=== PATIENT | female | born 1970 | race Caucasian/White ===

== ENCOUNTER 2017-12-28 08:45 | Emergency (ER) | payer MEDICAID, SELFPAY ==
[2017-12-28 08:48] VITALS: BP 136/84; PULSE 60; RESP 18; TEMP 36.6; O2SAT 100; BMI 43.0
--- NOTE | 2017-12-28 09:00 | ED.VISSUMM ---
- ER Visit Summary Date of Service: 12/28/17 Chief Complaint: Atraumatic right lower leg wound History of Present Illness: The patient is a 47 F years ago and injured her right lower leg. From time to time has recurrence of an open sore. Patient states that she has varicose veins and sometimes poor circulation in the lower extremity. She states she has been working and stands a lot during the day and over the last month has had a sore open up on her mid lower leg. She denies any drainage or fever. There is redness and is painful. She denies any pus. Physical Examination: H EENT is unremarkable. Neck nontender. Lungs clear to auscultation bilaterally. Heart regular rate and rhythm no murmur. Abdomen is obese but soft and nontender. Normal bowel sounds. She is moving all 4 extremities. They are neurovascularly intact. She has varicose veins in both lower extremities. She has equal symmetrical palpable DP pulses. Dorsi and plantar flexion is intact. Her right lower leg in the mid tibia region there is a quarter sized wound. Surrounded with about 1-2 inches of redness. It is tender to palpation. There is no lymphangitic streaking. At this time currently there is no discharge and the wound appears to be dry. Calves are nontender without cords. No edema. Neurologically she is awake and alert moving all Test Results: Patient's blood sugar is Emergency Department Course and Treatment: [] Treatment Plan: She will be placed on Keflex 500 mg 4 times daily for 10 days. She has no primary care physician is new to the area. She will be referred to both the [facility] or Dr. Isai Cruz which are when she can get into easier. Disposition: Discharge Impression: Acute right lower leg skin sore Venous insufficiency This note was generated with [employer] dictation software. It may contain incorrect words, spelling, and punctuation that were not noted in review of the chart prior to signing ED Disposition - Plan for ED Patient: Chief Complaint: Lower Extremity Injury
--- NOTE | 2017-12-28 09:03 | ED.DEP ---
ED Disposition - Plan for ED Patient: Disposition: Home or Assisted Living Chief Complaint: Lower Extremity Injury Instructions: Wound Care Prescriptions: Cephalexin [Keflex] 500 mg PO Q6 #40 cap Referrals: Dianelys Hu [NON-STAFF] - As soon as possible José Luis Cruz MD [STAFF PHYSICIAN] - As soon as possible Additional Instructions: Keflex which is an antibiotic 1 pill 4 times a day till gone. Keep wound clean. Call follow-up with either the [facility] or Dr. Isai Cruz.
[2017-12-28 09:31] LABS: Bedside Glucose 96 mg/dL (70-110)
[2017-12-28 09:48] VITALS: BP 119/74; PULSE 59; RESP 16; O2SAT 98
== END 2017-12-28 09:48 | disposition home or self-care (01) ==
LOC: ED 09:26
PROVIDERS: Emergency Provider Emergency Medicine
DX: L98.9 Disorder of the skin and subcutaneous tissue, unspecified (principal); I87.2 Venous insufficiency (chronic) (peripheral); I87.8 Other specified disorders of veins
CPT/HCPCS: 82962; 99283

== ENCOUNTER 2018-02-02 10:25 | Outpatient (RCR) | payer MEDICAID, SELFPAY | END 2018-02-05 23:59 | LOC: WC 10:25 | PROVIDERS: Family Provider Internal Medicine; PCP Internal Medicine; Visit Provider Internal Medicine | DX: Z09 Encounter for follow-up examination after completed treatment for conditions other than malignant neoplasm (principal) ==

== ENCOUNTER 2018-02-09 08:00 | Outpatient (RCR) | payer MEDICAID, SELFPAY ==
[2018-02-09 08:32] VITALS: BP 117/63; PULSE 77; RESP 18; TEMP 36.4; BMI 38.2
--- NOTE | 2018-02-09 09:18 | PCM.WC.HP ---
(1) Ulcer of right lower extremity with fat layer exposed Status: Acute Current Visit: Yes Code(s): L97.912 - Non-pressure chronic ulcer of unspecified part of right lower leg with fat layer exposed (2) Pain in right lower leg Status: Acute Current Visit: Yes Code(s): M79.661 - Pain in right lower leg (3) Lower extremity edema Status: Acute Current Visit: Yes Code(s): R60.0 - Localized edema (4) PVD (peripheral vascular disease) Status: Suspected Current Visit: Yes Code(s): I73.9 - Peripheral vascular disease, unspecified (5) Malnutrition Status: Acute Current Visit: Yes Code(s): E46 - Unspecified protein-calorie malnutrition (6) Delayed wound healing Status: Acute Current Visit: Yes Code(s): T14.8XXD - Other injury of unspecified body region, subsequent encounter (7) Obesity Status: Acute Current Visit: Yes Code(s): E66.9 - Obesity, unspecified History of Present Illness Chief Complaint: right lower leg ulcer History of Wound: This 47-year-old female was referred to the wound healing center for a chronic nonhealing right lower extremity ulcer. She says she injured the approximate area about 20 years ago when she bumped it on an air conditioner she is since healed. She recently moved up from [place] with her autistic son. She has a job at [employer] where she stands on her feet all day and she says that about 4 months ago she noticed her legs slightly swelling and the ulcer started to form. She says this is stated about the same for the last few months. She denies any pus to the area. She does admit to starting a few different prescriptions for antibiotics, but admits that she does not always remember to take them and has not finished the prescriptions. She has also been seeing internal medicine at [facility] for this issue and they have been having the patient placed Santyl over the area. She says that she has not been applying the Santyl as she is supposed to on a daily basis and says that she has been somewhat noncompliant in her treatment so far because she is so busy with her autistic son. She has already had to leave to previous appointments. Patient also says she has bad mesh in her abdomen that was placed previously for an umbilical hernia and she is also seeing another doctor later on today for this issue. She currently denies any feelings of nausea, vomiting, fever, chills. Past Medical History Allergies/Adverse Reactions: Allergies naproxen [From Aleve] Allergy (Verified 12/28/17 08:50) Shortness of breath Home Medications: Ambulatory Orders Medication Instructions Recorded Cephalexin [Keflex] 500 mg PO Q6 #40 cap 12/28/17 Smoking Status: Never smoker Review of Systems Constitutional: Denies: Chills, Fever, Weight Change Cardiovascular: Denies: Chest Pain, Palpitations Respiratory: Denies: Cough, Shortness of Breath Gastrointestinal: Denies: Diarrhea, Nausea, Vomiting Musculoskeletal: Reports: Leg Pain Skin: Reports: - - Physical Exam Vital Signs Temp Pulse Resp BP 97.5 F L 77 18 117/63 02/09/18 08:32 02/09/18 08:32 02/09/18 08:32 02/09/18 08:32 General: Alert, Oriented x3, Cooperative, No apparent distress Extremities: No cyanosis, Capillary Refill Less than 3 Seconds - To distal digits, No Calf Tenderness - Negative Sherice and Trotter sign, Diminished Peripheral Pulses - Palpable DP pulse and faintly palpable PT pulse, Edema - Bilateral lower extremity edema Skin: Ulcer/ Wound - Ulcer noted with fat layer exposed to the right lower leg with measurements noted below. The base is a mixture of adherent slough, fibrin, granular tissue, hyperkeratotic tissue/eschar. There is no purulence, no significant surrounding cellulitis, no increase in warmth, no probing to bone, no tracking, no undermining. Wound Measurements and Assessment WC - Nurse 1 - General Ulcer Measurement Start: 02/08/18 15:20 Freq: Status: Active Protocol: Activity Type Activity Date Activity User E-Sign Co-Sign Detail Recorded Client Recorded Date Recorded By Document 02/09/18 08:32 [id number] 02/09/18 08:40 02/09/18 08:32 Wound Center Nurse 1 [Ulcer Assessment] #1 RIGHT SIMON -Combined with other wound No -Current Size (cm) - Length 1.7 -Current Size (cm) - Width 2.6 -Current Size (cm) - Depth 0.1 -Total Square Cm 4.42 -Date of Last Picture (Recall this 02/09/18 field) -Photo Taken Yes -Epithelialization None Present -Tunneling No -Undermining/Tunneling No -Circular Undermining No -Exudate Amt None Present (0 %) -Wound Margin Thickened -Granulation Amt None Present (0 %) -Granulation Quality N/A -Slough/Fibrin No -Necrosis Amt None Present (0 %) -Necrotic Tissue Type Eschar -Structure Exposed None/Limited to Skin Breakdown -Texture (Sugar-wound Skin Appearance) Localized Edema -Moisture (Sugar-wound Skin Appearance No Abnormality ) Assessed -Color (Sugar-wound Skin Appearance) Assessed Erythema -Temperature (Sugar-wound Skin No Abnormality Appearance) (Pt Warm) -Tenderness on Palpation (Sugar-wound Yes Skin Appearance) -Ulcer Cleansing Rinsed/ Irrigated with Saline -Foul Odor after Cleansing No -Anesthetic Used 4% Lidocaine Solution [Edema Assessment] -Lower Limb Edema Present No -Right Calf (cm) 44.5 -Right Ankle (cm) 25 -Left Calf (cm) 46 -Left Ankle (cm) 24 WC - Nurse 2 - General Ulcer CM Notes Start: 02/08/18 15:20 Freq: Status: Active Protocol: Activity Type Activity Date Activity User E-Sign Co-Sign Detail Recorded Client Recorded Date Recorded By Document 02/09/18 09:05 DV [id number] 02/09/18 09:14 DV 02/09/18 09:05 Wound Center Nurse 2 [Procedure/Treatment] #1 RIGHT SIMON -Time 09:05 -Correct Patient Yes -Correct Side, Site, Position Yes -Correct Procedure Yes -Procedure Performed Yes -Type of Procedure Debridement -Clinical Debridement Subcutaneous -Post Debridement Size (cm) - Length 1.6 -Post Debridement Size (cm) - Width 2.5 -Post Debridement Size (cm) - Depth 0.2 -Total Square Cm 4.00 -Wound/Ulcer Outcome Not Healed -Ulcer Cleansing Rinsed/ Irrigated with Saline -Foul Odor after Cleansing No -Bioengineered Tissue No -Bleeding Controlled with Pressure -Treatment Response Procedure Tolerated Well [See Physician Procedure note for Specifics] Pain Scale: 0-10 Numeric [Pain] -Is Patient Pain Free? No Musculoskeletal: Tenderness - With manipulation of ulcer site Neurological: Sensory exam intact to light touch and pain Psych/Mental Status: Normal Affect, Appropriate Debridement Note Post-Debridement Measurements/Treatment WC - Nurse 2 - General Ulcer CM Notes Start: 10/03/18 15:20 Freq: Status: Active Protocol: Activity Type Activity Date Activity User E-Sign Co-Sign Detail Recorded Client Recorded Date Recorded By Document 02/09/18 09:05 DV [id number] 02/09/18 09:14 DV 02/09/18 09:05 Wound Center Nurse 2 #1 RIGHT SIMON -Time 09:05 -Correct Patient Yes -Correct Side, Site, Position Yes -Correct Procedure Yes -Procedure Performed Yes -Type of Procedure Debridement -Clinical Debridement Subcutaneous -Post Debridement Size (cm) - Length 1.6 -Post Debridement Size (cm) - Width 2.5 -Post Debridement Size (cm) - Depth 0.2 -Total Square Cm 4.00 -Wound/Ulcer Outcome Not Healed -Ulcer Cleansing Rinsed/ Irrigated with Saline -Foul Odor after Cleansing No -Bioengineered Tissue No -Bleeding Controlled with Pressure -Treatment Response Procedure Tolerated Well Pain Scale: 0-10 Numeric Is Patient Pain Free? No Wound debrided: Right lower leg Laterality: Right Type of Debridement: Excisional debridement Anesthesia Used: 4% Lidocaine Solution Depth: in the subcutaneous layer Percentage of wound debrided: 100 Instrument Used: 5mm curette Tissue Removed: Adherent slough, fibrin, hyperkeratotic tissue, eschar Severity: Fat Layer Exposed Amount of bleeding with debridement: Mild Bleeding Controlled with: Pressure Patient tolerated procedure well Assessment/Plan Active Problems Ulcer of right lower extremity with fat layer exposed (Acute) Pain in right lower leg (Acute) Lower extremity edema (Acute) Malnutrition (Acute) Delayed wound healing (Acute) Obesity (Acute) Assessment: Ulcer right lower extremity. Pain right lower extremity. Edema right lower extremity. Obesity. Other comorbidities Plan: Initial patient examination and evaluation was performed. A subcutaneous debridement was then performed as noted in the clinical panel. Once complete, Santyl was applied to the ulcer base followed by a sterile dressing and Tubigrip for compression. Patient was instructed to change her dressing in this manner daily. She was shown exactly the correct way to apply the the dressing as well as the Santyl. The importance of compliance was stressed in great detail today to the patient, including the importance of changing her dressing daily as well as keeping compression to the areas, and why this is so important. She was instructed to keep the area offloaded and keep pressure away from the area while its healing. Patient is picking up an antibiotic from her internal medicine doctor and will begin taking that today. Cultures were taken and sent for aerobic, anaerobic, and MRSA PCR evaluation. We will monitor for these results and tailor the patient's antibiotic as needed. Patient says she recently had blood work taken at the [facility] and we will have this faxed over to the wound center and evaluate. LEAS and venous Doppler exams were ordered and the results will be reviewed once they are made available. Dressing supplies were ordered for this patient. I recommend a diet high in protein to help optimize ulcer healing potential. The patient was educated on all signs and symptoms of local and systemic infection and she is to go to the emergency room immediately should she notice any of these. This patient has been noncompliant in the past and compliance was again stressed today with this patient. All other questions were answered to the patient's satisfaction. The patient will follow-up in clinic in 1 week to check on progress, or sooner if needed.
[2018-02-09 19:18] LABS: M R Staph aureus DNA By PCR Negative (Negative); Probe Check PASS; Specimen Processing Control PASS; Staph aureus DNA By PCR NEGATIVE (Negative)
== END 2018-03-08 23:59 ==
LOC: WC 08:00
PROVIDERS: Internal Medicine; Family Provider Internal Medicine; PCP Internal Medicine; Visit Provider Podiatrist
DX: I73.9 Peripheral vascular disease, unspecified (principal); R60.0 Localized edema; L97.812 Non-pressure chronic ulcer of other part of right lower leg with fat layer exposed; E66.9 Obesity, unspecified; Z71.3 Dietary counseling and surveillance; M79.89 Other specified soft tissue disorders; Z91.19 Patient's noncompliance with other medical treatment and regimen
CPT/HCPCS: 11042; 87070; 87075; 87077; 87186; 87205; 87640; 99213; G0463

== ENCOUNTER 2018-05-16 11:16 | Emergency (ER) | payer MEDICAID, SELFPAY ==
[2018-05-16 11:16] VITALS: BP 165/108; PULSE 78; RESP 16; TEMP 36.1; O2SAT 100; BMI 43.0
--- NOTE | 2018-05-16 11:37 | ED.VISSUMM ---
- ER Visit Summary Date of Service: 05/16/18 Chief Complaint: Wound check History of Present Illness: The patient is a 47 F with a chronic right lower extremity wound, she has seen the wound clinic, she is presenting with worsening redness around the wound. No diabetes no fever chills no other infection. Pain is minimal. Physical Examination: Otherwise unremarkable exam see template. Lower extremity shows a 5 cm wound with a scab over it. There is very slight surrounding erythema. No lymphangitic streaking. No calf tenderness. Emergency Department Course and Treatment: [Patient will be placed on clindamycin and followed up with wound center. Disposition: Discharge stable condition Impression: Right lower extremity cellulitis This note was generated with [employer] dictation software. It may contain incorrect words, spelling, and punctuation that were not noted in review of the chart prior to signing ED Disposition - Plan for ED Patient: Disposition: Home or Assisted Living Chief Complaint: Lower Extremity Injury Instructions: Cellulitis - Causes,Symptoms,Treating Prescriptions: Clindamycin [Cleocin] 150 mg PO 4X/DAY #80 cap Referrals: Belle Lara MD [Primary Care Provider] -
--- NOTE | 2018-05-16 11:40 | ED.DCSUM_ITS ---
- ER Visit Summary Date of Service: 05/16/18 Chief Complaint: Wound check History of Present Illness: The patient is a 47 F with a chronic right lower extremity wound, she has seen the wound clinic, she is presenting with worsening redness around the wound. No diabetes no fever chills no other infection. Pain is minimal. Physical Examination: Otherwise unremarkable exam see template. Lower extremity shows a 5 cm wound with a scab over it. There is very slight surrounding erythema. No lymphangitic streaking. No calf tenderness. Emergency Department Course and Treatment: [Patient will be placed on clindamycin and followed up with wound center. Disposition: Discharge stable condition Impression: Right lower extremity cellulitis This note was generated with [employer] dictation software. It may contain incorrect words, spelling, and punctuation that were not noted in review of the chart prior to signing ED Disposition - Plan for ED Patient: Disposition: Home or Assisted Living Chief Complaint: Lower Extremity Injury Instructions: Cellulitis - Causes,Symptoms,Treating Prescriptions: Clindamycin [Cleocin] 150 mg PO 4X/DAY #80 cap Referrals: Belle Lara MD [Primary Care Provider] -
[2018-05-16] MEDS: Clindamycin HCl 150 MG Capsule 300 MG PO (11:53)
== END 2018-05-16 12:02 | disposition home or self-care (01) ==
LOC: ED 11:46
PROVIDERS: Emergency Provider Emergency Medicine; Family Provider Internal Medicine; PCP Internal Medicine
DX: L03.115 Cellulitis of right lower limb (principal)
CPT/HCPCS: 99283

== ENCOUNTER 2018-08-19 16:48 | Emergency (ER) | payer MEDICAID, SELFPAY ==
[2018-08-19 16:50] VITALS: BP 159/66; PULSE 91; RESP 16; TEMP 36.8; O2SAT 98; BMI 47.1
--- NOTE | 2018-08-19 17:01 | ED.VIS.GEN ---
History of Present Illness Chief Complaint: Wound Check Past Medical History - Allergies and Home Meds Allergies/Adverse Reactions: Allergies naproxen [From Aleve] Allergy (Verified 08/19/18 16:52) Shortness of breath Primary Care Physician: Belle Lara MD [Primary Care Provider] - Smoking Status: Former smoker Physical Exam Vital Signs/Narrative: Vital Signs Temp Pulse Resp BP Pulse Ox 08/19/18 16:50 98.2 F 91 16 159/66 H 98 ED Disposition - Plan for ED Patient: Referrals: Belle Lara MD [Primary Care Provider] -
--- NOTE | 2018-08-19 17:01 | ED.DEP ---
ED Disposition - Plan for ED Patient: Instructions: ED Burn Wound Check No Infec Prescriptions: Naproxen [Naprosyn] 500 mg PO BID PRN #20 tab Referrals: Belle Lara MD [Primary Care Provider] -
--- NOTE | 2018-08-19 17:03 | ED.VISSUMM ---
- ER Visit Summary Date of Service: 08/19/18 Chief Complaint: [] Chronic wound right leg for possibly a year History of Present Illness: The patient is a 47 F [] a chronic wound to the right anterior poon for over 10 months possibly a year she has been seen this multiple times including at the [facility] wound care center she indicates she had some type of conflict with them so she cannot be seen there she then stopped following up with anyone, then she recently saw her primary care physicians outpatient providers who started her on Keflex and feqm-jib-jwaunco pain medication medications made her plan to be seen by the [facility] wound care center on Tuesday, there is really been no change in the wound it is about a 2 cm circular diameter area she is taking the Keflex she has no known history of DVT peripheral vascular disease or MR MRSA, she does have a large body habitus and chronic lower extremity edema that she indicates has been complicating her wound healing, the initial wound developed when she bumped her leg and suffered laceration or abrasion She also indicates to me that she is tired of going to the doctors she does not really want anybody to touch the wound she does not really want any specific therapy it is almost as if she would wish the wound would heal on its own and I explained her that is unlikely and to date that has not happened So basically the wound is unchanged for many months she is taking antibiotics she is dissatisfied with the pain control her physicians prescribed for her when she saw them recently which include only lrhs-gxa-flfzyih medications and she wants something stronger, I explained her that given she has multiple outpatient providers the emergency department can really not change her pain management options, Physical Examination: [] Vital signs are within normal range she is afebrile General, no distress resting comfortably BMI almost 50 HEENT is generally unremarkable The neck is supple no adenopathy Cardiovascular, regular rate and rhythm Lungs, clear bilateral Abdomen, soft nontender Extremities, bi edema mild to the right lower leg is a 2 cm circular area to the lower poon that has some granulation tissue to it there is minimal surrounding redness that she states is on change is no drainage or odor there is no crepitance or fluctuance, the edema is symmetric in bilateral there is no signs of neurovascular abnormality or deficiency her blood flow to both lower extremities appears normal and symmetric with good capillary refill Neurologic, awake alert answering questions appropriately moving all 4 extremities Test Results: [] Emergency Department Course and Treatment: [] Had a long conversation with her and I have been able to ascertain that this wound is really unchanged she has not followed up as instructed, she simply wants her pain management updated, at this time she will given Toradol IM one [place] tablet will change her to Naprosyn 500 twice daily and she will see the wound management team at [facility] for further options regarding her care and pain management, I explained to the given the chronic nature of this wound she may require things such as skin grafting etc. and she can not simply continue to ignore the wound Treatment Plan: [] Disposition: [] Stable home Impression: [] Acute recurrent pain, chronic right lower extremity wound with poor healing noncompliance This note was generated with [employer] dictation software. It may contain incorrect words, spelling, and punctuation that were not noted in review of the chart prior to signing ED Disposition - Plan for ED Patient: Instructions: ED Burn Wound Check No Infec Prescriptions: Naproxen [Naprosyn] 500 mg PO BID PRN #20 tab Referrals: Belle Lara MD [Primary Care Provider] -
--- NOTE | 2018-08-19 17:08 | ED.DCSUM_ITS ---
- ER Visit Summary Date of Service: 08/19/18 Chief Complaint: [] Chronic wound right leg for possibly a year History of Present Illness: The patient is a 47 F [] a chronic wound to the right anterior poon for over 10 months possibly a year she has been seen this multiple times including at the [facility] wound care center she indicates she had some type of conflict with them so she cannot be seen there she then stopped following up with anyone, then she recently saw her primary care physicians outpatient providers who started her on Keflex and zrrs-lqi-[id number] pain medication medications made her plan to be seen by the [facility] wound care center on Tuesday, there is really been no change in the wound it is about a 2 cm circular diameter area she is taking the Keflex she has no known history of DVT peripheral vascular disease or MR MRSA, she does have a large body habitus and chronic lower extremity edema that she indicates has been complicating her wound healing, the initial wound developed when she bumped her leg and suffered laceration or abrasion She also indicates to me that she is tired of going to the doctors she does not really want anybody to touch the wound she does not really want any specific therapy it is almost as if she would wish the wound would heal on its own and I explained her that is unlikely and to date that has not happened So basically the wound is unchanged for many months she is taking antibiotics she is dissatisfied with the pain control her physicians prescribed for her when she saw them recently which include only ujcy-ecc-xugjmpu medications and she wants something stronger, I explained her that given she has multiple outpatient providers the emergency department can really not change her pain management options, Physical Examination: [] Vital signs are within normal range she is afebrile General, no distress resting comfortably BMI almost 50 HEENT is generally unremarkable The neck is supple no adenopathy Cardiovascular, regular rate and rhythm Lungs, clear bilateral Abdomen, soft nontender Extremities, bi edema mild to the right lower leg is a 2 cm circular area to the lower poon that has some granulation tissue to it there is minimal surrounding redness that she states is on change is no drainage or odor there is no crepitance or fluctuance, the edema is symmetric in bilateral there is no signs of neurovascular abnormality or deficiency her blood flow to both lower extremities appears normal and symmetric with good capillary refill Neurologic, awake alert answering questions appropriately moving all 4 extremities Test Results: [] Emergency Department Course and Treatment: [] Had a long conversation with her and I have been able to ascertain that this wound is really unchanged she has not followed up as instructed, she simply wants her pain management updated, at this time she will given Toradol IM one [place] tablet will change her to Naprosyn 500 twice daily and she will see the wound management team at [facility] for further options regarding her care and pain management, I explained to the given the chronic nature of this wound she may require things such as skin grafting etc. and she can not simply continue to ignore the wound Treatment Plan: [] Disposition: [] Stable home Impression: [] Acute recurrent pain, chronic right lower extremity wound with poor healing noncompliance This note was generated with [employer] dictation software. It may contain incorrect words, spelling, and punctuation that were not noted in review of the chart prior to signing ED Disposition - Plan for ED Patient: Instructions: ED Burn Wound Check No Infec Prescriptions: Naproxen [Naprosyn] 500 mg PO BID PRN #20 tab Referrals: Belle Lara MD [Primary Care Provider] -
[2018-08-19] MEDS: HYDROcodone Bitartrate/Apap 5/325 Tablet PO (17:13)
--- NOTE | 2018-08-19 17:13 | ED.DEP ---
ED Disposition - Plan for ED Patient: Instructions: ED Burn Wound Check No Infec Referrals: Belle Lara MD [Primary Care Provider] -
--- NOTE | 2018-08-19 17:31 | ED.RN ---
DISCHARGE INSTRUCTIONS GIVEN TO AND REVIEWED WITH PATIENT, PATIENT DENIES QUESTIONS OR CONCERNS AND VOICES UNDERSTANDING OF DISCHARGE INSTRUCTIONS. PT AMBULATES OUT OF ROOM WITHOUT DIFFICULTY.
== END 2018-08-19 17:31 | disposition home or self-care (01) ==
LOC: ED 17:05
PROVIDERS: Emergency Provider Emergency Medicine; Family Provider Internal Medicine; PCP Internal Medicine
DX: S81.801A Unspecified open wound, right lower leg, initial encounter (principal); M79.661 Pain in right lower leg; E66.9 Obesity, unspecified; Z91.19 Patient's noncompliance with other medical treatment and regimen; Z68.43 Body mass index [BMI] 50.0-59.9, adult; Z79.2 Long term (current) use of antibiotics; X58.XXXA Exposure to other specified factors, initial encounter; Y93.9 Activity, unspecified; Y92.89 Other specified places as the place of occurrence of the external cause; Y99.8 Other external cause status
CPT/HCPCS: 99283

== ENCOUNTER 2019-01-28 14:30 | Emergency (ER) | payer MEDICAID, SELFPAY ==
[2019-01-28 14:31] VITALS: BP 143/78; PULSE 89; RESP 16; TEMP 36.7; O2SAT 98; BMI 46.1
[2019-01-28 15:13] VITALS: BP 143/78; PULSE 89; RESP 16; TEMP 36.7; O2SAT 98
[2019-01-28] MEDS: HYDROcodone Bitartrate/Apap 5/325 Tablet PO (15:50)
[2019-01-28 17:10] LABS: Bedside Glucose 81 mg/dL (70-110)
--- NOTE | 2019-01-28 17:11 | ED.VIS.GEN ---
History of Present Illness Informant: Patient Onset: - - ONE YEAR Context: Gradual Onset Timing: Continuous Current Severity: Moderate Maximum Severity: Moderate Worsened by: Nothing Relieved by: Nothing Associated Symptoms: Denies fever or chills. She has developed new wounds to her buttock, lEFT Narrative: Babita is a 48-year-old female has a chronic venous stasis ulcer to right lower extremity for over 1 year. She is not been seeing wound care for some time. She developed 2 new lesions near that become red and swollen. She has a 3 cm cutaneous abscess to her right lateral thigh with surrounding cellulitis. There is a tiny less than half a centimeter developing cutaneous abscess to her right buttock that is not fluctuant. There is minimal surrounding inflammation and induration. On her right ring finger there is a minimally developing paronychial infection. There is no evidence of felon. She describes a recent intra-nasal pimple that was irritated but has resolved. She denies fever chills or feeling ill. Prior similar symptoms: Yes Recent Illness/Hospitalization: No <Gala Grayson - Last Filed: 01/28/19 17:11> <Ashley Hill - Last Filed: 01/29/19 01:08> Chief Complaint: Wound Check Past Medical History Prior records reviewed: Yes Past Medical History: - - Chronic venous stasis Surgical History: no surgical history Lives: With Family Smoking Status: Never smoker Alcohol: None Drugs: None <Gala Grayson - Last Filed: 01/28/19 17:11> <Ashley Hill - Last Filed: 01/29/19 01:08> - Allergies and Home Meds Allergies/Adverse Reactions: Allergies naproxen [From Aleve] Allergy (Verified 01/28/19 14:35) Shortness of breath Primary Care Physician: Belle Lara MD [Primary Care Provider] - Review of Systems All systems negative except as indicated General: Denies: Chills, Fever Eyes: Denies: Visual changes - bilaterally, Blurred Vision - bilaterally ENT: Denies: Bilateral ear pain, Rhinorrhea, Sore throat Cardiovascular: Denies: Chest pain, Palpitations, Heart racing Respiratory: Denies: Dyspnea, Cough, Sputum Gastrointestinal: Denies: Nausea, Vomiting Genitourinary: Denies: Dysuria, Hematuria Musculoskeletal: Denies: Myalgias, Arthralgias Skin: Reports: Abscess. Denies: Rash, Abrasions Neurological: Denies: Headache, Weakness, Parasthesia <Gala Grayson - Last Filed: 01/28/19 17:11> Physical Exam Vital Signs/Narrative: Vital Signs Temp Pulse Resp BP Pulse Ox 01/28/19 15:13 98.1 F 89 16 143/78 H 98 01/28/19 14:31 98.1 F 89 16 143/78 H 98 Inital Vital Signs reviewed: Yes General: Well nourished, Well developed Head: Normocephalic, Atraumatic Eyes: Perrl, EOMI. Negative for: Pale conjunctiva ENT: Moist mucous membranes, No rhinorrhea, - - No evidence of intranasal abscess Neck: Supple, Nontender, No lymphadenopathy Cardiovascular: Regular rate, Regular rhythm, No murmurs Respiratory: No distress, CTA bilaterally, Chest nontender Abdomen: Soft, Nontender, Nondistended Back: Nontender, Normal Inspection. Negative for: CVA tenderness Extremities: Tenderness, Edema, - - There is a tiny irritation of the paronychia of the left ring finger. Fluctuants not present. 3 cm fluctuant cutaneous abscess with surrounding cellulitis to the upper right lateral thigh. Less than half a centimeter folliculitis to the right buttock without induration. Chronic venous stasis ulcer to the right lower extremity with 2 surrounding smaller less chronic venous ulcerations. There is surrounding erythema concerning for cellulitis. Distal MSP is intact. No posterior calf tenderness or cords palpated. Lymphangitic streak was noted.. Negative for: Calf Tenderness Skin: Normal color Psychological: Normal affect, Normal Mood <Gala Grayson - Last Filed: 01/28/19 17:11> Diagnostic/Tx/Re-eval - Medical Decision Making The right lateral thigh cutaneous abscess was anesthetized with 1% lidocaine with epinephrine. Good anesthesia was obtained. A 11 blade was used to make a 1 1/2 cm incision. Loculations were broken. Purulent drainage was expressed. The abscess was irrigated. He tolerated procedure well. Wound care per nursing staff. PTT was 81. She has no symptoms of hyperglycemia. She has multiple skin lesions and concern for intranasal abscess that is resolved. She will be placed on Bactroban intranasal treatment as well as Bactroban applied to her wound. She is treated with doxycycline, and a few [place] for pain. She is encouraged to follow-up with wound care and will continue to address her lower leg extremity. She understands return for fever chills or feeling worse. She remained hemodynamically stable and nontoxic in appearance. She was discharged in stable condition. <Gala Grayson - Last Filed: 01/28/19 17:11> - Medical Decision Making Patient was seen and evaluated with the nurse practitioner. Patient presents with multiple small cutaneous abscesses. Right thigh wound was cleansed and I&D performed. Patient is given Bactroban as well as doxycycline. <Ashley Hill - Last Filed: 01/29/19 01:08> ED Disposition <Judyana paulajoanaGala - Last Filed: 01/28/19 17:11> <Ashley Hill - Last Filed: 01/29/19 01:08> - Plan for ED Patient: Disposition: Home or Assisted Living Diagnosis: Delayed wound healing, Abscess Instructions: ABSCESS, Incision and Drainage Prescriptions: Mupirocin Calcium [Bactroban] 15 gm TP BID #1 cream..g. Prescription Printed Mupirocin Calcium [Bactroban Nasal] 0.5 gm NS BID 5 Days #1 oint...g. Prescription Printed Hydrocodone/Acetaminophen [[place] 5-325 Tablet] 1 ea PO Q8H PRN PRN 2 Days #6 tab PRN Reason: Pain Prescription Printed Doxycycline [Vibramycin] 100 mg PO BID 7 Days #14 cap Prescription Printed Referrals: Belle Lara MD [Primary Care Provider] -
[2019-01-28 17:14] VITALS: BP 124/77; PULSE 74; RESP 18; TEMP 36.6; O2SAT 99
[2019-01-28] MEDS: Ondansetron ODT 4 MG Tablet PO (17:46)
[2019-01-28] MEDS: Doxycycline 100 MG CAPSULE PO (17:46)
[2019-01-28 17:49] VITALS: PULSE 81; RESP 18; O2SAT 98
== END 2019-01-28 17:50 | disposition home or self-care (01) ==
PROVIDERS: Emergency Provider Nurse Practitioner; Family Provider Internal Medicine; PCP Internal Medicine
DX: L02.415 Cutaneous abscess of right lower limb (principal); I87.8 Other specified disorders of veins
CPT/HCPCS: 10060; 82962; 99283

== ENCOUNTER 2019-04-03 17:09 | Emergency (ER) | payer MEDICAID, SELFPAY ==
[2019-04-03 17:09] VITALS: BP 140/97; PULSE 72; RESP 16; TEMP 36.6; O2SAT 100; BMI 47.6
--- NOTE | 2019-04-03 17:37 | ED.VIS.GEN ---
History of Present Illness Chief Complaint: Wound Check Narrative: Patient presenting for a wound check. Patient has a chronic unhealing ulcer on her right leg. Patient has been seeing the [facility] wound center for this and been doing dressing changes. Patient was on a course of antibiotics early in the month, but feels that that did not change the appearance of her wound. Patient is now out of her wound care supplies, and states that she is having enough drainage that is causing discomfort of the wound. She denies any constitutional symptoms such as fevers. Review of systems otherwise negative. Past Medical History - Allergies and Home Meds Allergies/Adverse Reactions: Allergies naproxen [From Aleve] Allergy (Verified 04/03/19 17:11) Shortness of breath Primary Care Physician: Belle Lara MD [Primary Care Provider] - Past Medical History: - - Obesity and peripheral vascular disease Surgical History: no surgical history Smoking Status: Never smoker Review of Systems All systems negative except as indicated General: Denies: Chills, Fever, Sweats Eyes: Denies: Visual changes - bilaterally, Diplopia ENT: Denies: Rhinorrhea, Sore throat Cardiovascular: Denies: Chest pain, Palpitations Respiratory: Denies: Dyspnea, Cough, Dyspnea on exertion Gastrointestinal: Denies: Abdominal pain, Nausea, Vomiting, Diarrhea, Melena, Hematochezia Genitourinary: Denies: Dysuria, Hematuria, Frequency Musculoskeletal: Denies: Back pain, Extremity Pain Skin: Reports: Wounds Neurological: Denies: Headache, Weakness, Numbness Physical Exam Vital Signs/Narrative: Vital Signs Temp Pulse Resp BP Pulse Ox 04/03/19 17:09 98 F 72 16 140/97 H 100 Inital Vital Signs reviewed: Yes General: Obese Head: Normocephalic Eyes: EOMI ENT: Moist mucous membranes Cardiovascular: Regular rate, Regular rhythm Respiratory: No distress Extremities: - - Lower extremity exam demonstrates chronic nonhealing ulcers of the anterior portion of the patient's right poon. There are discrete ulcers that have granulation tissue underneath them. There is mildly excoriated skin surrounding this, but no evidence of cellulitis erythema lymphangitic streaking or subcutaneous emphysema. Neurological: Alert, Oriented x3 Diagnostic/Tx/Re-eval - Medical Decision Making Patient presented with chronic leg wounds. I do not feel that these have a presentation of infection at this time. Patient will have her wounds addressed in the emergency department, will be sent home with a couple of supplies for dressing changes, and was instructed to follow-up with the wound care office. ED Disposition - Plan for ED Patient: Disposition: Home or Assisted Living Diagnosis: Chronic wound of extremity Instructions: POST OP WOUND CHECK, General Prescriptions: Ibuprofen 800 mg PO TID #30 tab Prescription Printed Additional Instructions: F/u at the wound clinic
[2019-04-03] MEDS: Ibuprofen 400 MG Tablet 800 MG PO (18:02)
== END 2019-04-03 18:11 | disposition home or self-care (01) ==
LOC: ED 18:07
PROVIDERS: Emergency Provider Emergency Medicine; Family Provider Internal Medicine; PCP Internal Medicine
DX: S81.809A Unspecified open wound, unspecified lower leg, initial encounter (principal); M79.606 Pain in leg, unspecified
CPT/HCPCS: 99283

== ENCOUNTER 2019-05-14 07:37 | Emergency (ER) | payer MEDICAID, SELFPAY ==
[2019-05-14 07:38] VITALS: BP 173/88; PULSE 76; RESP 17; TEMP 36.8; O2SAT 100; BMI 47.0
--- NOTE | 2019-05-14 07:50 | ED.DCSUM_ITS ---
- ER Visit Summary Date of Service: 05/14/19 Chief Complaint: Hit leg History of Present Illness: The patient is a 48 F who hit her right lower leg on a coffee table last night. She had severe pain, but it has subsided. She continues to have some pain. She is out of pain medicine. She has wounds to her right lower leg. These are not new. She says that the wounds do not look different. She has follow-up the wound care center later this week. There have been no changes to her wounds, but she is out of her antibiotics. She was on doxycycline previously. Denies any other injuries. Denies any new redness, warmth, or drainage. Denies fevers or systemic symptoms. She is not on blood thinners. Allergic to naproxen. Physical Examination: Hypertensive but otherwise vitals unremarkable. Alert and oriented. No acute distress. Afebrile. Patient has multiple cutaneous ulcers to her right lower leg, poon. No active bleeding. No significant discharge. No significant warmth or redness. She is neurovascular intact distally. No deformities. Good range of motion. Compartments soft. Test Results: None indicated Emergency Department Course and Treatment: Patient's history and exam are not consistent with a fracture. No x-rays were indicated. She will be treated for pain. She may rest, ice, elevate. Patient has multiple cutaneous wounds. These are chronic and not directly related to the injury yesterday. She has follow-up. The wounds have not changed. She is not having any symptoms. I believe this is appropriate for outpatient follow-up, but she was advised to return if she has any changes to the wounds or any other complications. Treatment Plan: As above Disposition: Discharge Impression: 1. Contusion right leg 2. Cutaneous ulcers right leg This note was generated with [employer] software. It may contain incorrect words, spelling, and punctuation that were not noted in review of the chart prior to signing ED Disposition - Plan for ED Patient: Referrals: Belle Lara MD [Primary Care Provider] -
--- NOTE | 2019-05-14 07:54 | ED.DEP ---
ED Disposition - Plan for ED Patient: Instructions: CONTUSION, Lower Extremity Prescriptions: Doxycycline 100 mg PO BID #20 cap Prescription Printed Hydrocodone Bitart/Apap 5-325 [[place] 5MG-325MG] 1 tab PO Q6H PRN PRN 3 Days #12 tab PRN Reason: Pain Prescription Printed Additional Instructions: Follow up with wound care as planned. Return to ER for any complications.
[2019-05-14] MEDS: Doxycycline 100 MG CAPSULE PO (07:59)
== END 2019-05-14 08:08 | disposition home or self-care (01) ==
LOC: ED 08:05
PROVIDERS: Emergency Provider Emergency Medicine; Family Provider Internal Medicine; PCP Internal Medicine
DX: S80.11XA Contusion of right lower leg, initial encounter (principal); L97.919 Non-pressure chronic ulcer of unspecified part of right lower leg with unspecified severity; W22.09XA Striking against other stationary object, initial encounter; Y93.89 Activity, other specified; Y92.008 Other place in unspecified non-institutional (private) residence as the place of occurrence of the external cause; Y99.8 Other external cause status
CPT/HCPCS: 99283

== ENCOUNTER 2019-06-08 16:50 | Inpatient (IN) | payer MEDICAID, SELFPAY ==
[2019-06-08] VITALS (7 sets, daily range): BP systolic 109–150; BP diastolic 52–112; PULSE 88–113; RESP 16–21; TEMP 37.9–39.5; O2SAT 94–100; BMI 48.2; BMI 44.1
[2019-06-08 18:10] LABS: Mucous, Urine 0 SEEN /hpf (<or=2+)
[2019-06-08] MEDS: Acetaminophen 500 MG Tablet 1000 MG PO (18:18)
[2019-06-08] MEDS: Ondansetron 4 MG/2 ML Vial IV (18:18)
[2019-06-08] MEDS: 0.9% Normal Saline 1,000 ML 1000 ML IV (18:18)
[2019-06-08 18:20] LABS: Color, Urine Yellow (Yellow); Glucose, Dipstick Normal (Normal); Ketone-Dipstick 5 mg/dl (Negative); Leukocyte Esterase-Dipstick 25 /ul (Negative); Nitrite-Dipstick Negative (Negative); Occult Blood-Urine 150 /ul (Negative); Protein-Dipstick 100 mg/dl (Negative); Urine Clarity Sl. Cloudy (Clear); Urine Urobilinogen 12 mg/dl (Normal)
[2019-06-08 18:26] LABS: Urine Bilirubin Dipstick 1 mg/dL (Negative)
[2019-06-08 18:28] LABS: Absolute Lymphocyte Count 0.54 X10^3/uL (0.83-4.51); Absolute Neutrophil Count 10.3 X10^3/uL (2.0-7.7); Basophil# 0.02 X10^3/uL; Basophil% 0.2 % (0-1); Eosinophil# 0.02 X10^3/uL; Eosinophils% 0.2 % (0-5); Hematocrit 31.2 % (37-47); Hemoglobin 9.4 g/dL (12.0-15.0); Lymphocyte # 0.54 X10^3/ul (4.0); Lymphocyte % 4.7 % (19-41); Mean Corp Hgb Conc 30.1 g/dL (32-36); Mean Corpuscular Hgb 24.9 pg (27.0-32.0); Mean Corpuscular Volume 82.5 fL (81-99); Mean Platelet Vol. 9.8 fl (6.2-12.0); Monocyte# 0.62 X10^3/uL; Monocyte% 5.4 % (0-10); NRBC Flagged by Analyzer 0 % (0-5); Neutrophil % 88.9 % (47-70); POSITIVE DIFFERENTIAL YES; Platelet Count 259 K/mm3 (150-450); RBC Distribution Width CV 15.5 % (11.6-14.6); RBC Distribution Width SD 46.6 fl (35.1-43.9); Red Blood Count 3.78 M/mm3 (4.2-5.4); White Blood Count 11.6 K/mm3 (4.4-11.0)
[2019-06-08 18:38] LABS: Differential Indicated SCAN CRITERIA MET
[2019-06-08 18:45] LABS: ALB/GLOB Ratio 0.6 RATIO (0.9-2.4); AST(SGOT) 14 U/L (15-37); Alanine Aminotransfer ALT/SGPT 16 U/L (13-56); Albumin, Serum 3.2 g/dL (3.2-5.0); Alkaline Phosphatase 125 U/L (45-117); Anion Gap 6 (5-15); BUN 15 mg/dL (7-18); BUN/Creat Ratio 13.4 RATIO (10-20); Calcium,Total 8.6 mg/dL (8.5-10.1); Chloride 99 mmol/L (98-107); Creatinine, Serum 1.12 mg/dL (0.55-1.02); EST Glomerular Filtration Rate 56 mL/min (>60); Est Glom Filt Rate - Afr Amer 67 mL/min (>60); Estimated Creatinine Clearance 67.87 ml/min; Globulin 5.2 g/dL (2.2-4.2); Glucose 128 mg/dL (74-106); Potassium 3.3 mmol/L (3.5-5.1); Protein, Total 8.4 g/dL (6.4-8.2); Sodium Level 133 mmol/L (136-145)
[2019-06-08 18:48] LABS: Differential Comment SCANNED
[2019-06-08 18:52] LABS: Lactic Acid 1.9 mmol/L (0.4-1.9)
[2019-06-08 18:58] LABS: Bacteria 1+ /hpf (None Seen); Red Blood Cells-Urine 0-5 SEEN /hpf (0-5); Squamous Epithelial Cells - UA 0-5 SEEN /hpf (5-10); White Blood Cells 0-5 SEEN /hpf (0-5)
--- NOTE | 2019-06-08 19:38 | ED.VISSUMM ---
- ER Visit Summary Date of Service: 06/08/19 Chief Complaint: [Fever, vomiting, and diarrhea] History of Present Illness: The patient is a 48 F [presents to the emergency department 2-day history of vomiting and diarrhea. Patient states that she is thrown up about 6 times a day and having 4-5 watery stools. She denies any sick contacts. She denies eating any undercooked foods. Patient also has a chronic wound on the right leg and she is noticed increased redness and warmth to the area. She complains of a headache. She has history of ulcer disease. Patient's had prior and hernia repair.] Physical Examination: [HEENT-PERRLA, EOMI. Cranial nerves II through XII grossly intact. TMs clear. Mucous membranes moist. No adenopathy. Cardiovascular-regular rate and rhythm without murmur or ectopy Lungs-clear to auscultation, chest wall stable without crepitus or subcu emphysema Abdomen-normoactive bowel sounds, soft, nontender, no rebound or rigidity, no peritoneal signs. Extremities-intact ?4, normal range of motion, normal pulses, atraumatic. Right leg-patient has a chronic wound to the anterior aspect of the ankle and anterior tibial region. There is surrounding erythema and cellulitis noted. There are several open areas that have some purulent discharge noted from them.] Test Results: [CBC with differential white 11.6, hemoglobin 9.4, platelets 259. Chemistries unremarkable. BUN was 15 and creatinine 1.12. Lactate was 1.9. LFTs were normal. Urinalysis was unremarkable.] Emergency Department Course and Treatment: [IV line was tablets. Patient had blood cultures ordered. Patient was started empirically on Unasyn.] Treatment Plan: [Admit] Disposition: [Admit] Impression: [Viral gastroenteritis Cellulitis right lower extremity] This note was generated with [employer] dictation software. It may contain incorrect words, spelling, and punctuation that were not noted in review of the chart prior to signing ED Disposition - Plan for ED Patient: Referrals: Belle Lara MD [Primary Care Provider] -
--- NOTE | 2019-06-08 20:07 | HP.PCM_ITS ---
Problem List (1) Chronic anemia Status: Chronic (2) GERD (gastroesophageal reflux disease) Status: Chronic (3) History of non-healing wound Status: Chronic Comment: RLE (4) Lower extremity edema Status: Chronic (5) PVD (peripheral vascular disease) Status: Chronic History of Present Illness Date of Admission: 06/08/19 Chief Complaint: Nausea, vomiting, fever. The patient is a 48 year old F patient with past medical history as mentioned above presented to the emergency room because of fever, nausea and vomiting. Her symptoms started this past Tuesday which is 5 days ago with diarrhea, watery stool, at least 6-7 times a day without blood, associated with nausea, vomiting and fever as well as poor appetite and poor oral intake. Patient was not able to keep anything down to her stomach since Tuesday. She did not take her medication as well. She mentioned that she does have a history of chronic right leg ulcers and she was on doxycycline that she finished around 1 week ago. She complained of increasing right leg erythema and swelling over the last several days, increased drainage from the right leg ulcers she has been having. In the emergency department, patient is febrile, tachycardic, initial blood pressure was elevated but improved, she was tachypneic, pulse ox is maintained on room air. Routine blood work was remarkable for mild leukocytosis, chronic anemia, sodium of 133, potassium 3.3. Lactic acid was normal. Urinalysis revealed cloudy urine, negative for nitrite, there was only 25 leukocyte esterase, 0-5 WBCs and +1 bacteria. She is being admitted for acute diarrheal illness, dehydration, mild hyponatremia with hypokalemia and acute right leg cellulitis with infected nonhealing ulcers on the right leg with sepsis. Past Medical History Past Medical History (Chronic Problems): Chronic Problems (Last Updated 06/08/19 @ 20:01 by Era Gates MD) Chronic anemia (Chronic) GERD (gastroesophageal reflux disease) (Chronic) History of non-healing wound (Chronic) RLE Lower extremity edema (Chronic) PVD (peripheral vascular disease) (Chronic) Medical History: Medical History (Last Updated 06/08/19 @ 20:01 by Era Gates MD) History of non-healing wound (Chronic) RLE Lower extremity edema (Chronic) R60.0 PVD (peripheral vascular disease) (Chronic) I73.9 Delayed wound healing T14.8XXD History of iron deficiency Z86.39 History of vitamin D deficiency Z86.39 Malnutrition E46 Obesity E66.9 Pain in right lower leg M79.661 Ulcer of right lower extremity with fat layer exposed (Inactive) L97.912 Allergies naproxen [From Aleve] Allergy (Verified 06/08/19 16:54) Shortness of breath Home Medications: Ambulatory Orders Medication Instructions Recorded furosemide 20 mg tablet 20 mg PO DAILY 03/26/19 potassium chloride 10 mEq 10 meq PO DAILY 03/26/19 tablet,extended release Ferrous Sulfate 325 mg PO BID 06/08/19 Ibuprofen [Advil] 400 mg PO DAILY PRN PRN 06/08/19 Omeprazole 40 mg PO DAILY 06/08/19 Surgical History: Surgical History (Last Reviewed 06/08/19 @ 20:23 by Era Gates MD) History of section Z98.891 x 2 History of eye surgery Z98.890 History of hernia repair Z98.890, Z87.19 Psychiatric History: No pertinent psych hx 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 Denies: Anorexia, Chills Eyes: Denies: Blurred vision, Double vision, Drainage, Redness HEENT: Reports: Sore Throat. Denies: Difficulty Hearing, Ear Pain, Eye Pain, Nasal Congestion Cardiovascular: Denies: Chest Pain, Chest Pressure, Chest Tightness, Heaviness, Light Headedness, Palpitations, Syncope Respiratory: Denies: Cough, Hemoptysis, Pleuritic Pain, Shortness of Breath, Sputum production, Wheezing Gastrointestinal: Reports: Abdominal Pain, Diarrhea, Nausea, Vomiting. Denies: Constipation Genitourinary: Denies: Dysuria, Frequency, Hematuria Musculoskeletal: Reports: Leg Pain. Denies: Arm Pain, Back Pain, Foot Pain Skin: Denies: Dryness, Rash Neurological: Denies: Balance problems, Double vision, Change in Speech, Slurred speech, Confusion, Focal weakness, Incoordination, Numbness Psychiatric: Denies: Anxiety, Depression Endocrine: Denies: Change in Body Habitus, Polydipsia, Polyuria VTE Information - Inpt Only VTE Present on Admission: No VTE Mechan Device Prophylaxis: None VTE Pharm Prophylaxis ordered?: Yes - Physical Exam Vitals/I&O's: Vital Signs Temp Pulse Resp BP Pulse Ox 103.1 F H 98 20 H 150/112 H 98 06/08/19 19:03 06/08/19 19:03 06/08/19 19:03 06/08/19 16:51 06/08/19 19:03 Oxygen Delivery Method Room Air Weight: 336 lb Body Mass Index (BMI) 48.2 Finger Stick Blood Glucose 81 Intake and Output for Last 24 Hours 06/06/19 06/07/19 06/08/19 23:59 23:59 23:59 Intake Total 999 / 999 Balance 999 / 999 General: Alert, Oriented x3, Cooperative, No apparent distress HEENT: Atraumatic, PERRLA, EOMI, Normocephalic Oral: No Gingival or Mucosal Lesions/ Ulcerations, Dry Mucosa Neck: Supple, No JVD, Negative Carotid Bruits, Trachea Midline, Thyroid Normal Size and Texture Lungs: Clear to auscultation, Normal air movement, No rhonchi, No wheeze, No rales, Diminished Cardiovascular: Regular rate, Regular Rhythm, Normal S1, Normal S2, PMI Normal Abdomen: Bowel Sounds Present, Soft, Non Tender, Non-Distended, No Hepato- splenomegaly, Obese Extremities: No clubbing, No cyanosis, Edema - Trace edema., - - Right leg: Erythema and swelling from the mid right leg down to the right ankle, multiple nonhealing ulcers with minimal drainage. Skin: No rashes, Ulcer/ Wound Lymphatic: No Cervical, Supraclavicular, or Inguinal Adenopathy Neurological: Cranial nerves II-XII grossly intact, Motor Exam 5/5 strength throughout Psych/Mental Status: Normal Affect, Appropriate, Alert and oriented to time, place, person, mood and affect Microbiology Past 72 Hours 06/08/19 19:11 Mucosa - Nose Influenza Types A,B Direct FA (ANTHONY) - Final Laboratory Results 06/08/19 18:05: Urine Color Yellow, Urine Clarity Sl. Cloudy, Urine pH 6.0, Ur Specific [place] 1.020, Urine Protein 100 H, Urine Glucose (UA) Normal, Urine Ketones 5 H, Urine Occult Blood 150 H, Urine Nitrite Negative, Urine Bilirubin 1 H, Urine Urobilinogen 12 H, Ur Leukocyte Esterase 25 H, Urine RBC 0-5 SEEN, Urine WBC 0-5 SEEN, Ur Squamous Epith Cells 0-5 SEEN, Urine Bacteria 1+, Urine Mucus 0 SEEN 06/08/19 18:10: WBC 11.6 H, RBC 3.78 L, Hgb 9.4 L, Hct 31.2 L, MCV 82.5, MCH 24.9 L, MCHC 30.1 L, RDW Std Deviation 46.6 H, RDW Coeff of [place] 15.5 H, Plt Count 259, MPV 9.8, Immature Gran % (Auto) 0.600, Neut % (Auto) 88.9 H, Lymph % (Auto) 4.7 L, [place] % (Auto) 5.4, Eos % (Auto) 0.2, Baso % (Auto) 0.2, Absolute Neuts (auto) 10.3 H, Absolute Lymphs (auto) 0.54 L, Nucleated RBC % 0, Differential Comment SCANNED 06/08/19 18:10: Sodium 133 L, Potassium 3.3 L, Chloride 99, Carbon Dioxide 28.0, Anion Gap 6, BUN 15, Creatinine 1.12 H, Estim Creat Clear Calc 67.87, Est GFR (MDRD) Af Amer 67, Est GFR (MDRD) Non-Af 56 L, BUN/Creatinine Ratio 13.4, Glucose 128 H, Calcium 8.6, Total Bilirubin 0.80, AST 14 L, ALT 16, Alkaline Phosphatase 125 H, Total Protein 8.4 H, Albumin 3.2, Globulin 5.2 H, Albumin/Globulin Ratio 0.6 L 06/08/19 18:10: Lactic Acid 1.9 Current Medications Ampicillin Sodium/Sulbactam (Sodium 3 gm/ Sodium Chloride) 112 mls @ 150 mls/hr IV X1 ONE Stop: 06/08/19 20:17 Last Admin: 06/08/19 19:58 Dose: 150 mls/hr Documented by: Assessment/Plan This is a 48 years old female patient presented to the emergency room because of nausea, vomiting, fever and increasing right leg swelling and erythema as well as drainage and she was found to have sepsis secondary to acute right leg cellulitis/infected nonhealing right leg ulcers as well as acute diarrheal illness which is probably due to viral gastroenteritis. #1 acute right leg cellulitis/infected nonhealing multiple right leg ulcers/sepsis: Patient does have history of chronic right leg ulcers, nonhealing and she was on doxycycline around 1 week ago, was completed. She is febrile, ta chycardic, drainage at the ulcer sites. Lactic acid is normal. Plan: Admit to [facility] floor, wound culture, blood culture, urinalysis, urine culture, MRSA wound screen, start IV Unasyn, IV fluids, IV morphine PRN for pain, OxyIR PRN, orthopedic surgery consult, repeat CBC and BMP tomorrow morning, PT OT evaluation and treatment. #2 acute diarrheal illness: In context of recent use of doxycycline for right leg infected ulcer/cellulitis. Plan: IV fluids, IV antiemetics as needed, stool for C. difficile, stool for enteric pathogens. #3 GERD: Continue PPI. #4 chronic anemia: Hemoglobin and hematocrit are stable, continue iron supplement. Patient denies any active bleeding. #5 peripheral vascular disease: Stable, denies any leg pain. No evidence of ischemia on examination. Unclear if she has any interventions in the past. She is not on any antiplatelet treatments. #6 DVT prophylaxis: Subcu Lovenox. This note was generated with [employer] dictation software. It may contain incorrect words, spelling, and punctuation that were not noted in checking the note before signing. Code Visit Inpatient E&M: 27624 Init Hosp L3
[2019-06-08] MEDS: Ibuprofen 400 MG Tablet 800 MG PO (20:48)
[2019-06-08] MEDS: oxyCODONE 5 MG Tablet PO (22:33)
[2019-06-08] MEDS: 0.9% Saline Lock 10 ML Syringe IV (22:35)
[2019-06-09] VITALS (8 sets, daily range): BP systolic 91–103; BP diastolic 40–56; PULSE 75–96; RESP 16–18; TEMP 37–39.2; O2SAT 98–100
[2019-06-09 00:04] LABS: Probe Check PASS; Staph aureus DNA By PCR POSITIVE (Negative)
[2019-06-09 00:05] LABS: M R Staph aureus DNA By PCR POSITIVE (Negative); Probe Check PASS
[2019-06-09 00:06] LABS: M R Staph aureus DNA By PCR POSITIVE (Negative)
--- NOTE | 2019-06-09 01:19 | PCM.RX.CS ---
Consult Pharmacy has been consulted to manage selected antiobiotic: Vancomycin Type of Consult: New start Suspected Infection: Sepsis Labs: Sodium 133 mmol/L (136-145) L 06/08/19 18:10 Potassium 3.3 mmol/L (3.5-5.1) L 06/08/19 18:10 Chloride 99 mmol/L (98-107) 06/08/19 18:10 Carbon Dioxide 28.0 mmol/L (21.0-32.0) 06/08/19 18:10 Anion Gap 6 (5-15) 06/08/19 18:10 BUN 15 mg/dL (7-18) 06/08/19 18:10 Creatinine 1.12 mg/dL (0.55-1.02) H 06/08/19 18:10 Est GFR (MDRD) Af Amer 67 mL/min (>60) 06/08/19 18:10 Est GFR (MDRD) Non-Af 56 mL/min (>60) L 06/08/19 18:10 BUN/Creatinine Ratio 13.4 RATIO (10-20) 06/08/19 18:10 Glucose 128 mg/dL (74-106) H 06/08/19 18:10 Microbiology: Microbiology 06/08/19 19:11 Mucosa - Nose Influenza Types A,B Direct FA (ANTHONY) - Final Weight used for dosin.5 kg Estimated Creatinine Clearance: 96.01 Goal Trough: 15-20 mcg/mL Pharmacy Plan for Drug Dosing: Pharmacy Service will continue to monitor and adjust dosing as required. Medications Vancomycin HCl 2,000 mg/ (Sodium Chloride) 540 mls @ 250 mls/hr IV X1 ONE Stop: 06/09/19 03:09 Last Admin: 06/09/19 01:10 Dose: 250 mls/hr Documented by: Vancomycin HCl 1,250 mg/ (Sodium Chloride) 275 mls @ 167 mls/hr IV Q12H AMAN Follow-Up Labs: Trough Vancomycin Labs to be done on [date and time ordered]: 06/10 @ 1230
[2019-06-09] MEDS: Acetaminophen 325 MG Tablet 650 MG PO ×3 (03:42→22:56)
[2019-06-09] MEDS: 0.9% Saline Lock 10 ML Syringe IV ×3 (05:35→22:56)
[2019-06-09] MEDS: oxyCODONE 5 MG Tablet PO ×3 (05:52→23:19)
[2019-06-09 06:41] LABS: Absolute Lymphocyte Count 0.77 X10^3/uL (0.83-4.51); Absolute Neutrophil Count 9.5 X10^3/uL (2.0-7.7); Basophil# 0.03 X10^3/uL; Basophil% 0.3 % (0-1); Eosinophil# 0.02 X10^3/uL; Eosinophils% 0.2 % (0-5); Lymphocyte # 0.77 X10^3/ul (4.0); Lymphocyte % 6.8 % (19-41); Mean Corp Hgb Conc 29.6 g/dL (32-36); Mean Corpuscular Volume 84.4 fL (81-99); Mean Platelet Vol. 9.9 fl (6.2-12.0); Monocyte# 0.96 X10^3/uL; Monocyte% 8.5 % (0-10); NRBC Flagged by Analyzer 0 % (0-5); Neutrophil % 83.5 % (47-70); POSITIVE MORPHOLOGY YES; Platelet Count 193 K/mm3 (150-450); RBC Distribution Width CV 15.8 % (11.6-14.6); RBC Distribution Width SD 47.8 fl (35.1-43.9); White Blood Count 11.4 K/mm3 (4.4-11.0)
[2019-06-09 06:55] LABS: Differential Indicated SCAN CRITERIA MET
[2019-06-09 07:02] LABS: BUN 19 mg/dL (7-18); BUN/Creat Ratio 13.3 RATIO (10-20); Calcium,Total 7.3 mg/dL (8.5-10.1); Chloride 105 mmol/L (98-107); Creatinine, Serum 1.43 mg/dL (0.55-1.02); EST Glomerular Filtration Rate 42 mL/min (>60); Est Glom Filt Rate - Afr Amer 51 mL/min (>60); Estimated Creatinine Clearance 53.16 ml/min; Glucose 110 mg/dL (74-106); Potassium 3.3 mmol/L (3.5-5.1); Sodium Level 134 mmol/L (136-145)
[2019-06-09 07:03] LABS: Anion Gap 8 (5-15)
--- NOTE | 2019-06-09 07:57 | PCM.PN.HOSP ---
Reason for Visit: Diarrhea, right lower leg ulcer, nonhealing for 1 and half years Objective: Patient has nonhealing ulcer in right lower leg. Right lower leg central ulcer appeared 1/2 years ago after mild trauma with the AC machine. After that second one half. Medial to the first 1. The edges are rolled over, chronic, dry covered with slough. Vitals/I&O's: Vital Signs Temp Pulse Resp BP Pulse Ox 98.6 F 79 16 91/51 L 99 06/09/19 03:31 06/09/19 03:56 06/09/19 03:31 06/09/19 03:31 06/09/19 07:21 Oxygen Delivery Method Room Air Weight: 307 lb 8.717 oz Body Mass Index (BMI) 44.1 Finger Stick Blood Glucose 81 Intake and Output for Last 24 Hours 06/07/19 06/08/19 06/09/19 23:59 23:59 23:59 Intake Total 1112 / 1232 1206.58 / 1206.58 Balance 1112 / 1232 1206.58 / 1206.58 General: Alert, Oriented x3, Cooperative HEENT: Atraumatic, PERRLA, EOMI, Normocephalic Oral: No Gingival or Mucosal Lesions/ Ulcerations, Dry Mucosa Neck: Supple, No JVD, Negative Carotid Bruits Lungs: Clear to auscultation, No wheeze, No rales, Diminished Cardiovascular: Regular rate, Regular Rhythm, Normal S1, Normal S2, No murmurs Abdomen: Bowel Sounds Present, Soft, Non Tender, Non-Distended Extremities: No edema, Capillary Refill Less than 3 Seconds Skin: Ulcer/ Wound - 2 large ulcers present on the right lower leg The edges are rolled over, chronic, dry covered with slough. Musculoskeletal: No Tenderness to Palpation of Joints or Extremities, Arthritic Changes Neurological: Cranial nerves II-XII grossly intact, Deep Tendon Reflexes 2+/4 and Symmetrical, Neuro grossly intact Psych/Mental Status: Normal Affect, Appropriate Microbiology Past 72 Hours 06/08/19 19:11 Mucosa - Nose Influenza Types A,B Direct FA (ANTHONY) - Final Laboratory Results 06/08/19 18:05: Urine Color Yellow, Urine Clarity Sl. Cloudy, Urine pH 6.0, Ur Specific [place] 1.020, Urine Protein 100 H, Urine Glucose (UA) Normal, Urine Ketones 5 H, Urine Occult Blood 150 H, Urine Nitrite Negative, Urine Bilirubin 1 H, Urine Urobilinogen 12 H, Ur Leukocyte Esterase 25 H, Urine RBC 0-5 SEEN, Urine WBC 0-5 SEEN, Ur Squamous Epith Cells 0-5 SEEN, Urine Bacteria 1+, Urine Mucus 0 SEEN 06/08/19 18:10: WBC 11.6 H, RBC 3.78 L, Hgb 9.4 L, Hct 31.2 L, MCV 82.5, MCH 24.9 L, MCHC 30.1 L, RDW Std Deviation 46.6 H, RDW Coeff of Kentrell 15.5 H, Plt Count 259, MPV 9.8, Immature Gran % (Auto) 0.600, Neut % (Auto) 88.9 H, Lymph % (Auto) 4.7 L, [place] % (Auto) 5.4, Eos % (Auto) 0.2, Baso % (Auto) 0.2, Absolute Neuts (auto) 10.3 H, Absolute Lymphs (auto) 0.54 L, Nucleated RBC % 0, Differential Comment SCANNED 06/08/19 18:10: Sodium 133 L, Potassium 3.3 L, Chloride 99, Carbon Dioxide 28.0, Anion Gap 6, BUN 15, Creatinine 1.12 H, Estim Creat Clear Calc 67.87, Est GFR (MDRD) Af Amer 67, Est GFR (MDRD) Non-Af 56 L, BUN/Creatinine Ratio 13.4, Glucose 128 H, Calcium 8.6, Total Bilirubin 0.80, AST 14 L, ALT 16, Alkaline Phosphatase 125 H, Total Protein 8.4 H, Albumin 3.2, Globulin 5.2 H, Albumin/Globulin Ratio 0.6 L 06/08/19 18:10: Lactic Acid 1.9 06/08/19 22:25: MRSA (PCR) POSITIVE H 06/08/19 22:25: S.aureus Protein A PCR POSITIVE H, MRSA (PCR) POSITIVE H 06/09/19 06:15: WBC 11.4 H, RBC 3.20 L, Hgb 8.0 L, Hct 27.0 L, MCV 84.4, MCH 25.0 L, MCHC 29.6 L, RDW Std Deviation 47.8 H, RDW Coeff of [place] 15.8 H, Plt Count 193, MPV 9.9, Immature Gran % (Auto) 0.700, Neut % (Auto) 83.5 H, Lymph % (Auto) 6.8 L, Fountain % (Auto) 8.5, Eos % (Auto) 0.2, Baso % (Auto) 0.3, Absolute Neuts (auto) 9.5 H, Absolute Lymphs (auto) 0.77 L, Nucleated RBC % 0 06/09/19 06:15: Sodium 134 L, Potassium 3.3 L, Chloride 105, Carbon Dioxide 21.0, Anion Gap 8, BUN 19 H, Creatinine 1.43 H, Estim Creat Clear Calc 53.16, Est GFR (MDRD) Af Amer 51 L, Est GFR (MDRD) Non-Af 42 L, BUN/Creatinine Ratio 13.3, Glucose 110 H, Calcium 7.3 L Current Medications Acetaminophen (Tylenol) 650 mg PO Q6H PRN PRN PRN Reason: Pain Score 1-3/Temp > 100.7 F Last Admin: 06/09/19 03:42 Dose: 650 mg Documented by: Enoxaparin Sodium (Lovenox) 30 mg SC DAILY [facility] Ferrous Sulfate (Ferrous Sulfate) 325 mg PO BIDCM [facility] Hydralazine HCl (Apresoline Iv) 10 mg IV Q8H PRN PRN PRN Reason: for SBP>160 Ampicillin Sodium/Sulbactam (Sodium 3 gm/ Sodium Chloride) 112 mls @ 150 mls/hr IV Q8 [facility] Last Infusion: 06/09/19 06:32 Dose: Infused Documented by: Potassium Chloride/Sodium Chloride () 1,000 mls @ 125 mls/hr IV .Q8H [facility] Last Infusion: 06/09/19 03:20 Dose: 125 mls/hr Documented by: Vancomycin IV Pharmacy to Dose (1 ea/ Sodium Chloride) 500 mls @ 250 mls/hr IV X1 PRN; Protocol PRN Reason: Rx to Dose Vancomycin HCl 1,250 mg/ (Sodium Chloride) 275 mls @ 167 mls/hr IV Q12H [facility] Influenza Virus Vaccine Quadrival (Flucelvax /Fluzone ) 0.5 ml IM .ONCE ONE Stop: 06/09/19 10:01 Morphine Sulfate () 2 mg IV Q3H PRN PRN PRN Reason: Pain Score 6-10/10 Ondansetron HCl (Zofran) 4 mg IV Q8H PRN PRN PRN Reason: NAUSEA/VOMITING Oxycodone HCl (Oxyir) 5 mg PO Q4H PRN PRN PRN Reason: Pain Score 4-5/10 Last Admin: 06/09/19 05:52 Dose: 5 mg Documented by: Pantoprazole Sodium (Protonix) 40 mg PO DAILY [facility] Sodium Chloride () 10 - 40 ml IV UD PRN PRN Reason: SALINE FLUSH Last Admin: 06/09/19 05:35 Dose: 10 ml Documented by: STROKE Vital Signs/Narrative: Vital Signs Pulse Ox 06/09/19 07:21 99 Medical Necessity - Tobacco Use Smoking Status: Never smoker Tobacco Use: Non-smoker Assessment/Plan This is a 48 years old female patient was admitted through ER on [facility] with nausea, vomiting, fever and increasing right leg chronic nonhealing ulcer with slough consistent with sepsis secondary to acute right leg cellulitis/infected nonhealing right leg ulcers as well as acute diarrheal illness which is probably due to viral gastroenteritis. #1 acute right leg cellulitis/infected nonhealing multiple right leg ulcers/sepsis (febrile, tachycardic, drainage at the ulcer sites): Lactic acid is normal. Wound culture, blood culture and urine culture are pending. Currently on appropriate antibiotic IV Unasyn and vancomycin. She has been on and off antibiotic for about 1 for nonhealing ulcer and recently completed doxycycline about a week ago. MRSA, PCR positive. On morphine and OxyIR PRN, follow-up labs. PT OT evaluation and treatment. Plastic surgery consult. #2 acute diarrheal illness concern for C. difficile: stool for C. difficile, stool for enteric pathogens are ordered but not sent because patient did not had bowel movement since admission. #3 Acute kidney injury probably secondary to prerenal/sepsis/ATN: BUN/creatinine went up from 15/1.12-19/1.43. Continue IV fluid normal saline. Hypokalemia, potassium being replaced. Dose antibiotic and medications according to creatinine clearance. GERD: Continue PPI. #4 chronic anemia: Hemoglobin and hematocrit are stable, continue iron supplement. Patient denies any active bleeding. #5 peripheral vascular disease: Stable, denies any leg pain. No evidence of ischemia on examination. Unclear if she has any interventions in the past. She is not on any antiplatelet treatments. #6 DVT prophylaxis: Subcu Lovenox. 06/08/19 18:10: Lactic Acid 1.9 06/08/19 22:25: MRSA (PCR) POSITIVE H 06/08/19 22:25: S.aureus Protein A PCR POSITIVE H, MRSA (PCR) POSITIVE H 06/09/19 06:15: WBC 11.4 H, RBC 3.20 L, Hgb 8.0 L, Hct 27.0 L, MCV 84.4, MCH 25.0 L, MCHC 29.6 L, RDW Std Deviation 47.8 H, RDW Coeff of [place] 15.8 H, Plt Count 193, MPV 9.9, Immature Gran % (Auto) 0.700, Neut % (Auto) 83.5 H, Lymph % (Auto) 6.8 L, [place] % (Auto) 8.5, Eos % (Auto) 0.2, Baso % (Auto) 0.3, Absolute Neuts (auto) 9.5 H, Absolute Lymphs (auto) 0.77 L, Nucleated RBC % 0, Differential Comment SCANNED 06/09/19 06:15: Sodium 134 L, Potassium 3.3 L, Chloride 105, Carbon Dioxide 21.0, Anion Gap 8, BUN 19 H, Creatinine 1.43 H, Estim Creat Clear Calc 53.16, Est GFR (MDRD) Af Amer 51 L, Est GFR (MDRD) Non-Af 42 L, BUN/Creatinine Ratio 13.3, Glucose 110 H, Calcium 7.3 L 06/09/19 06:15: Phosphorus 3.1, Magnesium 1.6 Code Visit Inpatient E&M: 41994 Subs Hosp L2
[2019-06-09] MEDS: Enoxaparin 30 MG/0.3 ML Syringe SC (08:11)
[2019-06-09] MEDS: Pantoprazole Sodium 40 MG Tablet PO (08:11)
[2019-06-09] MEDS: Ferrous Sulfate 325 MG Tablet PO ×2 (08:11→16:51)
[2019-06-09 08:25] LABS: Magnesium 1.6 mg/dL (1.6-2.6); Phosphorus 3.1 mg/dL (2.5-4.9)
[2019-06-09] MEDS: Potassium Chloride 10mEq/100mL 10 MEQ/100 ML IV.SOLN. 100 MEQ IV BOLUS ×4 (08:49→12:20)
[2019-06-09 09:00] LABS: Differential Comment SCANNED
[2019-06-09] MEDS: 0.9% Normal Saline 1,000 ML 75 ML IV (14:33)
[2019-06-09] MEDS: Ondansetron 4 MG/2 ML Vial IV (22:56)
[2019-06-10] VITALS (8 sets, daily range): BP systolic 100–127; BP diastolic 43–55; PULSE 77–88; RESP 16; TEMP 37.1–37.9; O2SAT 98–100
[2019-06-10] MEDS: 0.9% Normal Saline 1,000 ML 75 ML IV ×2 (05:29→20:48)
[2019-06-10 06:47] LABS: Absolute Lymphocyte Count 1.53 X10^3/uL (0.83-4.51); Absolute Neutrophil Count 8.3 X10^3/uL (2.0-7.7); Basophil# 0.02 X10^3/uL; Basophil% 0.2 % (0-1); Eosinophil# 0.06 X10^3/uL; Eosinophils% 0.6 % (0-5); Hematocrit 27.6 % (37-47); Lymphocyte # 1.53 X10^3/ul (4.0); Lymphocyte % 14.3 % (19-41); Mean Corpuscular Hgb 24.5 pg (27.0-32.0); Mean Corpuscular Volume 84.4 fL (81-99); Mean Platelet Vol. 10.2 fl (6.2-12.0); Monocyte# 0.75 X10^3/uL; NRBC Flagged by Analyzer 0 % (0-5); Neutrophil % 77.2 % (47-70); Platelet Count 233 K/mm3 (150-450); RBC Distribution Width CV 16.2 % (11.6-14.6); RBC Distribution Width SD 50.2 fl (35.1-43.9); Red Blood Count 3.27 M/mm3 (4.2-5.4); White Blood Count 10.7 K/mm3 (4.4-11.0)
[2019-06-10 07:26] LABS: Anion Gap 6 (5-15); BUN 20 mg/dL (7-18); BUN/Creat Ratio 16.7 RATIO (10-20); Calcium,Total 7.9 mg/dL (8.5-10.1); Chloride 106 mmol/L (98-107); EST Glomerular Filtration Rate 51 mL/min (>60); Est Glom Filt Rate - Afr Amer 62 mL/min (>60); Estimated Creatinine Clearance 63.35 ml/min; Glucose 104 mg/dL (74-106); Potassium 3.5 mmol/L (3.5-5.1); Sodium Level 136 mmol/L (136-145)
[2019-06-10] MEDS: Enoxaparin 30 MG/0.3 ML Syringe SC (08:45)
[2019-06-10] MEDS: Pantoprazole Sodium 40 MG Tablet PO (08:46)
[2019-06-10] MEDS: Ferrous Sulfate 325 MG Tablet PO ×2 (08:46→17:21)
[2019-06-10] MEDS: Acetaminophen 325 MG Tablet 650 MG PO ×2 (08:52→17:21)
[2019-06-10] MEDS: oxyCODONE 5 MG Tablet PO ×2 (08:52→20:47)
--- NOTE | 2019-06-10 11:45 | PN_ITS ---
Reason for Visit: Diarrhea which has subsided. High fever with chills. Right leg chronic nonhealing ulcer. Vitals/I&O's: Vital Signs Temp Pulse Resp BP Pulse Ox 100 F H 88 16 110/43 L 100 06/10/19 09:18 06/10/19 09:18 06/10/19 09:18 06/10/19 09:18 06/10/19 09:18 Oxygen Delivery Method Room Air Weight: 307 lb 8.717 oz Body Mass Index (BMI) 44.1 Finger Stick Blood Glucose 81 Intake and Output for Last 24 Hours 06/08/19 06/09/19 06/10/19 23:59 23:59 23:59 Intake Total 1112 / 1232 4432.25 / 4432.25 1878.25 / 1878.25 Output Total 300 / 300 200 / 200 Balance 1112 / 1232 4132.25 / 4132.25 1678.25 / 1678.25 General: Alert, Oriented x3, Cooperative HEENT: Atraumatic, PERRLA, EOMI, Normocephalic Neck: Supple, No JVD, Negative Carotid Bruits Lungs: Clear to auscultation, No rhonchi, No wheeze, No rales, Diminished Cardiovascular: Regular rate, Regular Rhythm, Normal S1, Normal S2, No murmurs Abdomen: Bowel Sounds Present, Soft, Non Tender Extremities: Capillary Refill Less than 3 Seconds, Edema Skin: Ulcer/ Wound - Right leg chronic ulcer, Rash Present - Erythematous, ten sp and indurated right lower leg suggestive of cellulitis Musculoskeletal: No Tenderness to Palpation of Joints or Extremities Neurological: Cranial nerves II-XII grossly intact Psych/Mental Status: Normal Affect, Appropriate Microbiology Past 72 Hours 06/08/19 20:05 Wound Abcess - Leg Gram Stain - Final 06/08/19 20:05 Wound Abcess - Leg Wound Culture - Preliminary Beta hemolytic organism Gram negative radha 06/08/19 22:30 Mucosa - Nose Respiratory Panel (PCR) - Final 06/08/19 19:11 Mucosa - Nose Influenza Types A,B Direct FA (ANTHONY) - Final Laboratory Results 06/10/19 05:48: WBC 10.7, RBC 3.27 L, Hgb 8.0 L, Hct 27.6 L, MCV 84.4, MCH 24.5 L, MCHC 29.0 L, RDW Std Deviation 50.2 H, RDW Coeff of [place] 16.2 H, Plt Count 233, MPV 10.2, Immature Gran % (Auto) 0.700, Neut % (Auto) 77.2 H, Lymph % (Auto) 14.3 L, [place] % (Auto) 7.0, Eos % (Auto) 0.6, Baso % (Auto) 0.2, Absolute Neuts (auto) 8.3 H, Absolute Lymphs (auto) 1.53, Nucleated RBC % 0 06/10/19 05:48: Sodium 136, Potassium 3.5, Chloride 106, Carbon Dioxide 24.0, Anion Gap 6, BUN 20 H, Creatinine 1.20 H, Estim Creat Clear Calc 63.35, Est GFR (MDRD) Af Amer 62, Est GFR (MDRD) Non-Af 51 L, BUN/Creatinine Ratio 16.7, Glucose 104, Calcium 7.9 L Current Medications Acetaminophen (Tylenol) 650 mg PO Q6H PRN PRN PRN Reason: Pain Score 1-3/Temp > 100.7 F Last Admin: 06/10/19 08:52 Dose: 650 mg Documented by: Enoxaparin Sodium (Lovenox) 30 mg SC DAILY [facility] Last Admin: 06/10/19 08:45 Dose: 30 mg Documented by: [facility] Last Admin: 06/10/19 08:46 Dose: 325 mg Documented by: Hydralazine HCl (Apresoline Iv) 10 mg IV Q8H PRN PRN PRN Reason: for SBP>160 Ampicillin Sodium/Sulbactam (Sodium 3 gm/ Sodium Chloride) 112 mls @ 150 mls/hr IV Q8 [facility] Last Infusion: 06/10/19 06:14 Dose: Infused Documented by: Sodium Chloride () 1,000 mls @ 75 mls/hr IV .[id number] [facility] Last Admin: 06/10/19 05:29 Dose: 75 mls/hr Documented by: Sodium Chloride () 250 mls @ 15 mls/hr IV .[id number] PRN PRN Reason: Saline Flush Morphine Sulfate () 2 mg IV Q3H PRN PRN PRN Reason: Pain Score 6-10/10 Mupirocin (Bactroban) 1 applic NASAL BID [facility]; Protocol Stop: 06/14/19 22:01 Ondansetron HCl (Zofran) 4 mg IV Q8H PRN PRN PRN Reason: NAUSEA/VOMITING Last Admin: 06/09/19 22:56 Dose: 4 mg Documented by: Oxycodone HCl (Oxyir) 5 mg PO Q4H PRN PRN PRN Reason: Pain Score 4-5/10 Last Admin: 06/10/19 08:52 Dose: 5 mg Documented by: Pantoprazole Sodium (Protonix) 40 mg PO DAILY [facility] Last Admin: 06/10/19 08:46 Dose: 40 mg Documented by: Sodium Chloride () 10 - 40 ml IV UD PRN PRN Reason: SALINE FLUSH Last Admin: 06/09/19 22:56 Dose: 10 ml Documented by: STROKE Vital Signs/Narrative: Vital Signs Temp Pulse Resp BP Pulse Ox 06/10/19 09:18 100 F H 88 16 110/43 L 100 Medical Necessity - Tobacco Use Smoking Status: Never smoker Tobacco Use: Non-smoker Assessment/Plan This is a 48 years old female patient was admitted through ER on [facility] with nausea, vomiting, fever and increasing right leg chronic nonhealing ulcer with slough consistent with sepsis secondary to acute right leg cellulitis/infected nonhealing right leg ulcers as well as acute diarrheal illness which is probably due to viral gastroenteritis. #1 Sepsis secondary to acute right leg cellulitis/infected nonhealing multiple right leg ulcers (febrile, tachycardic, drainage at the ulcer sites): Lactic acid is normal. Wound culture, blood culture and urine culture are pending. Currently on appropriate antibiotic IV Unasyn and vancomycin. She has been on and off antibiotic for about 1 for nonhealing ulcer and recently completed doxycycline about a week ago. MRSA, PCR positive. On morphine and OxyIR PRN, follow-up labs. PT OT evaluation and treatment. Plastic surgery consult. 2/2: Patient is having high-grade fever, last night 102.6 T-max, not associated with tachycardia. WBC count improved. Antibiotic spectrum broadened to Zosyn. Continue vancomycin. ID consult tomorrow a.m. MRSA nasal screen positive but wound culture, preliminary shows beta-hemolytic organism and gram-negative radha therefore most likely MRSA is nasal colonization. #2 acute diarrheal illness concern for C. difficile: stool for C. difficile, stool for enteric pathogens are ordered but not sent because patient did not had bowel movement since admission. 2/2: Diarrhea has resolved. Therefore, C. difficile unlikely. #3 Acute kidney injury probably secondary to prerenal/sepsis/ATN: BUN/creatinine went up from 15/1.12-19/1.43. Continue IV fluid normal saline. Hypokalemia, potassium being replaced. Dose antibiotic and medications according to creatinine clearance. BUN/creatinine 20/1.2, improved as compared to yesterday. GERD: Continue PPI. #4 chronic anemia: Hemoglobin and hematocrit are stable, continue iron supplement. Patient denies any active bleeding. #5 peripheral vascular disease: Stable, denies any leg pain. No evidence of ischemia on examination. Unclear if she has any interventions in the past. She is not on any antiplatelet treatments. 2/2: No evidence of ischemia. #6 DVT prophylaxis: Subcu Lovenox. Microbiology Past 72 Hours 06/08/19 20:05 Wound Abcess - Leg Gram Stain - Final 06/08/19 20:05 Wound Abcess - Leg Wound Culture - Preliminary Beta hemolytic organism Gram negative radha 06/08/19 22:30 Mucosa - Nose Respiratory Panel (PCR) - Final 06/08/19 19:11 Mucosa - Nose Influenza Types A,B Direct FA (ANTHONY) - Final Laboratory Results 06/10/19 05:48: WBC 10.7, RBC 3.27 L, Hgb 8.0 L, Hct 27.6 L, MCV 84.4, MCH 24.5 L, MCHC 29.0 L, RDW Std Deviation 50.2 H, RDW Coeff of [place] 16.2 H, Plt Count 233, MPV 10.2, Immature Gran % (Auto) 0.700, Neut % (Auto) 77.2 H, Lymph % (Auto) 14.3 L, [place] % (Auto) 7.0, Eos % (Auto) 0.6, Baso % (Auto) 0.2, Absolute Neuts (auto) 8.3 H, Absolute Lymphs (auto) 1.53, Nucleated RBC % 0 06/10/19 05:48: Sodium 136, Potassium 3.5, Chloride 106, Carbon Dioxide 24.0, Anion Gap 6, BUN 20 H, Creatinine 1.20 H, Estim Creat Clear Calc 63.35, Est GFR (MDRD) Af Amer 62, Est GFR (MDRD) Non-Af 51 L, BUN/Creatinine Ratio 16.7, Glucose 104, Calcium 7.9 L Code Visit Inpatient E&M: 53737 Subs Hosp L2
[2019-06-10] MEDS: Mupirocin Ointment 22gm Tube 1 APPLIC NASAL ×2 (12:43→20:54)
[2019-06-10] MEDS: Ondansetron 4 MG/2 ML Vial IV (12:43)
[2019-06-10 13:42] LABS: Vancomycin, Trough Level 17.4 ug/mL (5.0-15.0)
--- NOTE | 2019-06-10 14:44 | PCM.RX.CS ---
Consult Pharmacy has been consulted to manage selected antiobiotic: Vancomycin Type of Consult: Follow-up Suspected Infection: Sepsis, Skin/Soft tissue Prior Doses of Antibiotics Received/Current Regimen: PATIENT HAS BEEN GIVEN A LOADING DOES OF 2GM OF VANCOMYCIN AND 1250MG Q12H FOR 3 DOES. Labs: Sodium 136 mmol/L (136-145) 06/10/19 05:48 Potassium 3.5 mmol/L (3.5-5.1) 06/10/19 05:48 Chloride 106 mmol/L (98-107) 06/10/19 05:48 Carbon Dioxide 24.0 mmol/L (21.0-32.0) 06/10/19 05:48 Anion Gap 6 (5-15) 06/10/19 05:48 BUN 20 mg/dL (7-18) H 06/10/19 05:48 Creatinine 1.20 mg/dL (0.55-1.02) H 06/10/19 05:48 Est GFR (MDRD) Af Amer 62 mL/min (>60) 06/10/19 05:48 Est GFR (MDRD) Non-Af 51 mL/min (>60) L 06/10/19 05:48 BUN/Creatinine Ratio 16.7 RATIO (10-20) 06/10/19 05:48 Glucose 104 mg/dL (74-106) 06/10/19 05:48 Vancomycin Trough 17.4 ug/mL (5.0-15.0) H 06/10/19 12:50 Microbiology: Microbiology 06/08/19 18:05 Urine, Clean Catch Urine Culture - Preliminary Mixed Gram Positive Organisms 06/08/19 20:05 Wound Abcess - Leg Gram Stain - Final 06/08/19 20:05 Wound Abcess - Leg Wound Culture - Preliminary Gram negative radha Gram negative radha#2 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 TROUGH 06/14/2019 1200. [address] Pharmacy Service will continue to monitor and adjust dosing as required. Follow-Up Labs: Trough Vancomycin Labs to be done on [date and time ordered]: 06/14/2019 @ 1200
[2019-06-11] VITALS (9 sets, daily range): BP systolic 112–140; BP diastolic 48–70; PULSE 72–87; RESP 16–18; TEMP 36.8–37.5; O2SAT 98–100
[2019-06-11] MEDS: oxyCODONE 5 MG Tablet PO ×2 (01:40→08:46)
[2019-06-11 05:58] LABS: Absolute Lymphocyte Count 1.51 X10^3/uL (0.83-4.51); Basophil# 0.02 X10^3/uL; Basophil% 0.2 % (0-1); Eosinophil# 0.19 X10^3/uL; Eosinophils% 2.2 % (0-5); Hematocrit 24.1 % (37-47); Lymphocyte # 1.51 X10^3/ul (4.0); Lymphocyte % 17.8 % (19-41); Mean Corpuscular Hgb 24.3 pg (27.0-32.0); Mean Corpuscular Volume 83.7 fL (81-99); Mean Platelet Vol. 10.1 fl (6.2-12.0); Monocyte# 0.75 X10^3/uL; Monocyte% 8.8 % (0-10); NRBC Flagged by Analyzer 0 % (0-5); Neutrophil # 5.95 X10^3/uL (2.7-7.7); Neutrophil % 70.2 % (47-70); Platelet Count 214 K/mm3 (150-450); RBC Distribution Width CV 16.4 % (11.6-14.6); RBC Distribution Width SD 50.2 fl (35.1-43.9); Red Blood Count 2.88 M/mm3 (4.2-5.4); White Blood Count 8.5 K/mm3 (4.4-11.0)
[2019-06-11 06:10] LABS: Anion Gap 4 (5-15); BUN 17 mg/dL (7-18); BUN/Creat Ratio 19.5 RATIO (10-20); Chloride 110 mmol/L (98-107); Creatinine, Serum 0.87 mg/dL (0.55-1.02); EST Glomerular Filtration Rate 74 mL/min (>60); Est Glom Filt Rate - Afr Amer 89 mL/min (>60); Estimated Creatinine Clearance 87.37 ml/min; Glucose 111 mg/dL (74-106); Potassium 4.2 mmol/L (3.5-5.1); Sodium Level 137 mmol/L (136-145)
[2019-06-11 07:31] LABS: Iron 13 ug/dL (50-170); Iron Binding Capacity,Total 312 ug/dL (250-450); PERCENT IRON SATURATION 4.2 % (15.0-55.0)
--- NOTE | 2019-06-11 08:23 | PCM.PROGNOTE ---
Subjective: Chief complaint: Follow-up after admission for acute right leg cellulitis/infected nonhealing multiple right leg ulcers, sepsis, acute kidney injury, diarrhea and acute on chronic anemia. Patient seen and examined. No acute events overnight. She complained of mild pain at the right leg. She has no other complaints. She has no more diarrhea. She is still having spikes of fever intermittently, other vital signs are stable. - Physical Exam Vitals/I&O's: Vital Signs Temp Pulse Resp BP Pulse Ox 99.0 F 81 16 112/51 L 98 06/11/19 01:51 06/11/19 01:51 06/11/19 01:51 06/11/19 01:51 06/11/19 01:51 Oxygen Delivery Method Room Air Weight: 307 lb 8.717 oz Body Mass Index (BMI) 44.1 Finger Stick Blood Glucose 81 Intake and Output for Last 24 Hours 06/09/19 06/10/19 06/11/19 23:59 23:59 23:59 Intake Total 4432.25 / 4432.25 4047.00 / 4047.00 670 / 670 Output Total 300 / 300 1100 / 1100 Balance 4132.25 / 4132.25 2947.00 / 2947.00 670 / 670 General: Alert, Oriented x3, Cooperative, No apparent distress HEENT: Atraumatic, PERRLA, EOMI, Normocephalic Oral: Moist Mucosa, No Gingival or Mucosal Lesions/ Ulcerations Neck: Supple, No JVD, Negative Carotid Bruits, Trachea Midline, Thyroid Normal Size and Texture Lungs: Clear to auscultation, Normal air movement, No rhonchi, No wheeze, No rales, Diminished Cardiovascular: Regular rate, Regular Rhythm, Normal S1, Normal S2, PMI Normal Abdomen: Bowel Sounds Present, Soft, Non Tender, Non-Distended, No Hepato-splenomegaly, Obese Extremities: No clubbing, No cyanosis, Edema - Trace edema. Skin: No rashes, Ulcer/ Wound - Right leg dressed. Lymphatic: No Cervical, Supraclavicular, or Inguinal Adenopathy Neurological: Cranial nerves II-XII grossly intact, Motor Exam 5/5 strength throughout Psych/Mental Status: Normal Affect, Appropriate, Alert and oriented to time, place, person, mood and affect Microbiology Past 72 Hours 06/08/19 19:25 Blood Culture (Wb) - Anticubital Left Blood Culture - Preliminary No growth in 48 hours. 06/08/19 18:10 Blood Culture (Wb) - Right Forearm Blood Culture - Preliminary No growth in 48 hours. 06/08/19 18:05 Urine, Clean Catch Urine Culture - Preliminary Mixed Gram Positive Organisms 06/08/19 20:05 Wound Abcess - Leg Gram Stain - Final 06/08/19 20:05 Wound Abcess - Leg Wound Culture - Preliminary Gram negative radha Gram negative radha#2 GNR lactose protector plate attacher Staphylococcus aureus Beta streptococcus 06/08/19 22:30 Mucosa - Nose Respiratory Panel (PCR) - Final 06/08/19 19:11 Mucosa - Nose Influenza Types A,B Direct FA (ANTHONY) - Final Laboratory Results 06/10/19 12:50: Vancomycin Trough 17.4 H 06/11/19 05:10: WBC 8.5, RBC 2.88 L, Hgb 7.0 L, Hct 24.1 L, MCV 83.7, MCH 24.3 L, MCHC 29.0 L, RDW Std Deviation 50.2 H, RDW Coeff of [place]rell 16.4 H, Plt Count 214, MPV 10.1, Immature Gran % (Auto) 0.800, Neut % (Auto) 70.2 H, Lymph % (Auto) 17.8 L, [place] % (Auto) 8.8, Eos % (Auto) 2.2, Baso % (Auto) 0.2, Absolute Neuts (auto) 6.0, Absolute Lymphs (auto) 1.51, Nucleated RBC % 0 06/11/19 05:10: Sodium 137, Potassium 4.2, Chloride 110 H, Carbon Dioxide 23.0, Anion Gap 4 L, BUN 17, Creatinine 0.87, Estim Creat Clear Calc 87.37, Est GFR (MDRD) Af Amer 89, Est GFR (MDRD) Non-Af 74, BUN/Creatinine Ratio 19.5, Glucose 111 H, Calcium 8.0 L 06/11/19 05:10: Iron 13 L, TIBC 312, Iron Saturation 4.2 L Microbiology 06/08/19 19:25 Blood Culture (Wb) - Anticubital Left Blood Culture - Preliminary No growth in 48 hours. 06/08/19 18:10 Blood Culture (Wb) - Right Forearm Blood Culture - Preliminary No growth in 48 hours. 06/08/19 18:05 Urine, Clean Catch Urine Culture - Preliminary Mixed Gram Positive Organisms 06/08/19 20:05 Wound Abcess - Leg Gram Stain - Final 06/08/19 20:05 Wound Abcess - Leg Wound Culture - Preliminary Gram negative radha Gram negative radha#2 GNR lactose protector plate attacher Staphylococcus aureus Beta streptococcus 06/08/19 22:30 Mucosa - Nose Respiratory Panel (PCR) - Final 06/08/19 19:11 Mucosa - Nose Influenza Types A,B Direct FA (ANTHONY) - Final Current Medications Acetaminophen (Tylenol) 650 mg PO Q6H PRN PRN PRN Reason: Pain Score 1-3/Temp > 100.7 F Last Admin: 06/10/19 17:21 Dose: 650 mg Documented by: Enoxaparin Sodium (Lovenox) 30 mg SC DAILY [facility] Last Admin: 06/10/19 08:45 Dose: 30 mg Documented by: Ferrous Sulfate (Ferrous Sulfate) 325 mg PO BIDCM [facility] Last Admin: 06/10/19 17:21 Dose: 325 mg Documented by: Hydralazine HCl (Apresoline Iv) 10 mg IV Q8H PRN PRN PRN Reason: for SBP>160 Sodium Chloride () 1,000 mls @ 75 mls/hr IV .[id number] [facility] Last Infusion: 06/11/19 03:03 Dose: 75 mls/hr Documented by: Sodium Chloride () 250 mls @ 15 mls/hr IV .[id number] PRN PRN Reason: Saline Flush Piperacillin Sod/Tazobactam (Sod 3.375 gm/ Sodium Chloride) 50 mls @ 12.5 mls/hr IV Q8 [facility] Last Admin: 06/11/19 06:50 Dose: 12.5 mls/hr Documented by: Vancomycin HCl 1,250 mg/ (Sodium Chloride) 275 mls @ 167 mls/hr IV Q12H [facility] Last Infusion: 06/11/19 03:03 Dose: Infused Documented by: Morphine Sulfate () 2 mg IV Q3H PRN PRN PRN Reason: Pain Score 6-10/10 Mupirocin (Bactroban) 1 applic NASAL BID [facility]; Protocol Stop: 06/14/19 22:01 Last Admin: 06/10/19 20:54 Dose: 1 applicatio Documented by: Ondansetron HCl (Zofran) 4 mg IV Q8H PRN PRN PRN Reason: NAUSEA/VOMITING Last Admin: 06/10/19 12:43 Dose: 4 mg Documented by: Oxycodone HCl (Oxyir) 5 mg PO Q4H PRN PRN PRN Reason: Pain Score 4-5/10 Last Admin: 06/11/19 01:40 Dose: 5 mg Documented by: Pantoprazole Sodium (Protonix) 40 mg PO DAILY [facility] Last Admin: 06/10/19 08:46 Dose: 40 mg Documented by: Potassium Chloride (K-Dur) 40 meq PO DAILYCM [facility] Last Admin: 06/10/19 12:44 Dose: 40 meq Documented by: Sodium Chloride () 10 - 40 ml IV UD PRN PRN Reason: SALINE FLUSH Last Admin: 06/09/19 22:56 Dose: 10 ml Documented by: Medical Necessity - Tobacco Use Smoking Status: Never smoker Tobacco Use: Non-smoker Assessment/Plan This is a 48 years old female patient presented to the emergency room because of nausea, vomiting, fever and increasing right leg swelling and erythema as well as drainage and she was found to have sepsis secondary to acute right leg cellulitis/infected nonhealing right leg ulcers as well as acute diarrheal illness which is probably due to viral gastroenteritis. After admission, she developed acute kidney injury and acute on chronic anemia. #1 Polymicrobial acute right leg cellulitis/infected nonhealing multiple right leg ulcers/sepsis: She is on IV vancomycin and Zosyn. She is still having spikes of low-grade fever, other vital signs are stable. Leukocytosis resolved. Blood culture showed no growth in 48 hours. Wound culture revealed Achromobacter, Acetobacter, Klebsiella pneumoniae and MRSA as well as group C streptococcus. Plastic surgery and infectious disease consulted, await recommendations. Plan to continue same treatment. #2 acute diarrheal illness: Attributed to viral gastroenteritis, patient had no more diarrhea since admission. No stool studies sent because patient had no bowel movement. Resolved. #3 acute kidney injury: Secondary to sepsis and poor oral intake. Patient has been on IV fluids, kidney function is back to normal. Patient is tolerating diet. Plan to DC IV fluids, encourage p.o. diet, restart Lasix. #3 GERD: Stable, continue PPI. #4 Acute on chronic chronic anemia: Patient's states that she had anemia for a long time and she attributed it to multiple pregnancies. She mentioned that she sees blood transfusion in the past. Denied any bleeding from body orifices. Today's hemoglobin is 7 g/dL. She is on iron supplement. Plan to transfuse 1 unit of packed RBCs today, repeat H&H tomorrow morning. #5 peripheral vascular disease: Stable, denies any leg pain. No evidence of ischemia on examination. Unclear if she has any interventions in the past. She is not on any antiplatelet treatments. #6 DVT prophylaxis: Subcu Lovenox. This note was generated with [employer] dictation software. It may contain incorrect words, spelling, and punctuation that were not noted in checking the note before signing. Code Visit Inpatient E&M: 82421 Subs Hosp L2
--- NOTE | 2019-06-11 08:34 | NURSING ---
wound photo: right lower leg
[2019-06-11] MEDS: Enoxaparin 30 MG/0.3 ML Syringe SC (08:47)
[2019-06-11] MEDS: Mupirocin Ointment 22gm Tube 1 APPLIC NASAL ×2 (08:47→21:37)
[2019-06-11] MEDS: Ferrous Sulfate 325 MG Tablet PO ×2 (08:47→16:26)
[2019-06-11] MEDS: Pantoprazole Sodium 40 MG Tablet PO (08:47)
--- NOTE | 2019-06-11 09:08 | NURSING ---
Patient concerned her truck will be towed. This RN called security and they came to room and took information from the patient.
[2019-06-11] MEDS: Furosemide 20 MG Tablet PO (11:25)
--- NOTE | 2019-06-11 11:30 | CASEMGMT ---
TIN MONTERO Face to Face with patient for initial transition planning/care coordination assessment. TIN MONTERO introduced self and role at [facility]. Patient sitting in chair, alert and oriented. Patient willing to participate in assessment and is able to answer all questions appropriately. Care providers, pharmacy, and demographics verified. Patient wishes to discharge home, denies need for home health at this time. 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 TIN MONTERO updated SW regard need for financial resources. Patient states she has no further needs or concerns at this time. CM to follow for discharge planning needs that may arise. PCP: Marco Specialists: Enedelia Mora, wound center Preferred Pharmacy: [facility] Insurance: [facility] Prescription Benefit: yes Living Will/HPOA: none LNOK: patient has 3 children, 18yo, 15yo, and 11yo Living Arrangements: Patient lives with children in [place] home wiht 5 steps and railing to enter the home. Transportation: self/friends DME/HHC: Patient denies any DME or previous HHC. Disposition Plan: Patient to discharge home. Will monitor for need for HHC pending course of treatment. Jen ADKINS, RN, CM
--- NOTE | 2019-06-11 11:36 | CON.PCM_ITS ---
Reason for Consult Date of Consultation: 06/11/19 Reason for Consultation: Nonhealing infected MRSA ulcers right leg. REFERRING PHYSICIAN: Dr. Gates. CUPOLA OPERATOR INSULATION: Dr. Mcok. History of Present Illness: The patient is a 48 year old F patient who was admitted for fever, nausea, and vomiting. It was also noted she has chronic infected ulcers right leg. She recently finished Doxycycline. She goes to a local wound center at [facility]. Wound culture showed Achromobacter denitrificans, Acinetobacter baumannii, Klebsiella pneumoniae, MRSA, and Streptococcus group C. She was placed on Vancomycin and Zosyn. I was asked to evaluate this patient for surgical options for treatment. Past Medical History Past Medical History (Chronic Problems): Chronic Problems (Last Updated 06/11/19 @ 09:39 by Era Gates MD) Ulcer of right lower extremity with fat layer exposed (Chronic) Chronic venous insufficiency of lower extremity (Chronic) GERD (gastroesophageal reflux disease) (Chronic) Chronic anemia (Chronic) History of non-healing wound (Chronic) RLE Lower extremity edema (Chronic) PVD (peripheral vascular disease) (Chronic) Medical History: Medical History (Last Updated 06/11/19 @ 09:39 by Era Gates MD) PVD (peripheral vascular disease) (Chronic) I73.9 Delayed wound healing T14.8XXD Obesity E66.9 Ulcer of right lower extremity with fat layer exposed (Inactive) L97.912 Allergies naproxen [From Aleve] Allergy (Verified 06/08/19 16:54) Shortness of breath Home Medications: Ambulatory Orders Medication Instructions Recorded furosemide 20 mg tablet 20 mg PO DAILY 03/26/19 potassium chloride 10 mEq 10 meq PO DAILY 03/26/19 tablet,extended release Ferrous Sulfate 325 mg PO BID 06/08/19 Ibuprofen [Advil] 400 mg PO DAILY PRN PRN 06/08/19 Omeprazole 40 mg PO DAILY 06/08/19 Ciprofloxacin [Cipro] 500 mg PO BID #20 tab 06/12/19 Smz/Tmp Ds [Bactrim Ds] 1 tab PO BID #20 tab 06/12/19 Surgical History: Surgical History (Last Reviewed 06/08/19 @ 20:23 by Era Gates MD) History of section Z98.891 x 2 History of eye surgery Z98.890 History of hernia repair Z98.890, Z87.19 Surgical History: no surgical history Psychiatric History: No pertinent psych hx LANGUAGE TRANSLATOR History: No pertinent LANGUAGE TRANSLATOR history Lives: With Family Smoking Status: Never smoker Tobacco Use: Non-smoker Alcohol: None Drugs: None - *Family History Maternal History Items: No pertinent history Paternal History Items: No pertinent history Review of Systems Comment: Constitutional: Reports: Fever, Weakness. Denies: Anorexia, Chills. Eyes: Denies: Blurred vision, Double vision, Drainage, Redness. HEENT: Reports: Sore Throat. Denies: Difficulty Hearing, Ear Pain, Eye Pain, Nasal Congestion. Cardiovascular: Denies: Chest Pain, Chest Pressure, Chest Tightness, Heaviness, Light Headedness, Palpitations, Syncope. Respiratory: Denies: Cough, Hemoptysis, Pleuritic Pain, Shortness of Breath, Sputum production, Wheezing. Gastrointestinal: Reports: Abdominal Pain, Diarrhea, Nausea, Vomiting. Denies: Constipation. Genitourinary: Denies: Dysuria, Frequency, Hematuria. Musculoskeletal: Reports: Leg Pain. Denies: Arm Pain, Back Pain, Foot Pain. Skin: Denies: Dryness, Rash. Neurological: Denies: Balance problems, Double vision, Change in Speech, Slurred speech, Confusion, Focal weakness, Incoordination, Numbness. Psychiatric: Denies: Anxiety, Depression. Endocrine: Denies: Change in Body Habitus, Polydipsia, Polyuria - Physical Exam Vitals/I&O's: General: Alert, Oriented x3. HEENT: PERRLA, EOMI. Oral: No Gingival or Mucosal Lesions/ Ulcerations, Dry Mucosa Neck: Supple, Nontender. No cervical adenopathy. Lungs: Clear to auscultation. Cardiovascular: Regular rate, Regular Rhythm. Abdomen: Soft, Non-Distended. Extremities: Patient has chronic venous insufficiency with edema. Has skin discoloration. On the right anterior leg is a cluster of ulcerations measuring 10 x 7 cm. Has tenderness and redness and swelling. Dorsalis pedis pulses are diminished. Lymphatic: No Cervical, Supraclavicular, or Inguinal Adenopathy Neurological: Cranial nerves II-XII grossly intact, Psych: oriented to time, place, person, mood and affect Vital Signs Temp Pulse Resp BP Pulse Ox 98.8 F 76 18 137/59 H 100 06/11/19 11:22 06/11/19 11:22 06/11/19 11:22 06/11/19 11:22 06/11/19 11:22 Oxygen Delivery Method Room Air Weight: 307 lb 8.717 oz Body Mass Index (BMI) 44.1 Finger Stick Blood Glucose 81 Intake and Output for Last 24 Hours 06/09/19 06/10/19 06/11/19 23:59 23:59 23:59 Intake Total 4432.25 / 4432.25 4047.00 / 4047.00 2440 / 2440 Output Total 300 / 300 1100 / 1100 300 / 300 Balance 4132.25 / 4132.25 2947.00 / 2947.00 2140 / 2140 Microbiology Past 72 Hours 06/08/19 20:05 Wound Abcess - Leg Gram Stain - Final 06/08/19 20:05 Wound Abcess - Leg Wound Culture - Final Achromobacter denitrificans Acinetobacter baumannii Klebsiella pneumoniae sp pneum Meth. resistant Staph. aureus Streptococcus group C 06/08/19 19:25 Blood Culture (Wb) - Anticubital Left Blood Culture - Preliminary No growth in 48 hours. 06/08/19 18:10 Blood Culture (Wb) - Right Forearm Blood Culture - Preliminary No growth in 48 hours. 06/08/19 18:05 Urine, Clean Catch Urine Culture - Preliminary Mixed Gram Positive Organisms 06/08/19 22:30 Mucosa - Nose Respiratory Panel (PCR) - Final 06/08/19 19:11 Mucosa - Nose Influenza Types A,B Direct FA (ANTHONY) - Final Laboratory Results 06/10/19 12:50: Vancomycin Trough 17.4 H 06/11/19 05:10: WBC 8.5, RBC 2.88 L, Hgb 7.0 L, Hct 24.1 L, MCV 83.7, MCH 24.3 L , MCHC 29.0 L, RDW Std Deviation 50.2 H, RDW Coeff of [place]rell 16.4 H, Plt Count 214, MPV 10.1, Immature Gran % (Auto) 0.800, Neut % (Auto) 70.2 H, Lymph % (Auto) 17.8 L, [place] % (Auto) 8.8, Eos % (Auto) 2.2, Baso % (Auto) 0.2, Absolute Neuts (auto) 6.0, Absolute Lymphs (auto) 1.51, Nucleated RBC % 0 06/11/19 05:10: Sodium 137, Potassium 4.2, Chloride 110 H, Carbon Dioxide 23.0, Anion Gap 4 L, BUN 17, Creatinine 0.87, Estim Creat Clear Calc 87.37, Est GFR (MDRD) Af Amer 89, Est GFR (MDRD) Non-Af 74, BUN/Creatinine Ratio 19.5, Glucose 111 H, Calcium 8.0 L 06/11/19 05:10: Iron 13 L, TIBC 312, Iron Saturation 4.2 L 06/11/19 08:44: Blood Type A POSITIVE, Antibody Screen NEGATIVE, Crossmatch See Detail Current Medications Acetaminophen (Tylenol) 650 mg PO Q6H PRN PRN PRN Reason: Pain Score 1-3/Temp > 100.7 F Last Admin: 06/10/19 17:21 Dose: 650 mg Documented by: Enoxaparin Sodium (Lovenox) 30 mg SC DAILY [facility] Last Admin: 06/11/19 08:47 Dose: 30 mg Documented by: Ferrous Sulfate (Ferrous Sulfate) 325 mg PO BIDCM [facility] Last Admin: 06/11/19 08:47 Dose: 325 mg Documented by: Furosemide (Lasix) 20 mg PO DAILY [facility] Last Admin: 06/11/19 11:25 Dose: 20 mg Documented by: Hydralazine HCl (Apresoline Iv) 10 mg IV Q8H PRN PRN PRN Reason: for SBP>160 Sodium Chloride () 250 mls @ 15 mls/hr IV .[id number] PRN PRN Reason: Saline Flush Piperacillin Sod/Tazobactam (Sod 3.375 gm/ Sodium Chloride) 50 mls @ 12.5 mls/hr IV Q8 [facility] Last Infusion: 06/11/19 10:50 Dose: Infused Documented by: Vancomycin HCl 1,250 mg/ (Sodium Chloride) 275 mls @ 167 mls/hr IV Q12H [facility] Last Infusion: 06/11/19 03:03 Dose: Infused Documented by: Sodium Chloride () 500 mls @ 15 mls/hr IV PRN PRN PRN Reason: Blood Transfusion Morphine Sulfate () 2 mg IV Q3H PRN PRN PRN Reason: Pain Score 6-10/10 Mupirocin (Bactroban) 1 applic NASAL BID [facility]; Protocol Stop: 06/14/19 22:01 Last Admin: 06/11/19 08:47 Dose: 1 applicatio Documented by: Ondansetron HCl (Zofran) 4 mg IV Q8H PRN PRN PRN Reason: NAUSEA/VOMITING Last Admin: 06/10/19 12:43 Dose: 4 mg Documented by: Oxycodone HCl (Oxyir) 5 mg PO Q4H PRN PRN PRN Reason: Pain Score 4-5/10 Last Admin: 06/11/19 08:46 Dose: 5 mg Documented by: Pantoprazole Sodium (Protonix) 40 mg PO DAILY [facility] Last Admin: 06/11/19 08:47 Dose: 40 mg Documented by: Potassium [facility] ([facility]Dur) [facility] Last Admin: 06/11/19 08:47 Dose: 40 meq Documented by: Sodium Chloride () 10 - 40 ml IV UD PRN PRN Reason: SALINE FLUSH Last Admin: 06/09/19 22:56 Dose: 10 ml Documented by: Assessment/Plan All Active Problems (Last Updated 06/11/19 @ 09:39 by Era Gates MD) MRSA (methicillin resistant Staphylococcus aureus) infection (Acute) Cellulitis of right anterior lower leg (Acute) 1. Nonhealing infected MRSA ulcers cluster right anterior leg. 2. Chronic venous insufficiency with ulceration. 3. Cellulitis. 4. Lower extremity edema. Continue Vancomycin and Zosyn. Her wound cultures show Achromobacter denitrificans, Acinetobacter baumannii, Klebsiella pneumoniae, MRSA, and Streptococcus group C. Recommend operative intervention with surgical preparation of the right leg with incision and drainage and excisional debridement nonhealing infected MRSA ulcers cluster. Will leave the wound open and proceed with wound care with the VAC. Compression is very important as well as healing will be delayed with continued leg edema. Also in the future if a skin graft is contemplated for wound closure, it would have a high chance of failing with continued leg edema. Tissue that is removed will be sent to Pathology for analysis to rule out carcinoma and to Microbiology for culture. A positive culture may necessitate antibiotic modification. The surgery would be done under general anesthesia. Will obtain a CT leg today in preparation for surgery tomorrow. After discharge can followup at the Wound Center. 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 I told her with surgery tomorrow, we can anticipate discharge home on Tuesday. And with the need for a few days of pain medication, she could potentially return to work by the end of the week. She states she will decide about the surgery later today after the CT is done. Discussed with her that if she doesn't proceed with the surgery, she needs close followup with her wound care provider at [facility] and with her MRSA infection, there is the risk of the MRSA infection spreading more proximally and potentially becoming systemic. At which time, she would be at increased risk of an amputation. She is aware of that possible risk in the future and voices understanding. Patient was informed of the risks and complications of the procedure including alternatives to surgery. These were discussed with the patient personally. Patient voices understanding and wishes to think about the surgery as she is hesitant right now to proceed and will decide after she gets the CT scan later today. Code Visit Inpatient E&M: 03228 Init Hosp L2 - ICD-10 - L97.912, A49.02, I87.2, L03.115, R60.0
--- NOTE | 2019-06-11 12:10 | CT_ITS ---
STUDY: CT LOWER EXTREMITY WITHOUT CONTRAST. RIGHT REASON FOR EXAM: Female, 48 years old. NON HEALING WOUND- RLE, SWOLLEN AND RED, MRSA INFECTION RT LEG ULCER, PVD RADIATION DOSAGE (If Supplied By Facility): CTDIvol = ( 15.40 ) mGy, DLP = ( 955.31 ) mGycm. Individualized dose optimization techniques were used for this CT.? TECHNIQUE: Multiple axial images of the right lower extremity were obtained from the distal right femur to the distal metatarsals. Sagittal coronal reformatted images are performed. COMPARISON: None. FINDINGS: There is soft tissue edema especially about the foot and the lateral aspect of the foot. There is diffuse soft tissue edema. In the anterior aspect of the tibial soft tissue tissues there is a homogeneous appearance of the skin and skin thickening without evidence of underlying gas formation. There is edema throughout the soft tissues and especially the underlying fat. There is no significant edema of the intermuscular spaces. What is seen or engorged varicosities of the veins especially in the distal femur. This is especially apparent in the anterior aspect of the knee. There are few coarse calcifications underlying the area of possible skin erosion or edema. This is seen primarily on the medial side of the tibia. There is no definitive focal drainable fluid collection except for the fluid like edema surrounding the medial aspect of the tibia fairly diffusely peripheral to the deep fascia. There is a trace joint effusion. There is mild degenerative change in the visualized knee joint. There is degenerative change within the ankle joint. A fracture line or bony erosion is not visualized. CT/Extremity Lower without Contra IMPRESSION: Severe cellulitis probable venous congestion and/or stasis. Large engorged venous varices. Visualized gas in the soft tissues or definitive focal drainable collection. Recommend consideration for follow-up venous and superficial soft tissue ultrasound. Skin thickening and area of skin erosion or ulceration in the anterior aspect of the lower extremity at the tibia. Electronically Signed: Christiane Root MD at 18:02 EST Tel , Service support ,
--- NOTE | 2019-06-11 12:15 | CASEMGMT ---
Social Work Note RN CM updated this worker that pt would like resources on rent assistance. SW met with pt. SW introduced self and role at [facility]. Pt is alert and orientated x3. SW provided pt with [employer] and [place] [id number] resources. Pt thanked this worker. Pt denied additional needs or concerns at this time. Jen Romano COMPUTER SYSTEMS INFORMATION DIRECTOR, SURVEILLANCE CAMER[employer] TECHNICIAN
[2019-06-11] MEDS: Acetaminophen 325 MG Tablet 650 MG PO ×2 (13:08→21:38)
--- NOTE | 2019-06-11 13:51 | PCM.HP.ID ---
Problem List (1) History of non-healing wound Status: Chronic Comment: RLE Reason for Consult: fever Consulted by: Dr. Gates History of Present Illness: The patient is a 48 year old F with 2 years of R poon ulcer, presented 06/08 with 5 days of n/v/d and fever. Daughter with similar sx. Had about 12 episodes of diarrhea a day, no abd pain, no blood in stool. Last diarrhea was 06/07. Fever resolved. Had been on doxy as outpt for R poon, follows with wound care. Overall ulcer has been improving over past few weeks, minimal drainage. Full ROS performed and neg except as noted above - Medical History Past Medical History (Chronic Problems): Chronic Problems (Last Updated 06/11/19 @ 09:39 by Era Gates MD) GERD (gastroesophageal reflux disease) (Chronic) Chronic anemia (Chronic) History of non-healing wound (Chronic) RLE Lower extremity edema (Chronic) PVD (peripheral vascular disease) (Chronic) Allergies/Adverse Reactions: Allergies naproxen [From Aleve] Allergy (Verified 06/08/19 16:54) Shortness of breath Home Medications: Ambulatory Orders Medication Instructions Recorded furosemide 20 mg tablet 20 mg PO DAILY 03/26/19 potassium chloride 10 mEq 10 meq PO DAILY 03/26/19 tablet,extended release Ferrous Sulfate 325 mg PO BID 06/08/19 Ibuprofen [Advil] 400 mg PO DAILY PRN PRN 06/08/19 Omeprazole 40 mg PO DAILY 06/08/19 - Social History Tobacco Use: non-smoker Vital Signs Temp Pulse Resp BP Pulse Ox 99 F 72 18 114/60 100 06/11/19 13:28 06/11/19 13:28 06/11/19 13:28 06/11/19 13:28 06/11/19 13:28 Oxygen Delivery Method Room Air Weight: 139.5 kg Body Mass Index (BMI) 44.1 Finger Stick Blood Glucose 81 Microbiology Past 72 Hours 06/08/19 18:05 Urine Culture - Preliminary Urine, Clean Catch Gram positive organism Gram positive organism#2 06/08/19 20:05 Gram Stain - Final Wound Abcess - Leg Wound Culture - Final Achromobacter denitrificans Acinetobacter baumannii Klebsiella pneumoniae sp pneum Meth. resistant Staph. aureus Streptococcus group C 06/08/19 19:25 Blood Culture - Preliminary Blood Culture (Wb) - Anticubital Left No growth in 48 hours. 06/08/19 18:10 Blood Culture - Preliminary Blood Culture (Wb) - Right Forearm No growth in 48 hours. 06/08/19 22:30 Respiratory Panel (PCR) - Final Mucosa - Nose 06/08/19 19:11 Influenza Types A,B Direct FA (ANTHONY) - Final Mucosa - Nose Laboratory Tests Past 24 Hrs 06/11/19 06/11/19 06/11/19 05:10 05:10 05:10 WBC 8.5 RBC 2.88 L Hgb 7.0 L Hct 24.1 L MCV 83.7 MCH 24.3 L MCHC 29.0 L RDW Std Deviation 50.2 H RDW Coeff of [place] 16.4 H Plt Count 214 MPV 10.1 Immature Gran % (Auto) 0.800 Neut % (Auto) 70.2 H Lymph % (Auto) 17.8 L Berg[place] % (Auto) 8.8 Eos % (Auto) 2.2 Baso % (Auto) 0.2 Absolute Neuts (auto) 6.0 Absolute Lymphs (auto) 1.51 Nucleated RBC % 0 Sodium 137 Potassium 4.2 Chloride 110 H Carbon Dioxide 23.0 Anion Gap 4 L BUN 17 Creatinine 0.87 Estim Creat Clear Calc 87.37 Est GFR (MDRD) Af Amer 89 Est GFR (MDRD) Non-Af 74 BUN/Creatinine Ratio 19.5 Glucose 111 H Calcium 8.0 L Iron 13 L TIBC 312 Iron Saturation 4.2 L Blood Type Antibody Screen Crossmatch 06/11/19 08:44 WBC RBC Hgb Hct MCV MCH MCHC RDW Std Deviation RDW Coeff of [place] Plt Count MPV Immature Gran % (Auto) Neut % (Auto) Lymph % (Auto) Berg[place] % (Auto) Eos % (Auto) Baso % (Auto) Absolute Neuts (auto) Absolute Lymphs (auto) Nucleated RBC % Sodium Potassium Chloride Carbon Dioxide Anion Gap BUN Creatinine Estim Creat Clear Calc Est GFR (MDRD) Af Amer Est GFR (MDRD) Non-Af BUN/Creatinine Ratio Glucose Calcium Iron TIBC Iron Saturation Blood Type A POSITIVE Antibody Screen NEGATIVE Crossmatch See Detail - Other Studies Radiology: [] reviewed Other Studies: [] Route of nutrition/ use of supplements: [] Nutritional Intake: [] IV Site: [] Smith Catheter: [] - Physical Exam General: Alert, Oriented x3, Cooperative, No apparent distress HEENT: Atraumatic, PERRLA, EOMI Neck: Supple, No Nodes Lungs: Clear to auscultation, Normal air movement Cardiovascular: Regular rate, Regular Rhythm Abdomen: Soft, Non Tender, Non-Distended, Obese, Hernia Extremities: Edema Skin: Ulcer/ Wound - R poon IV Site: Peripheral, without redness Musculoskeletal: No Tenderness to Palpation of Joints or Extremities Neurological: Cranial nerves II-XII grossly intact - Assessment/Plan Antibiotics: [] Assessment/Plan: [] Acute gastroenteritis - resolved. No further fever. Chronic R poon infected ulcer - to be seen by Dr. Mock. Wound cx with mrsa, achromobacter, AcB, klebs, strep. On vanc/zosyn. Plan on home with po abx. Will follow, thank you.
[2019-06-11] MEDS: 0.9% Saline Lock 10 ML Syringe IV (14:24)
[2019-06-12 00:55] LABS: Vancomycin, Trough Level 18.2 ug/mL (5.0-15.0)
[2019-06-12] MEDS: 0.9% Saline Lock 10 ML Syringe IV (01:21)
[2019-06-12 01:25] VITALS: BP 144/64; PULSE 82; RESP 16; TEMP 36.8; O2SAT 99
--- NOTE | 2019-06-12 02:38 | PCM.RX.CS ---
Consult Pharmacy has been consulted to manage selected antiobiotic: Vancomycin Type of Consult: Follow-up Suspected Infection: Sepsis Labs: Sodium 137 mmol/L (136-145) 06/11/19 05:10 Potassium 4.2 mmol/L (3.5-5.1) 06/11/19 05:10 Chloride 110 mmol/L (98-107) H 06/11/19 05:10 Carbon Dioxide 23.0 mmol/L (21.0-32.0) 06/11/19 05:10 Anion Gap 4 (5-15) L 06/11/19 05:10 BUN 17 mg/dL (7-18) 06/11/19 05:10 Creatinine 0.87 mg/dL (0.55-1.02) 06/11/19 05:10 Est GFR (MDRD) Af Amer 89 mL/min (>60) 06/11/19 05:10 Est GFR (MDRD) Non-Af 74 mL/min (>60) 06/11/19 05:10 BUN/Creatinine Ratio 19.5 RATIO (10-20) 06/11/19 05:10 Glucose 111 mg/dL (74-106) H 06/11/19 05:10 Vancomycin Trough 18.2 ug/mL (5.0-15.0) H 06/12/19 00:30 Microbiology: Microbiology 06/08/19 18:05 Urine, Clean Catch Urine Culture - Preliminary Gram positive organism Gram positive organism#2 06/08/19 20:05 Wound Abcess - Leg Gram Stain - Final 06/08/19 20:05 Wound Abcess - Leg Wound Culture - Final Achromobacter denitrificans Acinetobacter baumannii Klebsiella pneumoniae sp pneum Meth. resistant Staph. aureus Streptococcus group C 06/08/19 19:25 Blood Culture (Wb) - Anticubital Left Blood Culture - Preliminary No growth in 48 hours. 06/08/19 18:10 Blood Culture (Wb) - Right Forearm Blood Culture - Preliminary No growth in 48 hours. 06/08/19 22:30 Mucosa - Nose Respiratory Panel (PCR) - Final 06/08/19 19:11 Mucosa - Nose Influenza Types A,B Direct FA (ANTHONY) - Final Goal Trough: 15-20 mcg/mL Pharmacy Plan for Drug Dosing: Pharmacy Service will continue to monitor and adjust dosing as required. TROUGH 18.2 NO CHANGES AT THIS TIME. NEXT TR 06/14 @ 0030 PER UNSTABLE SCr LEVELS Follow-Up Labs: Trough Vancomycin Labs to be done on [date and time ordered]: 06/14 @ 29
[2019-06-12 05:42] VITALS: BP 131/65; PULSE 81; RESP 18; TEMP 37.4; O2SAT 99
[2019-06-12 05:48] LABS: Hematocrit 24.2 % (37-47); Hemoglobin 7.3 g/dL (12.0-15.0)
[2019-06-12 08:28] VITALS: BP 147/74; PULSE 84; RESP 16; TEMP 37.2; O2SAT 98
[2019-06-12] MEDS: Ferrous Sulfate 325 MG Tablet PO (08:35)
[2019-06-12] MEDS: Pantoprazole Sodium 40 MG Tablet PO (08:36)
[2019-06-12] MEDS: Mupirocin Ointment 22gm Tube 1 APPLIC NASAL (08:36)
[2019-06-12] MEDS: oxyCODONE 5 MG Tablet PO (08:36)
[2019-06-12] MEDS: Furosemide 20 MG Tablet PO (08:36)
[2019-06-12] MEDS: Enoxaparin 30 MG/0.3 ML Syringe SC (08:36)
[2019-06-12 08:59] VITALS: RESP 16; O2SAT 98
--- NOTE | 2019-06-12 09:40 | NURSING ---
Pt cooperative. Stated clearly she was leaving today AMA if not D/C'd. Meds were administered. Script copy given. Ambulated off floor.
--- NOTE | 2019-06-12 11:18 | NURSING ---
Student charting reviewed.
--- NOTE | 2019-06-12 11:54 | PCM.DC.SUM ---
Discharge Date and Diagnosis Date of Admission: 06/08/19 Date of Discharge: 06/12/19 - Primary Discharge Diagnosis #1 polymicrobial acute right leg cellulitis/infected nonhealing multiple leg ulcers/sepsis. #2 viral gastroenteritis, resolved. #3 acute kidney injury. #4 acute on chronic anemia. - Secondary Discharge Diagnosis Chronic Problems (Last Updated 06/11/19 @ 09:39 by Era Gates MD) GERD (gastroesophageal reflux disease) (Chronic) Chronic anemia (Chronic) History of non-healing wound (Chronic) RLE Lower extremity edema (Chronic) PVD (peripheral vascular disease) (Chronic) Hospital Course and Treatment Imaging Results: Clinical Impression(s) from Imaging Studies Lower Extremity CT 06/11/19 12:10 IMPRESSION: Severe cellulitis probable venous congestion and/or stasis. Large engorged venous varices. Visualized gas in the soft tissues or definitive focal drainable collection. Recommend consideration for follow-up venous and superficial soft tissue ultrasound. Skin thickening and area of skin erosion or ulceration in the anterior aspect of the lower extremity at the tibia. Electronically Signed: Christiane Root MD at 18:02 EST Tel , Service support , Consultations 06/08/19 21:19 Consult: Onc/Wound/financial specialist Routine Comment: 06/09/19 00:32 Consult: Onc/Wound/financial specialist Routine Comment: Reason for Consult:: wound to RLE Dr. Mock, plastic surgery. Dr. Bradford, infectious disease. Operations: None Procedures: None Summary of Care Provided: On the day of discharge, patient insisted that she wants to go home. She mentioned that she has an autistic child at home alone and she would like to go home and take care of him. I explained to the patient that a CAT scan of the right leg revealed severe cellulitis, gas and possible focal abscess. I explained to her that IV antibiotics alone is not enough to treat her right leg. She refused to go for surgery with Dr. bains yesterday. She insisted that she be discharged home today and she does not want to go for surgery. The patient is a 48 year old F patient presented to the emergency room because of nausea, vomiting, fever and diarrhea as well as increasing right leg swelling and erythema with drainage and she was found to have sepsis secondary to acute right leg cellulitis/infected nonhealing right leg ulcers. Patient was admitted, treated with IV antibiotics and IV fluids. After admission, diarrhea resolved and it is attributed to viral gastroenteritis. Was found to have acute kidney injury which was treated with IV fluids and her kidney function returned back to normal. She was treated with IV vancomycin and Zosyn. Wound culture revealed actinobacter, Achromobacter, Klebsiella pneumoniae, MRSA and group C Streptococcus. Her blood culture showed no growth in 48 hours. Plastic surgery and infectious disease consulted. Dr. Mock recommended CT scan of the right lower extremity which revealed severe cellulitis, visualized he has in the soft tissue or definitive focal abscess. Surgery was recommended but patient refused. On the day of discharge, I spoke with the patient in length about the possible complications that may happen if this infection not treated the right way with incision and drainage. I informed the patient about the CAT scan results and I mentioned to her that antibiotics alone is not enough to treated this infection her right leg. I informed the patient that serious complications might happen with this infection including gangrene, osteomyelitis and systemic infection. Patient insisted that to be discharged today because she wants to take care of her autistic child at home. Patient discharged AGAINST MEDICAL ADVICE, prescription for Bactrim and ciprofloxacin for 10 days given, highly recommended to follow-up with the wound care center in few days and follow-up with PCP in 1 week. - Physical Exam Vitals/I&O's: Vital Signs Temp Pulse Resp BP Pulse Ox 99.0 F 84 16 147/74 H 98 06/12/19 08:28 06/12/19 08:28 06/12/19 08:59 06/12/19 08:28 06/12/19 08:59 Oxygen Delivery Method Room Air Weight: 307 lb 8.717 oz Body Mass Index (BMI) 44.1 Finger Stick Blood Glucose 81 Intake and Output for Last 24 Hours 06/10/19 06/11/19 06/12/19 23:59 23:59 23:59 Intake Total 4047.00 / 4047.00 3834.50 / 3834.50 609.79 / 609.79 Output Total 1100 / 1100 1000 / 1000 300 / 300 Balance 2947.00 / 2947.00 2834.50 / 2834.50 309.79 / 309.79 General: Alert, Oriented x3, Cooperative, No apparent distress HEENT: Atraumatic, PERRLA, EOMI, Normocephalic Oral: Moist Mucosa, No Gingival or Mucosal Lesions/ Ulcerations Neck: Supple, No JVD, Negative Carotid Bruits, Trachea Midline, Thyroid Normal Size and Texture Lungs: Clear to auscultation, Normal air movement, No rhonchi, No wheeze, No rales Cardiovascular: Regular rate, Regular Rhythm, Normal S1, Normal S2, PMI Normal Abdomen: Bowel Sounds Present, Soft, Non Tender, Non-Distended, No Hepato-splenomegaly, Obese Extremities: No clubbing, No cyanosis, No edema Skin: No rashes, Ulcer/ Wound Lymphatic: No Cervical, Supraclavicular, or Inguinal Adenopathy Neurological: Cranial nerves II-XII grossly intact, Neuro grossly intact Psych/Mental Status: Normal Affect, Appropriate Microbiology Past 72 Hours 06/08/19 18:05 Urine, Clean Catch Urine Culture - Final Mixed Gram Positive Organisms 06/08/19 20:05 Wound Abcess - Leg Gram Stain - Final 06/08/19 20:05 Wound Abcess - Leg Wound Culture - Final Achromobacter denitrificans Acinetobacter baumannii Klebsiella pneumoniae sp pneum Meth. resistant Staph. aureus Streptococcus group C 06/08/19 19:25 Blood Culture (Wb) - Anticubital Left Blood Culture - Preliminary No growth in 48 hours. 06/08/19 18:10 Blood Culture (Wb) - Right Forearm Blood Culture - Preliminary No growth in 48 hours. 06/08/19 22:30 Mucosa - Nose Respiratory Panel (PCR) - Final Laboratory Results 06/11/19 08:44: Crossmatch See Detail 06/12/19 00:30: Vancomycin Trough 18.2 H 06/12/19 05:23: Hgb 7.3 L, Hct 24.2 L Home Medications: Medications to take at Discharge furosemide 20 mg tablet 20 mg PO DAILY 03/26/19 potassium chloride 10 mEq tablet,extended release 10 meq PO DAILY 03/26/19 Ferrous Sulfate 325 mg PO BID 06/08/19 Ibuprofen [Advil] 400 mg PO DAILY PRN PRN 06/08/19 Omeprazole 40 mg PO DAILY 06/08/19 Ciprofloxacin [Cipro] 500 mg PO BID #20 tab 06/12/19 Smz/Tmp Ds [Bactrim Ds] 1 tab PO BID #20 tab 06/12/19 Following Prescrptions Were Given to Patient: Smz/Tmp Ds [Bactrim Ds] 1 tab PO BID #20 tab Transmission Status: Received by [facility]AV[facility] Ciprofloxacin [Cipro] 500 mg PO BID #20 tab Transmission Status: Received by [facility] Primary Care Physician: Belle Lara MD [Primary Care Provider] - Disposition: Against Medical Advice Minutes spent on discharge:: 32 Patient Condition:: Stable Medical Necessity - Tobacco Use Smoking Status: Never smoker Tobacco Use: Non-smoker Meaningful Use Info Meaningful Use Diagnoses (Choose all that apply): None applicable Code Visit Inpatient E&M: 67220 Disch Hosp
--- NOTE | 2019-06-13 16:14 | CASEMGMT ---
TIN MONTERO Discharge Follow-up Phone Call: LISE: 11 Strata: 3 Call Date: 06/13/2019 Discharge Date: 06/12/2019 Time of Call:[id number] Duration: 1 min Admitting Diagnosis: Acute diarrheal illness, dehydration, sepsis TIN MONTERO attempted to complete follow-up phone call after recent hospitalization. No answer, voice message left with return contact information. Patient had left AMA and had prescriptions for antibiotics sent to [facility].
== END 2019-06-12 09:18 | disposition left against medical advice (07) | DRG 720 ==
LOC: ED 17:44 → MS3 20:09
PROVIDERS: Internal Medicine; Admitting Provider Hospitalist; Emergency Provider Emergency Medicine; PCP Internal Medicine; Visit Provider Hospitalist
DX: A41.9 Sepsis, unspecified organism (principal); L03.115 Cellulitis of right lower limb; D64.9 Anemia, unspecified; E87.6 Hypokalemia; L97.919 Non-pressure chronic ulcer of unspecified part of right lower leg with unspecified severity; I73.9 Peripheral vascular disease, unspecified; A08.4 Viral intestinal infection, unspecified; N17.9 Acute kidney failure, unspecified; E66.9 Obesity, unspecified; Z68.41 Body mass index [BMI] 40.0-44.9, adult; I87.2 Venous insufficiency (chronic) (peripheral); K21.9 Gastro-esophageal reflux disease without esophagitis; B96.1 Klebsiella pneumoniae [K. pneumoniae] as the cause of diseases classified elsewhere; B95.4 Other streptococcus as the cause of diseases classified elsewhere; B95.62 Methicillin resistant Staphylococcus aureus infection as the cause of diseases classified elsewhere; B96.89 Other specified bacterial agents as the cause of diseases classified elsewhere
CPT/HCPCS: 36415; 73700; 80048; 80053; 80202; 81001; 83540; 83550; 83605; 83735; 84100; 85014; 85018; 85025; 86850; 86900; 86901; 86920; 86922; 87040; 87070; 87077; 87086; 87088; 87186; 87205; 87633; 87640; 87641; 87804; 97110; 97116; 97162; 97166; 97530; 97535; 97802; 99251; 99285; J7030; J7040; J7050; P9016; A4216; G0463; J0295; J2405

== ENCOUNTER 2019-06-16 11:42 | Inpatient (IN) | payer MEDICAID, SELFPAY ==
[2019-06-08 21:20] VITALS: BMI 44.1
[2019-06-16] VITALS (7 sets, daily range): BP systolic 93–155; BP diastolic 43–91; PULSE 79–91; RESP 16–20; TEMP 36.4–38.6; O2SAT 96–100; BMI 45.8; BMI 45.3
--- NOTE | 2019-06-16 12:21 | RAD_ITS ---
STUDY: X-RAY - RIGHT TIBIA AND FIBULA REASON FOR EXAM: Female, 48 years old. WOUNDS LOWER ANTERIOR LEG TECHNIQUE: 2 view(s) of the tibia and fibula were obtained. COMPARISON: None. FINDINGS: Normal visualized tibia. Normal visualized fibula. There is non-specific soft tissue swelling. Vascular phleboliths are noted. RAD/Tibia & Fibula 2 Views IMPRESSION: Nonspecific soft tissue edema. No fracture or erosive process. Electronically Signed: Perez John MD ([place]) at 13:42 EST , Service support ,
--- NOTE | 2019-06-16 12:22 | ED.DCSUM_ITS ---
- ER Visit Summary Date of Service: 06/16/19 Chief Complaint: Right lower extremity wound and cellulitis History of Present Illness: The patient is a 48 F presenting with right lower extremity wound and cellulitis. Patient was admitted from June 08 through June 12 for the same complaint. Patient was treated with vancomycin and Zosyn. Surgery was recommended at that time. She left AGAINST MEDICAL ADVICE. She has been taking Bactrim and Cipro. She presents due to persistent pain and redness. Physical Examination: Vitals are stable. Patient is afebrile. Alert no acute distress. HEENT exam is unremarkable. Neck is supple. Lungs are clear and equal bilaterally. Heart is regular rate and rhythm. Abdomen is soft nontender nondistended. Extremities right lower extremity wounds x3 with purulent drainage and surrounding cellulitis Skin is warm and dry. No focal neurologic deficit. Remainder of exam is unremarkable. Emergency Department Course and Treatment: Patient was given morphine, Zofran IV. CBC shows hemoglobin 8.4, platelets 452. Chemistries show potassium 3.2. Right tib-fib x-ray shows nonspecific soft tissue edema. No fracture or erosive process. Patient was given vancomycin and Zosyn. Discussed with the hospitalist for admission. Disposition: Admission Impression: Right lower extremity cellulitis, failed outpatient treatment This note was generated with [employer] dictation software. It may contain incorrect words, spelling, and punctuation that were not noted in review of the chart prior to signing ED Disposition - Plan for ED Patient: Referrals: Belle Lara MD [Primary Care Provider] -
[2019-06-16] MEDS: Ondansetron 4 MG/2 ML Vial IV (12:50)
[2019-06-16] MEDS: Morphine 4 MG/ML Syringe IV (12:50)
[2019-06-16] MEDS: 0.9% Normal Saline 1,000 ML 1000 ML IV (12:50)
[2019-06-16 13:36] LABS: Absolute Lymphocyte Count 1.19 X10^3/uL (0.83-4.51); Absolute Neutrophil Count 6.4 X10^3/uL (2.0-7.7); Basophil# 0.03 X10^3/uL; Basophil% 0.4 % (0-1); Eosinophil# 0.09 X10^3/uL; Eosinophils% 1.1 % (0-5); Hematocrit 28.4 % (37-47); Hemoglobin 8.4 g/dL (12.0-15.0); Lymphocyte # 1.19 X10^3/ul (4.0); Mean Corp Hgb Conc 29.6 g/dL (32-36); Mean Corpuscular Hgb 24.7 pg (27.0-32.0); Mean Corpuscular Volume 83.5 fL (81-99); Mean Platelet Vol. 8.9 fl (6.2-12.0); Monocyte# 0.65 X10^3/uL; Monocyte% 7.6 % (0-10); NRBC Flagged by Analyzer 0 % (0-5); Neutrophil # 6.44 X10^3/uL (2.7-7.7); Neutrophil % 75.6 % (47-70); Platelet Count 452 K/mm3 (150-450); RBC Distribution Width CV 15.2 % (11.6-14.6); RBC Distribution Width SD 46.5 fl (35.1-43.9); White Blood Count 8.5 K/mm3 (4.4-11.0)
[2019-06-16 13:56] LABS: Anion Gap 4 (5-15); BUN 8 mg/dL (7-18); BUN/Creat Ratio 9.4 RATIO (10-20); Calcium,Total 8.3 mg/dL (8.5-10.1); Chloride 107 mmol/L (98-107); Creatinine, Serum 0.85 mg/dL (0.55-1.02); EST Glomerular Filtration Rate 77 mL/min (>60); Est Glom Filt Rate - Afr Amer 93 mL/min (>60); Estimated Creatinine Clearance 89.43 ml/min; Glucose 94 mg/dL (74-106); Potassium 3.2 mmol/L (3.5-5.1); Sodium Level 139 mmol/L (136-145)
--- NOTE | 2019-06-16 14:56 | NURSING ---
MED SURG DAV MARADIAGA CELLULITIS
--- NOTE | 2019-06-16 15:15 | HP.PCM_ITS ---
Problem List (1) Ulcer of right lower extremity with fat layer exposed Status: Acute (2) MRSA (methicillin resistant Staphylococcus aureus) infection Status: Acute (3) Chronic venous insufficiency of lower extremity Status: Chronic (4) Cellulitis of right anterior lower leg Status: Acute (5) GERD (gastroesophageal reflux disease) Status: Chronic (6) Chronic anemia Status: Chronic (7) Lower extremity edema Status: Chronic (8) PVD (peripheral vascular disease) Status: Chronic History of Present Illness Date of Admission: 06/16/19 Chief Complaint: Increasing right leg pain, swelling and redness. The patient is a 48 year old F patient with past medical history as mentioned above presented to the emergency room because of increasing right leg pain, swelling and redness. This patient was admitted on June 08, 2019 for right leg cellulitis/infected ulcers with probable abscess, was treated with IV antibiotics and was recommended to go for surgery but she refused because she wanted to go home to take care of her son. She left the hospital AGAINST MEDICAL ADVICE on June 12, 2019. She was discharged on Bactrim and ciprofloxacin which she took only for 3 days after discharge. Today, she came back to the emergency department because of increasing right leg pain, dull aching pain, 8 out of 10 in severity, associated with increasing erythema and swelling of the right leg and without aggravating or relieving factors. She denied fever or chills. In the emergency department, her vital signs are stable, afebrile. Her routine blood work was remarkable for hemoglobin of 8.4, potassium of 3.2, otherwise normal. X-ray of the right tibia and fibula revealed nonspecific soft tissue edema. She is being admitted for acute right leg cellulitis/infected right leg ulcers/probable abscess for definitive treatment. She failed outpatient treatment. Past Medical History Past Medical History (Chronic Problems): Chronic Problems (Last Updated 06/11/19 @ 09:39 by Era Gates MD) Chronic venous insufficiency of lower extremity (Chronic) GERD (gastroesophageal reflux disease) (Chronic) Chronic anemia (Chronic) History of non-healing wound (Chronic) RLE Lower extremity edema (Chronic) PVD (peripheral vascular disease) (Chronic) Medical History: Medical History (Last Updated 06/11/19 @ 09:39 by Era Gates MD) PVD (peripheral vascular disease) (Chronic) I73.9 Delayed wound healing T14.8XXD Obesity E66.9 Ulcer of right lower extremity with fat layer exposed (Inactive) L97.912 Allergies naproxen [From Aleve] Allergy (Verified 06/16/19 11:44) Shortness of breath Home Medications: Ambulatory Orders Medication Instructions Recorded potassium chloride 10 mEq 10 meq PO DAILY 03/26/19 tablet,extended release Ibuprofen [Advil] 400 mg PO DAILY PRN PRN 06/08/19 Surgical History: Surgical History (Last Reviewed 06/08/19 @ 20:23 by Era Gates MD) History of section Z98.891 x 2 History of eye surgery Z98.890 History of hernia repair Z98.890, Z87.19 Surgical History: no surgical history Psychiatric History: No pertinent psych hx [employer] History: No pertinent [employer] history Lives: With Family Smoking Status: Never smoker Alcohol: None Drugs: None - *Family History Maternal History Items: No pertinent history Paternal History Items: No pertinent history Review of Systems Constitutional: Denies: Anorexia, Chills, Fever, Weakness Eyes: Denies: Blurred vision, Double vision, Drainage, Redness HEENT: Denies: Difficulty Hearing, Ear Pain, Eye Pain, Nasal Congestion, Sore Throat Cardiovascular: Reports: Edema. Denies: Chest Pain, Chest Pressure, Heaviness, Light Headedness, Palpitations, Syncope Respiratory: Denies: Cough, Hemoptysis, Pleuritic Pain, Shortness of Breath, Sputum production, Wheezing Gastrointestinal: Reports: Nausea, Vomiting. Denies: Abdominal Pain, Constipation, Diarrhea Genitourinary: Denies: Dysuria, Frequency, Hematuria Musculoskeletal: Reports: Leg Pain. Denies: Arm Pain, Back Pain Skin: Denies: Dryness, Rash Neurological: Denies: Balance problems, Double vision, Change in Speech, Slurred speech, Confusion, Focal weakness, Numbness Psychiatric: Denies: Anxiety, Depression Endocrine: Denies: Change in Body Habitus, Polydipsia, Polyuria VTE Information - Inpt Only VTE Present on Admission: No VTE Mechan Device Prophylaxis: None VTE Pharm Prophylaxis ordered?: Yes - Physical Exam Vitals/I&O's: Vital Signs Temp Pulse Resp BP Pulse Ox 97.6 F L 79 16 155/91 H 100 06/16/19 11:43 06/16/19 11:43 06/16/19 11:43 06/16/19 11:43 06/16/19 11:43 Oxygen Delivery Method Room Air Weight: 319 lb Body Mass Index (BMI) 45.8 Finger Stick Blood Glucose 81 General: Alert, Oriented x3, Cooperative, No apparent distress HEENT: Atraumatic, PERRLA, EOMI, Normocephalic Oral: Moist Mucosa, No Gingival or Mucosal Lesions/ Ulcerations Neck: Supple, No JVD, Negative Carotid Bruits, Trachea Midline, Thyroid Normal Size and Texture Lungs: Clear to auscultation, Normal air movement, No rhonchi, No wheeze, No rales, Diminished Cardiovascular: Regular rate, Regular Rhythm, Normal S1, Normal S2, PMI Normal Abdomen: Bowel Sounds Present, Soft, Non Tender, Non-Distended, No Hepato- splenomegaly, Obese Extremities: No clubbing, No cyanosis, Edema, - - Right leg: Erythema, edema and swelling involving the lower one half of the right leg, 2 ulcers on the anterior aspect of the right leg, minimal drainage. Skin: No rashes, Ulcer/ Wound Lymphatic: No Cervical, Supraclavicular, or Inguinal Adenopathy Neurological: Cranial nerves II-XII grossly intact, Motor Exam 5/5 strength throughout Psych/Mental Status: Normal Affect, Appropriate, Alert and oriented to time, place, person, mood and affect Laboratory Results 06/16/19 13:23: WBC 8.5, RBC 3.40 L, Hgb 8.4 L, Hct 28.4 L, MCV 83.5, MCH 24.7 L , MCHC 29.6 L, RDW Std Deviation 46.5 H, RDW Coeff of [place]rell 15.2 H, Plt Count 452 H, MPV 8.9, Immature Gran % (Auto) 1.300 H, Neut % (Auto) 75.6 H, Lymph % (Auto) 14.0 L, [place] % (Auto) 7.6, Eos % (Auto) 1.1, Baso % (Auto) 0.4, Absolute Neuts (auto) 6.4, Absolute Lymphs (auto) 1.19, Nucleated RBC % 0 06/16/19 13:23: Sodium 139, Potassium 3.2 L, Chloride 107, Carbon Dioxide 28.0, Anion Gap 4 L, BUN 8, Creatinine 0.85, Estim Creat Clear Calc 89.43, Est GFR (MDRD) Af Amer 93, Est GFR (MDRD) Non-Af 77, BUN/Creatinine Ratio 9.4 L, Glucose 94, Calcium 8.3 L 06/16/19 13:23: Lactic Acid 1.0 Clinical Impression(s) from Imaging Studies Tibia/Fibula X-Ray 06/16/19 12:21 IMPRESSION: Nonspecific soft tissue edema. No fracture or erosive process. Electronically Signed: Perez John MD (Brooks) at 13:42 EST , Service support , Current Medications Vancomycin HCl 2,000 mg/ (Dextrose) 290 mls @ 250 mls/hr IV X1 ONE Stop: 06/16/19 16:05 Piperacillin Sod/Tazobactam (Sod 3.375 gm/ Sodium Chloride) 50 mls @ 100 mls/hr IV X1 ONE Stop: 06/16/19 15:24 Assessment/Plan All Active Problems (Last Updated 06/11/19 @ 09:39 by Era Gates MD) Ulcer of right lower extremity with fat layer exposed (Acute) MRSA (methicillin resistant Staphylococcus aureus) infection (Acute) Cellulitis of right anterior lower leg (Acute) This is a 48 years old female patient presented to the emergency room because of increasing right leg pain, swelling and erythema, she left the hospital AGAINST MEDICAL ADVICE 4 days ago after admission for the same problem and she refused to go for surgery. #1 acute right leg cellulitis/infected right leg ulcers/probable right leg abscess: With failure of outpatient treatment, patient was on Bactrim and ciprofloxacin that she left the hospital AGAINST MEDICAL ADVICE with, took it only for 2 days. At this time, no leukocytosis, no fever, lactic acid is normal. She had CT scan right leg on June 11, 2019 that revealed severe cellulitis, large engorged venous varices, visualized gas in the soft tissue versus focal drainable collection. During the last admission, surgery was recommended but patient left the hospital AGAINST MEDICAL ADVICE to take care of her son. Wound culture of the right leg revealed multiple organisms including Achromobacter, Acetobacter, Klebsiella pneumoniae, MRSA and Streptococcus group C. MRSA wound by PCR was positive. Plan: Admit to [facility] floor, blood culture, wound culture, start IV vancomycin and Zosyn, IV fluids, OxyIR pain for pain, Tylenol PRN for pain, plastic surgery consult for surgical intervention, repeat CBC and BMP tomorrow morning, PT OT evaluation and treatment. #2 hypokalemia: Unclear etiology, plan to replace potassium with potassium chloride added to IV fluids, check serum magnesium. #3 chronic iron deficiency anemia: During her last admission, hemoglobin went down to 7 g/dL, received 1 unit of packed RBCs. Upon discharge, hemoglobin is 7.3. Today, hemoglobin is 8.4 g/dL. Patient mentioned that she had this chronic anemia for a long time since she had her first . She denied any active bleeding. Plan to monitor, transfuse if hemoglobin less than 8 g/dL, iron supplement. #4 peripheral vascular disease: Stable, no acute issues. No evidence of leg ischemia. Unclear if she has any interventions in the past. She is not on any antiplatelets. #5 GERD: Continue PPI. #6 DVT prophylaxis: Subcu Lovenox. This note was generated with [employer] dictation software. It may contain incorrect words, spelling, and punctuation that were not noted in checking the note before signing. Code Visit Inpatient E&M: 10093 Init Hosp L3
--- NOTE | 2019-06-16 17:54 | PCM.RX.CS ---
Consult Pharmacy has been consulted to manage selected antiobiotic: Vancomycin Type of Consult: New start Suspected Infection: Skin/Soft tissue Prior Doses of Antibiotics Received/Current Regimen: Vancomycin 2000mg IV x1 in ED 06/16/2019 @1728 Labs: Sodium 139 mmol/L (136-145) 06/16/19 13:23 Potassium 3.2 mmol/L (3.5-5.1) L 06/16/19 13:23 Chloride 107 mmol/L (98-107) 06/16/19 13:23 Carbon Dioxide 28.0 mmol/L (21.0-32.0) 06/16/19 13:23 Anion Gap 4 (5-15) L 06/16/19 13:23 BUN 8 mg/dL (7-18) 06/16/19 13:23 Creatinine 0.85 mg/dL (0.55-1.02) 06/16/19 13:23 Est GFR (MDRD) Af Amer 93 mL/min (>60) 06/16/19 13:23 Est GFR (MDRD) Non-Af 77 mL/min (>60) 06/16/19 13:23 BUN/Creatinine Ratio 9.4 RATIO (10-20) L 06/16/19 13:23 Glucose 94 mg/dL (74-106) 06/16/19 13:23 Weight used for dosin.6 kg Estimated Creatinine Clearance: 89 mL/min Goal Trough: 15-20 mcg/mL Pharmacy Plan for Drug Dosing: Pharmacy to manage vancomycin per consult. The patient was previously admitted to [facility] 06/08/19 - 06/12/19, at which time she received vancomycin. During that admission, the patient had 2 therapeutic levels while being maintained on a regimen of vancomycin 1250mg IV q12hr. Given this information, will resume the patient on her previous regimen, since the patient's renal function is similar from last admission, as well as other demographics (including the same initial dose when started). Will obtain a trough prior to the 4tht total dose per protocol and will adjust dosing at that time if needed to maintain a trough of 15-20. PLAN/RECOMMENDATIONS 1. Start vancomycin 1250mg IV Q12hr to start 06/17/19 @0500 2. Trough 06/18/19 @0430, prior to 4th total dose per protocol 3. Pharmacy Service will continue to monitor and adjust dosing as required.
[2019-06-16 17:56] LABS: Bedside Glucose 82 mg/dL (70-110)
[2019-06-16] MEDS: oxyCODONE 5 MG Tablet PO (20:19)
[2019-06-16] MEDS: Acetaminophen 325 MG Tablet 650 MG PO (20:19)
[2019-06-16 22:35] LABS: Bedside Glucose 116 mg/dL (70-110)
[2019-06-17] VITALS (11 sets, daily range): BP systolic 104–130; BP diastolic 48–65; PULSE 68–87; RESP 16–20; TEMP 36.9–38; O2SAT 96–100
[2019-06-17 05:39] LABS: Absolute Neutrophil Count 5.1 X10^3/uL (2.0-7.7); Basophil# 0.02 X10^3/uL; Basophil% 0.3 % (0-1); Eosinophils% 2.8 % (0-5); Hemoglobin 7.4 g/dL (12.0-15.0); Lymphocyte % 13.9 % (19-41); Mean Corp Hgb Conc 28.5 g/dL (32-36); Mean Corpuscular Volume 84.4 fL (81-99); Mean Platelet Vol. 9.1 fl (6.2-12.0); Monocyte# 0.81 X10^3/uL; Monocyte% 11.3 % (0-10); NRBC Flagged by Analyzer 0 % (0-5); Neutrophil # 5.08 X10^3/uL (2.7-7.7); Neutrophil % 70.6 % (47-70); Platelet Count 402 K/mm3 (150-450); RBC Distribution Width CV 15.7 % (11.6-14.6); RBC Distribution Width SD 47.7 fl (35.1-43.9); Red Blood Count 3.08 M/mm3 (4.2-5.4); White Blood Count 7.2 K/mm3 (4.4-11.0)
[2019-06-17 06:00] LABS: Anion Gap 5 (5-15); BUN 7 mg/dL (7-18); BUN/Creat Ratio 7.5 RATIO (10-20); Calcium,Total 7.8 mg/dL (8.5-10.1); Chloride 106 mmol/L (98-107); Creatinine, Serum 0.94 mg/dL (0.55-1.02); EST Glomerular Filtration Rate 68 mL/min (>60); Est Glom Filt Rate - Afr Amer 83 mL/min (>60); Estimated Creatinine Clearance 80.87 ml/min; Glucose 97 mg/dL (74-106); Potassium 3.6 mmol/L (3.5-5.1); Sodium Level 138 mmol/L (136-145)
[2019-06-17 07:06] LABS: Bedside Glucose 93 mg/dL (70-110)
[2019-06-17] MEDS: oxyCODONE 5 MG Tablet PO ×4 (07:33→22:42)
--- NOTE | 2019-06-17 09:05 | PCM.PROGNOTE ---
Subjective: Chief complaint: Follow-up after admission for acute right leg cellulitis/infected diabetic ulcers with probable abscess and he developed acute on chronic anemia requiring blood transfusion. Patient seen and examined. No acute events overnight. Still complains of right leg pain but pain is manageable with current pain medication. She denies fever chills. Her vital signs are stable. - Physical Exam Vitals/I&O's: Vital Signs Temp Pulse Resp BP Pulse Ox 98.5 F 68 16 111/58 L 98 06/17/19 06:48 06/17/19 06:48 06/17/19 06:48 06/17/19 06:48 06/17/19 07:05 Oxygen Delivery Method Room Air Weight: 315 lb 14.758 oz Body Mass Index (BMI) 45.3 Finger Stick Blood Glucose 81 Intake and Output for Last 24 Hours 06/15/19 06/16/19 06/17/19 23:59 23:59 23:59 Intake Total 2379. 178.1784. Balance General: Alert, Oriented x3, Cooperative, No apparent distress HEENT: Atraumatic, PERRLA, EOMI, Normocephalic Oral: Moist Mucosa, No Gingival or Mucosal Lesions/ Ulcerations Neck: Supple, No JVD, Negative Carotid Bruits, Trachea Midline, Thyroid Normal Size and Texture Lungs: Clear to auscultation, Normal air movement, No rhonchi, No wheeze, No rales Cardiovascular: Regular rate, Regular Rhythm, Normal S1, Normal S2, PMI Normal Abdomen: Bowel Sounds Present, Soft, Non Tender, Non-Distended, No Hepato-splenomegaly, Obese Extremities: No clubbing, No cyanosis, Edema Skin: No rashes, Ulcer/ Wound Lymphatic: No Cervical, Supraclavicular, or Inguinal Adenopathy Neurological: Cranial nerves II-XII grossly intact, Motor Exam 5/5 strength throughout Psych/Mental Status: Normal Affect, Appropriate, Alert and oriented to time, place, person, mood and affect Laboratory Results 06/16/19 13:23: WBC 8.5, RBC 3.40 L, Hgb 8.4 L, Hct 28.4 L, MCV 83.5, MCH 24.7 L, MCHC 29.6 L, RDW Std Deviation 46.5 H, RDW Coeff of Kentrell 15.2 H, Plt Count 452 H, MPV 8.9, Immature Gran % (Auto) 1.300 H, Neut % (Auto) 75.6 H, Lymph % (Auto) 14.0 L, [place] % (Auto) 7.6, Eos % (Auto) 1.1, Baso % (Auto) 0.4, Absolute Neuts (auto) 6.4, Absolute Lymphs (auto) 1.19, Nucleated RBC % 0 06/16/19 13:23: Sodium 139, Potassium 3.2 L, Chloride 107, Carbon Dioxide 28.0, Anion Gap 4 L, BUN 8, Creatinine 0.85, Estim Creat Clear Calc 89.43, Est GFR (MDRD) Af Amer 93, Est GFR (MDRD) Non-Af 77, BUN/Creatinine Ratio 9.4 L, Glucose 94, Calcium 8.3 L 06/16/19 13:23: Lactic Acid 1.0 06/16/19 17:36: POC Glucose 82 06/16/19 22:23: POC Glucose 116 H 06/17/19 05:26: WBC 7.2, RBC 3.08 L, Hgb 7.4 L, Hct 26.0 L, MCV 84.4, MCH 24.0 L, MCHC 28.5 L, RDW Std Deviation 47.7 H, RDW Coeff of [place]rell 15.7 H, Plt Count 402, MPV 9.1, Immature Gran % (Auto) 1.100 H, Neut % (Auto) 70.6 H, Lymph % (Auto) 13.9 L, [place] % (Auto) 11.3 H, Eos % (Auto) 2.8, Baso % (Auto) 0.3, Absolute Neuts (auto) 5.1, Absolute Lymphs (auto) 1.00, Nucleated RBC % 0 06/17/19 05:26: Sodium 138, Potassium 3.6, Chloride 106, Carbon Dioxide 27.0, Anion Gap 5, BUN 7, Creatinine 0.94, Estim Creat Clear Calc 80.87, Est GFR (MDRD) Af Amer 83, Est GFR (MDRD) Non-Af 68, BUN/Creatinine Ratio 7.5 L, Glucose 97, Calcium 7.8 L 06/17/19 06:46: POC Glucose 93 Current Medications Acetaminophen (Tylenol) 650 mg PO Q6H PRN PRN PRN Reason: Pain Score 1-10/Temp > 100.7 F Last Admin: 06/16/19 20:19 Dose: 650 mg Documented by: Enoxaparin Sodium (Lovenox) 40 mg SC DAILY [facility] Piperacillin Sod/Tazobactam (Sod 3.375 gm/ Sodium Chloride) 50 mls @ 12.5 mls/hr IV Q8 [facility] Last Admin: 06/17/19 06:43 Dose: 12.5 mls/hr Documented by: Sodium Chloride () 250 mls @ 15 mls/hr IV .[id number] PRN PRN Reason: Saline Flush Last Infusion: 06/17/19 05:03 Dose: 0 mls/hr Documented by: Sodium Chloride () 250 mls @ 15 mls/hr IV .[id number] PRN PRN Reason: Additional IVPB Infusion Vancomycin IV Pharmacy to Dose (1 ea/ Sodium Chloride) 500 mls @ 250 mls/hr IV PRN PRN; Protocol PRN Reason: Rx to Dose Vancomycin HCl 1,250 mg/ (Sodium Chloride) 275 mls @ 167 mls/hr IV Q12H [facility] Last Infusion: 06/17/19 06:44 Dose: Infused Documented by: Influenza Virus Vaccine Quadrival (Flucelvax /Fluzone ) 0.5 ml IM .ONCE ONE Stop: 06/17/19 10:01 Nutritional Formula (Lactose Free) (Glucerna Shake) 120 ml PO 4X/DAY [facility] Ondansetron HCl (Zofran) 4 mg IV Q8H PRN PRN PRN Reason: NAUSEA/VOMITING Oxycodone HCl (Oxyir) 5 mg PO Q4H PRN PRN PRN Reason: Pain Score 4-10/10 Last Admin: 06/17/19 07:33 Dose: 5 mg Documented by: Potassium Chloride (K-Dur) 20 meq PO DAILYCM [facility] Senna/Docusate Sodium (Senokot-S, Sugar-Colace) 2 tablet PO BID PRN PRN PRN Reason: Constipation Sodium Chloride () 10 - 40 ml IV UD PRN PRN Reason: SALINE FLUSH Medical Necessity - Tobacco Use Smoking Status: Never smoker Assessment/Plan All Active Problems (Last Updated 06/11/19 @ 09:39 by Era Gates MD) Ulcer of right lower extremity with fat layer exposed (Acute) MRSA (methicillin resistant Staphylococcus aureus) infection (Acute) Cellulitis of right anterior lower leg (Acute) This is a 48 years old female patient presented to the emergency room because of increasing right leg pain, swelling and erythema, she left the hospital AGAINST MEDICAL ADVICE 4 days ago after admission for the same problem and she refused to go for surgery. #1 Polymicrobial acute right leg cellulitis/infected right leg ulcers/probable right leg abscess: She is on IV vancomycin and Zosyn. Her vital signs are stable, afebrile, no leukocytosis. Wound and blood culture from this admission are pending. Patient left the hospital AGAINST MEDICAL ADVICE, she took p.o. Bactrim and ciprofloxacin only for 2 days after she left the hospital AMA. She had CT scan right leg on June 11, 2019 that revealed severe cellulitis, large engorged venous varices, visualized gas in the soft tissue versus focal drainable collection. Wound culture of the right leg from the recent admission revealed multiple organisms including Achromobacter, Acetobacter, Klebsiella pneumoniae, MRSA and Streptococcus group C. MRSA wound by PCR was positive. Dr. Mock consulted. Plan to continue same treatment, patient probably will go for surgery tomorrow. #2 hypokalemia: Potassium replaced and corrected. Today's potassium is 3.6. Plan to discontinue IV fluids with potassium replacement. #3 Acute on chronic iron deficiency anemia: Today, hemoglobin went down to 7.4 g/dL. It was 8.4 g/dL on admission yesterday. No evidence of active bleeding. Patient mentioned that she had this chronic anemia for a long time since she had her first . She denied any active bleeding. Plan to transfuse 1 unit of packed RBCs, repeat CBC tomorrow morning. #4 peripheral vascular disease: Stable, no acute issues. No evidence of leg ischemia. Unclear if she has any interventions in the past. She is not on any antiplatelets. #5 GERD: Continue PPI. #6 DVT prophylaxis: Subcu Lovenox. This note was generated with [employer] software. It may contain incorrect words, spelling, and punctuation that were not noted in checking the note before signing. Code Visit Inpatient E&M: 64888 Subs Hosp L2
[2019-06-17] MEDS: Enoxaparin 40 MG/0.4 ML Syringe SC (09:49)
[2019-06-17] MEDS: Ondansetron 4 MG/2 ML Vial IV ×2 (09:50→19:38)
[2019-06-17] MEDS: 0.9% Saline Lock 10 ML Syringe IV ×3 (09:50→19:38)
[2019-06-17] MEDS: Acetaminophen 325 MG Tablet 650 MG PO (14:00)
[2019-06-18] VITALS (25 sets, daily range): BP systolic 108–137; BP diastolic 53–72; PULSE 71–84; RESP 16–18; TEMP 36.1–37.7; O2SAT 95–100; BMI 45.3
[2019-06-18] MEDS: Ondansetron 4 MG/2 ML Vial IV (05:43)
[2019-06-18] MEDS: 0.9% Saline Lock 10 ML Syringe IV ×4 (05:43→21:44)
[2019-06-18 06:02] LABS: Basophil# 0.02 X10^3/uL; Basophil% 0.3 % (0-1); Eosinophil# 0.34 X10^3/uL; Eosinophils% 4.7 % (0-5); Hemoglobin 7.7 g/dL (12.0-15.0); Lymphocyte % 15.3 % (19-41); Mean Corp Hgb Conc 29.6 g/dL (32-36); Mean Corpuscular Hgb 24.9 pg (27.0-32.0); Mean Corpuscular Volume 84.1 fL (81-99); Mean Platelet Vol. 9.2 fl (6.2-12.0); Monocyte# 0.71 X10^3/uL; Monocyte% 9.9 % (0-10); NRBC Flagged by Analyzer 0 % (0-5); Neutrophil # 4.95 X10^3/uL (2.7-7.7); Neutrophil % 69.1 % (47-70); Platelet Count 362 K/mm3 (150-450); RBC Distribution Width CV 15.4 % (11.6-14.6); RBC Distribution Width SD 47.1 fl (35.1-43.9); Red Blood Count 3.09 M/mm3 (4.2-5.4); White Blood Count 7.2 K/mm3 (4.4-11.0)
--- NOTE | 2019-06-18 08:34 | PCM.CONS.B ---
- Consult Date of Consult: 06/18/19 - Reason for Consult Date of Consultation: 06/11/19 Reason for Consultation: Nonhealing infected MRSA ulcers right leg. REFERRING PHYSICIAN: Dr. Gates. BULLDOGGER: Dr. Mock. History of Present Illness: The patient is a 48 year old F patient who was admitted for fever, nausea, and vomiting. It was also noted she has chronic infected ulcers right leg. She recently finished Doxycycline. She goes to a local wound center at [facility]. Wound culture showed Achromobacter denitrificans, Acinetobacter baumannii, Klebsiella pneumoniae, MRSA, and Streptococcus group C. She was placed on Vancomycin and Zosyn. I was asked to evaluate this patient for surgical options for treatment. Past Medical History Past Medical History (Chronic Problems): Chronic Problems (Last Updated 06/11/19 @ 09:39 by Era Gates MD) Ulcer of right lower extremity with fat layer exposed (Chronic) Chronic venous insufficiency of lower extremity (Chronic) GERD (gastroesophageal reflux disease) (Chronic) Chronic anemia (Chronic) History of non-healing wound (Chronic) RLE Lower extremity edema (Chronic) PVD (peripheral vascular disease) (Chronic) Medical History: Medical History (Last Updated 06/11/19 @ 09:39 by Era Gates MD) PVD (peripheral vascular disease) (Chronic) I73.9 Delayed wound healing T14.8XXD Obesity E66.9 Ulcer of right lower extremity with fat layer exposed (Inactive) L97.912 Allergies naproxen [From Aleve] Allergy (Verified 06/08/19 16:54) Shortness of breath Home Medications: Ambulatory Orders Medication Instructions Recorded furosemide 20 mg tablet 20 mg PO DAILY 03/26/19 potassium chloride 10 mEq 10 meq PO DAILY 03/26/19 tablet,extended release Ferrous Sulfate 325 mg PO BID 06/08/19 Ibuprofen [Advil] 400 mg PO DAILY PRN PRN 06/08/19 Omeprazole 40 mg PO DAILY 06/08/19 Ciprofloxacin [Cipro] 500 mg PO BID #20 tab 06/12/19 Smz/Tmp Ds [Bactrim Ds] 1 tab PO BID #20 tab 06/12/19 Surgical History: Surgical History (Last Reviewed 06/08/19 @ 20:23 by Era Gates MD) History of section Z98.891 x 2 History of eye surgery Z98.890 History of hernia repair Z98.890, Z87.19 Surgical History: no surgical history Psychiatric History: 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 Denies: Anorexia, Chills. Eyes: Denies: Blurred vision, Double vision, Drainage, Redness. HEENT: Reports: Sore Throat. Denies: Difficulty Hearing, Ear Pain, Eye Pain, Nasal Congestion. Cardiovascular: Denies: Chest Pain, Chest Pressure, Chest Tightness, Heaviness, Light Headedness, Palpitations, Syncope. Respiratory: Denies: Cough, Hemoptysis, Pleuritic Pain, Shortness of Breath, Sputum production, Wheezing. Gastrointestinal: Reports: Abdominal Pain, Diarrhea, Nausea, Vomiting. Denies: Constipation. Genitourinary: Denies: Dysuria, Frequency, Hematuria. Musculoskeletal: Reports: Leg Pain. Denies: Arm Pain, Back Pain, Foot Pain. Skin: Denies: Dryness, Rash. Neurological: Denies: Balance problems, Double vision, Change in Speech, Slurred speech, Confusion, Focal weakness, Incoordination, Numbness. Psychiatric: Denies: Anxiety, Depression. Endocrine: Denies: Change in Body Habitus, Polydipsia, Polyuria - Physical Exam Vitals/I&O's: General: Alert, Oriented x3. HEENT: PERRLA, EOMI. Oral: No Gingival or Mucosal Lesions/ Ulcerations, Dry Mucosa Neck: Supple, Nontender. No cervical adenopathy. Lungs: Clear to auscultation. Cardiovascular: Regular rate, Regular Rhythm. Abdomen: Soft, Non-Distended. Extremities: Patient has chronic venous insufficiency with edema. Has skin discoloration. On the right anterior leg is a cluster of ulcerations measuring 10 x 7 cm. Has tenderness and redness and swelling. Dorsalis pedis pulses are diminished. Lymphatic: No Cervical, Supraclavicular, or Inguinal Adenopathy Neurological: Cranial nerves II-XII grossly intact, Psych: oriented to time, place, person, mood and affect Vital Signs Temp Pulse Resp BP Pulse Ox 98.8 F 76 18 137/59 H 100 06/11/19 11:22 06/11/19 11:22 06/11/19 11:22 06/11/19 11:22 06/11/19 11:22 Oxygen Delivery Method Room Air Weight: 307 lb 8.717 oz Body Mass Index (BMI) 44.1 Finger Stick Blood Glucose 81 Intake and Output for Last 24 Hours 06/09/19 06/10/19 06/11/19 23:59 23:59 23:59 Intake Total 4432.25 / 4432.25 4047.00 / 4047.00 2440 / 2440 Output Total 300 / 300 1100 / 1100 300 / 300 Balance 4132.25 / 4132.25 2947.00 / 2947.00 2140 / 2140 Microbiology Past 72 Hours 06/08/19 20:05 Wound Abcess - Leg Gram Stain - Final 06/08/19 20:05 Wound Abcess - Leg Wound Culture - Final Achromobacter denitrificans Acinetobacter baumannii Klebsiella pneumoniae sp pneum Meth. resistant Staph. aureus Streptococcus group C 06/08/19 19:25 Blood Culture (Wb) - Anticubital Left Blood Culture - Preliminary No growth in 48 hours. 06/08/19 18:10 Blood Culture (Wb) - Right Forearm Blood Culture - Preliminary No growth in 48 hours. 06/08/19 18:05 Urine, Clean Catch Urine Culture - Preliminary Mixed Gram Positive Organisms 06/08/19 22:30 Mucosa - Nose Respiratory Panel (PCR) - Final 06/08/19 19:11 Mucosa - Nose Influenza Types A,B Direct FA (ANTHONY) - Final Laboratory Results 06/10/19 12:50: Vancomycin Trough 17.4 H 06/11/19 05:10: WBC 8.5, RBC 2.88 L, Hgb 7.0 L, Hct 24.1 L, MCV 83.7, MCH 24.3 L, MCHC 29.0 L, RDW Std Deviation 50.2 H, RDW Coeff of [place]rell 16.4 H, Plt Count 214, MPV 10.1, Immature Gran % (Auto) 0.800, Neut % (Auto) 70.2 H, Lymph % (Auto) 17.8 L, [place] % (Auto) 8.8, Eos % (Auto) 2.2, Baso % (Auto) 0.2, Absolute Neuts (auto) 6.0, Absolute Lymphs (auto) 1.51, Nucleated RBC % 0 06/11/19 05:10: Sodium 137, Potassium 4.2, Chloride 110 H, Carbon Dioxide 23.0, Anion Gap 4 L, BUN 17, Creatinine 0.87, Estim Creat Clear Calc 87.37, Est GFR (MDRD) Af Amer 89, Est GFR (MDRD) Non-Af 74, BUN/Creatinine Ratio 19.5, Glucose 111 H, Calcium 8.0 L 06/11/19 05:10: Iron 13 L, TIBC 312, Iron Saturation 4.2 L 06/11/19 08:44: Blood Type A POSITIVE, Antibody Screen NEGATIVE, Crossmatch See Detail Current Medications Acetaminophen (Tylenol) 650 mg PO Q6H PRN PRN PRN Reason: Pain Score 1-3/Temp > 100.7 F Last Admin: 06/10/19 17:21 Dose: 650 mg Documented by: Enoxaparin Sodium (Lovenox) 30 mg SC DAILY [facility] Last Admin: 06/11/19 08:47 Dose: 30 mg Documented by: Ferrous Sulfate (Ferrous Sulfate) 325 mg PO BIDCM [facility] Last Admin: 06/11/19 08:47 Dose: 325 mg Documented by: Furosemide (Lasix) 20 mg PO DAILY [facility] Last Admin: 06/11/19 11:25 Dose: 20 mg Documented by: Hydralazine HCl (Apresoline Iv) 10 mg IV Q8H PRN PRN PRN Reason: for SBP>160 Sodium Chloride () 250 mls @ 15 mls/hr IV .[id number] PRN PRN Reason: Saline Flush Piperacillin Sod/Tazobactam (Sod 3.375 gm/ Sodium Chloride) 50 mls @ 12.5 mls/hr IV Q8 [facility] Last Infusion: 06/11/19 10:50 Dose: Infused Documented by: Vancomycin HCl 1,250 mg/ (Sodium Chloride) 275 mls @ 167 mls/hr IV Q12H [facility] Last Infusion: 06/11/19 03:03 Dose: Infused Documented by: Sodium Chloride () 500 mls @ 15 mls/hr IV PRN PRN PRN Reason: Blood Transfusion Morphine Sulfate () 2 mg IV Q3H PRN PRN PRN Reason: Pain Score 6-10/10 Mupirocin (Bactroban) 1 applic NASAL BID [facility]; Protocol Stop: 06/14/19 22:01 Last Admin: 06/11/19 08:47 Dose: 1 applicatio Documented by: Ondansetron HCl (Zofran) 4 mg IV Q8H PRN PRN PRN Reason: NAUSEA/VOMITING Last Admin: 06/10/19 12:43 Dose: 4 mg Documented by: Oxycodone HCl (Oxyir) 5 mg PO Q4H PRN PRN PRN Reason: Pain Score 4-5/10 Last Admin: 06/11/19 08:46 Dose: 5 mg Documented by: Pantoprazole Sodium (Protonix) 40 mg PO DAILY [facility] Last Admin: 06/11/19 08:47 Dose: 40 mg Documented by: Potassium Chloride (K-Dur) [facility] Last Admin: 06/11/19 08:47 Dose: 40 meq Documented by: Sodium Chloride () 10 - 40 ml IV UD PRN PRN Reason: SALINE FLUSH Last Admin: 06/09/19 22:56 Dose: 10 ml Documented by: Assessment/Plan All Active Problems (Last Updated 06/11/19 @ 09:39 by Era Gates MD) MRSA (methicillin resistant Staphylococcus aureus) infection (Acute) Cellulitis of right anterior lower leg (Acute) 1. Nonhealing infected MRSA ulcers cluster right anterior leg. 2. Chronic venous insufficiency with ulceration. 3. Cellulitis. 4. Lower extremity edema. Continue Vancomycin and Zosyn. Her wound cultures show Achromobacter denitrificans, Acinetobacter baumannii, Klebsiella pneumoniae, MRSA, and Streptococcus group C. Recommend operative intervention with surgical preparation of the right leg with incision and drainage and excisional debridement nonhealing infected MRSA ulcers cluster. Will leave the wound open and proceed with wound care with the VAC. Compression is very important as well as healing will be delayed with continued leg edema. Also in the future if a skin graft is contemplated for wound closure, it would have a high chance of failing with continued leg edema. Tissue that is removed will be sent to Pathology for analysis to rule out carcinoma and to Microbiology for culture. A positive culture may necessitate antibiotic modification. The surgery would be done under general anesthesia. Will obtain a CT leg today in preparation for surgery tomorrow. After discharge can followup at the Wound Center. 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 I told her with surgery tomorrow, we can anticipate discharge home on Tuesday. And with the need for a few days of pain medication, she could potentially return to work by the end of the week. She states she will decide about the surgery later today after the CT is done. Discussed with her that if she doesn't proceed with the surgery, she needs close followup with her wound care provider at [facility] and with her MRSA infection, there is the risk of the MRSA infection spreading more proximally and potentially becoming systemic. At which time, she would be at increased risk of an amputation. She is aware of that possible risk in the future and voices understanding. Patient was informed of the risks and complications of the procedure including alternatives to surgery. These were discussed with the patient personally. Patient voices understanding and wishes to think about the surgery as she is hesitant right now to proceed and will decide after she gets the CT scan later today.
--- NOTE | 2019-06-18 09:41 | EKG12_ITS ---
Test Reason : PREOP Blood Pressure : / mmHG Vent. Rate : 074 BPM Atrial Rate : 074 BPM P-R Int : 150 ms QRS Dur : 074 ms QT Int : 372 ms P-R-T Axes : 040 024 -06 degrees QTc Int : 412 ms Normal sinus rhythm Normal ECG No previous ECGs available Confirmed by CAYETANO DIEGO ([id number]), map editor MARGARET VILCHIS ([id number]) on 06/22/2019 1:23:02 PM Referred By: DAV Confirmed By:CAYETANO DIEGO
[2019-06-18 10:33] LABS: International Normalized Ratio 1.3; Prothrombin Time (Protime)PT. 15.8 SECONDS (11.7-14.9)
[2019-06-18 10:34] LABS: Partial Thromboplast Time 33.7 Seconds (24.1-36.2)
--- NOTE | 2019-06-18 11:55 | CASEMGMT ---
Addendum entered by Joao Kyle 06/18/19 12:27: List of [facility] facilities for SNF referral given to patient and explained. Frannie DORSEY Original Note: RN CM Assessment Note Presentation: non healing infected ulcer Intro role of CM and purpose of RN CM assessment to patient in room. Pt is awake, alert and able to participate in assessment. Demographics, PCP and Pharmacy verified. Pt is emotional, concerned with not being able to work after discharge, having wound vac, and states her medicaid is going to if I don't call them this week. RN WINSTON spoke with pt re: plan of care for dc re: wound vac, Home Health, possible IV antibiotics. Pt states she is agreeable to HHC, but if IV antibiotics are ordered, she would not have anyone to help her as her daughter works long hours. -TIN MONTERO discussed SNF on dc with patient to consider if recommended on dc. Pt states she would like to have list of [facility] facilities and would consider as she does not feel her daughter can do IV antibiotics @ home. PAUL Mejia updated. PCP: Dr. Lara Specialists: Dr. Mock Preferred Pharmacy: [facility] Insurance: [facility] Community Plan Prescription Benefit: yes LNOK: Daughter Goldie Tyler (18 yo, lives with pt) Living Arrangements: Lives in [place], 5 steps into home. Pt states she is generally independent with ADL, no care needs prior to this admission. Understands she may need assist post dc. States she does not have help at home as her daughter works. Pt states she will be able to stay @ this address as she can pay rent with tax return. Transportation: pt drives, but may be on driving restriction post dc. Pt states she has people she can contact for transportation needs. DME: none prior to admission HHC: List of [facility] given to patient to review. SW: referral for review of [facility]ILDE concerns and possible SNF on dc. Patient DC goals: SNF vs Home with HHS DC PLAN: undetermined. Frannie DORSEY
--- NOTE | 2019-06-18 14:59 | CHAPLAIN ---
Type of Pastoral Visit _x__ Initial Visit ___ Follow-up Visit ___ On-call Visit ___ General Patient Visit ___ Spiritual Assessment ___ Family Conference ___ Bereavement ___ Rapid Response ___ Code Blue ___ Other (describe below) Pastoral Care Referral From _x__ Patient ___ Family _x__ Nurse ___ Physician ___ Fire Marshal ___ Institutional Nutrition Consultant ___ Other (describe below) Sacrament/Intervention _x__ Active listening ___ Anointing ___ Samaritan ___ Bereavement ___ Communion ___ Nayla exploration ___ _x__ Life review _x__ Prayer ___ Reconciliation ___ Sacrament of Sick _x__ Supportive presence ___ Wedding ___ Other (describe below) Pastoral Comments RN referred this patient to spiritual care and pt welcomed the visit; pt has no family in area and admits to anxiety about her surgery and recovery; SW is looking into her future care according to pt; ;pt welcomes visit and the prayers of support; pt is Orthodox but does not attend services; pt will be going to surgery soon; pt welcomes follow up visit from
--- NOTE | 2019-06-18 15:20 | ABS_PTH ---
PATIENT: BECKI BARRAGAN LOC: MS3 U#:[id number] AGE/SX: 48/F ROOM: MS311 RE06/16/[address]: Dr. Juan Pablo Shelton DO : 1970 BED: 1 DIS: 06/22/2019 SPEC #: [id number] RECD: 06/18/19 16:49 STATUS: KARLEY REQ #: [id number] LAURA: 06/18/19 15:[address]: Sharan Mock DEPT: SURGICAL PATHOLOGY RECD BY: Dany Hahn ENTERED: 06/19/19 09:50 SP TYPE: Abscess OTHR DR: MD Dr. Era Smyth MD Dr. Mark Tereletsky, DO Tissues: Leg, NOS Procedures: Surgery Specimen Level III HEADER OPERATION: Incision and drainage abscess leg PRE-OP DIAGNOSIS: Nonhealing infected MRSA ulcer cluster right anterior leg; chronic venous insufficiency with ulceration; cellulitis; lower extremity edema TISSUE SUBMITTED: Infected MRSA abscess right leg MICROSCOPIC DIAGNOSIS Infected MRSA abscess right leg: A piece of skin with underlying tissue with ulceration, acute and chronic inflammation, granulation tissue reaction and fat necrosis. TRICIA:ivett 06/20/19 MICROSCOPIC DESCRIPTION Slides are reviewed. GROSS DESCRIPTION Received in fixative is one container labeled with the patient's name and designated infected MRSA abscess right leg. The specimen consists of a piece of skin with underlying tissue measuring 15 x 10.5 cm and up to 2.5 cm in thickness. The skin surface shows multiple areas of ulceration. Stone Processing Machine Operator sections are submitted in two cassettes. / TRICIA:ivett 06/19/19 TC:2 CPT: 28610
--- NOTE | 2019-06-18 16:53 | OP.PCM_ITS ---
Report of Operation Date of Procedure: 06/18/19 Pre-Operative Diagnosis: 1. Nonhealing infected MRSA ulcers cluster right anterior leg. 2. Chronic venous insufficiency with ulceration. 3. Cellulitis. 4. Lower extremity edema. Post-Operative Diagnosis: 1. Nonhealing MRSA necrotizing infection abscess ulcers cluster right anteromedial leg. 2. Chronic venous insufficiency with ulceration. 3. Cellulitis. 4. Lower extremity edema. Surgery/Procedure Performed:: Surgical preparation right anteromedial leg with incision and drainage nonhealing MRSA necrotizing infection abscess ulcers cluster (172.5 cm2). Description of Surgical Findings:: I saw the patient last week on 06/11/19 for a nonhealing infected MRSA abscess ulcer. CT scan showed severe cellulitis probable venous congestion and/or stasis. Large engorged venous varices. Visualized gas in the soft tissues or definitive focal drainable collection. Recommend consideration for follow-up venous and superficial soft tissue ultrasound. Skin thickening and area of skin erosion or ulceration in the anterior aspect of the lower extremity at the tibia. Wound cultures showed Achromobacter denitrificans, Acinetobacter baumannii, Klebsiella pneumoniae, MRSA, and Streptococcus group C. Surgery was recommended. She declined surgery because she stated she needed to get home and she was convinced this ulcer would heal with local wound care and antibiotics. She was discharged the next day, 06/12/19, AGAINST MEDICAL ADVICE on Bactrim and Cipro. She returned to the ED on 06/16/19 with worsening pain and redness and swelling. She failed outpatient therapy (AMA) and was started on Vancomycin and Zosyn. Her WBC on admission was 8.5. She states she is ready to undergo the necessary surgery. Will proceed with surgical preparation right anterior leg with incision and drainage and excisional debridement nonhealing infected MRSA abscess ulcers cluster today. Postop the wound will be left open and wound care started with the VAC. Operative wound cultures will be obtained. A positive culture may necessitate antibiotic modification. Hgb today was 7.7. With her lymphedema and varices, anticipate some blood loss. Will transfuse PRBC today. After discharge, can followup at the Wound Center. If there is a plateau in the healing process, can proceed with delayed closure with skin grafting. Patient was informed of the risks and complications of the procedure including alternatives to surgery. These were discussed with the patient personally. Patient voices understanding and wishes to proceed. Size of defect right anteromedial leg - 11.5 x 15 x 4 cm. mental health therapist: None Type of Anesthesia:: General Specimen's removed: Nonhealing infected MRSA abscess ulcer cluster right anteromedial leg to Pathology and Microbiology. Drains: None. Estimated Blood Loss (mL): 350 ml. Description of Procedure: Patient was taken to OR in supine position and was placed under general anesthesia. The right leg was prepped and draped in the usual fashion. SCD's were placed for DVT prophylaxis. Perioperative antibiotics were given intravenously. Using xylocaine with epinephrine, the MRSA abscess ulcers cluster was infiltrated. After waiting 5 minutes for the anesthetic to take effect, I proceeded with surgical preparation with incision and drainage into the subcutaneous tissue. Small amounts of pus were seen. Extensive fat necrosis was seen along with induration and exudate. The extensive fat necrosis extended to the underlying muscular fascia. The muscle and fascia appeared viable with no evidence of necrotizing process. Increased venous pressures were seen with extensive bleeding in the subcutaneous tissue. Hemostasis was obtained with electrocautery. The wound was irrigated with saline. Approximate operative blood loss was 350 ml. She received PRBC preoperatively. Will check another Hgb in the morning. The fat necrosis and indurated tissue was excised and debrided. Some of the tissue was sent to Microbiology for culture. A positive culture may necessitate antibiotic modification. The rest of the tissue was sent to Pathology for analysis to rule out carcinoma. The size of the defect right anteromedial leg after incision and drainage and excisional debridement was 11.5 x 15 x 4 cm or 172.5 cm2. The wound was dressed with Mepitel nonadherent dressing followed by Kerlix gauze and Betadine followed by dry Kerlix gauze and ABD pads and compression chinyere wraps. Patient tolerated the procedure well and was sent to PACU in satisfactory condition. Patient will be sent upstairs for continued postop care. The VAC will be applied tomorrow. Grafts/Implants Used: None. - Complications None. - Admit VTE Documentation VTE Present on Admission: No VTE Mechan Device Prophylaxis: SCD's VTE Pharm Prophylaxis ordered?: Yes Code Visit Surgery Charges CPT - 68958 ICD-10 - L97.912, A49.02, L02.415, M79.89, I87.2, L03.115, R60.0 55448 L97.912, A49.02, L02.415, M79.89, I87.2, L03.115, R60.0 [id number] L02.415, A49.02, M79.89, L97.912, I87.2, L03.115, R60.0
[2019-06-18] MEDS: HYDROmorphone 1 MG/ML Syringe IV ×2 (18:26→23:08)
--- NOTE | 2019-06-18 18:45 | NURSING ---
Patient made comment to RN that she wished she would have just on the table When asked if the patient was suicial or had thoughts of harming herself, the patient said no. Depressing screen completed.
--- NOTE | 2019-06-18 19:15 | PN_ITS ---
Subjective: Patient was seen and examined this morning, later on today she underwent surgery for debridement of an ulcerated area on her right lower leg. According to nursing, patient made a comment that she wished she would have on the operating table to a recovery room nurse today, on [facility] this afternoon, nursing stated that she denied any suicidal thoughts or any thoughts of harming herself however. Her depression screening however was high, I talked to her nurse this afternoon and advised her to write a consultation for either crisis or mental health to see the patient during her hospitalization here. - Physical Exam Vitals/I&O's: Vital Signs Temp Pulse Resp BP Pulse Ox 98.8 F 77 18 122/65 H 100 06/18/19 18:14 06/18/19 18:14 06/18/19 18:14 06/18/19 18:14 06/18/19 18:14 Oxygen Flow Rate (L/min) 2 Oxygen Delivery Method Nasal Cannula Weight: 143.3 kg Body Mass Index (BMI) 45.3 Finger Stick Blood Glucose 81 Intake and Output for Last 24 Hours 06/16/19 06/17/19 06/18/19 23:59 23:59 23:59 Intake Total 2002.58 / 2379.58 3252.50 / 3602.50 2394.50 / 2394.50 Balance 58 / 2379.58 3252.50 / 3602.50 2394.50 / 2394.50 General: Alert, Oriented x3, Cooperative, No apparent distress, Well developed, Well nourished HEENT: Atraumatic, PERRLA, EOMI, Normocephalic Oral: Moist Mucosa Neck: Supple, Trachea Midline, Thyroid Normal Size and Texture Lungs: Clear to auscultation, Normal air movement, No rhonchi, No wheeze, No rales Cardiovascular: Regular rate, Regular Rhythm, Normal S1, Normal S2, No murmurs, PMI Normal, No rub noted, No Gallop Abdomen: Bowel Sounds Present, Soft, Non Tender, Non-Distended, Obese Extremities: No clubbing, No cyanosis, Capillary Refill Less than 3 Seconds, Edema - Generalized right lower leg edema is noted, patient had a surgical dressing over her right lower leg and this was not removed for inspection of the skin area. Neurological: Cranial nerves II-XII grossly intact, Neuro grossly intact, Sensory exam intact to light touch and pain, Coordination normal Psych/Mental Status: Normal Affect, Appropriate, Alert and oriented to time, place, person, mood and affect Microbiology Past 72 Hours 06/16/19 13:23 Blood Culture (Wb) - Anticubital Left Blood Culture - Preliminary No growth in 48 hours. 06/16/19 12:58 Blood Culture (Wb) - Right Forearm Blood Culture - Preliminary No growth in 48 hours. 06/16/19 22:15 Wound - Leg, Right Gram Stain - Final 06/16/19 22:15 Wound - Leg, Right Wound Culture - Preliminary Staphylococcus aureus Laboratory Results 06/17/19 09:24: Crossmatch See Detail 06/17/19 09:24: Crossmatch See Detail 06/18/19 05:22: WBC 7.2, RBC 3.09 L, Hgb 7.7 L, Hct 26.0 L, MCV 84.1, MCH 24.9 L , MCHC 29.6 L, RDW Std Deviation 47.1 H, RDW Coeff of Kentrell 15.4 H, Plt Count 362, MPV 9.2, Immature Gran % (Auto) 0.700, Neut % (Auto) 69.1, Lymph % (Auto) 15.3 L , Fisher % (Auto) 9.9, Eos % (Auto) 4.7, Baso % (Auto) 0.3, Absolute Neuts (auto) 5.0, Absolute Lymphs (auto) 1.10, Nucleated RBC % 0 06/18/19 09:50: PT 15.8 H, INR 1.3, APTT 33.7 06/18/19 18:34: Vancomycin Trough Pending Current Medications Acetaminophen (Tylenol) 650 mg PO Q6H PRN PRN PRN Reason: Pain Score 1-10/Temp > 100.7 F Last Admin: 06/17/19 14:00 Dose: 650 mg Documented by: Diazepam (Valium) 5 mg PO 4X/DAY PRN PRN PRN Reason: SPASMS Hydromorphone HCl (Dilaudid Inj) 1 mg IV Q3H PRN PRN PRN Reason: Pain Score 6-10/10 Last Admin: 06/18/19 18:26 Dose: 1 mg Documented by: Piperacillin Sod/Tazobactam (Sod 3.375 gm/ Sodium Chloride) 50 mls @ 12.5 mls/hr IV Q8 [facility] Last Infusion: 06/18/19 17:11 Dose: Infused Documented by: Sodium Chloride () 250 mls @ 15 mls/hr IV .[id number] PRN PRN Reason: Saline Flush Last Infusion: 06/18/19 17:15 Dose: Infused Documented by: Sodium Chloride () 250 mls @ 15 mls/hr IV .[id number] PRN PRN Reason: Additional IVPB Infusion Vancomycin IV Pharmacy to Dose (1 ea/ Sodium Chloride) 500 mls @ 250 mls/hr IV PRN PRN; Protocol PRN Reason: Rx to Dose Vancomycin HCl 1,250 mg/ (Sodium Chloride) 275 mls @ 167 mls/hr IV Q12H [facility] Last Admin: 06/18/19 18:29 Dose: 167 mls/hr Documented by: Ondansetron HCl (Zofran) 4 mg IV Q8H PRN PRN PRN Reason: NAUSEA/VOMITING Last Admin: 06/18/19 05:43 Dose: 4 mg Documented by: Oxycodone HCl (Oxyir) 5 - 10 mg PO Q4H PRN PRN PRN Reason: Pain Score 4-10/10 Last Admin: 06/17/19 22:42 Dose: 5 mg Documented by: Potassium Chloride (K-Dur) 20 meq PO DAILYCM [facility] Last Admin: 06/18/19 08:40 Dose: 20 meq Documented by: Senna/Docusate Sodium (Senokot-S, Sugar-Colace) 2 tablet PO BID PRN PRN PRN Reason: Constipation Sodium Chloride () 10 - 40 ml IV UD PRN PRN Reason: SALINE FLUSH Last Admin: 06/18/19 18:29 Dose: 10 ml Documented by: Medical Necessity - Tobacco Use Smoking Status: Never smoker Assessment/Plan All Active Problems (Last Updated 06/11/19 @ 09:39 by Era Gates MD) Ulcer of right lower extremity with fat layer exposed (Acute) MRSA (methicillin resistant Staphylococcus aureus) infection (Acute) Cellulitis of right anterior lower leg (Acute) #1 cellulitis of the right lower leg secondary to methicillin-resistant staph- continue present anabiotic coverage, postop day 0 debridement of right lower leg ulcer-patient will need wound VAC applied tomorrow #2 chronic edema of the right lower extremity #3 morbid obesity #4 chronic anemia-iron deficiency-etiology unclear, I will give the patient Venofer #5 possible depression-patient will be seen by mental health services Code Visit Inpatient E&M: [id number] Subs Hosp L2
[2019-06-18 19:25] LABS: Vancomycin, Trough Level 18.1 ug/mL (5.0-15.0)
--- NOTE | 2019-06-18 20:37 | PCM.RX.CS ---
Consult Pharmacy has been consulted to manage selected antiobiotic: Vancomycin Type of Consult: Follow-up Labs: Sodium 138 mmol/L (136-145) 06/17/19 05:26 Potassium 3.6 mmol/L (3.5-5.1) 06/17/19 05:26 Chloride 106 mmol/L (98-107) 06/17/19 05:26 Carbon Dioxide 27.0 mmol/L (21.0-32.0) 06/17/19 05:26 Anion Gap 5 (5-15) 06/17/19 05:26 BUN 7 mg/dL (7-18) 06/17/19 05:26 Creatinine 0.94 mg/dL (0.55-1.02) 06/17/19 05:26 Est GFR (MDRD) Af Amer 83 mL/min (>60) 06/17/19 05:26 Est GFR (MDRD) Non-Af 68 mL/min (>60) 06/17/19 05:26 BUN/Creatinine Ratio 7.5 RATIO (10-20) L 06/17/19 05:26 Glucose 97 mg/dL (74-106) 06/17/19 05:26 Vancomycin Trough 18.1 ug/mL (5.0-15.0) H 06/18/19 18:34 Microbiology: Microbiology 06/16/19 13:23 Blood Culture (Wb) - Anticubital Left Blood Culture - Preliminary No growth in 48 hours. 06/16/19 12:58 Blood Culture (Wb) - Right Forearm Blood Culture - Preliminary No growth in 48 hours. 06/16/19 22:15 Wound - Leg, Right Gram Stain - Final 06/16/19 22:15 Wound - Leg, Right Wound Culture - Preliminary Staphylococcus aureus Goal Trough: 15-20 mcg/mL Pharmacy Plan for Drug Dosing: Trough in goal range, patient previously therapeutic on same dose/freq, renal function better than typical baseline. Re-check in 4 days per policy. Pharmacy Service will continue to monitor and adjust dosing as required.
[2019-06-18] MEDS: oxyCODONE 5 MG Tablet PO (20:41)
[2019-06-19] MEDS: HYDROmorphone 1 MG/ML Syringe IV ×5 (02:41→20:30)
[2019-06-19 02:43] VITALS: BP 119/60; PULSE 68; RESP 18; TEMP 36.8; O2SAT 96
[2019-06-19 06:56] LABS: Hematocrit 31.6 % (37-47); Hemoglobin 9.3 g/dL (12.0-15.0); Mean Corp Hgb Conc 29.4 g/dL (32-36); Mean Corpuscular Hgb 25.3 pg (27.0-32.0); Mean Corpuscular Volume 86.1 fL (81-99); Mean Platelet Vol. 9.1 fl (6.2-12.0); Platelet Count 370 K/mm3 (150-450); RBC Distribution Width CV 15.3 % (11.6-14.6); RBC Distribution Width SD 48.3 fl (35.1-43.9); Red Blood Count 3.67 M/mm3 (4.2-5.4); White Blood Count 8.4 K/mm3 (4.4-11.0)
[2019-06-19 07:14] LABS: ALB/GLOB Ratio 0.4 RATIO (0.9-2.4); AST(SGOT) 8 U/L (15-37); Alanine Aminotransfer ALT/SGPT 10 U/L (13-56); Albumin, Serum 1.9 g/dL (3.2-5.0); Alkaline Phosphatase 78 U/L (45-117); Anion Gap 4 (5-15); BUN 8 mg/dL (7-18); BUN/Creat Ratio 8.2 RATIO (10-20); Calcium,Total 8.2 mg/dL (8.5-10.1); Chloride 109 mmol/L (98-107); Creatinine, Serum 0.98 mg/dL (0.55-1.02); EST Glomerular Filtration Rate 65 mL/min (>60); Est Glom Filt Rate - Afr Amer 79 mL/min (>60); Estimated Creatinine Clearance 77.57 ml/min; Globulin 5.4 g/dL (2.2-4.2); Glucose 91 mg/dL (74-106); Potassium 4.2 mmol/L (3.5-5.1); Prealbumin 8.6 mg/dL (20.0-40.0); Protein, Total 7.3 g/dL (6.4-8.2); Sodium Level 136 mmol/L (136-145)
[2019-06-19 07:31] VITALS: O2SAT 94
[2019-06-19 09:49] VITALS: BP 101/60; PULSE 77; RESP 16; TEMP 37.2; O2SAT 97
[2019-06-19 10:00] VITALS: BP 101/60; PULSE 77; RESP 16; TEMP 37.2; O2SAT 97
[2019-06-19] MEDS: oxyCODONE 5 MG Tablet PO (12:34)
--- NOTE | 2019-06-19 13:00 | NURSING ---
Student documentation reviewed.
--- NOTE | 2019-06-19 13:38 | CASEMGMT ---
SW spoke w/pt regarding mental health and discharge plan. SW spoke w/pt at length about her current situation and mental health. Pt states has never been diagnosed w/depression, has been diagnosed w/anxiety in the past. Pt denies being suicidal, states she just feels lost. Pt states has been suicidal once, 14 years ago, has not been suicidal since. Pt state that she just has a lot going on. Pt explained that she gave temporary custody of her 11 year old (who is autistic) and 15 year old to their father, and they moved to [place] with him where he lives. The rest of pt's family are in [place], with the exception of her 18 year old who is still here. Pt explained that she lost custody of the 11 and 15 year old years earlier when living in [place], as she was working 80 hours per week and her son with autism was not getting his medication and having difficult behaviors. She explains she moved here as it was the only way to get her children back. When she moved here her cousin said she would help her, but once she got here a month later her cousin moved to [place]. Pt has a 25 year old son in [place], and a 17 year old daughter in [place]. She does have another son in [place] who lives with his grandparents. We spoke about the difficult choice she made to give temporary custody of her 11 and 15 year old to her ex-boyfriend. Pt states she was concerned she would lose custody again of them, states she is worried they will forget about her. She states her ex-boyfriend is now and they are going to be one happy family together. Pt states that they did not even come to the hospital to say goodbye. PAUL offered support to pt, again reminded her of her making this decision, as difficult as it was, as she knew it was the right decision for the children. Pt acknowledged this. She continues to worry about her 18 year old, and is concerned too about their living situation. From what pt explains she owes some back rent but the landlord seems willing to work with her, and for now has not kicked her out. PAUL offered support to pt in her telling SW all that she has been through. Pt states she left [place] last time as she was worried about [facility] and she wanted to pack up the kids to go to [place]. She worried if [facility] Services knew the kids were home without her they would take them away again. SW did ask about substance abuse, pt denies any history of substance abuse or alcohol use. Pt mentioned being concerned about getting addicted to Oxy. SW reminded her that she just had a major surgery yesterday, but is good to be aware of the chance of addiction. We also spoke about discharge plan. Pt is willing to go to SNF for a month for IV antibiotics and wound vac care. We discussed how important this is to get her leg healing, pt seems to recognize she needs to do this to get better. We talked about that it's going to be tough for the month she is away at rehab but this will give her leg the best chance to heal, and allow her to be there for her daughter intermediate card tender. Pt seems to understand this. We discussed where she would like to go, pt would like to stay local if possible. We reviewed the list of nursing homes that take [facility] Medicaid(with the star ratings listed), and [facility] and [facility] are the closest to home, w/[facility] being the closest. SW explained will send referral. Pt states understanding. SW also let her know that wherever she goes we can put in for the psychologist to see her there, pt seems open to this. Pt was very open in speaking about all that she has been through, and after speaking w/her she did seem more calm. SW pointed this out to her, that it seemed to be helpful for her to speak about her struggles, pt acknowledged this. Pt also mentioned she needs to re-up her Medicaid. SW called [facility], faxed referral. SW let Carol Ann at [facility] know that pt is having some difficulty due to circumstances and showing signs of depression. They can definitely follow up and have someone see her there in regard to this. They also can help pt with her Medicaid, if she is accepted and she goes there. SW let pt know referral faxed to [facility]. SW explained we won't know until we know what antibiotics she needs if they can take her. SW explained to pt that if she does go there though they can follow up w/mental health services and with making sure she gets her Medicaid re-certified. Pt states understanding. SW will continue to follow, will follow up w/information regarding IV antibiotics to [facility] and follow up w/pt tomorrow. KALA Guerrero
--- NOTE | 2019-06-19 14:45 | CASEMGMT ---
Social Work Note SW received call from Clare ARMENDARIZ stating [facility] is able to accept pt and want to know when to submit for pre-cert. SW reviewed notes, IV antibiotics are not confirmed yet and insurances typically like to know stop dates and how often antibiotics are. PAUL placed a call to Carol Ann at [facility] and updated her that IV antibiotics are waiting to be confirmed. Carol Ann states she will hold off on submitting pre-cert today. Plan: [facility] pending pre-cert Jen Romano PEDIATRICIAN, NET SOFTWARE ARCHITECT
[2019-06-19 15:30] VITALS: BP 105/52; PULSE 75; RESP 16; TEMP 37.2; O2SAT 93
--- NOTE | 2019-06-19 18:17 | PN_ITS ---
Subjective: Patient was seen and examined today, I talked with her briefly about going to an extended care facility due to the extent of her right leg wound, patient is agreed to consider this, healthcare social worker talk to the patient regarding depression today and healthcare social worker has recommended that the patient be seen by mental health professional when she goes to an extended care facility. Patient's hemoglobin today was 9.3, her white blood cell count remained normal at 8.4. I will give the patient another dose of Venofer tomorrow. - Physical Exam Vitals/I&O's: Vital Signs Temp Pulse Resp BP Pulse Ox 99.0 F 75 16 105/52 L 93 06/19/19 15:30 06/19/19 15:30 06/19/19 15:30 06/19/19 15:30 06/19/19 15:30 Oxygen Flow Rate (L/min) 2 Oxygen Delivery Method Room Air Weight: 143.3 kg Body Mass Index (BMI) 45.3 Finger Stick Blood Glucose 81 Intake and Output for Last 24 Hours 06/17/19 06/18/19 06/19/19 23:59 23:59 23:59 Intake Total 3252.50 / 3602.50 2669.50 / 2669.50 484.79 / 484.79 Output Total 600 / 600 Balance 3252.50 / 3602.50 2669.50 / 2369.50 -115.21 / -115.21 Microbiology Past 72 Hours 06/18/19 16:16 Tissue - Leg, Right Gram Stain - Final 06/18/19 16:16 Tissue - Leg, Right Wound Culture - Preliminary Staphylococcus aureus Gram positive organism 06/16/19 22:15 Wound - Leg, Right Gram Stain - Final 06/16/19 22:15 Wound - Leg, Right Wound Culture - Final Meth. resistant Staph. aureus 06/16/19 13:23 Blood Culture (Wb) - Anticubital Left Blood Culture - Preliminary No growth in 48 hours. 06/16/19 12:58 Blood Culture (Wb) - Right Forearm Blood Culture - Preliminary No growth in 48 hours. Laboratory Results 06/18/19 18:34: Vancomycin Trough 18.1 H 06/19/19 06:02: WBC 8.4, RBC 3.67 L, Hgb 9.3 L, Hct 31.6 L, MCV 86.1, MCH 25.3 L , MCHC 29.4 L, RDW Std Deviation 48.3 H, RDW Coeff of Kentrell 15.3 H, Plt Count 370, MPV 9.1, ESR Cancelled 06/19/19 06:02: Sodium 136, Potassium 4.2, Chloride 109 H, Carbon Dioxide 23.0, Anion Gap 4 L, BUN 8, Creatinine 0.98, Estim Creat Clear Calc 77.57, Est GFR (MDRD) Af Amer 79, Est GFR (MDRD) Non-Af 65, BUN/Creatinine Ratio 8.2 L, Glucose 91, Calcium 8.2 L, Total Bilirubin 0.50, AST 8 L, ALT 10 L, Alkaline Phosphatase 78, C-React Prot Ext Range 90.90 H, Total Protein 7.3, Albumin 1.9 L, Globulin 5.4 H, Albumin/Globulin Ratio 0.4 L, Prealbumin 8.6 L Current Medications Acetaminophen (Tylenol) 650 mg PO Q6H PRN PRN PRN Reason: Pain Score 1-10/Temp > 100.7 F Last Admin: 06/17/19 14:00 Dose: 650 mg Documented by: Diazepam (Valium) 5 mg PO 4X/DAY PRN PRN PRN Reason: SPASMS Hydromorphone HCl (Dilaudid Inj) 1 mg IV Q3H PRN PRN PRN Reason: Pain Score 6-10/10 Last Admin: 06/19/19 15:14 Dose: 1 mg Documented by: Piperacillin Sod/Tazobactam (Sod 3.375 gm/ Sodium Chloride) 50 mls @ 12.5 mls/hr IV Q8 [facility] Last Admin: 06/19/19 15:04 Dose: 12.5 mls/hr Documented by: Sodium Chloride () 250 mls @ 15 mls/hr IV .[id number] PRN PRN Reason: Saline Flush Last Infusion: 06/18/19 17:15 Dose: Infused Documented by: Sodium Chloride () 250 mls @ 15 mls/hr IV .[id number] PRN PRN Reason: Additional IVPB Infusion Vancomycin IV Pharmacy to Dose (1 ea/ Sodium Chloride) 500 mls @ 250 mls/hr IV PRN PRN; Protocol PRN Reason: Rx to Dose Vancomycin HCl 1,250 mg/ (Sodium Chloride) 275 mls @ 167 mls/hr IV Q12H [facility] Last Admin: 06/19/19 17:14 Dose: 167 mls/hr Documented by: Ondansetron HCl (Zofran) 4 mg IV Q8H PRN PRN PRN Reason: NAUSEA/VOMITING Last Admin: 06/18/19 05:43 Dose: 4 mg Documented by: Oxycodone HCl (Oxyir) 5 - 10 mg PO Q4H PRN PRN PRN Reason: Pain Score 4-1010 Last Admin: 06/19/19 12:34 Dose: 10 mg Documented by: Potassium Chloride (K-Dur) 20 meq PO DAILYCM [facility] Last Admin: 06/19/19 09:58 Dose: 20 meq Documented by: Senna/Docusate Sodium (Senokot-S, Sugar-Colace) 2 tablet PO BID PRN PRN PRN Reason: Constipation Sodium Chloride () 10 - 40 ml IV UD PRN PRN Reason: SALINE FLUSH Last Admin: 06/18/19 21:44 Dose: 10 ml Documented by: Medical Necessity - Tobacco Use Smoking Status: Never smoker Assessment/Plan All Active Problems (Last Updated 06/11/19 @ 09:39 by Era Gates MD) Ulcer of right lower extremity with fat layer exposed (Acute) MRSA (methicillin resistant Staphylococcus aureus) infection (Acute) Cellulitis of right anterior lower leg (Acute)
[2019-06-19 21:49] VITALS: BP 112/57; PULSE 84; RESP 16; TEMP 37; O2SAT 94
--- NOTE | 2019-06-19 22:40 | PN.SURG_ITS ---
Subjective: Postop #1 Patient has wound pain. VAC applied today. - Physical Exam Vitals/I&O's: Vital Signs Temp Pulse Resp BP Pulse Ox 98.6 F 84 16 112/57 L 94 06/19/19 21:49 06/19/19 21:49 06/19/19 21:49 06/19/19 21:49 06/19/19 21:49 Oxygen Flow Rate (L/min) 2 Oxygen Delivery Method Room Air Weight: 315 lb 14.758 oz Body Mass Index (BMI) 45.3 Finger Stick Blood Glucose 81 Intake and Output for Last 24 Hours 06/17/19 06/18/19 06/19/19 23:59 23:59 23:59 Intake Total 3252.50 / 3602.50 2669.50 / 2669.50 809.79 / 809.79 Output Total 600 / 600 Balance 3252.50 / 3602.50 2669.50 / 2369.50 209.79 / 209.79 General: Alert, Oriented x3 HEENT: PERRLA, EOMI Oral: Moist Mucosa Neck: Supple Abdomen: Soft, Non-Distended Extremities: Edema - bilateral lower extremity edema. Skin: Ulcer/ Wound - right anteromedial leg wound stable. No active bleeding seen. VAC applied today. Neurological: Cranial nerves II-XII grossly intact Psych/Mental Status: Normal Affect, Appropriate Microbiology Past 72 Hours 06/18/19 16:16 Tissue - Leg, Right Gram Stain - Final 06/18/19 16:16 Tissue - Leg, Right Wound Culture - Preliminary Staphylococcus aureus Gram positive organism 06/16/19 22:15 Wound - Leg, Right Gram Stain - Final 06/16/19 22:15 Wound - Leg, Right Wound Culture - Final Meth. resistant Staph. aureus 06/16/19 13:23 Blood Culture (Wb) - Anticubital Left Blood Culture - Preliminary No growth in 48 hours. 06/16/19 12:58 Blood Culture (Wb) - Right Forearm Blood Culture - Preliminary No growth in 48 hours. Laboratory Results 06/19/19 06:02: WBC 8.4, RBC 3.67 L, Hgb 9.3 L, Hct 31.6 L, MCV 86.1, MCH 25.3 L , MCHC 29.4 L, RDW Std Deviation 48.3 H, RDW Coeff of Kentrell 15.3 H, Plt Count 370, MPV 9.1, ESR Cancelled 06/19/19 06:02: Sodium 136, Potassium 4.2, Chloride 109 H, Carbon Dioxide 23.0, Anion Gap 4 L, BUN 8, Creatinine 0.98, Estim Creat Clear Calc 77.57, Est GFR (MDRD) Af Amer 79, Est GFR (MDRD) Non-Af 65, BUN/Creatinine Ratio 8.2 L, Glucose 91, Calcium 8.2 L, Total Bilirubin 0.50, AST 8 L, ALT 10 L, Alkaline Phosphatase 78, C-React Prot Ext Range 90.90 H, Total Protein 7.3, Albumin 1.9 L, Globulin 5.4 H, Albumin/Globulin Ratio 0.4 L, Prealbumin 8.6 L Current Medications Acetaminophen (Tylenol) 650 mg PO Q6H PRN PRN PRN Reason: Pain Score 1-10/Temp > 100.7 F Last Admin: 06/17/19 14:00 Dose: 650 mg Documented by: Diazepam (Valium) 5 mg PO 4X/DAY PRN PRN PRN Reason: SPASMS Hydromorphone HCl (Dilaudid Inj) 1 mg IV Q3H PRN PRN PRN Reason: Pain Score 6-10/10 Last Admin: 06/19/19 20:30 Dose: 1 mg Documented by: Piperacillin Sod/Tazobactam (Sod 3.375 gm/ Sodium Chloride) 50 mls @ 12.5 mls/hr IV Q8 [facility] Last Admin: 06/19/19 21:46 Dose: 12.5 mls/hr Documented by: Sodium Chloride () 250 mls @ 15 mls/hr IV .[id number] PRN PRN Reason: Saline Flush Last Infusion: 06/18/19 17:15 Dose: Infused Documented by: Sodium Chloride () 250 mls @ 15 mls/hr IV .[id number] PRN PRN Reason: Additional IVPB Infusion Vancomycin IV Pharmacy to Dose (1 ea/ Sodium Chloride) 500 mls @ 250 mls/hr IV PRN PRN; Protocol PRN Reason: Rx to Dose Vancomycin HCl 1,250 mg/ (Sodium Chloride) 275 mls @ 167 mls/hr IV Q12H [facility] Last Infusion: 06/19/19 18:53 Dose: Infused Documented by: Iron Sucrose 200 mg/ Sodium (Chloride) 110 mls @ 220 mls/hr IV X1 ONE Stop: 06/20/19 09:29 Ondansetron HCl (Zofran) 4 mg IV Q8H PRN PRN PRN Reason: NAUSEA/VOMITING Last Admin: 06/18/19 05:43 Dose: 4 mg Documented by: Oxycodone HCl (Oxyir) 5 - 10 mg PO Q4H PRN PRN PRN Reason: Pain Score 4-10 Last Admin: 06/19/19 12:34 Dose: 10 mg Documented by: Potassium Chloride (K-Dur) 20 meq PO DAILYCM [facility] Last Admin: 06/19/19 09:58 Dose: 20 meq Documented by: Senna/Docusate Sodium (Senokot-S, Sugar-Colace) 2 tablet PO BID PRN PRN PRN Reason: Constipation Sodium Chloride () 10 - 40 ml IV UD PRN PRN Reason: SALINE FLUSH Last Admin: 06/18/19 21:44 Dose: 10 ml Documented by: Medical Necessity - Tobacco Use Smoking Status: Never smoker Assessment/Plan All Active Problems (Last Updated 06/11/19 @ 09:39 by Era Gates MD) Ulcer of right lower extremity with fat layer exposed (Acute) MRSA (methicillin resistant Staphylococcus aureus) infection (Acute) Cellulitis of right anterior lower leg (Acute) 1. Nonhealing infected MRSA abscess ulcers cluster right anteromedial leg. 2. Chronic venous insufficiency with ulceration. 3. Cellulitis. 4. Lower extremity edema. 5. s/p surgical preparation right anteromedial leg with incision and drainage nonhealing infected MRSA abscess ulcers cluster (172.5 cm2). 6. Anemia of chronic disease, acute on chronic, improved after PRBC. 7. MRSA. Continue Vancomycin and Zosyn. Operative culture shows Gram positive organism and Staphylococcus aureus. Preop wound culture showed MRSA. Her admission last week had cultures that showed Achromobacter denitrificans, Acinetobacter baumannii, Klebsiella pneumoniae, MRSA, and Streptococcus group C. Wound is stable. No active bleeding. VAC applied today. To be changed three times per week at 150 mmHg continuous suction. Anticipate increased metabolic demands from her infection and from her wound. Prealbumin was 8.6. Encourage nutritional supplementation with protein to help the healing process. Hgb has improved to 9.3 after PRBC in anticipation of blood loss during her surgery. Preop it was 7.7. She has anemia of chronic disease, acute on chronic. She had 350 ml operative blood loss. She also has IV fluid dilution. There is no active blood loss at this time. With the need for IV antibiotics and complex wound care with the VAC, she would be best served at an [facility]. The evaluation is in process. After discharge, can followup at [facility]. If there is a plateau in the healing process, can proceed with delayed closure with skin grafting.
[2019-06-20] MEDS: oxyCODONE 5 MG Tablet PO ×2 (01:21→09:19)
[2019-06-20] MEDS: 0.9% Saline Lock 10 ML Syringe IV ×2 (01:22→08:17)
[2019-06-20] MEDS: HYDROmorphone 1 MG/ML Syringe IV ×2 (01:58→08:16)
[2019-06-20 04:00] VITALS: BP 115/55; PULSE 77; RESP 16; TEMP 37; O2SAT 94
[2019-06-20 08:15] VITALS: BP 131/63; PULSE 76; RESP 18; TEMP 37.4; O2SAT 99
[2019-06-20 08:17] VITALS: O2SAT 94
--- NOTE | 2019-06-20 10:59 | CASEMGMT ---
Addendum entered by Jen Romano 06/20/19 12:24: SW placed a call to Carol Ann at [facility] and left her a message that pt may not need IV antibiotics at discharge and that a SW will follow up with Carol Ann later today once it is confirmed if pt will be on IV antibiotics or not at discharge. Addendum entered by Jen Romano 06/20/19 11:06: Pt had also asked about her medicaid. SW informed pt that if she goes home or to SNF she would just need to call [facility] at discharge and speak with someone there to determine what she needs to do for her medicaid. SW informed pt that her insurance is still showing active at this time. Original Note: Social Work Note Pt may not need IV antibiotics at discharge. SW in to speak with pt. SW introduced self and role at [facility]. Pt is alert and orientated x3. SW informed pt that Clare PINZONHeladioPerry that saw pt yesterday is not at work today so this worker is just checking in with pt. Pt states she is doing ok. SW informed pt that this worker did make referral to [facility] and they are able to accept pt pending pre-cert. Pt confirms that she was updated she may not need to discharge on IV antibiotics at discharge. SW updated pt that if IV antibiotics are not needed, pt could possibly return home with [facility] for wound vac changes if she wanted to. Pt states that she would prefer to return home. Pt states the [facility] would change the wound vac. SW confirmed with pt that HHC would change the vac for pt and that she would just have to leave the vac alone and be compliant. Pt states that she has a daughter at home that she wants to return to. Pt states her daughter is 18 and even though she is 18 she is still her daughter. SW offered support to pt. SW informed pt that this worker will wait to see if pt will need IV antibiotics and then will come back to see pt. Pt states understanding. Plan: TBD pending if pt will need IV antibiotics at discharge Jen Romano SAFETY TECH, STAFF READINESS OFFICER
[2019-06-20] MEDS: HYDROmorphone 2 MG TABLET PO ×3 (12:34→19:07)
--- NOTE | 2019-06-20 14:18 | CHAPLAIN ---
Type of Pastoral Visit ___ Initial Visit _x__ Follow-up Visit ___ On-call Visit ___ General Patient Visit ___ Spiritual Assessment ___ Family Conference ___ Bereavement ___ Rapid Response ___ Code Blue ___ Other (describe below) Pastoral Care Referral From _x__ Patient ___ Family ___ Nurse ___ Physician ___ Thermostat Machine Tender ___ Road Freight Firer ___ Other (describe below) Sacrament/Intervention _x__ Active listening ___ Anointing ___ Mormonism ___ Bereavement ___ Communion ___ Nayla exploration ___ ___ Life review _x__ Prayer ___ Reconciliation ___ Sacrament of Sick ___ Supportive presence ___ Wedding ___ Other (describe below) Pastoral Comments
[2019-06-20 14:25] VITALS: BP 122/48; PULSE 81; RESP 18; TEMP 37.2; O2SAT 98
--- NOTE | 2019-06-20 15:14 | CON.PCM_ITS ---
Problem List (1) Necrotizing soft tissue infection Status: Acute Reason for Consult: mrsa Consulted by: Dr. Shelton History of Present Illness: The patient is a 48 year old F with RLE infected ulcer, recently left AMA. Had polymicrobial growth including MRSA. Seen by Dr. Mock, refused surgery, left on po abx, took them for a few days. Came back to ED, admitted on vanc/zosyn, taken to OR 06/18 for debridement of abscess and fat necrosis. Feeling ok, no fever, wound vac in place. Some nausea. Full ROS performed and neg except as noted above. - Medical History Past Medical History (Chronic Problems): Chronic Problems (Last Updated 06/11/19 @ 09:39 by Era Gates MD) Chronic venous insufficiency of lower extremity (Chronic) GERD (gastroesophageal reflux disease) (Chronic) Chronic anemia (Chronic) History of non-healing wound (Chronic) RLE Lower extremity edema (Chronic) PVD (peripheral vascular disease) (Chronic) Allergies/Adverse Reactions: Allergies naproxen [From Aleve] Allergy (Verified 06/16/19 11:44) Shortness of breath Home Medications: Ambulatory Orders Medication Instructions Recorded potassium chloride 10 mEq 10 meq PO DAILY 03/26/19 tablet,extended release Ibuprofen [Advil] 400 mg PO DAILY PRN PRN 06/08/19 - Social History SMOKING STATUS:: Never smoker Vital Signs Temp Pulse Resp BP Pulse Ox 99.0 F 81 18 122/48 H 98 06/20/19 14:25 06/20/19 14:25 06/20/19 14:25 06/20/19 14:25 06/20/19 14:25 Oxygen Flow Rate (L/min) 2 Oxygen Delivery Method Room Air Weight: 143.3 kg Body Mass Index (BMI) 45.3 Finger Stick Blood Glucose 81 Microbiology Past 72 Hours 06/18/19 16:16 Gram Stain - Final Tissue - Leg, Right Wound Culture - Preliminary Staphylococcus aureus Gram positive radha 06/16/19 22:15 Gram Stain - Final Wound - Leg, Right Wound Culture - Final Meth. resistant Staph. aureus 06/16/19 13:23 Blood Culture - Preliminary Blood Culture (Wb) - Anticubital Left No growth in 48 hours. 06/16/19 12:58 Blood Culture - Preliminary Blood Culture (Wb) - Right Forearm No growth in 48 hours. - Other Studies Radiology: [] reviewed Other Studies: [] Route of nutrition/ use of supplements: [] Nutritional Intake: [] IV Site: [] Smith Catheter: [] - Physical Exam General: Alert, Oriented x3, Cooperative, No apparent distress HEENT: Atraumatic, PERRLA, EOMI Neck: Supple, No Nodes Lungs: Clear to auscultation, Normal air movement Cardiovascular: Regular rate, Regular Rhythm, Murmur - soft Abdomen: Soft, Non Tender, Non-Distended, Obese Extremities: Edema Skin: Ulcer/ Wound - R poon wound vac in place IV Site: Peripheral, without redness Musculoskeletal: No Tenderness to Palpation of Joints or Extremities Neurological: Cranial nerves II-XII grossly intact - Assessment/Plan Antibiotics: [] Assessment/Plan: [] R poon MRSA infected ulcer with abscess and fat necrosis - now s/p I&D by Dr. Mock 06/18/19. Surg cx with MRSA and GPR. Prior wound cx with achromobacter, MRSA, AcB, klebs, Group C strep. On vanc/zosyn. With good source control and no fasciitis or bone involvement, plan will be for 10 days of po bactrim DS bid and po augmentin 875mg bid at discharge. I think she would benefit from ECF stay at discharge. Will follow, thank you, d/w Dr. Shelton and continuous pillowcase cutter.
--- NOTE | 2019-06-20 15:25 | CASEMGMT ---
TIN MONTERO updated by ID that patient will go on oral antibiotics Bactrim and Augmentin. TIN MONTERO in to discuss discharge plans with patient. Patient would like to go to [facility] while on wound vac and for therapy. TIN MONTERO called and updated Carol Ann at [facility] that patient will be coming on PO ATB, wound vac, and therapy. Carol Ann will initiate precert at this time.
--- NOTE | 2019-06-20 18:57 | PCM.PROGNOTE ---
Subjective: Patient was seen and examined today, we lost IV access today and I had infectious diseases see the patient and they felt it was appropriate to treat the patient with oral antibiotics. We are awaiting approval for placement in a half-way facility for short-term rehab services at this time. Patient is still having quite a bit of pain in the surgical area of her right lower leg. - Physical Exam Vitals/I&O's: Vital Signs Temp Pulse Resp BP Pulse Ox 99.0 F 81 18 122/48 H 98 06/20/19 14:25 06/20/19 14:25 06/20/19 14:25 06/20/19 14:25 06/20/19 14:25 Oxygen Flow Rate (L/min) 2 Oxygen Delivery Method Room Air Weight: 143.3 kg Body Mass Index (BMI) 45.3 Finger Stick Blood Glucose 81 Intake and Output for Last 24 Hours 06/18/19 06/19/19 06/20/19 23:59 23:59 23:59 Intake Total 2669.50 / 2669.50 1009.79 / 1009.79 1205 / 1205 Output Total 1350 / 1350 300 / 300 Balance 2669.50 / 2369.50 -340.21 / -340.21 905 / 905 General: Alert, Oriented x3, Cooperative, No apparent distress, Well developed, Well nourished HEENT: Atraumatic, PERRLA, EOMI, Normocephalic Oral: Moist Mucosa Neck: Supple, Trachea Midline, Thyroid Normal Size and Texture Lungs: Clear to auscultation, Normal air movement, No rhonchi, No wheeze, No rales Cardiovascular: Regular rate, Regular Rhythm, Normal S1, Normal S2, No murmurs Abdomen: Bowel Sounds Present, Soft, Non Tender, Non-Distended, Obese Extremities: No clubbing, Capillary Refill Less than 3 Seconds Neurological: Cranial nerves II-XII grossly intact, Neuro grossly intact, Sensory exam intact to light touch and pain, Coordination normal Psych/Mental Status: Normal Affect, Appropriate, Alert and oriented to time, place, person, mood and affect Microbiology Past 72 Hours 06/18/19 16:16 Tissue - Leg, Right Gram Stain - Final 06/18/19 16:16 Tissue - Leg, Right Wound Culture - Preliminary Staphylococcus aureus Gram positive radha 06/16/19 22:15 Wound - Leg, Right Gram Stain - Final 06/16/19 22:15 Wound - Leg, Right Wound Culture - Final Meth. resistant Staph. aureus 06/16/19 13:23 Blood Culture (Wb) - Anticubital Left Blood Culture - Preliminary No growth in 48 hours. 06/16/19 12:58 Blood Culture (Wb) - Right Forearm Blood Culture - Preliminary No growth in 48 hours. Current Medications Acetaminophen (Tylenol) 650 mg PO Q6H PRN PRN PRN Reason: Pain Score 1-10/Temp > 100.7 F Last Admin: 06/17/19 14:00 Dose: 650 mg Documented by: Amoxicillin/Clavulanate Potassium (Augmentin Tablet) 875 mg PO BID [facility] Diazepam (Valium) 5 mg PO 4X/DAY PRN PRN PRN Reason: SPASMS Hydromorphone HCl (Dilaudid Tablet) 2 - 4 mg PO Q3H PRN PRN PRN Reason: Pain Score 1-10/10 Last Admin: 06/20/19 15:50 Dose: 4 mg Documented by: Sodium Chloride () 250 mls @ 15 mls/hr IV .[id number] PRN PRN Reason: Saline Flush Last Infusion: 06/18/19 17:15 Dose: Infused Documented by: Sodium Chloride () 250 mls @ 15 mls/hr IV .[id number] PRN PRN Reason: Additional IVPB Infusion Nutritional Formula (Rey - [place] Flavor) [facility] Last Admin: 06/20/19 15:55 Dose: 1 packet Documented by: Ondansetron HCl (Zofran) 4 mg IV Q8H PRN PRN PRN Reason: NAUSEA/VOMITING Last Admin: 06/18/19 05:43 Dose: 4 mg Documented by: Potassium Chloride (K-Dur) 20 meq [facility] Last Admin: 06/20/19 08:17 Dose: 20 meq Documented by: Senna/Docusate Sodium (Senokot-S, Sugar-Colace) 2 tablet PO BID PRN PRN PRN Reason: Constipation Sodium Chloride () 10 - 40 ml IV UD PRN PRN Reason: SALINE FLUSH Last Admin: 06/20/19 08:17 Dose: 10 ml Documented by: Trimethoprim/Sulfamethoxazole (Bactrim Ds) 1 tablet PO BID [facility] Medical Necessity - Tobacco Use Smoking Status: Never smoker Assessment/Plan All Active Problems (Last Updated 06/11/19 @ 09:39 by Era Gates MD) Necrotizing soft tissue infection (Acute) Abscess of right lower extremity (Acute) Ulcer of right lower extremity with fat layer exposed (Acute) MRSA (methicillin resistant Staphylococcus aureus) infection (Acute) Cellulitis of right anterior lower leg (Acute) #1 cellulitis of the right lower leg secondary to methicillin-resistant staph-continue present anabiotic coverage, postop day 2 debridement of right lower leg ulcer #2 chronic edema of the right lower extremity #3 morbid obesity #4 chronic anemia-iron deficiency-etiology unclear #5 possible depression-patient will be seen by mental health services Code Visit Inpatient E&M: 32980 Subs Hosp L2
[2019-06-20 20:39] VITALS: BP 124/72; PULSE 85; RESP 18; TEMP 37.7; O2SAT 95
[2019-06-20] MEDS: Amox/Clavulanate 875 MG Tablet PO (22:40)
[2019-06-20] MEDS: Smz/Tmp Ds Tablet 1 TABLET PO (22:40)
[2019-06-21] MEDS: HYDROmorphone 2 MG TABLET PO ×6 (01:16→21:40)
[2019-06-21 01:21] VITALS: BP 109/66; PULSE 89; RESP 18; TEMP 37.3; O2SAT 97
[2019-06-21 07:45] VITALS: BP 128/70; PULSE 85; RESP 16; TEMP 37.4; O2SAT 100
--- NOTE | 2019-06-21 09:44 | PN.ID_ITS ---
Subjective: Feeling ok, no fever, but c/o nausea with po abx. - Physical Exam Vitals/I&O's: Vital Signs Temp Pulse Resp BP Pulse Ox 99.3 F H 85 16 128/70 H 100 06/21/19 07:45 06/21/19 07:45 06/21/19 07:45 06/21/19 07:45 06/21/19 07:45 Oxygen Flow Rate (L/min) 2 Oxygen Delivery Method Room Air Weight: 143.3 kg Body Mass Index (BMI) 45.3 Finger Stick Blood Glucose 81 Intake and Output for Last 24 Hours 06/19/19 06/20/19 06/21/19 23:59 23:59 23:59 Intake Total 1009.79 / 1009.79 1505 / 1505 200 / 200 Output Total 1350 / 1350 850 / 850 450 / 450 Balance -340.21 / -340.21 655 / 655 -250 / -250 General: Alert, Cooperative, No apparent distress Lungs: Clear to auscultation, Normal air movement Cardiovascular: Regular rate, Regular Rhythm Abdomen: Soft, Non Tender, Non-Distended Skin: Ulcer/ Wound - R poon wound vac Microbiology Past 72 Hours 06/18/19 16:16 Tissue - Leg, Right Gram Stain - Final 06/18/19 16:16 Tissue - Leg, Right Wound Culture - Final Meth. resistant Staph. aureus Corynebacterium minutissimum 06/18/19 16:16 Tissue - Leg, Right Anaerobic Culture - Preliminary Checking for anaerobes, further studies to follow. 06/16/19 22:15 Wound - Leg, Right Gram Stain - Final 06/16/19 22:15 Wound - Leg, Right Wound Culture - Final Meth. resistant Staph. aureus 06/16/19 13:23 Blood Culture (Wb) - Anticubital Left Blood Culture - Preliminary No growth in 48 hours. 06/16/19 12:58 Blood Culture (Wb) - Right Forearm Blood Culture - Preliminary No growth in 48 hours. Current Medications Acetaminophen (Tylenol) 650 mg PO Q6H PRN PRN PRN Reason: Pain Score 1-10/Temp > 100.7 F Last Admin: 06/17/19 14:00 Dose: 650 mg Documented by: Amoxicillin/Clavulanate Potassium (Augmentin Tablet) 875 mg PO BID [facility] Last Admin: 06/20/19 22:40 Dose: 875 mg Documented by: Diazepam (Valium) 5 mg PO 4X/DAY PRN PRN PRN Reason: SPASMS Hydromorphone HCl (Dilaudid Tablet) 2 - 4 mg PO Q3H PRN PRN PRN Reason: Pain Score 1-02/15 Last Admin: 06/21/19 07:42 Dose: 4 mg Documented by: Sodium Chloride () 250 mls @ 15 mls/hr IV .[id number] PRN PRN Reason: Saline Flush Last Infusion: 06/18/19 17:15 Dose: Infused Documented by: Sodium Chloride () 250 mls @ 15 mls/hr IV .[id number] PRN PRN Reason: Additional IVPB Infusion Nutritional Formula (Rey - [place] Flavor) [facility] Last Admin: 06/21/19 07:46 Dose: Not Given Documented by: Ondansetron HCl (Zofran) 4 mg IV Q8H PRN PRN PRN Reason: NAUSEA/VOMITING Last Admin: 06/18/19 05:43 Dose: 4 mg Documented by: Potassium Chloride (K-Dur) 20 meq [facility] Last Admin: 06/20/19 08:17 Dose: 20 meq Documented by: Senna/Docusate Sodium (Senokot-S, Sugar-Colace) 2 tablet PO BID PRN PRN PRN Reason: Constipation Sodium Chloride () 10 - 40 ml IV UD PRN PRN Reason: SALINE FLUSH Last Admin: 06/20/19 08:17 Dose: 10 ml Documented by: Trimethoprim/Sulfamethoxazole (Bactrim Ds) 1 tablet PO BID [facility] Last Admin: 06/20/19 22:40 Dose: 1 tablet Documented by: Medical Necessity - Tobacco Use Smoking Status: Never smoker Route of nutrition/ use of supplements: [] Nutritional Intake: [] IV Site: [] Smith Catheter: [] - Assessment/Plan Antibiotics: [] Assessment/Plan: [] R poon MRSA infected ulcer with abscess and fat necrosis - now s/p I&D by Dr. Mock 06/18/19. Surg cx with MRSA and GPR. Prior wound cx with achromobacter, MRSA, AcB, klebs, Group C strep. With good source control and no fasciitis or bone involvement, plan will be for 10 days of po bactrim DS bid and po augmentin 875mg bid at discharge. I think she would benefit from ECF stay at discharge. C/o nausea and loss of iv access, will change to po zofran. ID followup prn. Will follow, d/w correctional case records supervisor.
--- NOTE | 2019-06-21 09:56 | CASEMGMT ---
Addendum entered by Jen Romano 06/21/19 13:15: PT/OT worked with pt. Pt was min assist of 2. SW in to speak with pt. SW spoke with pt that per PT/OT pt was min assist of two and would need two people available at all times to assist pt with ADLs. Pt states I don't know what I want to do, I don't want to go to a fci because people are going to be telling me what I need to do when I need to do it and I just want to be home. SW offered support to pt. SW informed pt that the goal is to get pt home but that this worker has to make sure pt is going to be safe at home. SW again reiterated that pt will need two people to assist. Pt states her leg is very painful. SW informed pt that her leg is going to be painful wherever she goes either SNF or to home. Pt states her boss/friend is coming to [facility] later this evening to try and figure out how to get pt help at home. SW again informed pt that she will need to have help 29/11 as she is not able to get up by herself at this time. Pt states understanding, states again she wishes to discharge home and is wanting to speak to her boss/friend to figure out if she can get help at home. SW informed pt that if she is unable to find help at home then she should reconsider going to SNF. Pt states understanding. SW faxed PT/OT to Carol Ann at [facility]. Original Note: Social Work Note SW met with pt to discuss discharge plans. Pt states everyone is telling me I need to go to a fci and I don't want to. SW spoke with pt regarding pt being own decision maker and having the ability to make own decisions. SW informed pt that [facility] will change the wound vac three times a week for pt and if she has any questions regarding the wound vac she is able to call the [facility] nurse. SW informed pt that she will need to work with PT/OT to determine if she is able to get around ok. Pt does state her leg is painful. SW informed pt that her leg is going to be painful if she goes to SNF as pt had major surgery. Pt states if she goes home she will need walker and bedside commode. Pt states she will have her daughter at home who is 18 and home during the night to assist as well. SW did inform pt that this worker is not even sure if pt will get approved for SNF as a wound vac is not skillable. PAUL again reinforced though that pt will need to work with PT/OT today to determine if pt is able to return home. Pt states understanding. Pt again states she would like to return home if able. SW will speak with pt after pt works with PT/OT. PAUL received a call from Carol Ann at [facility] stating she will need PT/OT notes for pt for pre-cert. Plan: TBD pending how pt does with PT/OT Jen Romano HOME LENDING OFFICER, CASINO CASHIER MANAGER
[2019-06-21] MEDS: Acetaminophen 325 MG Tablet 650 MG PO ×2 (10:50→17:21)
[2019-06-21] MEDS: Amox/Clavulanate 875 MG Tablet PO ×2 (10:50→21:36)
[2019-06-21] MEDS: Ondansetron ODT 4 MG Tablet PO (10:50)
[2019-06-21] MEDS: Smz/Tmp Ds Tablet 1 TABLET PO ×2 (13:25→21:36)
[2019-06-21 14:23] VITALS: BP 103/60; PULSE 70; RESP 18; TEMP 36.7; O2SAT 97
[2019-06-21] MEDS: Ferrous Sulfate 325 MG Tablet PO (17:21)
[2019-06-21] MEDS: diazePAM 5 MG Tablet PO (17:21)
--- NOTE | 2019-06-21 18:02 | PCM.PROGNOTE ---
Subjective: Patient was seen and examined today, initially today she told discharge planning and family welfare social work professor that she was considering going home with home health, I went in and talked with her briefly and told her that this was not a good idea and that if the wound on her right lower leg was not cared for properly she would be in danger of losing her right lower leg. She has [facility]. - Physical Exam Vitals/I&O's: Vital Signs Temp Pulse Resp BP Pulse Ox 98.1 F 70 18 103/60 97 06/21/19 14:23 06/21/19 14:23 06/21/19 14:23 06/21/19 14:23 06/21/19 14:23 Oxygen Flow Rate (L/min) 2 Oxygen Delivery Method Room Air Weight: 143.3 kg Body Mass Index (BMI) 45.3 Finger Stick Blood Glucose 81 Intake and Output for Last 24 Hours 06/19/19 06/20/19 06/21/19 23:59 23:59 23:59 Intake Total 1009.79 / 1009.79 1505 / 1505 450 / 450 Output Total 1350 / 1350 850 / 850 750 / 750 Balance -340.21 / -340.21 655 / 655 -300 / -300 General: Alert, Oriented x3, Cooperative, No apparent distress, Well developed HEENT: Atraumatic, PERRLA, EOMI, Normocephalic Oral: Moist Mucosa Neck: Supple, No JVD, Trachea Midline, Thyroid Normal Size and Texture Lungs: Clear to auscultation, Normal air movement, No rhonchi, No wheeze, No rales Cardiovascular: Regular rate, Regular Rhythm, Normal S1, Normal S2, No murmurs, PMI Normal Abdomen: Bowel Sounds Present, Soft, Non Tender, Non-Distended Extremities: No clubbing, No cyanosis, Capillary Refill Less than 3 Seconds, - - There is a wound VAC present on the patient's right lower leg proximal to her right ankle area Skin: No rashes, No breakdown Neurological: Cranial nerves II-XII grossly intact, Neuro grossly intact, Sensory exam intact to light touch and pain Psych/Mental Status: Normal Affect, Appropriate, Alert and oriented to time, place, person, mood and affect Microbiology Past 72 Hours 06/16/19 13:23 Blood Culture (Wb) - Anticubital Left Blood Culture - Final No growth in 5 days. 06/16/19 12:58 Blood Culture (Wb) - Right Forearm Blood Culture - Final No growth in 5 days. 06/18/19 16:16 Tissue - Leg, Right Gram Stain - Final 06/18/19 16:16 Tissue - Leg, Right Wound Culture - Final Meth. resistant Staph. aureus Corynebacterium minutissimum 06/18/19 16:16 Tissue - Leg, Right Anaerobic Culture - Preliminary Checking for anaerobes, further studies to follow. 06/16/19 22:15 Wound - Leg, Right Gram Stain - Final 06/16/19 22:15 Wound - Leg, Right Wound Culture - Final Meth. resistant Staph. aureus Current Medications Acetaminophen (Tylenol) 650 mg PO Q6H PRN PRN PRN Reason: Pain Score 1-10/Temp > 100.7 F Last Admin: 06/21/19 17:21 Dose: 650 mg Documented by: Amoxicillin/Clavulanate Potassium (Augmentin Tablet) 875 mg PO BID [facility] Last Admin: 06/21/19 10:50 Dose: 875 mg Documented by: Diazepam (Valium) 5 mg PO 4X/DAY PRN PRN PRN Reason: SPASMS Last Admin: 06/21/19 17:21 Dose: 5 mg Documented by: Ferrous Sulfate (Ferrous Sulfate) 325 mg PO 1200,1700 [facility] Last Admin: 06/21/19 17:21 Dose: 325 mg Documented by: Hydromorphone HCl (Dilaudid Tablet) 2 - 4 mg PO Q3H PRN PRN PRN Reason: Pain Score 1-10/10 Last Admin: 06/21/19 17:21 Dose: 4 mg Documented by: Sodium Chloride () 250 mls @ 15 mls/hr IV .[id number] PRN PRN Reason: Saline Flush Last Infusion: 06/18/19 17:15 Dose: Infused Documented by: Sodium Chloride () 250 mls @ 15 mls/hr IV .[id number] PRN PRN Reason: Additional IVPB Infusion Nutritional Formula (Rey - [place] Flavor) [facility] Last Admin: 06/21/19 17:17 Dose: Not Given Documented by: Ondansetron HCl (Zofran Odt) 4 mg PO Q8H PRN PRN PRN Reason: NAUSEA Last Admin: 06/21/19 10:50 Dose: 4 mg Documented by: Potassium Chloride (K-Dur) 20 meq PO DAILYCM [facility] Last Admin: 06/21/19 10:50 Dose: Not Given Documented by: Senna/Docusate Sodium (Senokot-S, Sugar-Colace) 2 tablet PO BID PRN PRN PRN Reason: Constipation Sodium Chloride () 10 - 40 ml IV UD PRN PRN Reason: SALINE FLUSH Last Admin: 06/20/19 08:17 Dose: 10 ml Documented by: Trimethoprim/Sulfamethoxazole (Bactrim Ds) 1 tablet PO BID [facility] Last Admin: 06/21/19 13:25 Dose: 1 tablet Documented by: Medical Necessity - Tobacco Use Smoking Status: Never smoker Assessment/Plan All Active Problems (Last Updated 06/11/19 @ 09:39 by Era Gates MD) Necrotizing soft tissue infection (Acute) Abscess of right lower extremity (Acute) Ulcer of right lower extremity with fat layer exposed (Acute) MRSA (methicillin resistant Staphylococcus aureus) infection (Acute) Cellulitis of right anterior lower leg (Acute) #1 cellulitis of the right lower leg secondary to methicillin-resistant staph and corynebacterium-continue present anabiotic coverage, postop day 3 debridement of right lower leg ulcer #2 chronic edema of the right lower extremity #3 morbid obesity #4 chronic anemia-iron deficiency-etiology unclear #5 possible depression-patient will be seen by mental health services Code Visit Inpatient E&M: 72184 Subs Hosp L2
[2019-06-21 21:34] VITALS: BP 118/63; PULSE 83; RESP 16; TEMP 36.5; O2SAT 100
[2019-06-22] MEDS: HYDROmorphone 2 MG TABLET PO ×3 (03:41→15:28)
[2019-06-22 03:46] VITALS: BP 117/58; PULSE 91; RESP 18; TEMP 37.2; O2SAT 96
[2019-06-22 09:19] VITALS: BP 108/42; PULSE 85; RESP 18; TEMP 37.2; O2SAT 99
[2019-06-22] MEDS: Amox/Clavulanate 875 MG Tablet PO (09:23)
[2019-06-22] MEDS: Smz/Tmp Ds Tablet 1 TABLET PO (09:23)
--- NOTE | 2019-06-22 09:58 | CASEMGMT ---
Social Work Note SW in to speak with pt regarding discharge plans. SW asked pt if she had a chance to speak with her friend/boss regarding discharge plans. Pt states No I didn't get a chance to because that doctor marched in here yesterday and told me I have to go to a SNF or I am going to lose my leg. SW again spoke with pt that going to SNF is pt's choice and she doesn't have to go to one. SW informed pt that she has a choice in her care and regardless if she goes home or to SNF the same care will be provided for the wound/wound vac. Pt states I will just go to the fci because the doctor said I should. SW informed pt that this worker is still waiting for pre-cert for SNF. SW also informed pt that once she goes to SNF she is able to leave whenever she wants to and no one can make her stay if she doesn't want to. Pt states understanding. PAUL placed a call to Carol Ann at [facility]. Carol Ann confirms she received PT/OT notes and that she is still waiting for pre-cert. Plan: [facility] pending pre-cert Jen Romano OCC MED PHYSICIAN, SUPERVISOR HOME ECONOMICS
--- NOTE | 2019-06-22 11:13 | CASEMGMT ---
Addendum entered by Jen Romano 06/22/19 13:29: PAUL faxed completed discharge paperwork including transfer to extended care facility, signed medication list and any scripts. Original in SNF folder and copy on pt's chart. PAUL called [facility] and arranged transportation via bariatric cot for 4:30pm. Transportation form completed and and placed on SNF folder and copy on pt's chart. PAUL updated RN who will update pt on transportation time. PAUL placed a call to Carol Ann at [facility] and updated her on transportation time. Plan: [facility] skilled today with [facility] transporting via bariatric cot at 4:30pm MANISH Sadler Original Note: Social Work Note PAUL received call from Carol Ann at [facility] stating pre-cert has been obtained and pt can discharge to SNF today. Physician updated. PAUL spoke with RN who states pt is able to transport via cot. PAUL will fax discharge paperwork and arrange transportation once discharge paperwork is completed. Plan: [facility] skilled today MANISH Sadler
--- NOTE | 2019-06-22 11:18 | PCM.TXEXTCAR ---
- Diet 06/18/19 17:14 Diet: Regular Diet Is pt able to select menu?: Yes - Routine Orders/Code Status Routine Lab Work: CBC - in 2 weeks - Wound(s) right leg Wound Type: Surgical Incision right leg medial Wound Type: Stasis Ulcer right leg outer Wound Type: Surgical Incision - Therapies Physical Therapy: Eval and Treat Occupational Therapy: Eval and Treat - Problem/Diagnosis (1) Necrotizing soft tissue infection Status: Acute Current Visit: No (2) Abscess of right lower extremity Status: Acute Current Visit: No (3) MRSA (methicillin resistant Staphylococcus aureus) infection Status: Acute Current Visit: No (4) Cellulitis of right anterior lower leg Status: Acute Current Visit: No (5) Chronic anemia Status: Chronic Comment: iron deficiency Current Visit: No - Allergies/Procedures Done in Hospital Allergies/Adverse Reactions: Allergies naproxen [From Aleve] Allergy (Verified 06/16/19 11:44) Shortness of breath Procedures: - - Surgical preparation right anteromedial leg with incision and drainage nonhealing MRSA necrotizing infection abscess ulcers cluster (172.5 cm2)-06/18/19 - Type of Care/Length of Stay Estimated LOS: Convalescent Care Less Than 30 days Type of Care Needed: Skilled Rehab Potential: Good Prognosis: Good - Additional Orders/Day of Discharge Additional Orders: patient will need consult from behavioral services for evaluation for depression H&P will serve as current which was dated: 06/16/19 Day of Discharge: 06/22/19 - Dietary and Speech Recommendations Dietitian Recommendations/Changes: Will add Rey 1 packet BID for wound healing. - Follow Up Care Primary Care Physician: Belle Lara MD [Primary Care Provider] - Please Follow Up With: Sharan Mock MD When: in one week
[2019-06-22] MEDS: Ferrous Sulfate 325 MG Tablet PO (13:00)
[2019-06-22 15:25] VITALS: BP 120/52; PULSE 83; RESP 16; TEMP 37.8; O2SAT 100
--- NOTE | 2019-06-22 15:48 | NURSING ---
Report given to Jo[facility] at [facility].
--- NOTE | 2019-06-22 17:11 | PCM.DC.SUM ---
Discharge Date and Diagnosis Date of Admission: 06/16/19 Date of Discharge: 06/22/19 - Primary Discharge Diagnosis #1 cellulitis of the right lower leg with abscess- secondary to methicillin-resistant staph and corynebacterium-failed outpatient treatment #2 chronic edema of the right lower extremity #3 morbid obesity #4 chronic anemia-iron deficiency-etiology unclear #5 possible depression #6 hypokalemia - Secondary Discharge Diagnosis Chronic Problems (Last Updated 06/11/19 @ 09:39 by Era Gates MD) Chronic venous insufficiency of lower extremity (Chronic) GERD (gastroesophageal reflux disease) (Chronic) Chronic anemia (Chronic) iron deficiency History of non-healing wound (Chronic) RLE Lower extremity edema (Chronic) PVD (peripheral vascular disease) (Chronic) Hospital Course and Treatment Consultations 06/16/19 16:01 Consult: Onc/Wound/cyber intel planner Routine Comment: Operations: - - Surgical preparation right anterior medial leg with incision and drainage nonhealing MRSA necrotizing infection abscess ulcers cluster Procedures: Wound vac placement Summary of Care Provided: The patient is a 48 year old F emergency room at [facility] after coming in for evaluation of continued right lower extremity pain and redness. She had been hospitalized recently for cellulitis of the right lower extremity, surgery had been recommended but the patient signed out AGAINST MEDICAL ADVICE. Patient had been taking Bactrim and Cipro as an outpatient but she had persistent pain and redness of her right lower extremity and had to come to the emergency room. Evaluation in the emergency room showed the right lower leg to be reddened and swollen, it was also tender, CBC showed a hemoglobin of 8.4, white blood cell count was normal, potassium was 3.2, x-ray of the tibia and fibula on the right showed nonspecific soft tissue edema. Patient was given IV vancomycin and IV Zosyn and admitted to [place] [id number]. She was seen in consultation by plastic surgery who recommended surgical intervention, patient underwent surgery to her right lower leg with resultant large surgical debridement and application of wound VAC. She was seen in consultation by infectious diseases. Culture of the wound grew out MRSA and corynebacterium. Patient was seen by PT and OT, this examiner recommended that she go short-term to a intermediate facility for appropriate care to her right lower leg wound. Patient was also seen by social welfare research worker while in the hospital, it was recommended that she be seen by mental health services at the intermediate facility for treatment for possible depression. On 06/22/2019, patient was seen and examined: On examination she appeared in good health and spirits. Vital signs as documented. Skin warm and dry and without overt rashes. Neck without JVD. Lungs clear. Heart exam notable for regular rhythm, normal sounds and absence of murmurs, rubs or gallops. Abdomen unremarkable and without evidence of organomegaly, masses, or abdominal aortic enlargement. Extremities-wound VAC is present over the patient's right lower extremity. Neuro: Cranial nerves II through XII are grossly intact, no focal motor deficits were noted, sensation to light touch and pinprick is intact. Psych: Patient is alert and oriented x3, she does not appear anxious or depressed - Physical Exam Vitals/I&O's: Vital Signs Temp Pulse Resp BP Pulse Ox 100.1 F H 83 16 120/52 L 100 06/22/19 15:25 06/22/19 15:25 06/22/19 15:25 06/22/19 15:25 06/22/19 15:25 Oxygen Flow Rate (L/min) 2 Oxygen Delivery Method Room Air Weight: 143.3 kg Body Mass Index (BMI) 45.3 Finger Stick Blood Glucose 81 Intake and Output for Last 24 Hours 06/20/19 06/21/19 06/22/19 23:59 23:59 23:59 Intake Total 1505 / 1505 800 / 800 450 / 450 Output Total 850 / 850 750 / 750 500 / 500 Balance 655 / 655 50 / 50 -50 / -50 Microbiology Past 72 Hours 06/16/19 13:23 Blood Culture (Wb) - Anticubital Left Blood Culture - Final No growth in 5 days. 06/16/19 12:58 Blood Culture (Wb) - Right Forearm Blood Culture - Final No growth in 5 days. 06/18/19 16:16 Tissue - Leg, Right Gram Stain - Final 06/18/19 16:16 Tissue - Leg, Right Wound Culture - Final Meth. resistant Staph. aureus Corynebacterium minutissimum 06/18/19 16:16 Tissue - Leg, Right Anaerobic Culture - Preliminary Checking for anaerobes, further studies to follow. Current Medications Acetaminophen (Tylenol) 650 mg PO Q6H PRN PRN PRN Reason: Pain Score 1-10/Temp > 100.7 F Last Admin: 06/21/19 17:21 Dose: 650 mg Documented by: Amoxicillin/Clavulanate Potassium (Augmentin Tablet) 875 mg PO BID [facility] Last Admin: 06/22/19 09:23 Dose: 875 mg Documented by: Diazepam (Valium) 5 mg PO 4X/DAY PRN PRN PRN Reason: SPASMS Last Admin: 06/21/19 17:21 Dose: 5 mg Documented by: Ferrous Sulfate (Ferrous Sulfate) 325 mg PO 1200,1700 [facility] Last Admin: 06/22/19 13:00 Dose: 325 mg Documented by: Hydromorphone HCl (Dilaudid Tablet) 2 - 4 mg PO Q3H PRN PRN PRN Reason: Pain Score 1-10/10 Last Admin: 06/22/19 15:28 Dose: 4 mg Documented by: Sodium Chloride () 250 mls @ 15 mls/hr IV .[id number] PRN PRN Reason: Saline Flush Last Infusion: 06/18/19 17:15 Dose: Infused Documented by: Sodium Chloride () 250 mls @ 15 mls/hr IV .[id number] PRN PRN Reason: Additional IVPB Infusion [facility] Fl[facility] Admin: 06/22/19 09:21 Dose: 1 packet Documented by: Ondansetron HCl (Zofran Odt) 4 mg PO Q8H PRN PRN PRN Reason: NAUSEA Last Admin: 06/21/19 10:50 Dose: 4 mg Documented by: Potassium Chloride (K-Dur) [facility] Last Admin: 06/22/19 09:23 Dose: 20 meq Documented by: Senna/Docusate Sodium (Senokot-S, Sugar-Colace) 2 tablet PO BID PRN PRN PRN Reason: Constipation Sodium Chloride () 10 - 40 ml IV UD PRN PRN Reason: SALINE FLUSH Last Admin: 06/20/19 08:17 Dose: 10 ml Documented by: Trimethoprim/Sulfamethoxazole (Bactrim Ds) 1 tablet PO BID [facility] Last Admin: 06/22/19 09:23 Dose: 1 tablet Documented by: Home Medications: Medications to take at Discharge Amox/Clavulanate Tablet [Augmentin Tablet] 875 mg PO BID #20 tab 06/21/19 Smz/Tmp Ds [Bactrim Ds] 1 tab PO BID #20 tab 06/21/19 Acetaminophen [Tylenol Tablet] 650 mg PO Q6H PRN PRN tab 06/22/19 Ferrous Sulfate 325 mg PO 1200,1700 tab 06/22/19 HYDROmorphone tablet [Dilaudid] 2 - 4 mg PO Q3H PRN PRN 7 Days #20 tab 06/22/19 Nutritional Supplement [Rey - ORANGE FLAVOR] 1 packet PO BIDCM packet 06/22/19 Potassium Chloride [K-Dur] 20 meq PO DAILYCM tab 06/22/19 Senna/Docusate Sodium [Senokot-S] 2 tab PO BID PRN PRN tab 06/22/19 proMETHazine tablet [Phenergan tablet] 25 mg PO Q6H PRN PRN #1 tab 06/22/19 Following Prescrptions Were Given to Patient: Amox/Clavulanate Tablet [Augmentin Tablet] 875 mg PO BID #20 tab Smz/Tmp Ds [Bactrim Ds] 1 tab PO BID #20 tab HYDROmorphone tablet [Dilaudid] 2 - 4 mg PO Q3H PRN PRN 7 Days #20 tab PRN Reason: Pain Score 1-10/10 Prescription Printed proMETHazine tablet [Phenergan tablet] 25 mg PO Q6H PRN PRN #1 tab PRN Reason: Nausea Primary Care Physician: Belle Lara MD [Primary Care Provider] - Please Follow Up With: Sharan Mock MD When: in one week Disposition: Long Term facility Minutes spent on discharge:: 32 Patient Condition:: Stable Medical Necessity - Tobacco Use Smoking Status: Never smoker Meaningful Use Info Meaningful Use Diagnoses (Choose all that apply): None applicable Code Visit Inpatient E&M: 51925 Disch Hosp
== END 2019-06-22 17:15 | disposition skilled nursing facility (03) | DRG 364 ==
LOC: ED 12:31 → MS3 15:27
PROVIDERS: Anesthesiology; Surgery; Admitting Provider Hospitalist; Emergency Provider Emergency Medicine; PCP Internal Medicine; Visit Provider Internal Medicine
PROC: 0J9N0ZZ Drainage of Right Lower Leg Subcutaneous Tissue and Fascia, Open Approach (ICD-10-PCS; principal; 2019-06-18 15:10)
DX: L02.415 Cutaneous abscess of right lower limb (principal); L03.115 Cellulitis of right lower limb; B95.62 Methicillin resistant Staphylococcus aureus infection as the cause of diseases classified elsewhere; B96.89 Other specified bacterial agents as the cause of diseases classified elsewhere; L97.912 Non-pressure chronic ulcer of unspecified part of right lower leg with fat layer exposed; R60.0 Localized edema; E66.01 Morbid (severe) obesity due to excess calories; Z23 Encounter for immunization; Z68.42 Body mass index [BMI] 45.0-49.9, adult; D50.9 Iron deficiency anemia, unspecified; E87.6 Hypokalemia; F32.9 Major depressive disorder, single episode, unspecified; K21.9 Gastro-esophageal reflux disease without esophagitis; I87.2 Venous insufficiency (chronic) (peripheral); I73.9 Peripheral vascular disease, unspecified; M79.89 Other specified soft tissue disorders
CPT/HCPCS: 36415; 73590; 80048; 80053; 80202; 82962; 83605; 84134; 85025; 85027; 85610; 85730; 86140; 86850; 86900; 86901; 86920; 86922; 87040; 87070; 87075; 87077; 87102; 87186; 87205; 87206; 88304; 93005; 97110; 97116; 97162; 97165; 97530; 97535; 97802; 97803; 99284; J1756; J7030; J7040; J7050; P9016; 90686; A4216; J2405

== ENCOUNTER 2019-08-06 10:15 | Outpatient (RCR) | payer MEDICAID, SELFPAY ==
[2019-06-18 11:43] VITALS: BMI 45.3
[2019-07-09 09:13] VITALS: BP 118/69; PULSE 85; RESP 18; TEMP 36.9; BMI 42.2
--- NOTE | 2019-07-09 09:18 | WC ---
LOWER EXT ASSESSMENT DEFERRED D/T PT PAIN AND ANXIETY LEVEL. WILL UPDATE CM.
--- NOTE | 2019-07-09 11:22 | PCM.WC.HP ---
(1) Ulcer of right lower extremity with fat layer exposed Status: Acute Current Visit: Yes Code(s): L97.912 - Non-pressure chronic ulcer of unspecified part of right lower leg with fat layer exposed (2) MRSA (methicillin resistant Staphylococcus aureus) infection Status: Acute Current Visit: Yes Code(s): A49.02 - Methicillin resistant Staphylococcus aureus infection, unspecified site (3) Chronic venous insufficiency of lower extremity Status: Chronic Current Visit: Yes Code(s): I87.2 - Venous insufficiency (chronic) (peripheral) (4) Lower extremity edema Status: Chronic Current Visit: Yes Code(s): R60.0 - Localized edema (5) PVD (peripheral vascular disease) Status: Chronic Current Visit: Yes Code(s): I73.9 - Peripheral vascular disease, unspecified History of Present Illness Date of Service: 07/09/19 Chief Complaint: right lower leg ulcer History of Wound: Patient was admitted on 06/08/19 for nausea, vomiting, fever and right leg cellulitis/infected nonhealing right leg ulcers. She had a CT scan on 06/11/19 which showed severe cellulitis probable venous congestion and/or stasis. Large engorged venous varices. Visualized gas in the soft tissues or definitive focal draable collection. Surgery was recommended but the patient refused and insisted on being discharged to go home and care for her children. She was discharged on 06/12/19 AMA, prescription for Bactrim and cipro were given. She was readmitted on 06/16/19 because of increasing right leg pain, swelling and redness. Surgery on 06/18/19 - Surgical preparation right anteromedial leg with incision and drainage nonhealing MRSA necrotizing infection abscess ulcers cluster (172.5 cm2). Surgical wound culture from 06/18/19 was positive for MRSA and Corynebacterium minutissumum. Prealbumin on 06/19/19 was 8.6. She was transferred to the [facility] after discharge. Wound care- Wound VAC with GERMÁN wrap for compression. She has been receiving Rey for protein supplement which she states she does not tolerate well due to the taste. Will switch to an Ensure protein shake so she receives increase in her protein. Today she denies fever. She states the food at the [facility] is awful and she is not eating well there. She would like to go home as soon as possible. Past Medical History Past Medical History: Chronic Problems (Last Updated 06/11/19 @ 09:[address] Era Gates MD) Chronic venous insufficiency of lower extremity (Chronic) GERD (gastroesophageal reflux disease) (Chronic) Chronic anemia (Chronic) iron deficiency History of non-healing wound (Chronic) RLE Lower extremity edema (Chronic) PVD (peripheral vascular disease) (Chronic) Surgical History: no surgical history Allergies/Adverse Reactions: Allergies naproxen [From Aleve] Allergy (Verified 07/09/19 09:21) Shortness of breath Home Medications: Ambulatory Orders Medication Instructions Recorded Acetaminophen [Tylenol Tablet] 650 mg PO 07/09/19 Bisacodyl 10 mg ND 07/09/19 Famotidine/Ca Carb/Mag Hydrox 1 ea PO 07/09/19 [Tums Dual Action Tablet Chew] Ferrous Sulfate 325 mg PO 07/09/19 Hydroxyzine HCl 50 mg PO 07/09/19 Magnesium Hydroxide [Milk Of 30 ml PO 07/09/19 Magnesia] Nutritional Supplement [Rey - 1 packet PO 07/09/19 ORANGE FLAVOR] Omeprazole [Prilosec] 20 mg PO 07/09/19 Oxycodone HCl 5 mg PO 07/09/19 Potassium Chloride [K-Dur] 20 meq PO 07/09/19 Senna/Docusate Sodium [Senokot-S] tab PO 07/09/19 Sertraline HCl [Zoloft] 50 mg PO 07/09/19 proMETHazine tablet [Phenergan 25 mg PO 07/09/19 tablet] - Family History Maternal No pertinent history Paternal No pertinent history Smoking Status: Never smoker Review of Systems Constitutional: Denies: Anorexia, Chills HEENT: Denies: Difficulty Hearing, Difficulty Swallowing, Sinus Congestion Cardiovascular: Denies: Chest Pain, Palpitations Respiratory: Denies: Cough, Shortness of Breath Gastrointestinal: Denies: Diarrhea, Nausea, Vomiting Musculoskeletal: Reports: Leg Pain Skin: Reports: Wounds - right leg ulcer Neurological: Denies: Blurred vision, Double vision Psychiatric: Reports: Depression Endocrine: Denies: Heat/ Cold Intolerance, Polydipsia, Polyuria - Physical Exam Vital Signs Temp Pulse Resp BP 98.4 F 85 18 118/69 07/09/19 09:13 07/09/19 09:13 07/09/19 09:13 07/09/19 09:13 General: Alert, Oriented x3, Cooperative HEENT: Atraumatic Oral: Moist Mucosa Lungs: Normal air movement Cardiovascular: Regular rate Abdomen: Obese Extremities: Capillary Refill Less than 3 Seconds, Diminished Peripheral Pulses, Edema Skin: Ulcer/ Wound - right lower anterior leg Wound Measurements and Assessment WC - Nurse 1 - General Ulcer Measurement Start: 07/09/19 09:13 Freq: Status: Active Protocol: Activity Type Activity Date Activity User E-Sign Co-Sign Detail Recorded Client Recorded Date Recorded By Document 07/09/19 09:13 [facility] [id number] 07/09/19 09:18 [facility] 07/09/19 09:13 Wound Center Nurse 1 [Ulcer Assessment] #2- RT LOWER SIMON POST OP -Combined with other wound No -Current Size (cm) - Length 10.5 -Current Size (cm) - Width 17.0 -Current Size (cm) - Depth 1.9 -Total Square Cm 178.50 -Date of Last Picture (Recall this 07/09/19 field) -Photo Taken Yes -Epithelialization None Present -Tunneling No -Undermining/Tunneling No -Circular Undermining No -Exudate Amt Large -Exudate Type Sanguineous -Wound Margin Distinct, Outline Attached -Granulation Amt Large (67-100%) -Granulation Quality Red -Slough/Fibrin Yes -Necrosis Amt Small (1-33%) -Necrotic Tissue Type Adherent Slough -Texture (Sugar-wound Skin Appearance) Assessed, Scarring -Moisture (Sugar-wound Skin Appearance Assessed,Dry/ ) Scaly -Color (Sugar-wound Skin Appearance) Assessed -Temperature (Sugar-wound Skin No Abnormality Appearance) (Pt Warm) -Tenderness on Palpation (Sugar-wound Yes Skin Appearance) -Ulcer Cleansing SOAPY WATER -Foul Odor after Cleansing No -Anesthetic Used 4% Lidocaine Solution [Edema Assessment] -Lower Limb Edema Present Yes -Right Calf (cm) 55.6 -Right Ankle (cm) 31 Musculoskeletal: Tenderness Neurological: Neuro grossly intact Psych/Mental Status: Normal Affect, Appropriate Debridement Note No debridement was completed today - Patient refused to have any debridement done due to the severity of the pain. Assessment/Plan Active Problems (Last Updated 06/11/19 @ 09:[address] Era Gates MD) Ulcer of right lower extremity with fat layer exposed (Acute) MRSA (methicillin resistant Staphylococcus aureus) infection (Acute) Chronic venous insufficiency of lower extremity (Chronic) Lower extremity edema (Chronic) PVD (peripheral vascular disease) (Chronic) Assessment: Ulcer right lower extremity. Pain right lower extremity. Edema right lower extremity. Obesity. Other comorbidities Plan: Surgery on 06/18/19 - Surgical preparation right anteromedial leg with incision and drainage nonhealing MRSA necrotizing infection abscess ulcers cluster (172.5 cm2). Surgical wound culture from 06/18/19 was positive for MRSA and Corynebacterium minutissumum. Prealbumin on 06/19/19 was 8.6. She was transferred to the [facility] after discharge. Wound care- Wound VAC with GERMÁN wrap for compression. She has been receiving Ery for protein supplement which she states she does not tolerate well due to the taste. Will switch to an Ensure protein shake so she receives increase in her protein. Encouraged increased protein intake. Follow up two weeks. Code Visit [id number]: [id number] Global Visit
[2019-07-23 10:11] VITALS: BP 126/61; PULSE 88; RESP 20; TEMP 36.3; BMI 42.2
--- NOTE | 2019-07-23 11:50 | VDLE_ITS ---
Reason For Study: Leg pain and swelling RIGHT LEFT CFV is compressible, spontaneous, phasic, CFV is compressible, spontaneous, phasic, competent and demonstrates normal competent, and demonstrates normal augmentation. augmentation. FV is compressible, spontaneous, phasic, competent and demonstrates normal augmentation. POP V is compressible, spontaneous, phasic, competent and demonstrates normal augmentation. T/P Trunk is compressible. PTV is compressible. RT PerV is compressible. Acute deep vein thrombosis noted in the GastrocV. Acute superficial vein thrombosis noted in GSV from the junction to the distal thigh. Procedure Exam performed in department. A preliminary report was called and/or faxed to [facility]. Interpretation Summary Acute deep vein thrombosis is noted in the right gastrocnemius vein. The remainder of the right lower extremity deep venous system is patent and compressible. Valvular competence appears intact within the proximal deep venous system on the right . Acute superficial thrombophlebitis is noted in the right great saphenous vein from the right sapheno-femoral junction to the distal thigh. Ordering Physician: Kayla Barr Referring Physician: Belle Lara Performed By: Jen Mendez RVT
--- NOTE | 2019-07-23 14:28 | PN.PCM_ITS ---
(1) DVT (deep venous thrombosis) Status: Acute Code(s): I82.409 - Acute embolism and thrombosis of unspecified deep veins of unspecified lower extremity (2) Ulcer of right lower extremity with fat layer exposed Status: Chronic Code(s): L97.912 - Non-pressure chronic ulcer of unspecified part of right lower leg with fat layer exposed (3) MRSA (methicillin resistant Staphylococcus aureus) infection Status: Chronic Code(s): A49.02 - Methicillin resistant Staphylococcus aureus infection, unspecified site (4) Chronic venous insufficiency of lower extremity Status: Chronic Code(s): I87.2 - Venous insufficiency (chronic) (peripheral) (5) Lower extremity edema Status: Chronic Code(s): R60.0 - Localized edema (6) PVD (peripheral vascular disease) Status: Chronic Code(s): I73.9 - Peripheral vascular disease, unspecified Type of Wound Date of Service: 07/23/19 Chief Complaint: right lower leg ulcer History of Wound: Patient was admitted on 06/08/19 for nausea, vomiting, fever and right leg cellulitis/infected nonhealing right leg ulcers. She had a CT scan on 06/11/19 which showed severe cellulitis probable venous congestion and/or stasis. Large engorged venous varices. Visualized gas in the soft tissues or definitive focal draable collection. Surgery was recommended but the patient refused and insisted on being discharged to go home and care for her children. She was discharged on 06/12/19 AMA, prescription for Bactrim and cipro were given. She was readmitted on 06/16/19 because of increasing right leg pain, swelling and redness. Surgery on 06/18/19 - Surgical preparation right anteromedial leg with incision and drainage nonhealing MRSA necrotizing infection abscess ulcers cluster (172.5 cm2). Surgical wound culture from 06/18/19 was positive for MRSA and Corynebacterium minutissumum. Prealbumin on 06/19/19 was 8.6. She was transferred to the [facility] after discharge. Wound care- Wound VAC with GERMÁN wrap for compression. She has been receiving Rey for protein supplement which she states she does not tolerate well due to the taste. Will switch to an Ensure protein shake so she receives increase in her protein. Her right leg has increased swelling and tightness. Patient states that is her normal. Obtained a stat ultrasound and it was positive for Acute deep vein thrombosis in the right gastrocnemius vein. The remainder of the right lower extremity deep venous system is patent and compressible. Valvular competence appears intact within the proximal deep venous system on the right. Acute superficial thrombophlebitis is noted in the right great saphenous vein from the right sapho-femoral junction to the distal thigh. Spoke with Dr. Mock and with Landry at the [facility]. We will start her on Coumadin 7.5 mg today and then they will do PT/INR for coumadin management. Today she denies fever. Progress of Wound: Stable - Physical Exam Vital Signs Temp Pulse Resp BP 97.4 F L 88 20 H 126/61 H 07/23/19 10:11 07/23/19 10:11 07/23/19 10:11 07/23/19 10:11 General: Alert, Oriented x3, Non-Cooperative HEENT: Atraumatic Oral: Moist Mucosa Lungs: Normal air movement Cardiovascular: Regular rate Abdomen: Obese Extremities: Capillary Refill Less than 3 Seconds, No Calf Tenderness, Edema - b ilateral lower extremity anjelica, but the right leg has definate increase in swelling and tightness Skin: Ulcer/ Wound - right lower leg ulcer is beefy red in color. Wound Measurements and Assessment WC - Nurse 1 - General Ulcer Measurement Start: 07/09/19 09:13 Freq: Status: Active Protocol: Activity Type Activity Date Activity User E-Sign Co-Sign Detail Recorded Client Recorded Date Recorded By Document 07/23/19 10:11 MW [id number] 07/23/19 10:23 MW 07/23/19 10:11 Wound Center Nurse 1 [Ulcer Assessment] #2- RT LOWER SIMON POST OP -Combined with other wound No -Current Size (cm) - Length 10.8 -Current Size (cm) - Width 17.0 -Current Size (cm) - Depth 1.7 -Total Square Cm 183.60 -Date of Last Picture (Recall this 07/23/19 field) -Photo Taken Yes -Epithelialization None Present -Tunneling No -Undermining/Tunneling No -Circular Undermining No -Exudate Amt Large -Exudate Type Sanguineous -Wound Margin Distinct, Outline Attached -Granulation Amt Large (67-100%) -Granulation Quality Red -Slough/Fibrin Yes -Necrosis Amt Small (1-33%) -Necrotic Tissue Type Adherent Slough -Structure Exposed N/A -Texture (Sugar-wound Skin Appearance) Assessed, Localized Edema ,Scarring -Moisture (Sugar-wound Skin Appearance No Abnormality, ) Assessed -Color (Sugar-wound Skin Appearance) No Abnormality, Assessed -Temperature (Sugar-wound Skin No Abnormality Appearance) (Pt Warm) -Tenderness on Palpation (Sugar-wound No Skin Appearance) -Ulcer Cleansing soap and water -Foul Odor after Cleansing No -Anesthetic Used 4% Lidocaine Solution [Edema Assessment] -Lower Limb Edema Present Yes -Right Calf (cm) 58.5 - Nurse 2 - General Ulcer CM Notes Start: 07/09/19 09:13 Freq: Status: Active Protocol: Activity Type Activity Date Activity User E-Sign Co-Sign Detail Recorded Client Recorded Date Recorded By Document 07/23/19 10:51 [id number] 07/23/19 10:52 07/23/19 10:51 Wound Center Nurse 2 [Procedure/Treatment] #2- RT LOWER SIMON POST OP -Correct Patient No -Correct Side, Site, Position No -Correct Procedure No -Procedure Performed No -Wound/Ulcer Outcome Not Healed [See Physician Procedure note for Specifics] Pain Scale: 0-10 Numeric [Pain] -Is Patient Pain Free? Yes Musculoskeletal: Tenderness Neurological: Neuro grossly intact Psych/Mental Status: Normal Affect Debridement Note Post-Debridement Measurements/Treatment - Nurse 2 - General Ulcer CM Notes Start: 07/09/19 09:13 Freq: Status: Active Protocol: Activity Type Activity Date Activity User E-Sign Co-Sign Detail Recorded Client Recorded Date Recorded By Document 07/10/19 08:35 [id number] 07/10/19 08:35 Document 07/23/19 10:51 [id number] 07/23/19 10:52 07/10/19 07/23/19 08:35 10:51 Wound Center Nurse 2 #2- RT LOWER SIMON POST OP -Correct Patient No No -Correct Side, Site, Position No No -Correct Procedure No No -Procedure Performed No No -Wound/Ulcer Outcome Not Healed Not Healed Pain Scale: 0-10 Numeric Is Patient Pain Free? Yes Yes No debridement was completed today - Patient refuses to have debridement done. Assessment/Plan Assessment: Ulcer right lower extremity. Pain right lower extremity. Edema right lower extremity. Obesity. Other comorbidities Plan: Surgery on 06/18/19 - Surgical preparation right anteromedial leg with incision and drainage nonhealing MRSA necrotizing infection abscess ulcers cluster (172.5 cm2). Surgical wound culture from 06/18/19 was positive for MRSA and Corynebacterium minutissumum. Prealbumin on 06/19/19 was 8.6. She was transferred to the [facility] after discharge. Wound care- Wound VAC with GERMÁN wrap for compression. She has refused a subcutaneous debridement today. She has increased swelling in her right lower leg with shiny tightness. She states this is her normal. She still is not walking normal due to pain. She walks on her right toes. Her friend who is with her states she typically stands and pivots from her bed to her chair or bedside commode. Obtained a stat ultrasound which shows she is positive for Acute deep vein thrombosis in the right gastrocnemius vein. The remainder of the right lower extremity deep venous system is patent and compressible. Valvular competence appears intact within the proximal deep venous system on the right. Acute superficial thrombophlebitis is noted in the right great saphenous vein from the right sapho-femoral junction to the distal thigh. Spoke with Dr. Mock and with Landry at the [facility]. We will start her on Coumadin 7.5 mg today and then they will do PT/INR for coumadin management. She takes Ensure protein shake so she receives increase in her protein. Encouraged increased protein intake. Follow up two weeks. [id number]: [id number] Global Visit
[2019-08-06 10:31] VITALS: BP 116/68; PULSE 94; RESP 18; TEMP 35.8; BMI 42.2
--- NOTE | 2019-08-06 15:00 | PCM.WC.PN ---
(1) Ulcer of right lower extremity with fat layer exposed Status: Chronic Code(s): L97.912 - Non-pressure chronic ulcer of unspecified part of right lower leg with fat layer exposed (2) DVT (deep venous thrombosis) Status: Acute Code(s): I82.409 - Acute embolism and thrombosis of unspecified deep veins of unspecified lower extremity (3) MRSA (methicillin resistant Staphylococcus aureus) infection Status: Chronic Code(s): A49.02 - Methicillin resistant Staphylococcus aureus infection, unspecified site (4) Chronic venous insufficiency of lower extremity Status: Chronic Code(s): I87.2 - Venous insufficiency (chronic) (peripheral) (5) Lower extremity edema Status: Chronic Code(s): R60.0 - Localized edema (6) PVD (peripheral vascular disease) Status: Chronic Code(s): I73.9 - Peripheral vascular disease, unspecified Type of Wound Date of Service: 08/06/19 Chief Complaint: right lower leg ulcer History of Wound: Patient was admitted on 06/08/19 for nausea, vomiting, fever and right leg cellulitis/infected nonhealing right leg ulcers. She had a CT scan on 06/11/19 which showed severe cellulitis probable venous congestion and/or stasis. Large engorged venous varices. Visualized gas in the soft tissues or definitive focal draable collection. Surgery was recommended but the patient refused and insisted on being discharged to go home and care for her children. She was discharged on 06/12/19 AMA, prescription for Bactrim and cipro were given. She was readmitted on 06/16/19 because of increasing right leg pain, swelling and redness. Surgery on 06/18/19 - Surgical preparation right anteromedial leg with incision and drainage nonhealing MRSA necrotizing infection abscess ulcers cluster (172.5 cm2). Surgical wound culture from 06/18/19 was positive for MRSA and Corynebacterium minutissumum. Prealbumin on 06/19/19 was 8.6. She was transferred to the [facility] after discharge. Wound care- Wound VAC holiday until 08/10/19 due to periwound erythema. Can do daily Dakin's moistened gauze until wound VAC is replaced. Will use GERMÁN wrap for compression. Wound culture today 08/06/19 obtained due to the increased pain she is experiencing. She has been receiving Rey for protein supplement which she states she does not tolerate well due to the taste. Will switch to an Ensure protein shake so she receives increase in her protein. Her right leg has increased swelling and tightness. Patient states that is her normal. Obtained a stat ultrasound and it was positive for Acute deep vein thrombosis in the right gastrocnemius vein. The remainder of the right lower extremity deep venous system is patent and compressible. Valvular competence appears intact within the proximal deep venous system on the right. Acute superficial thrombophlebitis is noted in the right great saphenous vein from the right sapho-femoral junction to the distal thigh. The [facility] attending physician is managing her medication for her DVT. They have switched her from Coumadin to Xarelto. Today she denies fever. Progress of Wound: Stable - Physical Exam Vital Signs Temp Pulse Resp BP 96.5 F L 94 18 116/68 08/06/19 10:31 08/06/19 10:31 08/06/19 10:31 08/06/19 10:31 General: Alert, Oriented x3, Cooperative HEENT: Atraumatic Oral: Moist Mucosa Lungs: Normal air movement Cardiovascular: Regular rate Abdomen: Obese Extremities: Capillary Refill Less than 3 Seconds, Edema - Right lower leg with significant edema +3-+4 non pitting. Skin is tight and shiny in appearance. Skin: Ulcer/ Wound - Right lower, lateral leg ulcer. Beefy pink in color Wound Measurements and Assessment WC - Nurse 1 - General Ulcer Measurement Start: 07/09/19 09:13 Freq: Status: Active Protocol: Activity Type Activity Date Activity User E-Sign Co-Sign Detail Recorded Client Recorded Date Recorded By Document 08/06/19 10:31 [id number] 08/06/19 10:34 [email or web address] 08/06/19 10:31 Wound Center Nurse 1 [Ulcer Assessment] #2- RT LOWER SIMON POST OP -Combined with other wound No -Current Size (cm) - Length 10 -Current Size (cm) - Width 17.5 -Current Size (cm) - Depth 0.2 -Total Square Cm 175.0 -Tunneling No -Undermining/Tunneling No -Circular Undermining No -Exudate Amt Large -Exudate Type Serosanguineous -Wound Margin Thickened & Rolled Under -Granulation Amt Large (67-100%) -Granulation Quality Red -Slough/Fibrin Yes -Necrosis Amt Small (1-33%) -Necrotic Tissue Type Adherent Slough -Structure Exposed N/A -Texture (Sugar-wound Skin Appearance) Assessed, Scarring -Moisture (Sugar-wound Skin Appearance Assessed ) -Color (Sugar-wound Skin Appearance) Assessed, Hemosiderin Staining -Temperature (Sugar-wound Skin No Abnormality Appearance) (Pt Warm) -Tenderness on Palpation (Sugar-wound No Skin Appearance) -Ulcer Cleansing Wound Cleanser -Foul Odor after Cleansing No -Anesthetic Used 4% Lidocaine Solution [Edema Assessment] -Lower Limb Edema Present Yes -Right Calf (cm) 60 -Right Ankle (cm) 29.4 WC - Nurse 2 - General Ulcer CM Notes Start: 07/09/19 09:13 Freq: Status: Active Protocol: Activity Type Activity Date Activity User E-Sign Co-Sign Detail Recorded Client Recorded Date Recorded By Document 08/06/19 10:45 MW [id number] 08/06/19 10:52 MW 08/06/19 10:45 Wound Center Nurse 2 [Procedure/Treatment] #2- RT LOWER SIMON POST OP -Time 10:45 -Correct Patient Yes -Correct Side, Site, Position Yes -Correct Procedure Yes -Procedure Performed No -Wound/Ulcer Outcome Not Healed -Ulcer Cleansing Rinsed/ Irrigated with Saline -Foul Odor after Cleansing No -Bioengineered Tissue No -Bleeding Controlled with NA -Offloading No -Treatment Response Procedure Tolerated Well [See Physician Procedure note for Specifics] Pain Scale: 0-10 Numeric [Pain] -Is Patient Pain Free? Yes Musculoskeletal: No Muscle Wasting Neurological: Neuro grossly intact Psych/Mental Status: Normal Affect, Appropriate Debridement Note Post-Debridement Measurements/Treatment - Nurse 2 - General Ulcer CM Notes Start: 07/09/19 09:13 Freq: Status: Active Protocol: Activity Type Activity Date Activity User E-Sign Co-Sign Detail Recorded Client Recorded Date Recorded By Document 07/10/19 08:35 [id number] 07/10/19 08:35 JF Document 07/23/19 10:51 JF [id number] 07/23/19 10:52 JF Document 08/06/19 10:45 MW [id number] 08/06/19 10:52 MW 07/10/19 07/23/19 08/06/19 08:35 10:51 10:45 Wound Center Nurse 2 #2- RT LOWER SIMON POST OP -Time 10:45 -Correct Patient No No Yes -Correct Side, Site, Position No No Yes -Correct Procedure No No Yes -Procedure Performed No No No -Wound/Ulcer Outcome Not Healed Not Healed Not Healed -Ulcer Cleansing Rinsed/ Irrigated with Saline -Foul Odor after Cleansing No -Bioengineered Tissue No -Bleeding Controlled with NA -Offloading No -Treatment Response Procedure Tolerated Well Pain Scale: 0-10 Numeric Is Patient Pain Free? Yes Yes Yes Patient is refusing to have wound debrided. No debridement was completed today Assessment/Plan Assessment: Ulcer right lower extremity. Pain right lower extremity. Edema right lower extremity. Obesity. Other comorbidities Plan: Surgery on 06/18/19 - Surgical preparation right anteromedial leg with incision and drainage nonhealing MRSA necrotizing infection abscess ulcers cluster (172.5 cm2). Surgical wound culture from 06/18/19 was positive for MRSA and Corynebacterium minutissumum. Prealbumin on 06/19/19 was 8.6. She was transferred to the [facility] after discharge. Wound care- Will take a Wound VAC holiday until 08/10/19 to help the periwound erythema heal. Will do daily Dakin's moistened gauze dressings until restart wound VAC. Continue compression with GERMÁN wrap for compression. Obtained wound culture today, 08/06/19, due to the increased pain she is experiencing. She has refused a subcutaneous debridement again today. The swelling in her right lower leg continue to be significant. Obtained a stat ultrasound on 07/23/19 which shows she is positive for Acute deep vein thrombosis in the right gastrocnemius vein. The remainder of the right lower extremity deep venous system is patent and compressible. Valvular competence appears intact within the proximal deep venous system on the right. Acute superficial thrombophlebitis is noted in the right great saphenous vein from the right sapho-femoral junction to the distal thigh. Spoke with Dr. Mock and with Landry at the [facility]. We will start her on Coumadin 7.5 mg today and then they will do PT/INR for coumadin management. The [facility] is managing her medication for her DVT and has switched her to Xarelto. Encouraged her to start to increase her activity. She states it is difficult to do because she is quarantined in her room at the [facility] due to Covid 19. She is only able to place weight on her toes. She wants to go home and go back to work [employer]. Instructed her that she is not able to go home until she is able to walk, and be able to look at her wound so she is able to take care of it. She takes doesn't like the Ensure protein shake to increase in her protein intake. Encouraged increased protein intake. Follow up two weeks. [id number]: [id number] Global Visit
== END 2019-08-07 23:59 ==
LOC: WC 10:15
PROVIDERS: PCP Internal Medicine; Referring Provider Nurse Practitioner Family; Visit Provider Nurse Practitioner Family
DX: I73.9 Peripheral vascular disease, unspecified (principal); M79.604 Pain in right leg; M79.89 Other specified soft tissue disorders; I87.2 Venous insufficiency (chronic) (peripheral); Z86.14 Personal history of Methicillin resistant Staphylococcus aureus infection; L97.812 Non-pressure chronic ulcer of other part of right lower leg with fat layer exposed; K21.9 Gastro-esophageal reflux disease without esophagitis; Z79.899 Other long term (current) drug therapy; E66.9 Obesity, unspecified; Z68.41 Body mass index [BMI] 40.0-44.9, adult; I82.491 Acute embolism and thrombosis of other specified deep vein of right lower extremity
CPT/HCPCS: 87070; 87075; 87077; 87186; 87205; 93971; 99213; 99214; G0463

== ENCOUNTER 2019-09-03 10:00 | Outpatient (RCR) | payer MEDICAID, SELFPAY ==
[2019-08-08 00:54] VITALS: BP 116/68; PULSE 94; RESP 18; TEMP 35.8
[2019-08-13 11:01] VITALS: BP 127/50; PULSE 79; RESP 20; TEMP 36.7; BMI 42.2
--- NOTE | 2019-08-13 13:10 | PN.PCM_ITS ---
(1) Ulcer of right lower extremity with fat layer exposed Status: Chronic Current Visit: Yes Code(s): L97.912 - Non-pressure chronic ulcer of unspecified part of right lower leg with fat layer exposed (2) Lower extremity edema Status: Chronic Current Visit: Yes Code(s): R60.0 - Localized edema (3) Chronic venous insufficiency of lower extremity Status: Chronic Current Visit: Yes Code(s): I87.2 - Venous insufficiency (chronic) (peripheral) (4) DVT (deep venous thrombosis) Status: Acute Current Visit: Yes Code(s): I82.409 - Acute embolism and thrombosis of unspecified deep veins of unspecified lower extremity Type of Wound Date of Service: 08/13/19 Chief Complaint: right lower leg ulcer History of Wound: Patient was admitted on 06/08/19 for nausea, vomiting, fever and right leg cellulitis/infected nonhealing right leg ulcers. She had a CT scan on 06/11/19 which showed severe cellulitis probable venous congestion and/or stasis. Large engorged venous varices. Visualized gas in the soft tissues or definitive focal draable collection. Surgery was recommended but the patient refused and insisted on being discharged to go home and care for her children. She was discharged on 06/12/19 AMA, prescription for Bactrim and cipro were given. She was readmitted on 06/16/19 because of increasing right leg pain, swelling and redness. Surgery on 06/18/19 - Surgical preparation right anteromedial leg with incision and drainage nonhealing MRSA necrotizing infection abscess ulcers cluster (172.5 cm2). Surgical wound culture from 06/18/19 was positive for MRSA and Corynebacterium minutissumum. Prealbumin on 06/19/19 was 8.6. She was transferred to the [facility] after discharge. Wound care- Wound VAC holiday until next week. Attempted a wound VAC holiday last week and when it was restarted at the [facility] ([facility]) where she is staying, it was not applied properly and caused her much discomfort. Her periwound continues to be excoriated. Will do another week wound VAC holiday and do daily silver dressing changes. Will use GERMÁN wrap for compression. Wound culture from 08/06/19 positive for Pseudomonas aeroginosa, MRSA, and Streptococcus group C. She has been placed on Levaquin, Doxycycline and Augmentin and a probiotic. Encouraged her to increase in her protein intake, she states she does not like the supplemental protein shakes. Her right leg had significant swelling. Obtained a stat ultrasound and it was positive for Acute deep vein thrombosis in the right gastrocnemius vein. The remainder of the right lower extremity deep venous system is patent and compressible. Valvular competence appears intact within the proximal deep venous system on the right. Acute superficial thrombophlebitis is noted in the right great saphenous vein from the right sapho-femoral junction to the distal thigh. [facility] managing her medication for her DVT. They have switched her from Coumadin to Xarelto. Today she denies fever. Progress of Wound: Stable - Physical Exam Vital Signs Temp Pulse Resp BP 98.1 F 79 20 H 127/50 H 08/13/19 11:01 08/13/19 11:01 08/13/19 11:01 08/13/19 11:01 General: Alert, Oriented x3, Cooperative HEENT: Atraumatic Oral: Moist Mucosa Lungs: Normal air movement Cardiovascular: Regular rate Extremities: Capillary Refill Less than 3 Seconds, No Calf Tenderness, Edema Skin: Ulcer/ Wound - Right lower lateral leg ulcer. Ulcers beefy pink. Periwound is very excoriated especially superiorly to the ulcer. Wound Measurements and Assessment WC - Nurse 1 - General Ulcer Measurement Start: 08/13/19 11:01 Freq: Status: Active Protocol: Activity Type Activity Date Activity User E-Sign Co-Sign Detail Recorded Client Recorded Date Recorded By Document 08/13/19 11:01 [id number] 08/13/19 11:18 DL 08/13/19 11:01 Wound Center Nurse 1 [Ulcer Assessment] #2- RT LOWER SIMON POST OP -Current Size (cm) - Length 9 -Current Size (cm) - Width 16 -Current Size (cm) - Depth 0.3 -Total Square Cm 144 -Photo Taken No -Exudate Amt Medium -Exudate Type Sanguineous -Wound Margin Distinct, Outline Attached -Granulation Amt Large (67-100%) -Granulation Quality Red -Necrosis Amt Small (1-33%) -Necrotic Tissue Type Adherent Slough -Structure Exposed N/A -Texture (Sugar-wound Skin Appearance) Excoriation, Localized Edema ,Scarring -Color (Sugar-wound Skin Appearance) No Abnormality, Rubor -Temperature (Sugar-wound Skin No Abnormality Appearance) (Pt Warm) -Tenderness on Palpation (Sugar-wound No Skin Appearance) -Ulcer Cleansing Wound Cleanser -Foul Odor after Cleansing No -Anesthetic Used 4% Lidocaine Solution WC - Nurse 2 - General Ulcer CM Notes Start: 08/13/19 11:01 Freq: Status: Active Protocol: Activity Type Activity Date Activity User E-Sign Co-Sign Detail Recorded Client Recorded Date Recorded By Document 08/13/19 11:27 [id number] 08/13/19 11:37 08/13/19 11:27 Wound Center Nurse 2 [Procedure/Treatment] -Correct Patient No -Correct Side, Site, Position No -Correct Procedure No -Procedure Performed No -Wound/Ulcer Outcome Not Healed [See Physician Procedure note for Specifics] Pain Scale: 0-10 Numeric [Pain] -Is Patient Pain Free? Yes Musculoskeletal: Tenderness Neurological: Neuro grossly intact Psych/Mental Status: Normal Affect, Appropriate Debridement Note Post-Debridement Measurements/Treatment WC - Nurse 2 - General Ulcer Notes Start: 08/13/19 11:01 Freq: Status: Active Protocol: Activity Type Activity Date Activity User E-Sign Co-Sign Detail Recorded Client Recorded Date Recorded By Document 08/13/19 11:27 [id number] 08/13/19 11:37 08/13/19 11:27 Wound Center Nurse 2 #2- RT LOWER SIMON POST OP -Correct Patient No -Correct Side, Site, Position No -Correct Procedure No -Procedure Performed No -Wound/Ulcer Outcome Not Healed Pain Scale: 0-10 Numeric Is Patient Pain Free? Yes No debridement was completed today Assessment/Plan Active Problems (Last Updated 06/11/19 @ 09:[address] Era Gates MD) DVT (deep venous thrombosis) (Acute) Ulcer of right lower extremity with fat layer exposed (Chronic) Chronic venous insufficiency of lower extremity (Chronic) Lower extremity edema (Chronic) Assessment: Ulcer right lower extremity. Pain right lower extremity. Edema right lower extremity. Obesity. Other comorbidities Plan: Surgery on 06/18/19 - Surgical preparation right anteromedial leg with incision and drainage nonhealing MRSA necrotizing infection abscess ulcers cluster (172.5 cm2). Surgical wound culture from 06/18/19 was positive for MRSA and Corynebacterium minutissumum. Prealbumin on 06/19/19 was 8.6. She was transferred to the [facility] after discharge. Wound care- Wound VAC holiday until next week. Attempted a wound VAC holiday last week and when it was restarted at the fpc (the [facility]) where she is staying, it was not applied properly and caused her much discomfort. Her periwound continues to be excoriated. Wound Care- Will do another week wound VAC holiday and do daily silver dressing changes because her periwound is very excoriated, especially superiorly to the ulcer. Will use GERMÁN wrap for compression. Wound culture from 08/06/19 positive for Pseudomonas aeroginosa, MRSA, and Streptococcus group C. She has been placed on Levaquin, Doxycycline and Augmentin. She has refused a subcutaneous debridement again today. Obtained a stat ultrasound of her right leg due to swelling, on 07/23/19 which shows she is positive for Acute deep vein thrombosis in the right gastrocnemius vein. The remainder of the right lower extremity deep venous system is patent and compressible. Valvular competence appears intact within the proximal deep venous system on the right. Acute superficial thrombophlebitis is noted in the right great saphenous vein from the right sapho-femoral junction to the distal thigh. Spoke with Dr. Mock and with Landry at the [facility]. We will start her on Coumadin 7.5 mg today and then they will do PT/INR for coumadin management. The [facility] is managing her medication for her DVT and has switched her to Xarelto. Encouraged her to start to increase her activity. She states it is difficult to do because she is quarantined in her room at the [facility] due to Covid 19. She is only able to place weight on her toes. She wants to go home and go back to work [employer]. Instructed her that she is not able to go home until she is able to walk, and be able to look at her wound so she is able to take care of it. She had some issues last week when the nurse at the [facility]pc applied her wound VAC, it was not applied correctly and caused the right posterior side to enlarge. Will speak to the wound care nurse at the facility about this. She takes doesn't like the Ensure protein shake to increase in her protein intake. Encouraged increased protein intake. Follow up two weeks. [id number]: [id number] Global Visit
--- NOTE | 2019-08-20 11:44 | PN.PCM_ITS ---
(1) Ulcer of right lower extremity with fat layer exposed Status: Chronic Current Visit: Yes Code(s): L97.912 - Non-pressure chronic ulcer of unspecified part of right lower leg with fat layer exposed (2) Lower extremity edema Status: Chronic Current Visit: Yes Code(s): R60.0 - Localized edema (3) Chronic venous insufficiency of lower extremity Status: Chronic Current Visit: Yes Code(s): I87.2 - Venous insufficiency (chronic) (peripheral) (4) DVT (deep venous thrombosis) Status: Acute Current Visit: Yes Code(s): I82.409 - Acute embolism and thrombosis of unspecified deep veins of unspecified lower extremity Type of Wound Date of Service: 08/20/19 - Telehealth visit Chief Complaint: right lower leg ulcer History of Wound: Patient was admitted on 06/08/19 for nausea, vomiting, fever and right leg cellulitis/infected nonhealing right leg ulcers. She had a CT scan on 06/11/19 which showed severe cellulitis probable venous congestion and/or stasis. Large engorged venous varices. Visualized gas in the soft tissues or definitive focal draable collection. Surgery was recommended but the patient refused and insisted on being discharged to go home and care for her children. She was discharged on 06/12/19 AMA, prescription for Bactrim and cipro were given. She was readmitted on 06/16/19 because of increasing right leg pain, swelling and redness. Surgery on 06/18/19 - Surgical preparation right anteromedial leg with incision and drainage nonhealing MRSA necrotizing infection abscess ulcers cluster (172.5 cm2). Surgical wound culture from 06/18/19 was positive for MRSA and Corynebacterium minutissumum. Prealbumin on 06/19/19 was 8.6. She was transferred to the [facility] after discharge. She left the [facility] on Tuesday08/18/19. Wound care- Will discontinue theWound VAC since she is now home. Wound Care : Daily Silver dressing changes. She has no home health care. She states her periwound is improving. She does not have her wound unwrapped for us to visualize. Will use GERMÁN wrap for compression. Wound culture from 08/06/19 positive for Pseudomonas aeroginosa, MRSA, and Streptococcus group C. She has been placed on Levaquin, Doxycycline and Augmentin and a probiotic. Encouraged her to increase in her protein intake, she states she does not like the supplemental protein shakes. Her right leg had significant swelling. Obtained a stat ultrasound and it was positive for Acute deep vein thrombosis in the right gastrocnemius vein. The remainder of the right lower extremity deep venous system is patent and compressible. Valvular competence appears intact within the proximal deep venous system on the right. Acute superficial thrombophlebitis is noted in the right great saphenous vein from the right sapho-femoral junction to the distal thigh. The [facility] attending physician is managing her medication for her DVT. They have switched her from Coumadin to Xarelto. Today she denies fever. Progress of Wound: Stable - Physical Exam Vital Signs Temp Pulse Resp BP 98.1 F 79 20 H 127/50 H 08/13/19 11:01 08/13/19 11:01 08/13/19 11:01 08/13/19 11:01 General: Alert, Oriented x3, Cooperative HEENT: Atraumatic Oral: Moist Mucosa Lungs: Normal air movement Abdomen: Obese Extremities: Edema Skin: Ulcer/ Wound - Right lower leg- dressing and GERMÁN wrap intact Neurological: Neuro grossly intact Psych/Mental Status: Normal Affect, Appropriate Debridement Note Post-Debridement Measurements/Treatment WC - Nurse 2 - General Ulcer CM Notes Start: 08/13/19 11:01 Freq: Status: Active Protocol: Activity Type Activity Date Activity User E-Sign Co-Sign Detail Recorded Client Recorded Date Recorded By Document 08/13/19 11:27 TIM [id number] 08/13/19 11:37 TIM 08/13/19 11:27 Wound Center Nurse 2 #2- RT LOWER SIMON POST OP -Correct Patient No -Correct Side, Site, Position No -Correct Procedure No -Procedure Performed No -Wound/Ulcer Outcome Not Healed Pain Scale: 0-10 Numeric Is Patient Pain Free? Yes No debridement was completed today Assessment/Plan Active Problems (Last Updated 06/11/19 @ 09:[address] Era Gates MD) DVT (deep venous thrombosis) (Acute) Ulcer of right lower extremity with fat layer exposed (Chronic) Chronic venous insufficiency of lower extremity (Chronic) Lower extremity edema (Chronic) Assessment: Ulcer right lower extremity. Pain right lower extremity. Edema right lower extremity. Obesity. Other comorbidities Plan: Telehealth Evaluation during the COVID-19 National Emergency. Verbal consent obatined for video through [employer].. Patient came home from the [facility] on Tuesday08/18/19. She states she is doing well. She states she does not have home health. Her friend is coming over daily to do her dressing change. Her wound was not visualized today because she is not able to redress it herself and her friend will not be over till later. Wound Care- Daily Silver dressing changes with GERMÁN wrap for compression. She states she is having a lot of nausea due to the antibiotics. Will phone her in [employer] for the nausea (zofran interacts with the antibiotic that she is taking). She needs more supplies from [employer] to do her wound care. Encouraged increase protein intake and to eat yogurt with live cultures to help replace the good bacteria in her gut. She verbalized understanding. Her insurance would not approve a probiotic. She will follow up in 2 weeks at the clinic for further evaluation of the wound. Over 9 minutes was spent with patient on telehealth and 13 minutes was spent on charting and and planning care for a total of 22 minutes. Surgery on 06/18/19 - Surgical preparation right anteromedial leg with incision and drainage nonhealing MRSA necrotizing infection abscess ulcers cluster (172.5 cm2). Surgical wound culture from 06/18/19 was positive for MRSA and Corynebacterium minutissumum. Prealbumin on 06/19/19 was 8.6. She was transferred to the [facility] after discharge. Wound Care- Daily silver dressing changes because her periwound is very excoriated, especially superiorly to the ulcer. Will use GERMÁN wrap for compression. Wound culture from 08/06/19 positive for Pseudomonas aeroginosa, MRSA, and Streptococcus group C. She has been placed on Levaquin, Doxycycline and Augmentin. She has refused a subcutaneous debridement again today. Obtained a stat ultrasound of her right leg due to swelling, on 07/23/19 which shows she is positive for Acute deep vein thrombosis in the right gastrocnemius vein. The remainder of the right lower extremity deep venous system is patent and compressible. Valvular competence appears intact within the proximal deep venous system on the right. Acute superficial thrombophlebitis is noted in the right great saphenous vein from the right sapho-femoral junction to the distal thigh. The [facility] is managing her medication for her DVT and has switched her to Xarelto. Encouraged her to start to increase her activity. - TeleMed TeleMed: [facility] Office Visits / Consults: [id number] OV L3 Est - total time with patient and planning care 22 minutes
--- NOTE | 2019-08-24 15:55 | WC ---
Received a call from patient. C/O diarrhea from antibiotics and increased pain right lower leg. Stated she checked herself out [facility] last tuesday[facility]18/19 and [facility] didn't send any prescription medications with her. Patient stated she has not scheduled a follow appt. with PCP yet after returning home. Spoke to Kayla Barr CNP and reported patient c/o diarrhea, pain and no meds. Kayla to consult with Dr. Mock and will address with patient.
== END 2019-09-06 23:59 ==
LOC: WC 10:00
PROVIDERS: PCP Internal Medicine; Referring Provider Nurse Practitioner Family; Visit Provider Nurse Practitioner Family
DX: L97.912 Non-pressure chronic ulcer of unspecified part of right lower leg with fat layer exposed (principal); I87.2 Venous insufficiency (chronic) (peripheral); R60.0 Localized edema; I82.461 Acute embolism and thrombosis of right calf muscular vein; E66.9 Obesity, unspecified
CPT/HCPCS: 99213; G0463

== ENCOUNTER 2019-09-10 10:13 | Outpatient (RCR) | payer MEDICAID, SELFPAY ==
[2019-08-13 11:01] VITALS: BMI 42.2
[2019-09-07 00:17] VITALS: BP 127/50; PULSE 79; RESP 20; TEMP 36.7
[2019-09-10 10:19] VITALS: BP 118/80; PULSE 91; RESP 18; TEMP 36.2; BMI 42.2
--- NOTE | 2019-09-10 14:47 | PN.PCM_ITS ---
(1) Ulcer of right lower extremity with fat layer exposed Status: Chronic Current Visit: Yes Code(s): L97.912 - Non-pressure chronic ulcer of unspecified part of right lower leg with fat layer exposed (2) DVT (deep venous thrombosis) Status: Chronic Current Visit: Yes Code(s): I82.409 - Acute embolism and thrombosis of unspecified deep veins of unspecified lower extremity (3) Chronic venous insufficiency of lower extremity Status: Chronic Current Visit: Yes Code(s): I87.2 - Venous insufficiency (ch ronic) (peripheral) (4) Lower extremity edema Status: Chronic Current Visit: Yes Code(s): R60.0 - Localized edema Type of Wound Date of Service: 09/10/19 Chief Complaint: right lower leg ulcer History of Wound: Patient was admitted on 06/08/19 for nausea, vomiting, fever and right leg cellulitis/infected nonhealing right leg ulcers. She had a CT scan on 06/11/19 which showed severe cellulitis probable venous congestion and/or stasis. Large engorged venous varices. Visualized gas in the soft tissues or definitive focal draable collection. Surgery was recommended but the patient refused and insisted on being discharged to go home and care for her children. She was discharged on 06/12/19 AMA, prescription for Bactrim and cipro were given. She was readmitted on 06/16/19 because of increasing right leg pain, swelling and redness. Surgery on 06/18/19 - Surgical preparation right anteromedial leg with incision and drainage nonhealing MRSA necrotizing infection abscess ulcers cluster (172.5 cm2). Surgical wound culture from 06/18/19 was positive for MRSA and Corynebacterium minutissumum. Prealbumin on 06/19/19 was 8.6. She was transferred to the [facility] after discharge. She left the [facility] on Tuesday. Wound care- Wound Care : Daily Silver dressing changes. She has no home health care, her friend is changing her dressing for her. Will use GERMÁN wrap for compression. Wound culture from 08/06/19 positive for Pseudomonas aeroginosa, MRSA, and Streptococcus group C. She has been placed on Levaquin, Doxycycline and Augmentin and a probiotic. Encouraged her to increase in her protein intake, she states she does not like the supplemental protein shakes. Her right leg had significant swelling. Obtained a stat ultrasound and it was positive for Acute deep vein thrombosis in the right gastrocnemius vein. The remainder of the right lower extremity deep venous system is patent and compressible. Valvular competence appears intact within the proximal deep venous system on the right. Acute superficial thrombophlebitis is noted in the right great saphenous vein from the right sapho-femoral junction to the distal thigh. She is on Xarelto for her DVT. Today she denies fever. She states that her appetite is good. Progress of Wound: Improved - Physical Exam Vital Signs Temp Pulse Resp BP 97.1 F L 91 18 118/80 09/10/19 10:19 09/10/19 10:19 09/10/19 10:19 09/10/19 10:19 General: Alert, Oriented x3, Cooperative HEENT: Atraumatic Oral: Moist Mucosa Lungs: Normal air movement Cardiovascular: Regular rate Abdomen: Obese Extremities: Capillary Refill Less than 3 Seconds, Edema Skin: Ulcer/ Wound - Right lower leg ulcer. Wound Measurements and Assessment WC - Nurse 1 - General Ulcer Measurement Start: 09/10/19 10:19 Freq: Status: Active Protocol: Activity Type Activity Date Activity User E-Sign Co-Sign Detail Recorded Client Recorded Date Recorded By Document 09/10/19 10:19 PL [id number] 09/10/19 10:31 PL 09/10/19 10:19 Wound Center Nurse 1 [Ulcer Assessment] #2- RT LOWER SIMON POST OP -Combined with other wound No -Current Size (cm) - Length 8.5 -Current Size (cm) - Width 14.0 -Current Size (cm) - Depth 0.2 -Total Square Cm 119.00 -Photo Taken No -Epithelialization None Present -Tunneling No -Undermining/Tunneling No -Exudate Amt Large -Exudate Type Serosanguineous -Granulation Amt Large (67-100%) -Granulation Quality [place],Red -Slough/Fibrin Yes -Necrosis Amt Small (1-33%) -Necrotic Tissue Type Adherent Slough -Texture (Sugar-wound Skin Appearance) No Abnormality -Moisture (Sugar-wound Skin Appearance No Abnormality ) -Temperature (Sugar-wound Skin No Abnormality Appearance) (Pt Warm) -Tenderness on Palpation (Sugar-wound No Skin Appearance) -Ulcer Cleansing Rinsed/ Irrigated with Saline -Foul Odor after Cleansing No -Anesthetic Used 4% Lidocaine Solution CESAR - Nurse 2 - General Ulcer CM Notes Start: 09/10/19 10:19 Freq: Status: Active Protocol: Activity Type Activity Date Activity User E-Sign Co-Sign Detail Recorded Client Recorded Date Recorded By Document 09/10/19 11:00 [id number] 09/10/19 11:03 09/10/19 11:00 Wound Center Nurse 2 [Procedure/Treatment] -Time 11:00 -Correct Patient Yes -Correct Side, Site, Position Yes -Correct Procedure Yes -Procedure Performed Yes -Type of Procedure Debridement -Clinical Debridement Subcutaneous -Post Debridement Size (cm) - Length 8.5 -Post Debridement Size (cm) - Width 13.3 -Post Debridement Size (cm) - Depth 0.2 -Total Square Cm 113.05 -Wound/Ulcer Outcome Not Healed -Ulcer Cleansing Rinsed/ Irrigated with Saline -Foul Odor after Cleansing No -Bioengineered Tissue No -Bleeding Controlled with Pressure -Offloading No -Treatment Response Procedure Tolerated Well [See Physician Procedure note for Specifics] Pain Scale: 0-10 Numeric [Pain] -Is Patient Pain Free? Yes Musculoskeletal: No Tenderness to Palpation of Joints or Extremities Neurological: Neuro grossly intact Psych/Mental Status: Normal Affect, Appropriate Debridement Note Post-Debridement Measurements/Treatment CESAR - Nurse 2 - General Ulcer CM Notes Start: 09/10/19 10:19 Freq: Status: Active Protocol: Activity Type Activity Date Activity User E-Sign Co-Sign Detail Recorded Client Recorded Date Recorded By Document 09/10/19 11:00 [id number] 09/10/19 11:03 09/10/19 11:00 Wound Center Nurse 2 #2- RT LOWER SIMON POST OP -Time 11:00 -Correct Patient Yes -Correct Side, Site, Position Yes -Correct Procedure Yes -Procedure Performed Yes -Type of Procedure Debridement -Clinical Debridement Subcutaneous -Post Debridement Size (cm) - Length 8.5 -Post Debridement Size (cm) - Width 13.3 -Post Debridement Size (cm) - Depth 0.2 -Total Square Cm 113.05 -Wound/Ulcer Outcome Not Healed -Ulcer Cleansing Rinsed/ Irrigated with Saline -Foul Odor after Cleansing No -Bioengineered Tissue No -Bleeding Controlled with Pressure -Offloading No -Treatment Response Procedure Tolerated Well Pain Scale: 0-10 Numeric Is Patient Pain Free? Yes Wound debrided: Lower leg ulcer Laterality: Right Type of Debridement: Excisional debridement Anesthesia Used: 4% Lidocaine Solution, 5% Lidocaine Gel Depth: Down to and including healthy tissue, in the subcutaneous layer Percentage of wound debrided: 100 Instrument Used: 7mm curette Tissue Removed: Ulcer hypergranulated, removed subcutaneous tissue and slough Severity: Fat Layer Exposed Amount of bleeding with debridement: Mild Bleeding Controlled with: Pressure, Compression and gauze Patient tolerated procedure well Assessment/Plan Active Problems (Last Updated 06/11/19 @ 09:[address] Era Gates MD) DVT (deep venous thrombosis) (Chronic) Ulcer of right lower extremity with fat layer exposed (Chronic) MRSA (methicillin resistant Staphylococcus aureus) infection (Chronic) Chronic venous insufficiency of lower extremity (Chronic) Lower extremity edema (Chronic) Assessment: Ulcer right lower extremity. Pain right lower extremity. Edema right lower extremity. Obesity. Other comorbidities Plan: Patient came home from the [facility] on Tuesday08/18/19. She states she is doing well. She states she does not have home health. Her friend is coming over daily to do her dressing change. Surgery on 06/18/19 - Surgical preparation right anteromedial leg with incision and drainage nonhealing MRSA necrotizing infection abscess ulcers cluster (172.5 cm2). Surgical wound culture from 06/18/19 was positive for MRSA and Corynebacterium minutissumum. Prealbumin on 06/19/19 was 8.6. She was transferred to the [facility] after discharge. Wound Care- Daily silver dressing changes. Will use GERMÁN wrap for compression. Wound culture from 08/06/19 positive for Pseudomonas aeroginosa, MRSA, and Streptococcus group C. She has been placed on Levaquin, Doxycycline and Augmentin. She has refused a subcutaneous debridement again today. Obtained a stat ultrasound of her right leg due to swelling, on 07/23/19 which shows she was positive for Acute deep vein thrombosis in the right gastrocnemius vein. The remainder of the right lower extremity deep venous system is patent and compressible. Valvular competence appears intact within the proximal deep venous system on the right. Acute superficial thrombophlebitis is noted in the right great saphenous vein from the right sapho-femoral junction to the distal thigh. Now that she has left the [facility], she needs to see PCP for them to manage her medication for her DVT which is Xarelto. Encouraged her to start to increase her activity. She is walking with a walker without putting weight on her right heel. Will order home health to help manage her ulcer at home and PT to help with strengthening. Renewed Percocet (14). PDMP reviewed. Follow up 2 weeks. [id number]: [id number] Global Visit
== END 2019-10-07 23:59 ==
LOC: WC 10:13
PROVIDERS: PCP Internal Medicine; Referring Provider Nurse Practitioner Family; Visit Provider Nurse Practitioner Family
DX: I87.2 Venous insufficiency (chronic) (peripheral) (principal); R60.0 Localized edema; L97.812 Non-pressure chronic ulcer of other part of right lower leg with fat layer exposed; Z86.14 Personal history of Methicillin resistant Staphylococcus aureus infection; I82.461 Acute embolism and thrombosis of right calf muscular vein; Z79.01 Long term (current) use of anticoagulants
CPT/HCPCS: 11042; 11045

== ENCOUNTER 2019-10-22 14:30 | Outpatient (RCR) | payer MEDICAID, SELFPAY ==
[2019-10-08 00:28] VITALS: BP 118/80; PULSE 91; RESP 18; TEMP 36.2
[2019-10-08 14:13] VITALS: BP 122/75; PULSE 97; RESP 22; TEMP 36.4; BMI 42.2
--- NOTE | 2019-10-08 16:12 | PN.PCM_ITS ---
(1) Ulcer of right lower extremity with fat layer exposed Status: Chronic Code(s): L97.912 - Non-pressure chronic ulcer of unspecified part of right lower leg with fat layer exposed (2) MRSA (methicillin resistant Staphylococcus aureus) infection Status: Chronic Code(s): A49.02 - Methicillin resistant Staphylococcus aureus infection, unspecified site (3) Chronic venous insufficiency of lower extremity Status: Chronic Code(s): I87.2 - Venous insufficiency (chronic) (peripheral) (4) Lower extremity edema Status: Chronic Code(s): R60.0 - Localized edema (5) PVD (peripheral vascular disease) Status: Chronic Code(s): I73.9 - Peripheral vascular disease, unspecified Type of Wound Date of Service: 10/08/19 Chief Complaint: right lower leg ulcer History of Wound: Patient was admitted on 06/08/19 for nausea, vomiting, fever and right leg cellulitis/infected nonhealing right leg ulcers. She had a CT scan on 06/11/19 which showed severe cellulitis probable venous congestion and/or stasis. Large engorged venous varices. Visualized gas in the soft tissues or definitive focal draable collection. Surgery was recommended but the patient refused and insisted on being discharged to go home and care for her children. She was discharged on 06/12/19 AMA, prescription for Bactrim and cipro were given. She was readmitted on 06/16/19 because of increasing right leg pain, swelling and redness. Surgery on 06/18/19 - Surgical preparation right anteromedial leg with incision and drainage nonhealing MRSA necrotizing infection abscess ulcers cluster (172.5 cm2). Surgical wound culture from 06/18/19 was positive for MRSA and Corynebacterium minutissumum. Prealbumin on 06/19/19 was 8.6. She was transferred to the [facility] after discharge. She left the [facility] on Tuesday08/18/19. Wound care- Wound Care : Daily Silver dressing changes. She has no home health care, her friend is changing her dressing for her. Will use GERMÁN wrap for compression. Wound culture from 08/06/19 positive for Pseudomonas aeroginosa, MRSA, and Streptococcus group C. She has been placed on Levaquin, Doxycycline and Augmentin and a probiotic. Encouraged her to increase in her pro tein intake, she states she does not like the supplemental protein shakes. Her right leg had significant swelling. Obtained a stat ultrasound and it was positive for Acute deep vein thrombosis in the right gastrocnemius vein. The remainder of the right lower extremity deep venous system is patent and compressible. Valvular competence appears intact within the proximal deep venous system on the right. Acute superficial thrombophlebitis is noted in the right great saphenous vein from the right sapho-femoral junction to the distal thigh. She is on Xarelto for her DVT. Today she denies fever. She states that her appetite is good. Progress of Wound: Improved - Physical Exam Vital Signs Temp Pulse Resp BP 97.5 F L 97 22 H 122/75 H 10/08/19 14:13 10/08/19 14:13 10/08/19 14:13 10/08/19 14:13 General: Alert, Oriented x3 HEENT: Atraumatic Oral: Moist Mucosa Lungs: Normal air movement Cardiovascular: Regular rate Abdomen: Obese Extremities: Capillary Refill Less than 3 Seconds, Edema Skin: Ulcer/ Wound - right lower leg ulcer Wound Measurements and Assessment WC - Nurse 1 - General Ulcer Measurement Start: 10/08/19 14:13 Freq: Status: Active Protocol: Activity Type Activity Date Activity User E-Sign Co-Sign Detail Recorded Client Recorded Date Recorded By Document 10/08/19 14:13 DL [id number] 10/08/19 14:23 DL 10/08/19 14:13 Wound Center Nurse 1 [Ulcer Assessment] #2- RT LOWER SIMON POST OP -Current Size (cm) - Length 6.4 -Current Size (cm) - Width 9.3 -Current Size (cm) - Depth 0.1 -Total Square Cm 59.52 -Photo Taken No -Exudate Amt Small -Exudate Type Serosanguineous -Wound Margin Distinct, Outline Attached -Granulation Amt Medium (34-66%) -Granulation Quality Red -Necrosis Amt Medium (34-66%) -Necrotic Tissue Type Adherent Slough -Structure Exposed N/A -Texture (Sugar-wound Skin Appearance) Excoriation, Scarring -Moisture (Sugar-wound Skin Appearance Dry/Scaly ) -Color (Sugar-wound Skin Appearance) Rubor -Temperature (Sugar-wound Skin No Abnormality Appearance) (Pt Warm) -Tenderness on Palpation (Sugar-wound No Skin Appearance) -Ulcer Cleansing Wound Cleanser -Foul Odor after Cleansing No -Anesthetic Used 4% Lidocaine Solution [Edema Assessment] -Right Calf (cm) 50 -Right Ankle (cm) 25 Musculoskeletal: Tenderness Neurological: Neuro grossly intact Psych/Mental Status: Normal Affect, Appropriate Debridement Note Wound debrided: lower leg ulcer Laterality: Right Type of Debridement: Excisional debridement Anesthesia Used: 4% Lidocaine Solution Depth: Down to and including healthy tissue, in the subcutaneous layer Percentage of wound debrided: 100 Instrument Used: 7mm curette Tissue Removed: Subcutaneous tissue and slough Severity: Fat Layer Exposed Amount of bleeding with debridement: Mild Bleeding Controlled with: Pressure Patient tolerated procedure well Assessment/Plan Assessment: Ulcer right lower extremity. Pain right lower extremity. Edema right lower extremity. Obesity. Other comorbidities Plan: Patient came home from the [facility] on Tuesday08/18/19. She states she is doing well. She states she does not have home health. Her friend is coming over daily to do her dressing change. Surgery on 06/18/19 - Surgical preparation right anteromedial leg with incision and drainage nonhealing MRSA necrotizing infection abscess ulcers cluster (172.5 cm2). Surgical wound culture from 06/18/19 was positive for MRSA and Corynebacterium minutissumum. Prealbumin on 06/19/19 was 8.6. She was transferred to the [facility] after discharge. Wound Care- Daily silver dressing changes. Stressed the importance of using soap and water to wash the ulcer. She has been covering her ulcer when she showers with a plastic bag. Will use GERMÁN wrap for compression. Wound culture from 08/06/19 positive for Pseudomonas aeroginosa, MRSA, and Streptococcus group C. She has been placed on Levaquin, Doxycycline and Augmentin. She has refused a subcutaneous debridement again today. Obtained a stat ultrasound of her right leg due to swelling, on 07/23/19 which shows she was positive for Acute deep vein thrombosis in the right gastrocnemius vein. The remainder of the right lower extremity deep venous system is patent and compressible. Valvular com petence appears intact within the proximal deep venous system on the right. Acute superficial thrombophlebitis is noted in the right great saphenous vein from the right sapho-femoral junction to the distal thigh. Now that she has left the [facility], she needs to see PCP for them to manage her medication for her DVT which is Xarelto. Encouraged her to start to increase her activity. She is walking with a walker without putting weight on her right heel. She has home health and PT now to help with strengthening. She would like to return to work but she is not able to stand or walk for any length of time, so going back to work at this time is not appropriate. Renewed Percocet (14). PDMP reviewed. Follow up 1 week. 111xxx-113xx: [id number] Anny subq tissue 20 sq cm/< Add On Codes: 80830 Anny subq tissue add-on - x3
[2019-10-22 14:35] VITALS: BP 133/72; PULSE 92; RESP 16; TEMP 36.2; BMI 42.2
== END 2019-11-06 23:59 ==
LOC: WC 14:30
PROVIDERS: PCP Internal Medicine; Referring Provider Nurse Practitioner Family; Visit Provider Nurse Practitioner Family
DX: I73.9 Peripheral vascular disease, unspecified (principal); Z86.14 Personal history of Methicillin resistant Staphylococcus aureus infection; R60.0 Localized edema; L97.812 Non-pressure chronic ulcer of other part of right lower leg with fat layer exposed; I87.2 Venous insufficiency (chronic) (peripheral); Z86.718 Personal history of other venous thrombosis and embolism; Z79.01 Long term (current) use of anticoagulants
CPT/HCPCS: 11042; 11045; 99212; G0463

== ENCOUNTER 2019-11-26 11:00 | Outpatient (RCR) | payer MEDICAID, SELFPAY ==
[2019-11-07 00:27] VITALS: BP 133/72; PULSE 92; RESP 16; TEMP 36.2
[2019-11-12 11:46] VITALS: BP 126/56; PULSE 79; RESP 18; TEMP 36.6; BMI 42.2
--- NOTE | 2019-11-12 12:23 | PN.PCM_ITS ---
(1) Ulcer of right lower extremity with fat layer exposed Status: Chronic Code(s): L97.912 - Non-pressure chronic ulcer of unspecified part of right lower leg with fat layer exposed (2) Lower extremity edema Status: Chronic Code(s): R60.0 - Localized edema (3) Chronic venous insufficiency of lower extremity Status: Chronic Code(s): I87.2 - Venous insufficiency (chronic) (peripheral) (4) PVD (peripheral vascular disease) Status: Chronic Code(s): I73.9 - Peripheral vascular disease, unspecified Type of Wound Date of Service: 11/12/19 Chief Complaint: right lower leg ulcer History of Wound: Patient was admitted on 06/08/19 for nausea, vomiting, fever and right leg cellulitis/infected nonhealing right leg ulcers. She had a CT scan on 06/11/19 which showed severe cellulitis probable venous congestion and/or stasis. Large engorged venous varices. Visualized gas in the soft tissues or definitive focal draable collection. Surgery was recommended but the patient refused and insisted on being discharged to go home and care for her children. She was discharged on 06/12/19 AMA, prescription for Bactrim and cipro were given. She was readmitted on 06/16/19 because of increasing right leg pain, swelling and redness. Surgery on 06/18/19 - Surgical preparation right anteromedial leg with incision and drainage nonhealing MRSA necrotizing infection abscess ulcers cluster (172.5 cm2). Surgical wound culture from 06/18/19 was positive for MRSA and Corynebacterium minutissumum. Prealbumin on 06/19/19 was 8.6. She was transferred to the [facility] after discharge. She left the [facility] on Tuesday08/18/19. Wound care- Wound Care : Daily moistened Silver dressing changes. She has no home health care, her friend is changing her dressing for her. Will use GERMÁN wrap for compression. Wound culture from 08/06/19 positive for Pseudomonas aeroginosa, MRSA, and Streptococcus group C. She has been placed on Levaquin, Doxycycline and Augmentin and a probiotic. Encouraged her to increase in her protein intake, she states she does not like the supplemental protein shakes. Her right leg had significant swelling. Obtained a stat ultrasound and it was positive for Acute deep vein thrombosis in the right gastrocnemius vein. The remainder of the right lower extremity deep venous system is patent and compressible. Valvular competence appears intact within the proximal deep venous system on the right. Acute superficial thrombophlebitis is noted in the right great saphenous vein from the right sapho-femoral junction to the distal thigh. She is on Xarelto for her DVT. Today she denies fever. She states that her appetite is good. Progress of Wound: Improved - Physical Exam Vital Signs Temp Pulse Resp BP 98 F 79 18 126/56 H 11/12/19 11:46 11/12/19 11:46 11/12/19 11:46 11/12/19 11:46 General: Alert, Oriented x3, Cooperative HEENT: Atraumatic Oral: Moist Mucosa Lungs: Normal air movement Cardiovascular: Regular rate Abdomen: Obese Extremities: Capillary Refill Less than 3 Seconds, Edema Skin: Ulcer/ Wound - Right medial leg ulcer with increased biofilm. Wound Measurements and Assessment WC - Nurse 1 - General Ulcer Measurement Start: 11/12/19 11:45 Freq: Status: Active Protocol: Activity Type Activity Date Activity User E-Sign Co-Sign Detail Recorded Client Recorded Date Recorded By Document 11/12/19 11:46 RB [id number] 11/12/19 11:53 RB 11/12/19 11:46 Wound Center Nurse 1 [Ulcer Assessment] #2- RT LOWER SIMON POST OP -Combined with other wound No -Current Size (cm) - Length 10 -Current Size (cm) - Width 5.4 -Current Size (cm) - Depth 0.1 -Total Square Cm 54.0 -Tunneling No -Undermining/Tunneling No -Circular Undermining No -Granulation Amt Medium (34-66%) -Granulation Quality [place],Red -Slough/Fibrin Yes -Necrosis Amt Small (1-33%) -Necrotic Tissue Type Adherent Slough -Structure Exposed N/A -Texture (Sugar-wound Skin Appearance) Excoriation, Scarring -Moisture (Sugar-wound Skin Appearance Assessed, ) Maceration,Dry/ Scaly -Color (Sugar-wound Skin Appearance) Assessed -Temperature (Sugar-wound Skin No Abnormality Appearance) (Pt Warm) -Tenderness on Palpation (Sugar-wound No Skin Appearance) -Ulcer Cleansing Wound Cleanser -Foul Odor after Cleansing No -Anesthetic Used 5% Lidocaine Gel [Edema Assessment] -Lower Limb Edema Present Yes -Right Calf (cm) 51 -Right Ankle (cm) 26 Musculoskeletal: No Tenderness to Palpation of Joints or Extremities Neurological: Neuro grossly intact Psych/Mental Status: Normal Affect, Appropriate Debridement Note Wound debrided: medial leg ulcer Laterality: Right Type of Debridement: Excisional debridement Anesthesia Used: 5% Lidocaine Gel Depth: Down to and including healthy tissue, in the subcutaneous layer Percentage of wound debrided: 100 Instrument Used: 7mm curette Tissue Removed: Subcutaneous tissue and slough, increased biofilm and dry slough Severity: Fat Layer Exposed Amount of bleeding with debridement: Mild Bleeding Controlled with: Pressure, Compression and gauze Patient tolerated procedure well Increased dry slough around the edges and biofilm over the ulcer since she has not had a debridement in over a month. Assessment/Plan Assessment: Ulcer right lower extremity. Pain right lower extremity. Edema right lower extremity. Obesity. Other comorbidities Plan: Patient came home from the [facility] on Tuesday08/18/19. She states she is doing well. Surgery on 06/18/19 - Surgical preparation right anteromedial leg with incision and drainage nonhealing MRSA necrotizing infection abscess ulcers cluster (172.5 cm2). Surgical wound culture from 06/18/19 was positive for MRSA and Corynebacterium minutissumum. Prealbumin on 06/19/19 was 8.6. She was transferred to the [facility] after discharge. Wound Care- Daily moistened silver dressing changes. Stressed the importance of using soap and water to wash the ulcer daily with the dressing changes. She has been covering her ulcer when she showers with a plastic bag. Will use GERMÁN wrap for compression. Wound culture from 08/06/19 positive for Pseudomonas aeroginosa, MRSA, and Streptococcus group C. She has been placed on Levaquin, Doxycycline and Augmentin. She has refused a subcutaneous debridement again today. Obtained a stat ultrasound of her right leg due to swelling, on 07/23/19 which shows she was positive for Acute deep vein thrombosis in the right gastrocnemius vein. The remainder of the right lower extremity deep venous system is patent and compressible. Valvular competence appears intact within the proximal deep venous system on the right. Acute superficial thrombophlebitis is noted in the right great saphenous vein from the right sapho-femoral junction to the distal thigh. Now that she has left the [place], she needs to see PCP for them to manage her medication for her DVT which is Xarelto. Encouraged her to start to increase her activity. She is walking with a walker without putting weight on her right heel. She has completed PT now to help with strengthening. She has home health. She would like to return to work for 4 hours a day. Instructed her that if she goes back to work then she will lose her home health. She states that her friend can help her with her dressing changes. She states that she is getting better with being able to look at the ulcer. Tramadol (14). PDMP reviewed. Follow up 2 weeks. 111xxx-113xx: [id number] Anny subq tissue 20 sq cm/<
[2019-11-26 11:20] VITALS: BP 111/70; PULSE 85; RESP 18; TEMP 36.4; BMI 42.2
--- NOTE | 2019-11-26 16:32 | PCM.WC.PN ---
Type of Wound Date of Service: 11/26/19 Chief Complaint: Nonhealing MRSA ulcer right anteromedial leg. History of Wound: Surgery 06/18/19 - Surgical preparation right anteromedial leg with incision and drainage nonhealing MRSA necrotizing infection abscess ulcers cluster (172.5 cm2). Wound care - Silver followed by tubigrip. Operative culture - MRSA and Corynebacterium minutissimum. She was treated with Bactrim DS and Augmentin. She had additional wound culture on 08/06/19. It showed MRSA, Streptococcus group C, and Pseudomonas aeroginosa. She was treated with Levaquin, Doxycycline, and Augmentin and has finished them. In mid July (07/23/19) she developed right leg pain and swelling. An Ultrasound was done which showed acute deep vein thrombosis in the right gastrocnemius vein. The remainder of the right lower extremity deep venous system is patent and compressible. Valvular competence appears intact within the proximal deep venous system on the right. Acute superficial thrombophlebitis is noted in the right great saphenous vein from the right sapho-femoral junction to the distal thigh. She was placed on Xarelto. Her Prealbumin from 06/19/19 was 8.6. Encourage nutritional supplementation with protein to help the healing process. Today she denies fever. Her appetite is ok. Progress of Wound: Improved. - Physical Exam Vital Signs Temp Pulse Resp BP 97.6 F L 85 18 111/70 11/26/19 11:20 11/26/19 11:20 11/26/19 11:20 11/26/19 11:20 Wound Measurements and Assessment WC - Nurse 1 - General Ulcer Measurement Start: 11/12/19 11:45 Freq: Status: Active Protocol: Activity Type Activity Date Activity User E-Sign Co-Sign Detail Recorded Client Recorded Date Recorded By Document 11/26/19 11:20 [facility] [id number] 11/26/19 11:29 [facility] 11/26/19 11:20 Wound Center Nurse 1 [Ulcer Assessment] #2- RT LOWER SIMON POST OP -Combined with other wound No -Current Size (cm) - Length 4.2 -Current Size (cm) - Width 7 -Current Size (cm) - Depth 0.1 -Total Square Cm 29.4 -Photo Taken No -Epithelialization Small 1-33% -Tunneling No -Undermining/Tunneling No -Circular Undermining No -Exudate Amt Large -Exudate Type Serosanguineous -Wound Margin Distinct, Outline Attached -Granulation Amt Large (67-100%) -Granulation Quality Red -Slough/Fibrin Yes -Necrosis Amt Small (1-33%) -Necrotic Tissue Type Adherent Slough -Texture (Sugar-wound Skin Appearance) Assessed, Scarring -Moisture (Sugar-wound Skin Appearance Assessed,Dry/ ) Scaly -Color (Sugar-wound Skin Appearance) Assessed, Erythema -Temperature (Sugar-wound Skin No Abnormality Appearance) (Pt Warm) -Tenderness on Palpation (Sugar-wound Yes Skin Appearance) -Ulcer Cleansing Rinsed/ Irrigated with Saline -Foul Odor after Cleansing No -Anesthetic Used 5% Lidocaine Gel - Nurse 2 - General Ulcer CM Notes Start: 11/12/19 11:45 Freq: Status: Active Protocol: Activity Type Activity Date Activity User E-Sign Co-Sign Detail Recorded Client Recorded Date Recorded By Document 11/26/19 11:45 TIM [id number] 11/26/19 11:48 11/26/19 11:45 Wound Center Nurse 2 [Procedure/Treatment] -Time 11:46 -Correct Patient Yes -Correct Side, Site, Position Yes -Correct Procedure Yes -Procedure Performed Yes -Type of Procedure Debridement -Clinical Debridement Subcutaneous -Post Debridement Size (cm) - Length 4.2 -Post Debridement Size (cm) - Width 7.1 -Post Debridement Size (cm) - Depth 0.1 -Total Square Cm 29.82 -Wound/Ulcer Outcome Not Healed -Ulcer Cleansing Rinsed/ Irrigated with Saline -Foul Odor after Cleansing No -Bioengineered Tissue No -Bleeding Controlled with Pressure -Offloading No -Treatment Response Procedure Tolerated Well [See Physician Procedure note for Specifics] Pain Scale: 0-10 Numeric [Pain] -Is Patient Pain Free? Yes Debridement Note Post-Debridement Measurements/Treatment - Nurse 2 - General Ulcer CM Notes Start: 11/12/19 11:45 Freq: Status: Active Protocol: Activity Type Activity Date Activity User E-Sign Co-Sign Detail Recorded Client Recorded Date Recorded By Document 11/12/19 12:23 PL [id number] 11/12/19 12:23 PL Document 11/26/19 11:45 [id number] 11/26/19 11:48 11/12/19 11/26/19 12:23 11:45 Wound Center Nurse 2 #2- RT LOWER SIMON POST OP -Time 12:00 11:46 -Correct Patient Yes Yes -Correct Side, Site, Position Yes Yes -Correct Procedure Yes Yes -Procedure Performed Yes Yes -Type of Procedure Debridement Debridement -Clinical Debridement Subcutaneous Subcutaneous -Post Debridement Size (cm) - Length 7 4.2 -Post Debridement Size (cm) - Width 10.4 7.1 -Post Debridement Size (cm) - Depth 0.2 0.1 -Total Square Cm 72.8 29.82 -Wound/Ulcer Outcome Not Healed Not Healed -Ulcer Cleansing Rinsed/ Rinsed/ Irrigated with Irrigated with Saline Saline -Foul Odor after Cleansing No No -Bioengineered Tissue No -Bleeding Controlled with Pressure Pressure -Offloading No -Treatment Response Procedure Procedure Tolerated Well Tolerated Well Pain Scale: 0-10 Numeric Is Patient Pain Free? Yes Yes Wound debrided: #2 Right anteromedial leg. Laterality: Right Wound Grade/Stage: 2. Type of Debridement: Excisional debridement Anesthesia Used: 4% Lidocaine Solution Depth: Down to and including healthy tissue, in the subcutaneous layer Percentage of wound debrided: 100 Instrument Used: 5mm curette Tissue Removed: subcutaneous tissue. Severity: Fat Layer Exposed Amount of bleeding with debridement: Mild Bleeding Controlled with: Pressure Patient tolerated procedure well Assessment/Plan Assessment: 1. Nonhealing MRSA ulcer right anteromedial leg. 2. Chronic venous insufficiency with ulceration. 3. MRSA. 4. Lower extremity edema. 5. Right lower extremity DVT. Plan: Continue Silver dressing changes daily followed by tubigrip for compression. Keep right leg elevated when sitting. She is on Xarelto for a right leg DVT. Prealbumin from 06/19/19 was 8.6. Encourage nutritional supplementation with protein to help the healing process. Discussed with the patient that we can proceed with further debridement and wound closure with a skin graft. This would necessitate an operation. She will think about it and let us know. In the meantime, an alternative to a surgical procedure with an autograft is to proceed with advanced skin substitute graft such as EpiFix placental connective tissue graft. Will decide at future visits. She has some irritation around the ulceration. Recommend placing A&D ointment around the ulcer at the time of the Silver dressing change. If she decides on an operative skin graft, would obtain a preoperative wound culture. A positive culture would necessitate antibiotic therapy. She voices understanding and will let us know. Followup one week. [id number]: [id number] Anny subq tissue 20 sq cm/< - ICD-10 - L97.912, A49.02, I87.2, R60.0, I82.401, Z79.01 Add On Codes: 91919 Anny subq tissue add-on - ICD-10 - L97.912, A49.02, I87.2, R60.0, I82.401, Z79.01
== END 2019-12-07 23:59 ==
LOC: WC 11:00
PROVIDERS: PCP Internal Medicine; Referring Provider Nurse Practitioner Family; Visit Provider Nurse Practitioner Family
DX: L97.912 Non-pressure chronic ulcer of unspecified part of right lower leg with fat layer exposed (principal); R60.0 Localized edema; I87.2 Venous insufficiency (chronic) (peripheral); I73.9 Peripheral vascular disease, unspecified; I82.401 Acute embolism and thrombosis of unspecified deep veins of right lower extremity; Z79.01 Long term (current) use of anticoagulants; E66.9 Obesity, unspecified; A49.02 Methicillin resistant Staphylococcus aureus infection, unspecified site
CPT/HCPCS: 11042; 11045

== ENCOUNTER 2019-12-10 09:25 | Outpatient (RCR) | payer MEDICAID, SELFPAY ==
[2019-12-08 00:26] VITALS: BP 111/70; PULSE 85; RESP 18; TEMP 36.4
== END 2020-01-07 23:59 ==
LOC: WC 09:25
PROVIDERS: PCP Internal Medicine; Referring Provider Nurse Practitioner Family; Visit Provider Nurse Practitioner Family
DX: I73.9 Peripheral vascular disease, unspecified (principal); L97.812 Non-pressure chronic ulcer of other part of right lower leg with fat layer exposed; Z79.01 Long term (current) use of anticoagulants; I87.2 Venous insufficiency (chronic) (peripheral); R60.0 Localized edema; Z86.14 Personal history of Methicillin resistant Staphylococcus aureus infection; Z86.718 Personal history of other venous thrombosis and embolism
CPT/HCPCS: 11042; 11045

== ENCOUNTER 2019-12-17 08:50 | Outpatient (RCR) | payer MEDICAID, SELFPAY ==
[2019-12-17 09:01] VITALS: BP 147/66; PULSE 78; RESP 16; TEMP 36.1; BMI 42.2
--- NOTE | 2019-12-17 15:38 | PCM.WC.PN ---
(1) Ulcer of right lower extremity with fat layer exposed Status: Chronic Current Visit: Yes Code(s): L97.912 - Non-pressure chronic ulcer of unspecified part of right lower leg with fat layer exposed (2) Chronic venous insufficiency of lower extremity Status: Chronic Current Visit: Yes Code(s): I87.2 - Venous insufficiency (chronic) (peripheral) (3) Lower extremity edema Status: Chronic Current Visit: Yes Code(s): R60.0 - Localized edema (4) PVD (peripheral vascular disease) Status: Chronic Current Visit: Yes Code(s): I73.9 - Peripheral vascular disease, unspecified (5) custodial (current) use of anticoagulants Status: Chronic Current Visit: Yes Code(s): 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 History of Wound: Surgery 06/18/19 - Surgical preparation right anteromedial leg with incision and drainage nonhealing MRSA necrotizing infection abscess ulcers cluster (172.5 cm2). Wound care - Calcium alginate with silver. Tubigrip for compression. Operative culture - MRSA and Corynebacterium minutissimum. She was treated with Bactrim DS and Augmentin. She had additional wound culture on 08/06/19. It showed MRSA, Streptococcus group C, and Pseudomonas aeroginosa. She was treated with Levaquin, Doxycycline, and Augmentin and has finished them. In mid July (07/23/19) she developed right leg pain and swelling. An Ultrasound was done which showed acute deep vein thrombosis in the right gastrocnemius vein. The remainder of the right lower extremity deep venous system is patent and compressible. Valvular competence appears intact within the proximal deep venous system on the right. Acute superficial thrombophlebitis is noted in the right great saphenous vein from the right sapho-femoral junction to the distal thigh. She was placed on Xarelto. Her Prealbumin from 06/19/19 was 8.6. Encourage nutritional supplementation with protein to help the healing process. Today she denies fever. Her appetite is ok. Progress of Wound: Stable - Physical Exam Vital Signs Temp Pulse Resp BP 96.9 F L 78 16 147/66 H 12/17/19 09:01 12/17/19 09:01 12/17/19 09:01 12/17/19 09:01 General: Alert, Oriented x3 HEENT: Atraumatic Oral: Moist Mucosa Lungs: Normal air movement Cardiovascular: Regular rate Abdomen: Obese Extremities: Capillary Refill Less than 3 Seconds, Edema Skin: Ulcer/ Wound - Right lower leg ulcer with increased slough and biofilm due to not having a good debridement in several weeks. Increased dry, flaking skin surrounding the ulcer. Is not getting properly cleansed well on regular basis. Wound Measurements and Assessment WC - Nurse 1 - General Ulcer Measurement Start: 12/17/19 08:59 Freq: Status: Active Protocol: Activity Type Activity Date Activity User E-Sign Co-Sign Detail Recorded Client Recorded Date Recorded By Document 12/17/19 09:01 [facility] [id number] 12/17/19 09:11 [facility] 12/17/19 09:01 Wound Center Nurse 1 [Ulcer Assessment] #2- RT LOWER SIMON POST OP -Combined with other wound No -Current Size (cm) - Length 5.7 -Current Size (cm) - Width 6.2 -Current Size (cm) - Depth 0.1 -Total Square Cm 35.34 -Date of Last Picture (Recall this 12/17/19 field) -Photo Taken Yes -Epithelialization Small 1-33% -Tunneling No -Undermining/Tunneling No -Circular Undermining No -Exudate Amt Medium -Exudate Type Serosanguineous -Wound Margin Distinct, Outline Attached -Granulation Amt Medium (34-66%) -Granulation Quality Red -Slough/Fibrin Yes -Necrosis Amt Medium (34-66%) -Necrotic Tissue Type Adherent Slough -Texture (Sugar-wound Skin Appearance) Assessed, Scarring -Moisture (Sugar-wound Skin Appearance Assessed,Dry/ ) Scaly -Color (Sugar-wound Skin Appearance) Assessed, Erythema -Temperature (Sugar-wound Skin No Abnormality Appearance) (Pt Warm) -Tenderness on Palpation (Sugar-wound Yes Skin Appearance) -Ulcer Cleansing Rinsed/ Irrigated with Saline -Foul Odor after Cleansing No -Anesthetic Used 4% Lidocaine Solution [Edema Assessment] -Lower Limb Edema Present Yes -Right Calf (cm) 49.6 -Right Ankle (cm) 23.6 WC - Nurse 2 - General Ulcer CM Notes Start: 12/17/19 08:59 Freq: Status: Active Protocol: Activity Type Activity Date Activity User E-Sign Co-Sign Detail Recorded Client Recorded Date Recorded By Document 12/17/19 10:05 [id number] 12/17/19 10:12 12/17/19 10:05 Wound Center Nurse 2 [Procedure/Treatment] #2- RT LOWER SIMON POST OP -Time 10:05 -Correct Patient Yes -Correct Side, Site, Position Yes -Correct Procedure Yes -Procedure Performed Yes -Type of Procedure Debridement -Clinical Debridement Subcutaneous -Post Debridement Size (cm) - Length 5.4 -Post Debridement Size (cm) - Width 5.6 -Post Debridement Size (cm) - Depth 0.1 -Total Square (cm) 30.24 -Wound/Ulcer Outcome Not Healed -Ulcer Cleansing Rinsed/ Irrigated with Saline -Foul Odor after Cleansing No -Bioengineered Tissue No -Bleeding Controlled with Pressure -Offloading No -Treatment Response Procedure Tolerated Well [See Physician Procedure note for Specifics] Pain Scale: 0-10 Numeric [Pain] -Is Patient Pain Free? Yes Musculoskeletal: Tenderness Neurological: Cranial nerves II-XII grossly intact Psych/Mental Status: Normal Affect, Anxious - Patient is anxious/angry and frustrated about not being able to work and not being able to see her children on a regular basis now that they are in [place] living with their father. Debridement Note Post-Debridement Measurements/Treatment WC - Nurse 2 - General Ulcer CM Notes Start: 12/17/19 08:59 Freq: Status: Active Protocol: Activity Type Activity Date Activity User E-Sign Co-Sign Detail Recorded Client Recorded Date Recorded By Document 12/17/19 10:05 JF [id number] 12/17/19 10:12 12/17/19 10:05 Wound Center Nurse 2 #2- RT LOWER SIMON POST OP -Time 10:05 -Correct Patient Yes -Correct Side, Site, Position Yes -Correct Procedure Yes -Procedure Performed Yes -Type of Procedure Debridement -Clinical Debridement Subcutaneous -Post Debridement Size (cm) - Length 5.4 -Post Debridement Size (cm) - Width 5.6 -Post Debridement Size (cm) - Depth 0.1 -Total Square (cm) 30.24 -Wound/Ulcer Outcome Not Healed -Ulcer Cleansing Rinsed/ Irrigated with Saline -Foul Odor after Cleansing No -Bioengineered Tissue No -Bleeding Controlled with Pressure -Offloading No -Treatment Response Procedure Tolerated Well Pain Scale: 0-10 Numeric Is Patient Pain Free? Yes Wound debrided: lower leg ulcer Laterality: Right Type of Debridement: Excisional debridement Anesthesia Used: 5% Lidocaine Gel Depth: Down to and including healthy tissue, in the subcutaneous layer Percentage of wound debrided: 100 Instrument Used: 7mm curette Tissue Removed: Subcutaneous tissue and slough, increased dry/flaky skin surrounding ulcer Severity: Fat Layer Exposed Amount of bleeding with debridement: Mild Bleeding Controlled with: Pressure, Compression and gauze Patient tolerated procedure well Assessment/Plan Active Problems (Last Updated 06/11/19 @ 09:[address] Era Gates MD) custodial (current) use of anticoagulants (Chronic) Ulcer of right lower extremity with fat layer exposed (Chronic) Chronic venous insufficiency of lower extremity (Chronic) Lower extremity edema (Chronic) PVD (peripheral vascular disease) (Chronic) Assessment: 1. Nonhealing MRSA ulcer right anteromedial leg. 2. Chronic venous insufficiency with ulceration. 3. MRSA. 4. Lower extremity edema. 5. Right lower extremity DVT. Plan: Continue calcium alginate with silver dressing changes daily followed by tubigrip for compression. Keep right leg elevated when sitting. She is on Xarelto for a right leg DVT. Prealbumin from 06/19/19 was 8.6. Encourage nutritional supplementation with protein to help the healing process. Discussed with the patient that we can proceed with further debridement and wound closure with a skin graft. This would necessitate an operation. She will think about it and let us know. In the meantime, an alternative to a surgical procedure with an autograft is to proceed with advanced skin substitute graft such as EpiFix placental connective tissue graft. She has been approved for the Epifix but does not want to start it today. Instructed her that if she starts with the Epifix then she needs to come into the wound center for her scheduled appointments because she cannot be cancelling with an advanced wound product in place. She has some irritation around the ulceration. Recommend placing A&D ointment around the ulcer at the time of the Silver dressing change. If she decides on an operative skin graft, would obtain a preoperative wound culture. A positive culture would necessitate antibiotic therapy. She voices understanding and will let us know. Will refer her to pain management due to her increased pain that she states she is experiencing. Followup two weeks. [id number]: [id number] Anny subq tissue 20 sq cm/< Add On Codes: 49832 Anny subq tissue add-on
== END 2020-01-07 23:59 ==
LOC: WC 08:50
PROVIDERS: PCP Internal Medicine; Visit Provider Surgery
DX: L97.912 Non-pressure chronic ulcer of unspecified part of right lower leg with fat layer exposed (principal); I87.2 Venous insufficiency (chronic) (peripheral); R60.0 Localized edema; I73.9 Peripheral vascular disease, unspecified; Z79.01 Long term (current) use of anticoagulants; I82.401 Acute embolism and thrombosis of unspecified deep veins of right lower extremity; A49.02 Methicillin resistant Staphylococcus aureus infection, unspecified site

== ENCOUNTER → 2020-01-07 | Outpatient (CLI) | payer MEDICAID, SELFPAY ==
[2019-12-17 09:01] VITALS: BMI 42.2
--- NOTE | 2020-01-07 12:17 | RAD_ITS ---
STUDY: X-RAY - LUMBAR SPINE REASON FOR EXAM: Female, 49 years old. Back pain TECHNIQUE: 3 view(s) of the lumbar spine were obtained. COMPARISON: None FINDINGS: Normal lumbar lordosis. There is no substantial scoliosis. There is a normal alignment of the vertebrae. Normal vertebral bodies and endplates. Normal disc space heights. The soft tissue structures are unremarkable. RAD/Lumbar Spine 2 or 3 Views IMPRESSION: Normal x-ray examination of the lumbar spine. Electronically Signed: Pafnilo Mendoza, at 15:51 EDT , Service support ,
[2020-01-07 13:43] LABS: Amphetamine Urine VISTA NEGATIVE (<1000 ng/mL); Barbiturate Urine VISTA NEGATIVE (< 200 ng/mL); Benzodiazepine Urine VISTA NEGATIVE (< 200 ng/mL); Cocaine Urine VISTA NEGATIVE (< 300 ng/mL); Ecstacy Urine VISTA NEGATIVE (< 500 ng/mL); Methadone Urine VISTA NEGATIVE (< 300 ng/mL); PCP Urine VISTA NEGATIVE (< 25 ng/mL); THC Urine VISTA NEGATIVE (< 50 ng/mL); Vista UDS pH Range 6
== END | disposition home or self-care (01) ==
LOC: RAD 11:58
PROVIDERS: PCP Internal Medicine; Referring Provider Anesthesiology Pain Medicine; Visit Provider Anesthesiology Pain Medicine
DX: F11.20 Opioid dependence, uncomplicated (principal); M54.5 Low back pain
CPT/HCPCS: 72100; 80307

== ENCOUNTER 2020-01-28 11:05 | Outpatient (RCR) | payer MEDICAID, SELFPAY ==
[2020-01-08 00:48] VITALS: BP 147/66; PULSE 78; RESP 16; TEMP 36.1
[2020-01-28 10:25] VITALS: BP 102/61; PULSE 89; RESP 16; TEMP 36.1; BMI 42.2
--- NOTE | 2020-01-28 14:51 | PN.PCM_ITS ---
(1) Ulcer of right lower extremity with fat layer exposed Status: Chronic Current Visit: Yes Code(s): L97.912 - Non-pressure chronic ulcer of unspecified part of right lower leg with fat layer exposed (2) Chronic venous insufficiency of lower extremity Status: Chronic Current Visit: Yes Code(s): I87.2 - Venous insufficiency (chronic) (peripheral) (3) Lower extremity edema Status: Chronic Current Visit: Yes Code(s): R60.0 - Localized edema (4) PVD (peripheral vascular disease) Status: Chronic Current Visit: Yes Code(s): I73.9 - Peripheral vascular disease, unspecified (5) residential (current) use of anticoagulants Status: Chronic Current Visit: No Code(s): Z79.01 - 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 History of Wound: Surgery 06/18/19 - Surgical preparation right anteromedial leg with incision and drainage nonhealing MRSA necrotizing infection abscess ulcers cluster (172.5 cm2). Wound care - Calcium alginate with silver. Patient has been noncompliant with use of Tubigrip for compression, stating she has difficulty pulling it up due to an arm injury. She has been using Kg wraps for compression. Operative culture - MRSA and Corynebacterium minutissimum. She was treated with Bactrim DS and Augmentin. She had additional wound culture on 08/06/19. It showed MRSA, Streptococcus group C, and Pseudomonas aeroginosa. She was treated with Levaquin, Doxycycline, and Augmentin and has finished them. In mid July (07/23/19) she developed right leg pain and swelling. An Ultrasound was done which showed acute deep vein thrombosis in the right gastrocnemius vein. The remainder of the right lower extremity deep venous system is patent and compressible. Valvular competence appears intact within the proximal deep venous system on the right. Acute superficial thrombophlebitis is noted in the right great saphenous vein from the right sapho-femoral junction to the distal thigh. She was placed on Xarelto. Her Prealbumin from 06/19/19 was 8.6. Encourage nutritional supplementation with protein to help the healing process. Today she denies fever. Her appetite is ok. Progress of Wound: The patient denies any fever or chills. Denies increasing pain, redness, or swelling from affected area. She does report a moderate amount of foul-smelling drainage from her wound. Her wound has improved in size since her last visit. - Physical Exam Vital Signs Temp Pulse Resp BP 96.9 F L 89 16 102/61 01/28/20 10:25 01/28/20 10:25 01/28/20 10:25 01/28/20 10:25 General: Alert, Oriented x3, Cooperative, No apparent distress HEENT: Atraumatic, Normocephalic Oral: Moist Mucosa Lungs: Normal air movement Cardiovascular: Regular rate Extremities: No clubbing, No cyanosis, Capillary Refill Less than 3 Seconds Skin: Ulcer/ Wound - Right lower leg ulcer with moderate to large amount of slough and biofilm present due to not having debridement in several weeks. There is a small amount of purulent, malodorous drainage from the ulcer. Increased dry, flaking skin surrounding the ulcer. Wound Measurements and Assessment WC - Nurse 1 - General Ulcer Measurement Start: 01/28/20 10:25 Freq: Status: Active Protocol: Activity Type Activity Date Activity User E-Sign Co-Sign Detail Recorded Client Recorded Date Recorded By Document 01/28/20 10:25 [facility] [id number] 01/28/20 10:34 [facility] 01/28/20 10:25 Wound Center Nurse 1 [Ulcer Assessment] #2- RT LOWER SIMON POST OP -Combined with other wound No -Current Size (cm) - Length 4.6 -Current Size (cm) - Width 5.2 -Current Size (cm) - Depth 0.1 -Total Square Cm 23.92 -Photo Taken No -Epithelialization Small 1-33% -Tunneling No -Undermining/Tunneling No -Circular Undermining No -Exudate Amt Medium -Exudate Type Serosanguineous -Wound Margin Distinct, Outline Attached -Granulation Amt Medium (34-66%) -Granulation Quality Red -Slough/Fibrin Yes -Necrosis Amt Medium (34-66%) -Necrotic Tissue Type Adherent Slough -Texture (Sugar-wound Skin Appearance) Assessed, Scarring -Moisture (Sugar-wound Skin Appearance Assessed,Dry/ ) Scaly -Color (Sugar-wound Skin Appearance) Assessed, Hemosiderin Staining -Temperature (Sugar-wound Skin No Abnormality Appearance) (Pt Warm) -Tenderness on Palpation (Sugar-wound No Skin Appearance) -Ulcer Cleansing soapy water -Foul Odor after Cleansing No -Anesthetic Used 4% Lidocaine Solution [Edema Assessment] -Lower Limb Edema Present Yes -Right Calf (cm) 50.5 -Right Ankle (cm) 23.6 CESAR - Nurse 2 - General Ulcer CM Notes Start: 01/28/20 10:25 Freq: Status: Active Protocol: Activity Type Activity Date Activity User E-Sign Co-Sign Detail Recorded Client Recorded Date Recorded By Document 01/28/20 10:52 [id number] 01/28/20 11:15 01/28/20 10:52 Wound Center Nurse 2 [Procedure/Treatment] #2- RT LOWER SIMON POST OP -Time 10:54 -Correct Patient Yes -Correct Side, Site, Position Yes -Correct Procedure Yes -Procedure Performed Yes -Type of Procedure Debridement -Clinical Debridement Subcutaneous -Tissue Removed Subcutaneous -Post Debridement (cm) - Length 5.5 -Post Debridement (cm) - Width 5.0 -Post Debridement (cm) - Depth 0.1 -Total Square (Post) (cm) 27.50 -Area of Debridement (cm) - Length 5.0 -Area of Debridement (cm) - Width 5.0 -Total Square (Area) (cm) 25.00 -Tunneling No -Undermining/Tunneling No -Circular Undermining No -Wound/Ulcer Outcome Not Healed -Ulcer Cleansing Rinsed/ Irrigated with Saline -Foul Odor after Cleansing No -Bioengineered Tissue No -Bleeding Controlled with Pressure -Offloading No -Treatment Response Procedure Tolerated Well -Debridement - Subq, 1st 20sq cm Yes -Debridement, SubQ, ea addt'l 20sq cm 1 or part thereof [See Physician Procedure note for Specifics] Pain Scale: 0-10 Numeric [Pain] -Is Patient Pain Free? Yes - Nurse 3 - General Ulcer D/C NN Start: 01/28/20 10:25 Freq: Status: Active Protocol: Activity Type Activity Date Activity User E-Sign Co-Sign Detail Recorded Client Recorded Date Recorded By Document 01/28/20 11:26 [facility] [id number] 01/28/20 11:26 [facility] 01/28/20 11:26 Wound Care Nurse 3 [Wound Dressing] #2- RT LOWER SIMON POST OP -Ulcer Cleansing Rinsed/ Irrigated with Saline -Foul Odor after Cleansing No -Primary Dressing Applied Aquacel AG 4x4 -Primary Dressing Covered/Secured Dry Gauze & with Roll Gauze, Secured with Tape -Aquacel AG 4x4 1 [Post Procedure Tolerated] -Treatment Response Procedure Tolerated Well Pain Scale: 0-10 Numeric [Pain] -Is Patient Pain Free? Yes - Visit Discharge [Visit Discharge Information] -Discharge Condition Stable -Ambulatory Status Ambulatory -Transportation Private Auto Musculoskeletal: Tenderness - Palpation/debridement Psych/Mental Status: Normal Affect, Appropriate Debridement Note Post-Debridement Measurements/Treatment - Nurse 2 - General Ulcer CM Notes Start: 01/28/20 10:25 Freq: Status: Active Protocol: Activity Type Activity Date Activity User E-Sign Co-Sign Detail Recorded Client Recorded Date Recorded By Document 01/28/20 10:52 [id number] 01/28/20 11:15 01/28/20 10:52 Wound Center Nurse 2 #2- RT LOWER SIMON POST OP -Time 10:54 -Correct Patient Yes -Correct Side, Site, Position Yes -Correct Procedure Yes -Procedure Performed Yes -Type of Procedure Debridement -Clinical Debridement Subcutaneous -Tissue Removed Subcutaneous -Post Debridement (cm) - Length 5.5 -Post Debridement (cm) - Width 5.0 -Post Debridement (cm) - Depth 0.1 -Total Square (Post) (cm) 27.50 -Area of Debridement (cm) - Length 5.0 -Area of Debridement (cm) - Width 5.0 -Total Square (Area) (cm) 25.00 -Tunneling No -Undermining/Tunneling No -Circular Undermining No -Wound/Ulcer Outcome Not Healed -Ulcer Cleansing Rinsed/ Irrigated with Saline -Foul Odor after Cleansing No -Bioengineered Tissue No -Bleeding Controlled with Pressure -Offloading No -Treatment Response Procedure Tolerated Well -Debridement - Subq, 1st 20sq cm Yes -Debridement, SubQ, ea addt'l 20sq cm 1 or part thereof Pain Scale: 0-10 Numeric Is Patient Pain Free? Yes - Nurse 3 - General Ulcer D/C NN Start: 01/28/20 10:25 Freq: Status: Active Protocol: Activity Type Activity Date Activity User E-Sign Co-Sign Detail Recorded Client Recorded Date Recorded By Document 01/28/20 11:26 [facility] [id number] 01/28/20 11:26 [facility] 01/28/20 11:26 Wound Care Nurse 3 #2- RT LOWER SIMON POST OP -Ulcer Cleansing Rinsed/ Irrigated with Saline -Foul Odor after Cleansing No -Primary Dressing Applied Aquacel AG 4x4 -Primary Dressing Covered/Secured with Dry Gauze & Roll Gauze, Secured with Tape -Aquacel AG 4x4 1 Treatment Response Procedure Tolerated Well Pain Scale: 0-10 Numeric Is Patient Pain Free? Yes WC - Visit Discharge Discharge Condition Stable Ambulatory Status Ambulatory Transportation Private Auto Wound debrided: Lower leg ulcer Laterality: Right Type of Debridement: Excisional debridement Anesthesia Used: 5% Lidocaine Gel Depth: in the subcutaneous layer Percentage of wound debrided: 100 Instrument Used: 7mm curette Tissue Removed: Slough and devitalized tissue; dry, flaky skin of sugar-ulcer area Severity: Fat Layer Exposed Amount of bleeding with debridement: Mild Bleeding Controlled with: Pressure Patient tolerated procedure well Assessment/Plan Active Problems (Last Updated 06/11/19 @ 09:[address] Era Gates MD) Ulcer of right lower extremity with fat layer exposed (Chronic) Chronic venous insufficiency of lower extremity (Chronic) Lower extremity edema (Chronic) PVD (peripheral vascular disease) (Chronic) Assessment: 1. Nonhealing MRSA ulcer right anteromedial leg. 2. Chronic venous insufficiency with ulceration. 3. MRSA. 4. Lower extremity edema. 5. Right lower extremity DVT. Plan: Continue calcium alginate with silver dressing changes daily followed by Kg wrap for compression. Keep right leg elevated when sitting. Avoid p rolonged standing or dangling of the legs. A wound culture was collected today due to the presence of purulent and malodorous drainage from ulcer. Patient was started empirically on Augmentin 875/125 mg p.o. twice daily x10 days. She is on Xarelto for a right leg DVT. Prealbumin from 06/19/19 was 8.6. Encourage nutritional supplementation with protein to help the healing process. Recommended that patient apply topical lotion to the surrounding skin of her right lower leg ulcer for large amount of dry, flaking skin, but not to the ulcer itself. She has been referred to pain management. Follow-up in 2 weeks for reevaluation. Follow-up sooner should symptoms worsen or new symptoms arise. [id number]: [id number] Anny subq tissue 20 sq cm/<
--- NOTE | 2020-01-30 16:27 | WC ---
RECEIVED TC FROM GERMAN CROCKETT. 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 GIVES N.O'S TO STOP AUGMENTIN AND START DOXYCYCLINE 100 MG PO BID X 10 DAYS. 20 TABS. NO REFILLS. VERIFIED PTS ALLERGIES. CALLED PT W/ CX RESULTS GIVEN. UPDATED ON NEW ATB ORDER W/ INSTRUCTIONS TO STOP AUGMENTIN, TAKE A PROBIOTIC, AND DON'T TAKE DOXY W/ VITAMINS OR SUPPLEMENTS TO AVOID STOMACH UPSET. PT VOICED UNDERSTANDING. RX CALLED TO [facility].
== END 2020-02-06 23:59 ==
LOC: WC 11:05
PROVIDERS: PCP Internal Medicine; Visit Provider Surgery
DX: L97.912 Non-pressure chronic ulcer of unspecified part of right lower leg with fat layer exposed (principal); I87.2 Venous insufficiency (chronic) (peripheral); R60.0 Localized edema; I73.9 Peripheral vascular disease, unspecified; Z79.01 Long term (current) use of anticoagulants; I82.401 Acute embolism and thrombosis of unspecified deep veins of right lower extremity; A49.02 Methicillin resistant Staphylococcus aureus infection, unspecified site
CPT/HCPCS: 11042; 11045; 87070; 87075; 87077; 87186; 87205

== ENCOUNTER 2020-02-29 11:00 | Outpatient (RCR) | payer MEDICAID, SELFPAY ==
[2020-02-07 00:38] VITALS: BP 111/70; PULSE 85; RESP 18; TEMP 36.4
[2020-02-11 09:01] VITALS: BP 149/78; PULSE 57; RESP 20; TEMP 36.3; BMI 42.2
[2020-02-11 09:56] VITALS: BP 149/88; PULSE 56; RESP 16
--- NOTE | 2020-02-11 12:31 | PCM.WC.PN ---
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 History of Wound: Surgery 06/18/19 - Surgical preparation right anteromedial leg with incision and drainage nonhealing MRSA necrotizing infection abscess ulcers cluster (172.5 cm2). Wound care - Calcium alginate with silver. Patient has been noncompliant with use of Tubigrip for compression, stating she has difficulty pulling it up due to an arm injury. She has been using Kg wraps for compression. Operative culture - MRSA and Corynebacterium minutissimum. She was treated with Bactrim DS and Augmentin. She had additional wound culture on 08/06/19. It showed MRSA, Streptococcus group C, and Pseudomonas aeroginosa. She was treated with Levaquin, Doxycycline, and Augmentin and has finished them. In mid July (07/23/19) she developed right leg pain and swelling. An Ultrasound was done which showed acute deep vein thrombosis in the right gastrocnemius vein. The remainder of the right lower extremity deep venous system is patent and compressible. Valvular competence appears intact within the proximal deep venous system on the right. Acute superficial thrombophlebitis is noted in the right great saphenous vein from the right sapho-femoral junction to the distal thigh. She was placed on Xarelto. Her Prealbumin from 06/19/19 was 8.6. Encourage nutritional supplementation with protein to help the healing process. Wound cultures collected 01/28/2020 were positive for 1+ MRSA and rare Corynebacterium stratum, as well as anaerobic cocci. She was started on Levaquin 500 mg daily x21 days and Augmentin 875/125 mg p.o. twice daily x21 days. Today she denies fever. Her appetite is ok. Progress of Wound: The patient was started on Levaquin 500 mg daily x21 days and Augmentin 875/125 mg twice daily x21 days. She is currently taking these antibiotics. The patient denies any fever or chills. She reports nausea and occasional vomiting following administration of her Levaquin and Augmentin. She denies any diarrhea. Denies any increasing pain, redness, swelling, or purulent/malodorous drainage from affected area. - Physical Exam Vital Signs Temp Pulse Resp BP 97.3 F L 56 L 16 149/88 H 02/11/20 09:01 02/11/20 09:56 02/11/20 09:56 02/11/20 09:56 General: Alert, Cooperative, No apparent distress HEENT: Atraumatic, Normocephalic Oral: Moist Mucosa Neck: Supple, Trachea Midline Lungs: Normal air movement Extremities: No clubbing, No cyanosis, Capillary Refill Less than 3 Seconds Skin: Ulcer/ Wound - Right lower leg ulcer with subcutaneous layer exposed; no tunneling, undermining, or probing to bone; small amount of slough and biofilm present. Purulent drainage has resolved. There is mild malodor from the ulcer. There is a moderate amount of dry, flaking skin around the ulcer. Wound Measurements and Assessment WC - Nurse 1 - General Ulcer Measurement Start: 02/11/20 09:00 Freq: Status: Active Protocol: Activity Type Activity Date Activity User E-Sign Co-Sign Detail Recorded Client Recorded Date Recorded By Document 02/11/20 09:01 DL [id number] 02/11/20 09:11 DL 02/11/20 09:01 Wound Center Nurse 1 [Ulcer Assessment] #2- RT LOWER SIMON POST OP -Current Size (cm) - Length 5 -Current Size (cm) - Width 4.8 -Current Size (cm) - Depth 0.1 -Total Square Cm 24.0 -Photo Taken No -Exudate Amt Small -Exudate Type Serosanguineous -Wound Margin Distinct, Outline Attached -Granulation Amt Medium (34-66%) -Granulation Quality Red -Necrosis Amt Medium (34-66%) -Necrotic Tissue Type Adherent Slough -Structure Exposed N/A -Texture (Sugar-wound Skin Appearance) Scarring -Moisture (Sugar-wound Skin Appearance Dry/Scaly ) -Color (Sugar-wound Skin Appearance) Rubor -Temperature (Sugar-wound Skin No Abnormality Appearance) (Pt Warm) -Tenderness on Palpation (Sugar-wound No Skin Appearance) -Ulcer Cleansing Wound Cleanser -Foul Odor after Cleansing No -Anesthetic Used 4% Lidocaine Solution [Edema Assessment] -Right Calf (cm) 49 -Right Ankle (cm) 23 WC - Nurse 2 - General Ulcer CM Notes Start: 02/11/20 09:00 Freq: Status: Active Protocol: Activity Type Activity Date Activity User E-Sign Co-Sign Detail Recorded Client Recorded Date Recorded By Document 02/11/20 09:44 TIM [id number] 02/11/20 09:47 TIM 02/11/20 09:44 Wound Center Nurse 2 [Procedure/Treatment] #2- RT LOWER SIMON POST OP -Time 09:44 -Correct Patient Yes -Correct Side, Site, Position Yes -Correct Procedure Yes -Procedure Performed Yes -Type of Procedure Debridement -Clinical Debridement Subcutaneous -Tissue Removed Subcutaneous -Post Debridement (cm) - Length 5.5 -Post Debridement (cm) - Width 4.9 -Post Debridement (cm) - Depth 0.1 -Total Square (Post) (cm) 26.95 -Area of Debridement (cm) - Length 5.5 -Area of Debridement (cm) - Width 4.9 -Total Square (Area) (cm) 26.95 -Tunneling No -Undermining/Tunneling No -Circular Undermining No -Wound/Ulcer Outcome Not Healed -Ulcer Cleansing Rinsed/ Irrigated with Saline -Foul Odor after Cleansing No -Bioengineered Tissue No -Bleeding Controlled with Pressure -Offloading No -Treatment Response Procedure Tolerated Well -Debridement - Subq, 1st 20sq cm Yes -Debridement, SubQ, ea addt'l 20sq cm 1 or part thereof [See Physician Procedure note for Specifics] Pain Scale: 0-10 Numeric [Pain] -Is Patient Pain Free? Yes CESAR - Nurse 3 - General Ulcer D/C NN Start: 02/11/20 09:00 Freq: Status: Active Protocol: Activity Type Activity Date Activity User E-Sign Co-Sign Detail Recorded Client Recorded Date Recorded By Document 02/11/20 09:56 [facility] [id number] 02/11/20 09:57 [facility] 02/11/20 09:56 Wound Care Nurse 3 [Wound Dressing] #2- RT LOWER SIMON POST OP -Ulcer Cleansing Rinsed/ Irrigated with Saline -Foul Odor after Cleansing No -Primary Dressing Applied Aquacel AG 4x4 -Primary Dressing Covered/Secured Dry Gauze & with Roll Gauze, Secured with Tape,Other -Other Covering abd -Aquacel AG 4x4 1 [Compression Applied] Right -Compression Wrap Kg Wrap [Post Procedure Tolerated] -Treatment Response Procedure Tolerated Well Vital Signs [Pulse] -Pulse Rate (60-100) 56 L -Pulse Location Monitor [Respirations] -Respiratory Rate (12-18) 16 -Respiratory rate source Observation -Oxygen Delivery Method Room Air [Blood Pressure] -Blood Pressure (90/60-120/80) 149/88 H -Blood Pressure Mean (mm Hg) 108 -Source Monitor -Position Sitting -Blood Pressure Location Left Arm Pain Scale: 0-10 Numeric [Pain] -Is Patient Pain Free? Yes WC - Visit Discharge [Visit Discharge Information] -Discharge Condition Stable -Ambulatory Status Ambulatory -Transportation Private Auto Musculoskeletal: Tenderness - Mild tenderness on palpation/debridement of ulcer Psych/Mental Status: Normal Affect, Appropriate Debridement Note Post-Debridement Measurements/Treatment WC - Nurse 2 - General Ulcer CM Notes Start: 02/11/20 09:00 Freq: Status: Active Protocol: Activity Type Activity Date Activity User E-Sign Co-Sign Detail Recorded Client Recorded Date Recorded By Document 02/11/20 09:44 [id number] 02/11/20 09:47 02/11/20 09:44 Wound Center Nurse 2 #2- RT LOWER SIMON POST OP -Time 09:44 -Correct Patient Yes -Correct Side, Site, Position Yes -Correct Procedure Yes -Procedure Performed Yes -Type of Procedure Debridement -Clinical Debridement Subcutaneous -Tissue Removed Subcutaneous -Post Debridement (cm) - Length 5.5 -Post Debridement (cm) - Width 4.9 -Post Debridement (cm) - Depth 0.1 -Total Square (Post) (cm) 26.95 -Area of Debridement (cm) - Length 5.5 -Area of Debridement (cm) - Width 4.9 -Total Square (Area) (cm) 26.95 -Tunneling No -Undermining/Tunneling No -Circular Undermining No -Wound/Ulcer Outcome Not Healed -Ulcer Cleansing Rinsed/ Irrigated with Saline -Foul Odor after Cleansing No -Bioengineered Tissue No -Bleeding Controlled with Pressure -Offloading No -Treatment Response Procedure Tolerated Well -Debridement - Subq, 1st 20sq cm Yes -Debridement, SubQ, ea addt'l 20sq cm 1 or part thereof Pain Scale: 0-10 Numeric Is Patient Pain Free? Yes - Nurse 3 - General Ulcer D/C NN Start: 02/11/20 09:00 Freq: Status: Active Protocol: Activity Type Activity Date Activity User E-Sign Co-Sign Detail Recorded Client Recorded Date Recorded By Document 02/11/20 09:56 [facility] [id number] 02/11/20 09:57 [facility] 02/11/20 09:56 Wound Care Nurse 3 #2- RT LOWER SIMON POST OP -Ulcer Cleansing Rinsed/ Irrigated with Saline -Foul Odor after Cleansing No -Primary Dressing Applied Aquacel AG 4x4 -Primary Dressing Covered/Secured with Dry Gauze & Roll Gauze, Secured with Tape,Other -Other Covering abd -Aquacel AG 4x4 1 Right -Compression Wrap Kg Wrap Treatment Response Procedure Tolerated Well Vital Signs Pulse Rate (60-100) 56 L Pulse Location Monitor Respiratory Rate (12-18) 16 Respiratory rate source Observation Oxygen Delivery Method Room Air Blood Pressure (90/60-120/80) 149/88 H Blood Pressure Mean (mm Hg) 108 Source Monitor Position Sitting Blood Pressure Location Left Arm Pain Scale: 0-10 Numeric Is Patient Pain Free? Yes - Visit Discharge Discharge Condition Stable Ambulatory Status Ambulatory Transportation Private Auto Wound debrided: Lower leg ulcer Laterality: Right Type of Debridement: Excisional debridement Anesthesia Used: 5% Lidocaine Gel Depth: in the subcutaneous layer Percentage of wound debrided: 100 Instrument Used: 7mm curette Tissue Removed: Slough and devitalized tissue, and dry, flaky skin of sugar-ulcer area Severity: Fat Layer Exposed Amount of bleeding with debridement: Mild Bleeding Controlled with: Pressure Patient tolerated procedure well Assessment/Plan Active Problems (Last Updated 06/11/19 @ 09:[address] Era Gates MD) Ulcer of right lower extremity with fat layer exposed (Chronic) Chronic venous insufficiency of lower extremity (Chronic) Lower extremity edema (Chronic) PVD (peripheral vascular disease) (Chronic) Assessment: 1. Nonhealing MRSA ulcer right anteromedial leg. 2. Chronic venous insufficiency with ulceration. 3. MRSA. 4. Lower extremity edema. 5. Right lower extremity DVT. Plan: To new Aquacel Ag dressing changes daily followed by Kg wrap for compression. Patient was approved for advanced skin subs, but refuses application. There are concerns for noncompliance with the use of advanced skin subs. Keep right leg elevated when sitting. Avoid prolonged standing or dangling of the legs. Culture was collected on 01/28/2020 and was positive for 1+ MRSA and rare Corynebacterium and anaerobic cocci. She was started on Levaquin 500 mg p.o. daily x21 days and Augmentin 875/125 mg p.o. twice daily x21 days. She has developed nausea and vomiting with taking antibiotics. I will prescribe Phenergan 25 mg p.o. every 6 hours as needed for nausea and vomiting. She is on Xarelto for a right leg DVT. Prealbumin from 06/19/19 was 8.6. Encourage nutritional supplementation with protein to help the healing process. Recommended that patient apply topical lotion to the surrounding skin of her right lower leg ulcer for large amount of dry, flaking skin, but not to the ulcer itself. She has been referred to pain management. Follow-up next Tuesday02/22/20 for reevaluation. The patient will be transferring to my care and attending Tuesday clinics going forward. Follow-up sooner should symptoms worsen or new symptoms arise. Note: [employer] speech recognition stamp redemption clerk software was used to create portions of this document. Sound-alike and misspelled words, as well as other stamp redemption clerk errors may be contained in the documentation. [id number]: [id number] Anny subq tissue 20 sq cm/<
[2020-02-29 11:01] VITALS: BP 138/85; PULSE 90; RESP 16; TEMP 36.3; BMI 42.2
[2020-02-29 11:48] VITALS: BP 148/68
--- NOTE | 2020-02-29 13:24 | PN.PCM_ITS ---
(1) Ulcer of right lower extremity with fat layer exposed Status: Chronic Code(s): L97.912 - Non-pressure chronic ulcer of unspecified part of right lower leg with fat layer exposed (2) Chronic venous insufficiency of lower extremity Status: Chronic Code(s): I87.2 - Venous insufficiency (chronic) (peripheral) (3) Lower extremity edema Status: Chronic Code(s): R60.0 - Localized edema (4) PVD (peripheral vascular disease) Status: Chronic Code(s): I73.9 - Peripheral vascular disease, unspecified (5) penitentiary (current) use of anticoagulants Status: Chronic Code(s): Z79.01 - penitentiary (current) use of anticoagulants Type of Wound Date of Service: 02/29/20 Chief Complaint: Nonhealing MRSA ulcer right anteromedial leg. History of Wound: Surgery 06/18/19 - Surgical preparation right anteromedial leg with incision and drainage nonhealing MRSA necrotizing infection abscess ulcers cluster (172.5 cm2). Wound care - Calcium alginate with silver. Patient has been noncompliant with use of Tubigrip for compression, stating she has difficulty pulling it up due to an arm injury. She has been using Kg wraps for compression. Operative culture - MRSA and Corynebacterium minutissimum. She was treated with Bactrim DS and Augmentin. She had additional wound culture on 08/06/19. It showed MRSA, Streptococcus group C, and Pseudomonas aeroginosa. Duane rodrigez was treated with Levaquin, Doxycycline, and Augmentin and has finished them. In mid July (07/23/19) she developed right leg pain and swelling. An Ultrasound was done which showed acute deep vein thrombosis in the right gastrocnemius vein. The remainder of the right lower extremity deep venous system is patent and compressible. Valvular competence appears intact within the proximal deep venous system on the right. Acute superficial thrombophlebitis is noted in the right great saphenous vein from the right sapho-femoral junction to the distal thigh. She was placed on Xarelto. Her Prealbumin from 06/19/19 was 8.6. Encourage nutritional supplementation with protein to help the healing process. Wound cultures collected 01/28/2020 were positive for 1+ MRSA and rare Corynebacterium stratum, as well as anaerobic cocci. She was started on Levaquin 500 mg daily x21 days and Augmentin 875/125 mg p.o. twice daily x21 days. Today she denies fever. Her appetite is ok. Progress of Wound: The patient completed Levaquin x21 days and Augmentin x21 days. The patient denies any fever or chills. She denies nausea, vomiting, or diarrhea. Denies any increasing pain, redness, swelling, or purulent/malodorous drainage from affected area. - Physical Exam Vital Signs Temp Pulse Resp BP 97.3 F L 90 16 148/68 H 02/29/20 11:01 02/29/20 11:01 02/29/20 11:01 02/29/20 11:48 General: Alert, Cooperative, No apparent distress HEENT: Atraumatic, Normocephalic Oral: Moist Mucosa Neck: Supple Lungs: Normal air movement Cardiovascular: Regular rate Abdomen: Non-Distended Extremities: No clubbing, No cyanosis, No edema, Capillary Refill Less than 3 Seconds, Peripheral Pulses Normal Skin: Ulcer/ Wound - Right lower leg ulcer with subcutaneous layer exposed. No tunneling, undermining, or probing to bone. Small amount of slough and biofilm present. Purulent drainage has resolved. There is a moderate amount of dry, flaking skin around the ulcer. Wound Measurements and Assessment WC - Nurse 1 - General Ulcer Measurement Start: 02/11/20 09:00 Freq: Status: Active Protocol: Activity Type Activity Date Activity User E-Sign Co-Sign Detail Recorded Client Recorded Date Recorded By Document 02/29/20 11:01 MI [id number] 02/29/20 11:11 MI 02/29/20 11:01 Wound Center Nurse 1 [Ulcer Assessment] #2- RT LOWER SIMON POST OP -Current Size (cm) - Length 4.8 -Current Size (cm) - Width 5 -Current Size (cm) - Depth 0.1 -Total Square Cm 24.0 -Exudate Amt Medium -Exudate Type Serosanguineous -Wound Margin Distinct, Outline Attached -Granulation Amt Small (1-33%) -Slough/Fibrin Yes -Texture (Sugar-wound Skin Appearance) Assessed -Moisture (Sugar-wound Skin Appearance Assessed,Dry/ ) Scaly -Color (Sugar-wound Skin Appearance) Assessed -Temperature (Sugar-wound Skin No Abnormality Appearance) (Pt Warm) -Tenderness on Palpation (Sugar-wound Yes Skin Appearance) -Ulcer Cleansing Rinsed/ Irrigated with Saline -Foul Odor after Cleansing No -Anesthetic Used 5% Lidocaine Gel [Edema Assessment] -Right Calf (cm) 45 -Right Ankle (cm) 25 - Nurse 3 - General Ulcer D/C NN Start: 02/11/20 09:00 Freq: Status: Active Protocol: Activity Type Activity Date Activity User E-Sign Co-Sign Detail Recorded Client Recorded Date Recorded By Document 02/29/20 11:48 MS [id number] 02/29/20 11:49 MS 02/29/20 11:48 Wound Care Nurse 3 [Wound Dressing] #2- RT LOWER SIMON POST OP -Ulcer Cleansing Rinsed/ Irrigated with Saline -Foul Odor after Cleansing No -Primary Dressing Applied Aquacel AG 4x4 -Aquacel AG 4x4 1 Vital Signs [Blood Pressure] -Blood Pressure (90/60-120/80) 148/68 H -Blood Pressure Mean (mm Hg) 94 -Source Monitor Pain Scale: 0-10 Numeric [Pain] -Is Patient Pain Free? Yes - Visit Discharge [Visit Discharge Information] -Discharge Condition Stable -Ambulatory Status Ambulatory -Transportation Private Auto Musculoskeletal: Tenderness - On debridement of ulcer Neurological: Neuro grossly intact Psych/Mental Status: Normal Affect, Appropriate Debridement Note Post-Debridement Measurements/Treatment WC - Nurse 2 - General Ulcer CM Notes Start: 02/11/20 09:00 Freq: Status: Active Protocol: Activity Type Activity Date Activity User E-Sign Co-Sign Detail Recorded Client Recorded Date Recorded By Document 02/11/20 09:44 [id number] 02/11/20 09:47 02/11/20 09:44 Wound Center Nurse 2 #2- RT LOWER SIMON POST OP -Time 09:44 -Correct Patient Yes -Correct Side, Site, Position Yes -Correct Procedure Yes -Procedure Performed Yes -Type of Procedure Debridement -Clinical Debridement Subcutaneous -Tissue Removed Subcutaneous -Post Debridement (cm) - Length 5.5 -Post Debridement (cm) - Width 4.9 -Post Debridement (cm) - Depth 0.1 -Total Square (Post) (cm) 26.95 -Area of Debridement (cm) - Length 5.5 -Area of Debridement (cm) - Width 4.9 -Total Square (Area) (cm) 26.95 -Tunneling No -Undermining/Tunneling No -Circular Undermining No -Wound/Ulcer Outcome Not Healed -Ulcer Cleansing Rinsed/ Irrigated with Saline -Foul Odor after Cleansing No -Bioengineered Tissue No -Bleeding Controlled with Pressure -Offloading No -Treatment Response Procedure Tolerated Well -Debridement - Subq, 1st 20sq cm Yes -Debridement, SubQ, ea addt'l 20sq cm 1 or part thereof Pain Scale: 0-10 Numeric Is Patient Pain Free? Yes - Nurse 3 - General Ulcer D/C NN Start: 02/11/20 09:00 Freq: Status: Active Protocol: Activity Type Activity Date Activity User E-Sign Co-Sign Detail Recorded Client Recorded Date Recorded By Document 02/11/20 09:56 [facility] [id number] 02/11/20 09:57 [facility] Document 02/29/20 11:48 MS [id number] 02/29/20 11:49 MS 02/11/20 02/29/20 09:56 11:48 Wound Care Nurse 3 #2- RT LOWER SIMON POST OP -Ulcer Cleansing Rinsed/ Rinsed/ Irrigated with Irrigated with Saline Saline -Foul Odor after Cleansing No No -Primary Dressing Applied Aquacel AG 4x4 Aquacel AG 4x4 -Primary Dressing Covered/Secured with Dry Gauze & Roll Gauze, Secured with Tape,Other -Other Covering abd -Aquacel AG 4x4 1 1 Right -Compression Wrap Kg Wrap Treatment Response Procedure Tolerated Well Vital Signs Pulse Rate (60-100) 56 L Pulse Location Monitor Respiratory Rate (12-18) 16 Respiratory rate source Observation Oxygen Delivery Method Room Air Blood Pressure (90/60-120/80) 149/88 H 148/68 H Blood Pressure Mean (mm Hg) 108 94 Source Monitor Monitor Position Sitting Blood Pressure Location Left Arm Pain Scale: 0-10 Numeric Is Patient Pain Free? Yes Yes WC - Visit Discharge Discharge Condition Stable Stable Ambulatory Status Ambulatory Ambulatory Transportation Private Auto Private Auto Wound debrided: Right lower leg Laterality: Right Type of Debridement: Excisional debridement Anesthesia Used: 5% Lidocaine Gel Depth: in the subcutaneous layer Percentage of wound debrided: 100 Instrument Used: 7mm curette Tissue Removed: Slough and devitalized tissue Severity: Fat Layer Exposed Amount of bleeding with debridement: Mild Bleeding Controlled with: Pressure Patient tolerated procedure well Assessment/Plan Assessment: 1. Nonhealing MRSA ulcer right anteromedial leg. 2. Chronic venous insufficiency with ulceration. 3. MRSA. 4. Lower extremity edema. 5. Right lower extremity DVT. Plan: Ulcer debrided in clinic today. Aquacel Ag applied, and compression applied with Kg wrap. Patient instructed to apply new Aquacel Ag dressing changes daily followed by Kg wrap for compression. Patient was approved for advanced skin subs, but approval has . There were previously concerns for noncompliance with the use of advanced skin subs. However, patient is now agreeable to attending weekly appointments. Given the duration of the wound and failure of the wound to respond to standard wound care, we will re-apply for advanced skin substitutes (epifix). Keep right leg elevated when sitting. Avoid prolonged standing or dangling of the legs. Culture was collected on and was positive for 1+ MRSA and rare Corynebacterium and anaerobic cocci. She was started on Levaquin 500 mg p.o. daily x21 days and Augmentin 875/125 mg p.o. twice daily x21 days and completed these antibiotics. She is on Xarelto for a right leg DVT. Prealbumin from 06/19/19 was 8.6. Encourage nutritional supplementation with protein to help the healing process. Recommended that patient apply topical lotion to the surrounding skin of her right lower leg ulcer for large amount of dry, flaking skin, but not to the ulcer itself. She has been referred to pain management. Follow-up in 1 week for reevaluation. Follow-up sooner should symptoms worsen or new symptoms arise. Note: [employer]-Generator speech recognition it application administrator software was used to create portions of this document. Sound-alike and misspelled words, as well as other it application administrator errors may be contained in the documentation. [id number]: [id number] Anny subq tissue 20 sq cm/<
== END 2020-03-08 23:59 ==
LOC: WC 11:00
PROVIDERS: PCP Internal Medicine; Visit Provider Surgery
DX: L97.912 Non-pressure chronic ulcer of unspecified part of right lower leg with fat layer exposed (principal); I87.2 Venous insufficiency (chronic) (peripheral); R60.0 Localized edema; I73.9 Peripheral vascular disease, unspecified; Z79.01 Long term (current) use of anticoagulants; I82.401 Acute embolism and thrombosis of unspecified deep veins of right lower extremity; A49.02 Methicillin resistant Staphylococcus aureus infection, unspecified site
CPT/HCPCS: 11042; 11045; 87070; 87075; 87077; 87186; 87205

== ENCOUNTER 2020-03-31 08:03 | Outpatient (RCR) | payer MEDICAID, SELFPAY ==
[2020-03-09 00:24] VITALS: BP 148/68; PULSE 90; RESP 16; TEMP 36.3
[2020-03-28 10:23] VITALS: BP 145/64; PULSE 77; RESP 16; TEMP 36; BMI 42.2
--- NOTE | 2020-03-28 13:05 | PN.PCM_ITS ---
(1) Chronic venous insufficiency of lower extremity Status: Chronic Code(s): I87.2 - Venous insufficiency (chronic) (peripheral) (2) long term care administrator (current) use of anticoagulants Status: Chronic Code(s): Z79.01 - long term care administrator (current) use of anticoagulants (3) Lower extremity edema Status: Chronic Code(s): R60.0 - Localized edema (4) PVD (peripheral vascular disease) Status: Chronic Code(s): I73.9 - Peripheral vascular disease, unspecified (5) Ulcer of right lower extremity with fat layer exposed Status: Chronic Code(s): L97.912 - Non-pressure chronic ulcer of unspecified part of right lower leg with fat layer exposed Type of Wound Date of Service: 03/28/20 Chief Complaint: Nonhealing MRSA ulcer right anteromedial leg. History of Wound: Surgery 06/18/19 - Surgical preparation right anteromedial leg with incision and drainage nonhealing MRSA necrotizing infection abscess ulcers cluster (172.5 cm2). Wound care - Calcium alginate with silver. Patient has been noncompliant with use of Tubigrip for compression, stating she has difficulty pulling it up due to an arm injury. She has been using Kg wraps for compression. Operative culture - MRSA and Corynebacterium minutissimum. She was treated with Bactrim DS and Augmentin. She had additional wound culture on 08/06/19. It showed MRSA, Streptococcus group C, and Pseudomonas aeroginosa. Duane rodrigez was treated with Levaquin, Doxycycline, and Augmentin and has finished them. In mid July (07/23/19) she developed right leg pain and swelling. An Ultrasound was done which showed acute deep vein thrombosis in the right gastrocnemius vein. The remainder of the right lower extremity deep venous system is patent and compressible. Valvular competence appears intact within the proximal deep venous system on the right. Acute superficial thrombophlebitis is noted in the right great saphenous vein from the right sapho-femoral junction to the distal thigh. She was placed on Xarelto. Her Prealbumin from 06/19/19 was 8.6. Encourage nutritional supplementation with protein to help the healing process. Wound cultures collected 01/28/2020 were positive for 1+ MRSA and rare Corynebacterium stratum, as well as anaerobic cocci. She was started on Levaquin 500 mg daily x21 days and Augmentin 875/125 mg p.o. twice daily x21 days and has completed these. Progress of Wound: The patient denies any fever or chills. She denies nausea, vomiting, or diarrhea. She reports that within the last week she developed purulent foul-smelling drainage from her right lower extremity ulcer. She had leftover doxycycline at home from a previous MRSA infection, and started taking this. She notes improvement in her drainage with the use of doxycycline. - Physical Exam Vital Signs Temp Pulse Resp BP 96.8 F L 77 16 145/64 H 03/28/20 10:23 03/28/20 10:23 03/28/20 10:23 03/28/20 10:23 General: Alert, Cooperative, No apparent distress HEENT: Atraumatic, Normocephalic Oral: Moist Mucosa Neck: Supple, Trachea Midline Lungs: Normal air movement Cardiovascular: Regular rate Abdomen: Obese Extremities: No clubbing, No cyanosis, Capillary Refill Less than 3 Seconds, Edema - Trace edema of bilateral lower extremities, Peripheral Pulses Normal Skin: Ulcer/ Wound - Right lower leg ulcer with subcutaneous layer exposed. No tunneling, undermining, or probing to bone. Small amount of slough and biofilm present. No purulent or malodorous drainage noted today. There is a large amount of dry, flaking skin around the ulcer. Wound Measurements and Assessment WC - Nurse 1 - General Ulcer Measurement Start: 03/28/20 10:23 Freq: Status: Active Protocol: Activity Type Activity Date Activity User E-Sign Co-Sign Detail Recorded Client Recorded Date Recorded By Document 03/28/20 10:23 [facility] [id number] 03/28/20 10:34 [facility] 03/28/20 10:23 Wound Center Nurse 1 [Ulcer Assessment] #2- RT LOWER SIMON POST OP -Combined with other wound No -Current Size (cm) - Length 2.9 -Current Size (cm) - Width 3.4 -Current Size (cm) - Depth 0.1 -Total Square Cm 9.86 -Photo Taken No -Epithelialization Small 1-33% -Tunneling No -Undermining/Tunneling No -Circular Undermining No -Exudate Amt Medium -Exudate Type Serosanguineous -Wound Margin Distinct, Outline Attached -Granulation Amt Medium (34-66%) -Granulation Quality Red -Slough/Fibrin Yes -Necrosis Amt Medium (34-66%) -Necrotic Tissue Type Adherent Slough -Texture (Sugar-wound Skin Appearance) Assessed, Excoriation, Scarring,Rash -Moisture (Sugar-wound Skin Appearance Assessed,Dry/ ) Scaly -Color (Sugar-wound Skin Appearance) Assessed -Temperature (Sugar-wound Skin No Abnormality Appearance) (Pt Warm) -Tenderness on Palpation (Sugar-wound No Skin Appearance) -Ulcer Cleansing SOAPY WATER -Foul Odor after Cleansing No -Anesthetic Used 4% Lidocaine Solution [Edema Assessment] -Lower Limb Edema Present Yes -Right Calf (cm) 53.4 -Right Ankle (cm) 24 - Nurse 3 - General Ulcer D/C NN Start: 03/28/20 10:23 Freq: Status: Active Protocol: Activity Type Activity Date Activity User E-Sign Co-Sign Detail Recorded Client Recorded Date Recorded By Document 03/28/20 11:03 [facility] [id number] 03/28/20 11:04 [facility] 03/28/20 11:03 Wound Care Nurse 3 [Wound Dressing] #2- RT LOWER SIMON POST OP -Ulcer Cleansing Rinsed/ Irrigated with Saline -Foul Odor after Cleansing No -Primary Dressing Applied Aquacel AG 4x4 -Primary Dressing Covered/Secured Dry Gauze & with Roll Gauze, Secured with Tape -Aquacel AG 4x4 1 [Compression Applied] Right -Compression Wrap Kg Wrap [Post Procedure Tolerated] -Treatment Response Procedure Tolerated Well Pain Scale: 0-10 Numeric [Pain] -Is Patient Pain Free? Yes - Visit Discharge [Visit Discharge Information] -Discharge Condition Stable -Ambulatory Status Ambulatory Musculoskeletal: Tenderness - Of right lower extremity on palpation and debridement Psych/Mental Status: Normal Affect, Appropriate Debridement Note Post-Debridement Measurements/Treatment - Nurse 3 - General Ulcer D/C NN Start: 03/28/20 10:23 Freq: Status: Active Protocol: Activity Type Activity Date Activity User E-Sign Co-Sign Detail Recorded Client Recorded Date Recorded By Document 03/28/20 11:03 [facility] [id number] 03/28/20 11:04 [facility] 03/28/20 11:03 Wound Care Nurse 3 #2- RT LOWER SIMON POST OP -Ulcer Cleansing Rinsed/ Irrigated with Saline -Foul Odor after Cleansing No -Primary Dressing Applied Aquacel AG 4x4 -Primary Dressing Covered/Secured with Dry Gauze & Roll Gauze, Secured with Tape -Aquacel AG 4x4 1 Right -Compression Wrap Kg Wrap Treatment Response Procedure Tolerated Well Pain Scale: 0-10 Numeric Is Patient Pain Free? Yes WC - Visit Discharge Discharge Condition Stable Ambulatory Status Ambulatory Wound debrided: Right lower leg Laterality: Right Type of Debridement: Excisional debridement Anesthesia Used: 4% Lidocaine Solution Depth: in the subcutaneous layer Percentage of wound debrided: 100 Instrument Used: 7mm curette, Forceps, - - Scissors Tissue Removed: Slough and devitalized tissue Severity: Fat Layer Exposed Amount of bleeding with debridement: Moderate Bleeding Controlled with: Pressure Patient tolerated procedure well Assessment/Plan Assessment: 1. Nonhealing MRSA ulcer right anteromedial leg. 2. Chronic venous insufficiency with ulceration. 3. MRSA. 4. Lower extremity edema. 5. Right lower extremity DVT. Plan: Ulcer debrided in clinic today. Aquacel Ag applied, and compression applied with Kg wrap. Patient instructed to apply new Aquacel Ag dressing changes daily followed by Kg wrap for compression. Patient was approved for advanced skin subs, but approval has . There were previously concerns for noncompliance with the use of advanced skin subs. However, patient is now agreeable to attending weekly appointments. Given the duration of the wound and failure of the wound to respond to standard wound care, we re-applied for advanced skin substitutes (epifix); this was denied; we will work on appealing this decision for denial. Keep right leg elevated when sitting. Avoid prolonged standing or dangling of the legs. Culture was collected on 01/28/2020 and was positive for 1+ MRSA and rare Corynebacterium and anaerobic cocci. She was started on Levaquin 500 mg p.o. daily x21 days and Augmentin 875/125 mg p.o. twice daily x21 days and completed these antibiotics. She notes that in the last week she was having malodorous and purulent drainage from her right lower extremity ulcer and she started taking leftover doxycycline which she had at home. Her right lower extremity ulcer was again cultured today (03/28/2020) to determine if further antibiotic treatment is warranted. Patient has a history of frequent MRSA infections. She is on Xarelto for a right leg DVT. Prealbumin from 06/19/19 was 8.6. Encourage nutritional supplementation with protein to help the healing process. Recommended that patient apply topical lotion to the surrounding skin of her right lower leg ulcer for large amount of dry, flaking skin, but not to the ulcer itself. She has been referred to pain management. Follow-up in 2 weeks for reevaluation. Follow-up sooner should symptoms worsen or new symptoms arise. Note: [employer] speech recognition story editor software was used to create portions of this document. Sound-alike and misspelled words, as well as other story editor errors may be contained in the documentation. [id number]: [id number] Anny subq tissue 20 sq cm/<
== END 2020-04-07 23:59 ==
LOC: WC 08:03
PROVIDERS: PCP Internal Medicine; Visit Provider Surgery
DX: L97.912 Non-pressure chronic ulcer of unspecified part of right lower leg with fat layer exposed (principal); I82.461 Acute embolism and thrombosis of right calf muscular vein; I87.2 Venous insufficiency (chronic) (peripheral); A49.02 Methicillin resistant Staphylococcus aureus infection, unspecified site; R60.0 Localized edema; I73.9 Peripheral vascular disease, unspecified; Z79.01 Long term (current) use of anticoagulants
CPT/HCPCS: 11042

== ENCOUNTER 2020-04-25 10:30 | Outpatient (RCR) | payer MEDICAID, SELFPAY ==
[2020-03-28 10:23] VITALS: BMI 42.2
[2020-04-08 00:23] VITALS: BP 145/64; PULSE 77; RESP 16; TEMP 36
[2020-04-11 10:25] VITALS: BP 115/77; PULSE 80; RESP 16; TEMP 36.4; BMI 42.2
--- NOTE | 2020-04-11 13:13 | PCM.WC.PN ---
(1) Ulcer of right lower extremity with fat layer exposed Status: Chronic Code(s): L97.912 - Non-pressure chronic ulcer of unspecified part of right lower leg with fat layer exposed (2) Chronic venous insufficiency of lower extremity Status: Chronic Code(s): I87.2 - Venous insufficiency (chronic) (peripheral) (3) DVT (deep venous thrombosis) Status: Chronic Qualifiers: DVT location: lower extremity Code(s): I82.409 - Acute embolism and thrombosis of unspecified deep veins of unspecified lower extremity (4) shelter (current) use of anticoagulants Status: Chronic Code(s): Z79.01 - shelter (current) use of anticoagulants (5) Lower extremity edema Status: Chronic Code(s): R60.0 - Localized edema (6) MRSA (methicillin resistant Staphylococcus aureus) infection Status: Chronic Code(s): A49.02 - Methicillin resistant Staphylococcus aureus infection, unspecified site (7) PVD (peripheral vascular disease) Status: Chronic Code(s): I73.9 - Peripheral vascular disease, unspecified Type of Wound Date of Service: 04/11/20 Chief Complaint: Nonhealing MRSA ulcer right anteromedial leg. History of Wound: Surgery 06/18/19 - Surgical preparation right anteromedial leg with incision and drainage nonhealing MRSA necrotizing infection abscess ulcers cluster (172.5 cm2). Wound care - Calcium alginate with silver. Patient has been noncompliant with use of Tubigrip for compression, stating she has difficulty pulling it up due to an arm injury. She has been using Kg wraps for compression. Operative culture - MRSA and Corynebacterium minutissimum. She was treated with Bactrim DS and Augmentin. She had additional wound culture on 08/06/19. It showed MRSA, Streptococcus group C, and Pseudomonas aeroginosa. She was treated with Levaquin, Doxycycline, and Augmentin and has finished them. In mid July (07/23/19) she developed right leg pain and swelling. An Ultrasound was done which showed acute deep vein thrombosis in the right gastrocnemius vein. The remainder of the right lower extremity deep venous system is patent and compressible. Valvular competence appears intact within the proximal deep venous system on the right. Acute superficial thrombophlebitis is noted in the right great saphenous vein from the right sapho-femoral junction to the distal thigh. She was placed on Xarelto, however she reports she is no longer taking this. She was instructed by Dr. Mock to follow-up with her primary care provider to discuss need for Xarelto, however patient has not done so. Her Prealbumin from 06/19/19 was 8.6. Encourage nutritional supplementation with protein to help the healing process. Wound cultures collected 01/28/2020 were positive for 1+ MRSA and rare Corynebacterium stratum, as well as anaerobic cocci. She was started on Levaquin 500 mg daily x21 days and Augmentin 875/125 mg p.o. twice daily x21 days and has completed these. Progress of Wound: Repeat cultures collected on 03/28/2020 due to the presence of purulent, malodorous drainage showed 1+ MRSA. The patient had started taking doxycycline 100mg PO BID that she had at home. Her wound drainage improved with the use of doxycycline. An Rx for Doxycycline 100mg PO BID x 14 days is given today. She was also given an Rx for promethazine 25mg PO Q6H PRN for nausea associated with antibiotic use. The patient denies any fever or chills. She denies nausea, vomiting, or diarrhea. She notes difficulty with changing her wound dressings daily and reports she has only been changing the dressings every few days. She has dry, scaly skin of her right lower extremity. She may benefit from an Unna boot. However, I would like to assess arterial and venous status prior to ordering. Patient has a history of DVT and reports she stopped taking her Xarelto; she did not follow-up with her PCP regarding Xarelto use and was instructed to do so. - Physical Exam Vital Signs Temp Pulse Resp BP 97.6 F L 80 16 115/77 04/11/20 10:25 04/11/20 10:25 04/11/20 10:25 04/11/20 10:25 General: Alert, Cooperative, No apparent distress HEENT: Atraumatic, Normocephalic Oral: Moist Mucosa Neck: Supple, Trachea Midline Lungs: Normal air movement Cardiovascular: Regular rate Abdomen: Obese Extremities: No clubbing, No cyanosis, Capillary Refill Less than 3 Seconds, Edema - of bilateral lower extremities, Peripheral Pulses Normal Skin: Ulcer/ Wound - Ulcer of right lower extremity with subcutaneous layer exposed. Moderate amount of slough and bioburden. There is scant purulent and malodorous drainage. The ulcer is tender but without warmth or periulcer rash. She has dry, scaling skin of periulcer area. Wound Measurements and Assessment WC - Nurse 1 - General Ulcer Measurement Start: 04/11/20 10:25 Freq: Status: Active Protocol: Activity Type Activity Date Activity User E-Sign Co-Sign Detail Recorded Client Recorded Date Recorded By Document 04/11/20 10:25 BMF [id number] 04/11/20 10:31 BMF 04/11/20 10:25 Wound Center Nurse 1 [Ulcer Assessment] #2- RT LOWER SIMON POST OP -Combined with other wound No -Current Size (cm) - Length 4.1 -Current Size (cm) - Width 5.2 -Current Size (cm) - Depth 0.1 -Total Square Cm 21.32 -Photo Taken No -Epithelialization None Present -Tunneling No -Undermining/Tunneling No -Circular Undermining No -Exudate Amt Medium -Exudate Type Serosanguineous -Wound Margin Distinct, Outline Attached -Granulation Amt Medium (34-66%) -Granulation Quality Red -Slough/Fibrin Yes -Necrosis Amt Medium (34-66%) -Necrotic Tissue Type Adherent Slough -Texture (Sugar-wound Skin Appearance) Assessed, Scarring -Moisture (Sugar-wound Skin Appearance Assessed,Dry/ ) Scaly -Color (Sugar-wound Skin Appearance) Assessed -Temperature (Sugar-wound Skin No Abnormality Appearance) (Pt Warm) -Tenderness on Palpation (Sugar-wound No Skin Appearance) -Ulcer Cleansing soapy water -Foul Odor after Cleansing No -Anesthetic Used 4% Lidocaine Solution [Edema Assessment] -Lower Limb Edema Present Yes -Right Calf (cm) 53.4 -Right Ankle (cm) 23.5 WC - Nurse 2 - General Ulcer CM Notes Start: 04/11/20 10:25 Freq: Status: Active Protocol: Activity Type Activity Date Activity User E-Sign Co-Sign Detail Recorded Client Recorded Date Recorded By Document 04/11/20 13:05 PL [id number] 04/11/20 13:07 PL 04/11/20 13:05 Wound Center Nurse 2 [Procedure/Treatment] #2- RT LOWER SIMON POST OP -Time 10:43 -Correct Patient Yes -Correct Side, Site, Position Yes -Correct Procedure Yes -Procedure Performed Yes -Type of Procedure Debridement -Clinical Debridement Subcutaneous -Tissue Removed Subcutaneous -Post Debridement (cm) - Length 5 -Post Debridement (cm) - Width 5 -Post Debridement (cm) - Depth 0.1 -Total Square (Post) (cm) 25 -Area of Debridement (cm) - Length 5 -Area of Debridement (cm) - Width 5 -Total Square (Area) (cm) 25 -Tunneling No -Undermining/Tunneling No -Circular Undermining No -Wound/Ulcer Outcome Not Healed -Ulcer Cleansing Rinsed/ Irrigated with Saline -Foul Odor after Cleansing No -Bioengineered Tissue No -Debridement - Subq, 1st 20sq cm Yes -Debridement, SubQ, ea addt'l 20sq cm 1 or part thereof [See Physician Procedure note for Specifics] Pain Scale: 0-10 Numeric [Pain] -Is Patient Pain Free? Yes - Nurse 3 - General Ulcer D/C NN Start: 04/11/20 10:25 Freq: Status: Active Protocol: Activity Type Activity Date Activity User E-Sign Co-Sign Detail Recorded Client Recorded Date Recorded By Document 04/11/20 11:05 TIM [id number] 04/11/20 11:07 TIM 04/11/20 11:05 Wound Care Nurse 3 [Wound Dressing] #2- RT LOWER SIMON POST OP -Ulcer Cleansing Rinsed/ Irrigated with Saline -Foul Odor after Cleansing No -Primary Dressing Applied Aquacel AG 4x4 -Primary Dressing Covered/Secured Dry Gauze & with Roll Gauze -Aquacel AG 4x4 1 [Compression Applied] Right -Compression Wrap Kg Wrap Pain Scale: 0-10 Numeric [Pain] -Is Patient Pain Free? Yes - Visit Discharge [Visit Discharge Information] -Discharge Condition Stable -Ambulatory Status Ambulatory -Transportation Private Auto -Medication Reconcilliation completed Yes & provided to patient/care provider -Clinical Summary of Care Provided Yes Musculoskeletal: Tenderness - on palpation/debridement of RLE ulcer Psych/Mental Status: Normal Affect, Appropriate Debridement Note Post-Debridement Measurements/Treatment WC - Nurse 2 - General Ulcer CM Notes Start: 04/11/20 10:25 Freq: Status: Active Protocol: Activity Type Activity Date Activity User E-Sign Co-Sign Detail Recorded Client Recorded Date Recorded By Document 04/11/20 13:05 ERI [id number] 04/11/20 13:07 PL 04/11/20 13:05 Wound Center Nurse 2 #2- RT LOWER SIMON POST OP -Time 10:43 -Correct Patient Yes -Correct Side, Site, Position Yes -Correct Procedure Yes -Procedure Performed Yes -Type of Procedure Debridement -Clinical Debridement Subcutaneous -Tissue Removed Subcutaneous -Post Debridement (cm) - Length 5 -Post Debridement (cm) - Width 5 -Post Debridement (cm) - Depth 0.1 -Total Square (Post) (cm) 25 -Area of Debridement (cm) - Length 5 -Area of Debridement (cm) - Width 5 -Total Square (Area) (cm) 25 -Tunneling No -Undermining/Tunneling No -Circular Undermining No -Wound/Ulcer Outcome Not Healed -Ulcer Cleansing Rinsed/ Irrigated with Saline -Foul Odor after Cleansing No -Bioengineered Tissue No -Debridement - Subq, 1st 20sq cm Yes -Debridement, SubQ, ea addt'l 20sq cm 1 or part thereof Pain Scale: 0-10 Numeric Is Patient Pain Free? Yes - Nurse 3 - General Ulcer D/C NN Start: 04/11/20 10:25 Freq: Status: Active Protocol: Activity Type Activity Date Activity User E-Sign Co-Sign Detail Recorded Client Recorded Date Recorded By Document 04/11/20 11:05 TIM [id number] 04/11/20 11:07 TIM 04/11/20 11:05 Wound Care Nurse 3 #2- RT LOWER SIMON POST OP -Ulcer Cleansing Rinsed/ Irrigated with Saline -Foul Odor after Cleansing No -Primary Dressing Applied Aquacel AG 4x4 -Primary Dressing Covered/Secured with Dry Gauze & Roll Gauze -Aquacel AG 4x4 1 Right -Compression Wrap Kg Wrap Pain Scale: 0-10 Numeric Is Patient Pain Free? Yes WC - Visit Discharge Discharge Condition Stable Ambulatory Status Ambulatory Transportation Private Auto Medication Reconcilliation completed & Yes provided to patient/care provider Clinical Summary of Care Provided Yes Wound debrided: RLE anterior ulcer Laterality: Right Type of Debridement: Excisional debridement Anesthesia Used: 4% Lidocaine Solution Depth: in the subcutaneous layer Percentage of wound debrided: 100 Instrument Used: 7mm curette Tissue Removed: Slough and devitalized tissue Severity: Fat Layer Exposed Amount of bleeding with debridement: Moderate Bleeding Controlled with: Pressure Patient tolerated procedure well Assessment/Plan Assessment: 1. Nonhealing MRSA ulcer right anteromedial leg. 2. Chronic venous insufficiency with ulceration. 3. MRSA. 4. Lower extremity edema. 5. Right lower extremity DVT. Plan: Ulcer debrided in clinic today. Aquacel Ag applied, and compression applied with Kg wrap. Patient was previously approved for advanced skin subs, but approval had . There were previously concerns for noncompliance with the use of advanced skin subs. However, patient is now agreeable to attending weekly appointments. Given the duration of the wound and failure of the wound to respond to standard wound care, we re-applied for advanced skin substitutes (epifix); this was denied. We will apply for Puraply, Nushield and Apligraf. At-home instructions: Patient instructed to apply new Aquacel Ag dressing daily after cleansing the wound with antibacterial soap and water and drying thoroughly. Compression: Apply Kg wraps daily for compression. These may be removed when in bed. Offloading: Keep legs elevated when sitting. Avoid prolonged standing or dangling of the legs. Labs/cultures/imaging: Culture was collected on 01/28/2020 and was positive for 1+ MRSA and rare Corynebacterium and anaerobic cocci. She was started on Levaquin 500 mg p.o. daily x21 days and Augmentin 875/125 mg p.o. twice daily x21 days and completed these antibiotics. Her right lower extremity ulcer was again cultured 03/28/2020 and was positive for 1+ MRSA. Patient has a history of frequent MRSA infections. She starting taking leftover doxycycline 100mg BID that she had at home. Rx for doxycycline 100mg PO BID x 14 days and promethazine 25mg PO Q6H PRN for nausea (associated with antibiotic use) given. The patient had a right leg DVT earlier in 2019 and was started on Xarelto. She has since stopped taking this. She was told to discuss the need for Xarelto with her primary care provider, but she did not do so. She was instructed to contact her PCP today for guidance regarding Xarelto use. Prealbumin from 06/19/19 was 8.6. Encourage nutritional supplementation with protein to help the healing process. The patient had been instructed to apply topical lotion to the surrounding skin of her right lower leg ulcer for large amount of dry, flaking skin, but this has not resulted in improvement of her dry, scaling skin. I feel she would benefit from the use of an Unna boot. We will assess venous and arterial status prior to ordering an Unna boot. Follow-up in 2 weeks for reevaluation. Follow-up sooner should symptoms worsen or new symptoms arise. Note: [employer] speech recognition motion study engineer software was used to create portions of this document. Sound-alike and misspelled words, as well as other motion study engineer errors may be contained in the documentation. [id number]: [id number] Anny subq tissue 20 sq cm/<
--- NOTE | 2020-04-11 13:14 | WC ---
prescription were called into [facility] in [place]. Doxycycline 100mg PO BID X 14days 0 refills and Promethazine 25mg tab 1 tab PO Q6H PRN for Nausea Disp 28 0 refills
[2020-04-25 10:37] VITALS: BP 142/85; PULSE 79; TEMP 35.9; BMI 42.2
--- NOTE | 2020-04-25 14:09 | PN.PCM_ITS ---
(1) Ulcer of right lower extremity with fat layer exposed Status: Chronic Code(s): L97.912 - Non-pressure chronic ulcer of unspecified part of right lower leg with fat layer exposed (2) Chronic venous insufficiency of lower extremity Status: Chronic Code(s): I87.2 - Venous insufficiency (chronic) (peripheral) (3) DVT (deep venous thrombosis) Status: Chronic Qualifiers: DVT location: lower extremity Code(s): I82.409 - Acute embolism and thrombosis of unspecified deep veins of unspecified lower extremity (4) half-way (current) use of anticoagulants Status: Chronic Code(s): Z79.01 - half-way (current) use of anticoagulants (5) Lower extremity edema Status: Chronic Code(s): R60.0 - Localized edema (6) MRSA (methicillin resistant Staphylococcus aureus) infection Status: Chronic Code(s): A49.02 - Methicillin resistant Staphylococcus aureus infection, unspecified site (7) PVD (peripheral vascular disease) Status: Chronic Code(s): I73.9 - Peripheral vascular disease, unspecified Type of Wound Date of Service: 04/25/20 Chief Complaint: Nonhealing MRSA ulcer right anteromedial leg. History of Wound: Surgery 06/18/19 - Surgical preparation right anteromedial leg with incision and drainage nonhealing MRSA necrotizing infection abscess ulcers cluster (172.5 cm2). Wound care - Calcium alginate with silver. Patient has been noncompliant with use of Tubigrip for compression, stating she has difficulty pulling it up due to an arm injury. She has been using Kg wraps for compression. Operative culture - MRSA and Corynebacterium minutissimum. She was treated with Bactrim DS and Augmentin. She had additional wound culture on 08/06/19. It showed MRSA, Streptococcus group C, and Pseudomonas aeroginosa. She was treated with Levaquin, Doxycycline, and Augmentin and has finished them. In mid July (07/23/19) she developed right leg pain and swelling. An Ultrasound was done which showed acute deep vein thrombosis in the right gastrocnemius vein. The remainder of the right lower extremity deep venous system is patent and compressible. Valvular competence appears intact within the proximal deep venous system on the right. Acute superficial thrombophlebitis is noted in the right great saphenous vein from the right sapho-femoral junction to the distal thigh. She was placed on Xarelto, however she reports she is no longer taking this. She was instructed by Dr. Mock to follow-up with her primary care provider to discuss need for Xarelto, however patient has not done so. Her Prealbumin from 06/19/19 was 8.6. Encourage nutritional supplementation with protein to help the healing process. Wound cultures collected 01/28/2020 were positive for 1+ MRSA and rare Corynebacterium stratum, as well as anaerobic cocci. She was started on Levaquin 500 mg daily x21 days and Augmentin 875/125 mg p.o. twice daily x21 days and has completed these. Progress of Wound: The patient has completed her course of doxycycline. The patient denies any fever or chills. She denies nausea, vomiting, or diarrhea. Her wound has improved in size and appearance. She has dry, scaly skin of her right lower extremity. She may benefit from an Unna boot. Arterial and venous studies have not yet been completed; staff will assist in scheduling these today. Patient has a history of DVT and reports she stopped taking her Xarelto; she did not follow-up with her PCP regarding Xarelto use and was instructed to do so. - Physical Exam Vital Signs Temp Pulse Resp BP 96.6 F L 79 16 142/85 H 04/25/20 10:37 04/25/20 10:37 04/11/20 10:25 04/25/20 10:37 General: Alert, Cooperative, No apparent distress HEENT: Atraumatic, Normocephalic Oral: Moist Mucosa Neck: Supple, Trachea Midline Lungs: Normal air movement Abdomen: Obese Extremities: No clubbing, No cyanosis, Capillary Refill Less than 3 Seconds, Edema, Peripheral Pulses Normal Skin: Ulcer/ Wound - Ulcer of right lower extremity with subcutaneous layer exposed. Moderate amount of slough and bioburden. No purulent/malodorous drainage. Ulcer is tender without warmth or periulcer rash. She has dry, scaling skin of periulcer area. Wound Measurements and Assessment WC - Nurse 1 - General Ulcer Measurement Start: 04/11/20 10:25 Freq: Status: Active Protocol: Activity Type Activity Date Activity User E-Sign Co-Sign Detail Recorded Client Recorded Date Recorded By Document 04/25/20 10:37 [id number] 04/25/20 10:47 KR 04/25/20 10:37 Wound Center Nurse 1 [Ulcer Assessment] #2- RT LOWER SIMON POST OP -Current Size (cm) - Length 3.5 -Current Size (cm) - Width 4.5 -Current Size (cm) - Depth 0.1 -Total Square Cm 15.75 -Exudate Amt Medium -Exudate Type Serosanguineous -Wound Margin Distinct, Outline Attached -Granulation Amt Medium (34-66%) -Granulation Quality Red -Necrosis Amt Medium (34-66%) -Necrotic Tissue Type Adherent Slough -Texture (Sugar-wound Skin Appearance) Assessed, Scarring -Moisture (Sugar-wound Skin Appearance No Abnormality, ) Assessed -Color (Sugar-wound Skin Appearance) No Abnormality, Assessed -Temperature (Sugar-wound Skin No Abnormality Appearance) (Pt Warm) -Tenderness on Palpation (Sugar-wound No Skin Appearance) -Ulcer Cleansing Rinsed/ Irrigated with Saline -Foul Odor after Cleansing No -Anesthetic Used 4% Lidocaine Solution,5% Lidocaine Gel WC - Nurse 2 - General Ulcer CM Notes Start: 04/11/20 10:25 Freq: Status: Active Protocol: Activity Type Activity Date Activity User E-Sign Co-Sign Detail Recorded Client Recorded Date Recorded By Document 04/25/20 13:37 [email or web address] [id number] 04/25/20 13:39 PL 04/25/20 13:37 Wound Center Nurse 2 [Procedure/Treatment] -Time 10:56 -Correct Patient Yes -Correct Side, Site, Position Yes -Correct Procedure Yes -Procedure Performed Yes -Type of Procedure Debridement -Clinical Debridement Subcutaneous -Tissue Removed Subcutaneous -Post Debridement (cm) - Length 4.5 -Post Debridement (cm) - Width 5 -Post Debridement (cm) - Depth 0.1 -Total Square (Post) (cm) 22.5 -Area of Debridement (cm) - Length 4.5 -Area of Debridement (cm) - Width 5.0 -Total Square (Area) (cm) 22.50 -Tunneling No -Undermining/Tunneling No -Circular Undermining No -Wound/Ulcer Outcome Not Healed -Ulcer Cleansing Rinsed/ Irrigated with Saline -Foul Odor after Cleansing No -Bioengineered Tissue No -Debridement - Subq, 1st 20sq cm Yes -Debridement, SubQ, ea addt'l 20sq cm 1 or part thereof [See Physician Procedure note for Specifics] Pain Scale: 0-10 Numeric [Pain] -Is Patient Pain Free? Yes - Nurse 3 - General Ulcer D/C NN Start: 04/11/20 10:25 Freq: Status: Active Protocol: Activity Type Activity Date Activity User E-Sign Co-Sign Detail Recorded Client Recorded Date Recorded By Document 04/25/20 11:37 [id number] 04/25/20 11:38 04/25/20 11:37 Wound Care Nurse 3 [Wound Dressing] #2- RT LOWER SIMON POST OP -Ulcer Cleansing Rinsed/ Irrigated with Saline -Foul Odor after Cleansing No -Primary Dressing Applied Aquacel AG 4x4 -Primary Dressing Covered/Secured Dry Gauze & with Roll Gauze -Aquacel AG 4x4 1 Pain Scale: 0-10 Numeric [Pain] -Is Patient Pain Free? Yes - Visit Discharge [Visit Discharge Information] -Discharge Condition Stable -Ambulatory Status Ambulatory -Transportation Private Auto Musculoskeletal: Tenderness - Palpation/debridement of right lower leg. Psych/Mental Status: Normal Affect, Appropriate Debridement Note Post-Debridement Measurements/Treatment WC - Nurse 2 - General Ulcer CM Notes Start: 04/11/20 10:25 Freq: Status: Active Protocol: Activity Type Activity Date Activity User E-Sign Co-Sign Detail Recorded Client Recorded Date Recorded By Document 04/11/20 13:05 [id number] 04/11/20 13:07 Document 04/25/20 13:37 [id number] 04/25/20 13:39 PL 04/11/20 04/25/20 13:05 13:37 Wound Center Nurse 2 #2- RT LOWER SIMON POST OP -Time 10:43 10:56 -Correct Patient Yes Yes -Correct Side, Site, Position Yes Yes -Correct Procedure Yes Yes -Procedure Performed Yes Yes -Type of Procedure Debridement Debridement -Clinical Debridement Subcutaneous Subcutaneous -Tissue Removed Subcutaneous Subcutaneous -Post Debridement (cm) - Length 5 4.5 -Post Debridement (cm) - Width 5 5 -Post Debridement (cm) - Depth 0.1 0.1 -Total Square (Post) (cm) 25 22.5 -Area of Debridement (cm) - Length 5 4.5 -Area of Debridement (cm) - Width 5 5.0 -Total Square (Area) (cm) 25 22.50 -Tunneling No No -Undermining/Tunneling No No -Circular Undermining No No -Wound/Ulcer Outcome Not Healed Not Healed -Ulcer Cleansing Rinsed/ Rinsed/ Irrigated with Irrigated with Saline Saline -Foul Odor after Cleansing No No -Bioengineered Tissue No No -Debridement - Subq, 1st 20sq cm Yes Yes -Debridement, SubQ, ea addt'l 20sq cm 1 1 or part thereof Pain Scale: 0-10 Numeric Is Patient Pain Free? Yes Yes - Nurse 3 - General Ulcer D/C NN Start: 04/11/20 10:25 Freq: Status: Active Protocol: Activity Type Activity Date Activity User E-Sign Co-Sign Detail Recorded Client Recorded Date Recorded By Document 04/11/20 11:05 TIM [id number] 04/11/20 11:07 Document 04/25/20 11:37 [email or web address] [id number] 04/25/20 11:38 SAMUEL 04/11/20 04/25/20 11:05 11:37 Wound Care Nurse 3 #2- RT LOWER SIMON POST OP -Ulcer Cleansing Rinsed/ Rinsed/ Irrigated with Irrigated with Saline Saline -Foul Odor after Cleansing No No -Primary Dressing Applied Aquacel AG 4x4 Aquacel AG 4x4 -Primary Dressing Covered/Secured with Dry Gauze & Dry Gauze & Roll Gauze Roll Gauze -Aquacel AG 4x4 1 1 Right -Compression Wrap Kg Wrap Pain Scale: 0-10 Numeric Is Patient Pain Free? Yes Yes - Visit Discharge Discharge Condition Stable Stable Ambulatory Status Ambulatory Ambulatory Transportation Private Auto Private Auto Medication Reconcilliation completed & Yes provided to patient/care provider Clinical Summary of Care Provided Yes Wound debrided: RLE anterior ulcer Laterality: Right Type of Debridement: Excisional debridement Anesthesia Used: 5% Lidocaine Gel Depth: in the subcutaneous layer Percentage of wound debrided: 100 Instrument Used: 7mm curette Tissue Removed: Slough and devitalized tissue Severity: Fat Layer Exposed Amount of bleeding with debridement: Mild Bleeding Controlled with: Pressure Patient tolerated procedure well Assessment/Plan Active Problems (Last Updated 06/11/19 @ 09:[address] 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 Nonhealing MRSA ulcer right anteromedial leg. 2. Chronic veno us insufficiency with ulceration. 3. MRSA. 4. Lower extremity edema. 5. Right lower extremity DVT. Plan: Ulcer debrided in clinic today. Aquacel Ag applied, and compression applied with Kg wrap. Patient was previously approved for advanced skin subs, but approval had . There were previously concerns for noncompliance with the use of advanced skin subs. However, patient is now agreeable to attending weekly appointments. Given the duration of the wound and failure of the wound to respond to standard wound care, we re-applied for advanced skin substitutes: Epifix was denied; Puraply, Nushield and Apligraf were approved. We will plan to initiate these following the holidays, due to difficulty with scheduling weekly follow-ups. At-home instructions: Patient instructed to apply new Aquacel Ag dressing daily after cleansing the wound with antibacterial soap and water and drying thoroughly. Compression: Apply Kg wraps daily for compression. These may be removed when in bed. Offloading: Keep legs elevated at or above waist level when sitting. Avoid prolonged standing or dangling of the legs. Labs/cultures/imaging: Culture was collected on 01/28/2020 and was positive for 1+ MRSA and rare Corynebacterium and anaerobic cocci. She was started on Levaquin 500 mg p.o. daily x21 days and Augmentin 875/125 mg p.o. twice daily x21 days and completed these antibiotics. Her right lower extremity ulcer was again cultured 03/28/2020 and was positive for 1+ MRSA. Patient has a history of frequent MRSA infections. She starting taking leftover doxycycline 100mg BID that she had at home. Rx for doxycycline 100mg PO BID x 14 days and promethazine 25mg PO Q6H PRN for nausea (associated with antibiotic use) given. All antibiotics have been completed at this time. The patient had a right leg DVT earlier in 2019 and was started on Xarelto. She has since stopped taking this. She was told to discuss the need for Xarelto with her primary care pr ovider, but she did not do so. Prealbumin from 06/19/19 was 8.6. Nutritional supplementation with protein was encouraged to help the healing process. The patient had been instructed to apply topical lotion to the surrounding skin of her right lower leg ulcer for large amount of dry, flaking skin, but this has not resulted in improvement of her dry, scaling skin. I feel she would benefit from the use of an Unna boot. We will assess venous and arterial status prior to ordering an Unna boot. Staff will assist in getting the scheduled today. Follow-up in 2 weeks for reevaluation. Follow-up sooner should symptoms worsen or new symptoms arise. Note: [employer] speech recognition seo coordinator software was used to create portions of this document. Sound-alike and misspelled words, as well as other seo coordinator errors may be contained in the documentation. [id number]: [id number] Anny subq tissue 20 sq cm/<
== END 2020-05-08 23:59 ==
LOC: WC 10:30
PROVIDERS: PCP Internal Medicine; Visit Provider Surgery
DX: L97.912 Non-pressure chronic ulcer of unspecified part of right lower leg with fat layer exposed (principal); I87.2 Venous insufficiency (chronic) (peripheral); I82.401 Acute embolism and thrombosis of unspecified deep veins of right lower extremity; R60.0 Localized edema; I73.9 Peripheral vascular disease, unspecified; Z86.718 Personal history of other venous thrombosis and embolism; Z79.01 Long term (current) use of anticoagulants; Z22.322 Carrier or suspected carrier of Methicillin resistant Staphylococcus aureus
CPT/HCPCS: 11042; 11045

== ENCOUNTER 2020-06-06 10:45 | Outpatient (RCR) | payer MEDICAID, SELFPAY ==
[2020-05-09 00:20] VITALS: BP 142/85; PULSE 79; RESP 16; TEMP 35.9
[2020-05-16 10:39] VITALS: BP 116/76; PULSE 95; RESP 20; TEMP 36.9; BMI 42.2
--- NOTE | 2020-05-16 12:42 | PCM.WC.PN ---
(1) Ulcer of right lower extremity with fat layer exposed Status: Chronic Code(s): L97.912 - Non-pressure chronic ulcer of unspecified part of right lower leg with fat layer exposed (2) Chronic venous insufficiency of lower extremity Status: Chronic Code(s): I87.2 - Venous insufficiency (chronic) (peripheral) (3) MRSA (methicillin resistant Staphylococcus aureus) colonization Status: Chronic Code(s): Z22.322 - Carrier or suspected carrier of Methicillin resistant Staphylococcus aureus (4) DVT (deep venous thrombosis) Status: Chronic Code(s): I82.409 - Acute embolism and thrombosis of unspecified deep veins of unspecified lower extremity (5) group home (current) use of anticoagulants Status: Chronic Code(s): Z79.01 - group home (current) use of anticoagulants (6) Lower extremity edema Status: Chronic Code(s): R60.0 - Localized edema Type of Wound Date of Service: 05/16/20 Chief Complaint: Nonhealing MRSA ulcer right anteromedial leg. History of Wound: Surgery 06/18/19 - Surgical preparation right anteromedial leg with incision and drainage nonhealing MRSA necrotizing infection abscess ulcers cluster (172.5 cm2). Wound care - Calcium alginate with silver. Patient has been noncompliant with use of Tubigrip for compression, stating she has difficulty pulling it up due to an arm injury. She has been using Kg wraps for compression. Operative culture - MRSA and Corynebacterium minutissimum. She was treated with Bactrim DS and Augmentin. She had additional wound culture on 08/06/19. It showed MRSA, Streptococcus group C, and Pseudomonas aeroginosa. She was treated with Levaquin, Doxycycline, and Augmentin and has finished them. In mid July (07/23/19) she developed right leg pain and swelling. An Ultrasound was done which showed acute deep vein thrombosis in the right gastrocnemius vein. The remainder of the right lower extremity deep venous system is patent and compressible. Valvular competence appears intact within the proximal deep venous system on the right. Acute superficial thrombophlebitis is noted in the right great saphenous vein from the right sapho-femoral junction to the distal thigh. She was placed on Xarelto, however she reports she is no longer taking this. She was instructed by Dr. Mock to follow-up with her primary care provider to discuss need for Xarelto, however patient has not done so. Her Prealbumin from 06/19/19 was 8.6. Encourage nutritional supplementation with protein to help the healing process. Wound cultures collected 01/28/2020 were positive for 1+ MRSA and rare Corynebacterium stratum, as well as anaerobic cocci. She was started on Levaquin 500 mg daily x21 days and Augmentin 875/125 mg p.o. twice daily x21 days and has completed these. Progress of Wound: The patient returns for evaluation of her right lower extremity ulcer. She states that after Carlene she developed foul-smelling drainage from her RLE ulcer, and started taking leftover doxycycline twice daily for 7 days, with improvement of malodor. She reports she has been noncompliant with cleansing her ulcer sites and changing her Aquacel Ag dressings daily. The patient denies any fever or chills. She denies nausea, vomiting, or diarrhea. She has copious amounts of dry, scaly skin of her right lower extremity. She may benefit from an Unna boot. Arterial and venous studies have not yet been completed. She states she will schedule them for next week. She has a history of DVT and was temporarily taking Xarelto for treatment. - Physical Exam Vital Signs Temp Pulse Resp BP 98.4 F 95 20 H 116/76 05/16/20 10:39 05/16/20 10:39 05/16/20 10:39 05/16/20 10:39 General: Alert, Cooperative, No apparent distress HEENT: Atraumatic, Normocephalic Neck: Supple, Trachea Midline Lungs: Normal air movement Abdomen: Obese Extremities: No clubbing, No cyanosis, Capillary Refill Less than 3 Seconds, No Calf Tenderness, Edema, Peripheral Pulses Normal Skin: Ulcer/ Wound - Ulcer of right lower extremity with subcutaneous layer exposed. Moderate amount of slough and bioburden present. There is purulent/malodorous drainage present today. No periulcer erythema or edema or warmth., - - Dry, scaling skin of periulcer area Wound Measurements and Assessment WC - Nurse 1 - General Ulcer Measurement Start: 05/16/20 10:39 Freq: Status: Active Protocol: Activity Type Activity Date Activity User E-Sign Co-Sign Detail Recorded Client Recorded Date Recorded By Document 05/16/20 10:39 DL [id number] 05/16/20 10:40 DL 05/16/20 10:39 Wound Center Nurse 1 [Ulcer Assessment] #2- RT LOWER SIMON POST OP -Current Size (cm) - Length 3.8 -Current Size (cm) - Width 5.2 -Current Size (cm) - Depth 0.1 -Total Square Cm 19.76 -Photo Taken No -Exudate Amt Medium -Exudate Type Serosanguineous -Wound Margin Thickened -Granulation Amt Small (1-33%) -Granulation Quality Lavelle -Necrosis Amt Large (67-100%) -Necrotic Tissue Type Adherent Slough -Texture (Sugar-wound Skin Appearance) Localized Edema ,Scarring -Moisture (Sugar-wound Skin Appearance Dry/Scaly ) -Color (Sugar-wound Skin Appearance) No Abnormality -Temperature (Sugar-wound Skin No Abnormality Appearance) (Pt Warm) -Tenderness on Palpation (Sugar-wound No Skin Appearance) -Ulcer Cleansing Wound Cleanser -Foul Odor after Cleansing No -Anesthetic Used 4% Lidocaine Solution WC - Nurse 2 - General Ulcer CM Notes Start: 05/16/20 10:39 Freq: Status: Active Protocol: Activity Type Activity Date Activity User E-Sign Co-Sign Detail Recorded Client Recorded Date Recorded By Document 05/16/20 11:37 PL [id number] 05/16/20 11:39 PL 05/16/20 11:37 Wound Center Nurse 2 [Procedure/Treatment] -Time 11:15 -Correct Patient Yes -Correct Side, Site, Position Yes -Correct Procedure Yes -Procedure Performed Yes -Type of Procedure Debridement -Clinical Debridement Subcutaneous -Tissue Removed Subcutaneous -Post Debridement (cm) - Length 3.8 -Post Debridement (cm) - Width 5.2 -Post Debridement (cm) - Depth 0.1 -Total Square (Post) (cm) 19.76 -Area of Debridement (cm) - Length 3.8 -Area of Debridement (cm) - Width 5.2 -Total Square (Area) (cm) 19.76 -Tunneling No -Undermining/Tunneling No -Circular Undermining No -Wound/Ulcer Outcome Not Healed -Ulcer Cleansing Rinsed/ Irrigated with Saline -Foul Odor after Cleansing No -Bioengineered Tissue Yes -Type of Bioengineered Tissue PuraPly AM -Expiration Date 07/09/22 -Product Lot Number [id number] -Percent Used 100 -Lot number of Saline Used [id number] -Bleeding Controlled with Pressure -Treatment Response Procedure Tolerated Well -Debridement - Subq, 1st 20sq cm No -Apply Skin Sub - 1st 25 sq cm - Legs 1 -PuraPly AM (per sq cm) 12 [See Physician Procedure note for Specifics] Pain Scale: 0-10 Numeric [Pain] -Is Patient Pain Free? Yes - Nurse 3 - General Ulcer D/C NN Start: 05/16/20 10:39 Freq: Status: Active Protocol: Activity Type Activity Date Activity User E-Sign Co-Sign Detail Recorded Client Recorded Date Recorded By Document 05/16/20 11:31 DL [id number] 05/16/20 11:33 DL 05/16/20 11:31 Wound Care Nurse 3 [Wound Dressing] #2- RT LOWER SIMON POST OP -Ulcer Cleansing Rinsed/ Irrigated with Saline -Foul Odor after Cleansing No -Other Dressing PuraPly/veil/ steri strips [Compression Applied] Right -Multi-Layered Wrap Application Unna Boot - Right ($) [Post Procedure Tolerated] -Treatment Response Procedure Tolerated Well Pain Scale: 0-10 Numeric [Pain] -Is Patient Pain Free? Yes - Visit Discharge [Visit Discharge Information] -Discharge Condition Stable -Ambulatory Status Ambulatory -Transportation Private Auto Psych/Mental Status: Normal Affect, Appropriate Debridement Note Post-Debridement Measurements/Treatment - Nurse 2 - General Ulcer CM Notes Start: 05/16/20 10:39 Freq: Status: Active Protocol: Activity Type Activity Date Activity User E-Sign Co-Sign Detail Recorded Client Recorded Date Recorded By Document 05/16/20 11:37 PL [id number] 05/16/20 11:39 PL 05/16/20 11:37 Wound Center Nurse 2 #2- RT LOWER SIMON POST OP -Time 11:15 -Correct Patient Yes -Correct Side, Site, Position Yes -Correct Procedure Yes -Procedure Performed Yes -Type of Procedure Debridement -Clinical Debridement Subcutaneous -Tissue Removed Subcutaneous -Post Debridement (cm) - Length 3.8 -Post Debridement (cm) - Width 5.2 -Post Debridement (cm) - Depth 0.1 -Total Square (Post) (cm) 19.76 -Area of Debridement (cm) - Length 3.8 -Area of Debridement (cm) - Width 5.2 -Total Square (Area) (cm) 19.76 -Tunneling No -Undermining/Tunneling No -Circular Undermining No -Wound/Ulcer Outcome Not Healed -Ulcer Cleansing Rinsed/ Irrigated with Saline -Foul Odor after Cleansing No -Bioengineered Tissue Yes -Type of Bioengineered Tissue PuraPly AM -Expiration Date 07/09/22 -Product Lot Number [id number] -Percent Used 100 -Lot number of Saline Used [id number] -Bleeding Controlled with Pressure -Treatment Response Procedure Tolerated Well -Debridement - Subq, 1st 20sq cm No -Apply Skin Sub - 1st 25 sq cm - Legs 1 -PuraPly AM (per sq cm) 12 Pain Scale: 0-10 Numeric Is Patient Pain Free? Yes - Nurse 3 - General Ulcer D/C NN Start: 05/16/20 10:39 Freq: Status: Active Protocol: Activity Type Activity Date Activity User E-Sign Co-Sign Detail Recorded Client Recorded Date Recorded By Document 05/16/20 11:31 DL [id number] 05/16/20 11:33 DL 05/16/20 11:31 Wound Care Nurse 3 #2- RT LOWER SIMON POST OP -Ulcer Cleansing Rinsed/ Irrigated with Saline -Foul Odor after Cleansing No -Other Dressing PuraPly/veil/ steri strips Right -Multi-Layered Wrap Application Unna Boot - Right ($) Treatment Response Procedure Tolerated Well Pain Scale: 0-10 Numeric Is Patient Pain Free? Yes - Visit Discharge Discharge Condition Stable Ambulatory Status Ambulatory Transportation Private Auto Wound debrided: RLE anterior ulcer Laterality: Right Type of Debridement: Excisional debridement Anesthesia Used: 4% Lidocaine Solution, Cetacaine Depth: in the subcutaneous layer Percentage of wound debrided: 100 Instrument Used: 7mm curette Tissue Removed: Slough and devitalized tissue Severity: Fat Layer Exposed Amount of bleeding with debridement: Moderate Bleeding Controlled with: Compression and gauze Patient tolerated procedure well Assessment/Plan Assessment: 1. Nonhealing MRSA ulcer right anteromedial leg. 2. Chronic venous insufficiency with ulceration. 3. MRSA. 4. Lower extremity edema. 5. Right lower extremity DVT. Plan: Ulcer debrided in clinic today. Ulcer again has purulent drainage and malodor. Doxycycline 100 mg twice daily x7 days will be initiated for empiric treatment. Cultures collected today. Given the duration of the wound and failure of the wound to respond to standard wound care, we re-applied for advanced skin substitutes: Epifix was denied; Puraply, Nushield and Apligraf were approved. Puraply #1 was applied to the right lower extremity ulcer. 100% of the product was used. An Unna boot was applied to the right lower extremity. The patient was advised to contact the wound healing center or report to the emergency room should she develop numbness or tingling or discoloration or pain in the toes or right lower extremity. At-home instructions: Patient instructed to keep the Unna boot clean and dry. Instructed on keeping Unna boot covered while showering. Offloading: Keep legs elevated at or above waist level when sitting. Avoid prolonged standing or dangling of the legs. Labs/cultures/imaging: Culture was collected on 01/28/2020 and was positive for 1+ MRSA and rare Corynebacterium and anaerobic cocci. She was started on Levaquin 500 mg p.o. daily x21 days and Augmentin 875/125 mg p.o. twice daily x21 days and completed these antibiotics. Her right lower extremity ulcer was again cultured 03/28/2020 and was positive for 1+ MRSA. Rx for doxycycline 100mg PO BID x 14 days and promethazine 25mg PO Q6H PRN for nausea (associated with antibiotic use) given. Repeat cultures collected today, and another 7-day course of doxycycline 100 mg twice daily was sent to the patient's pharmacy. The patient had a right leg DVT earlier in 2019 and was started on Xarelto. She has since stopped taking this. She was told to discuss the need for Xarelto with her primary care provider, but she did not do so. Prealbumin from 06/19/19 was 8.6. Nutritional supplementation with protein was encouraged to help the healing process. The patient has not yet completed her venous arterial studies. She states she will schedule this for next week. Follow-up in 1 week for reevaluation. Follow-up sooner or report to the emergency room should symptoms worsen or new symptoms arise. Note: [employer] speech recognition cartographic engineer software was used to create portions of this document. Sound-alike and misspelled words, as well as other cartographic engineer errors may be contained in the documentation. [id number]: [id number] Skin sub graft trnk/arm/leg
[2020-05-23 10:52] VITALS: BP 133/58; RESP 85; TEMP 36.1; BMI 42.2
--- NOTE | 2020-05-23 13:33 | PN.PCM_ITS ---
(1) Ulcer of right lower extremity with fat layer exposed Status: Chronic Code(s): L97.912 - Non-pressure chronic ulcer of unspecified part of right lower leg with fat layer exposed (2) Chronic venous insufficiency of lower extremity Status: Chronic Code(s): I87.2 - Venous insufficiency (chronic) (peripheral) (3) MRSA (methicillin resistant Staphylococcus aureus) colonization Status: Chronic Code(s): Z22.322 - Carrier or suspected carrier of Methicillin resistant Staphylococcus aureus (4) DVT (deep venous thrombosis) Status: Chronic Code(s): I82.409 - Acute embolism and thrombosis of unspecified deep veins of unspecified lower extremity (5) senior care (current) use of anticoagulants Status: Chronic Code(s): Z79.01 - senior care (current) use of anticoagulants (6) Lower extremity edema Status: Chronic Code(s): R60.0 - Localized edema Type of Wound Date of Service: 05/23/20 Chief Complaint: Nonhealing MRSA ulcer right anteromedial leg. History of Wound: Surgery 06/18/19 - Surgical preparation right anteromedial leg with incision and drainage nonhealing MRSA necrotizing infection abscess ulcers cluster (172.5 cm2). Wound care - Calcium alginate with silver. Patient has been noncompliant with use of Tubigrip for compression, stating she has difficulty pulling it up due to an arm injury. She has been using Kg wraps for compression. Operative culture - MRSA and Corynebacterium minutissimum. She was treated with Bactrim DS and Augmentin. She had additional wound culture on 08/06/19. It showed MRSA, Streptococcus group C, and Pseudomonas aeroginosa. She was treated with Levaquin, Doxycycline, and Augmentin and has finished them. In mid July (07/23/19) she developed right leg pain and swelling. An Ultrasound was done which showed acute deep vein thrombosis in the right gastrocnemius vein. The remainder of the right lower extremity deep venous system is patent and compressible. Valvular competence appears intact within the proximal deep venous system on the right. Acute superficial thrombophlebitis is noted in the right great saphenous vein from the right sapho-femoral junction to the distal thigh. She was placed on Xarelto, however she reports she is no longer taking this. She was instructed by Dr. Mock to follow-up with her primary care provider to discuss need for Xarelto, however patient has not done so. Her Prealbumin from 06/19/19 was 8.6. Encourage nutritional supplementation with protein to help the healing process. Wound cultures collected 01/28/2020 were positive for 1+ MRSA and rare Corynebacterium stratum, as well as anaerobic cocci. She was started on Levaquin 500 mg daily x21 days and Augmentin 875/125 mg p.o. twice daily x21 days and has completed these. Progress of Wound: The patient returns for evaluation of her right lower extremity ulcer. Last week she was started on puraply and an Unna boot was applied to her right lower extremity for compression. She tolerated these well, and was able to keep these dressings clean and dry. Her wound cultures collected on 05/16/2020 were positive again for 2+ MRSA and anaerobic cocci. She had been empirically started on doxycycline 100 mg twice daily x7 days. This was extended for an additional 7 days, and Augmentin 875/125 mg p.o. twice daily x14 days was prescribed. She is taking these antibiotics and tolerating them well. The patient denies any fever or chills. She denies nausea, vomiting, or diarrhea. Arterial and venous studies have not yet been completed. She has a history of DVT and was temporarily taking Xarelto for treatment. - Physical Exam Vital Signs Temp Pulse Resp BP 97.0 F L 95 85 H 133/58 H 05/23/20 10:52 05/16/20 10:39 05/23/20 10:52 05/23/20 10:52 General: Alert, Cooperative, No apparent distress HEENT: Atraumatic, Normocephalic Oral: Moist Mucosa Neck: Supple, Trachea Midline Lungs: Normal air movement Cardiovascular: Regular rate Abdomen: Obese Extremities: No clubbing, No cyanosis, No edema, Capillary Refill Less than 3 Seconds, Peripheral Pulses Normal Skin: Ulcer/ Wound - RLE ulcer with subcutaneous layer exposed. Small amount of slough and devitalized tissue present. No purulent/malodor. Periulcer dry skin is significantly decreased in amount. No periulcer erythema, swelling. Wound Measurements and Assessment WC - Nurse 1 - General Ulcer Measurement Start: 05/16/20 10:39 Freq: Status: Active Protocol: Activity Type Activity Date Activity User E-Sign Co-Sign Detail Recorded Client Recorded Date Recorded By Document 05/23/20 10:52 SAMUEL [id number] 05/23/20 10:55 KR 05/23/20 10:52 Wound Center Nurse 1 [Ulcer Assessment] #2- RT LOWER SIMON POST OP -Current Size (cm) - Length 5 -Current Size (cm) - Width 6 -Current Size (cm) - Depth 0.2 -Total Square Cm 30 -Exudate Amt Medium -Exudate Type Serosanguineous -Wound Margin Distinct, Outline Attached -Granulation Amt Medium (34-66%) -Granulation Quality Red -Necrosis Amt Medium (34-66%) -Necrotic Tissue Type Adherent Slough -Texture (Sugar-wound Skin Appearance) Assessed, Scarring -Moisture (Sugar-wound Skin Appearance Assessed,Dry/ ) Scaly -Color (Sugar-wound Skin Appearance) No Abnormality, Assessed -Temperature (Sugar-wound Skin No Abnormality Appearance) (Pt Warm) -Tenderness on Palpation (Sugar-wound No Skin Appearance) -Ulcer Cleansing soap and water -Foul Odor after Cleansing No -Anesthetic Used 4% Lidocaine Solution [Edema Assessment] -Right Calf (cm) 52 -Right Ankle (cm) 26 WC - Nurse 2 - General Ulcer CM Notes Start: 05/16/20 10:39 Freq: Status: Active Protocol: Activity Type Activity Date Activity User E-Sign Co-Sign Detail Recorded Client Recorded Date Recorded By Document 05/23/20 11:41 TIM [id number] 05/23/20 11:52 TIM 05/23/20 11:41 Wound Center Nurse 2 [Procedure/Treatment] #2- RT LOWER SIMON POST OP -Time 11:46 -Correct Patient Yes -Correct Side, Site, Position Yes -Correct Procedure Yes -Procedure Performed Yes -Type of Procedure Debridement -Clinical Debridement Subcutaneous -Tissue Removed Subcutaneous -Post Debridement (cm) - Length 3.6 -Post Debridement (cm) - Width 6 -Post Debridement (cm) - Depth 0.1 -Total Square (Post) (cm) 21.6 -Area of Debridement (cm) - Length 3.6 -Area of Debridement (cm) - Width 6 -Total Square (Area) (cm) 21.6 -Tunneling No -Undermining/Tunneling No -Circular Undermining No -Wound/Ulcer Outcome Not Healed -Ulcer Cleansing Rinsed/ Irrigated with Saline -Foul Odor after Cleansing No -Bioengineered Tissue Yes -Type of Bioengineered Tissue PuraPly AM -Expiration Date 08/25/22 -Product Lot Number [id number] -Percent Used 100 -Lot number of Saline Used [id number] -Bleeding Controlled with Pressure -Offloading No -Treatment Response Procedure Tolerated Well -Debridement - Subq, 1st 20sq cm No -Apply Skin Sub - 1st 25 sq cm - Legs 1 -PuraPly AM (per sq cm) 12 [See Physician Procedure note for Specifics] Pain Scale: 0-10 Numeric [Pain] -Is Patient Pain Free? Yes WC - Nurse 3 - General Ulcer D/C NN Start: 05/16/20 10:39 Freq: Status: Active Protocol: Activity Type Activity Date Activity User E-Sign Co-Sign Detail Recorded Client Recorded Date Recorded By Document 05/23/20 12:07 SAMUEL [id number] 05/23/20 12:08 SAMUEL 05/23/20 12:07 Wound Care Nurse 3 [Wound Dressing] #2- RT LOWER SIMON POST OP -Ulcer Cleansing Rinsed/ Irrigated with Saline -Foul Odor after Cleansing No -Other Dressing ABD [Compression Applied] Right -Multi-Layered Wrap Application Unna Boot - Right ($) Psych/Mental Status: Normal Affect, Appropriate Debridement Note Post-Debridement Measurements/Treatment WC - Nurse 2 - General Ulcer CM Notes Start: 05/16/20 10:39 Freq: Status: Active Protocol: Activity Type Activity Date Activity User E-Sign Co-Sign Detail Recorded Client Recorded Date Recorded By Document 05/16/20 11:37 ERI [id number] 05/16/20 11:39 PL Document 05/23/20 11:41 [id number] 05/23/20 11:52 05/16/20 05/23/20 11:37 11:41 Wound Center Nurse 2 #2- RT LOWER SIMON POST OP -Time 11:15 11:46 -Correct Patient Yes Yes -Correct Side, Site, Position Yes Yes -Correct Procedure Yes Yes -Procedure Performed Yes Yes -Type of Procedure Debridement Debridement -Clinical Debridement Subcutaneous Subcutaneous -Tissue Removed Subcutaneous Subcutaneous -Post Debridement (cm) - Length 3.8 3.6 -Post Debridement (cm) - Width 5.2 6 -Post Debridement (cm) - Depth 0.1 0.1 -Total Square (Post) (cm) 19.76 21.6 -Area of Debridement (cm) - Length 3.8 3.6 -Area of Debridement (cm) - Width 5.2 6 -Total Square (Area) (cm) 19.76 21.6 -Tunneling No No -Undermining/Tunneling No No -Circular Undermining No No -Wound/Ulcer Outcome Not Healed Not Healed -Ulcer Cleansing Rinsed/ Rinsed/ Irrigated with Irrigated with Saline Saline -Foul Odor after Cleansing No No -Bioengineered Tissue Yes Yes -Type of Bioengineered Tissue PuraPly AM PuraPly AM -Expiration Date 07/09/22 08/25/22 -Product Lot Number [id number] -Percent Used 100 100 -Lot number of Saline Used [id number] -Bleeding Controlled with Pressure Pressure -Offloading No -Treatment Response Procedure Procedure Tolerated Well Tolerated Well -Debridement - Subq, 1st 20sq cm No No -Apply Skin Sub - 1st 25 sq cm - Legs 1 1 -PuraPly AM (per sq cm) 12 12 Pain Scale: 0-10 Numeric Is Patient Pain Free? Yes Yes - Nurse 3 - General Ulcer D/C NN Start: 05/16/20 10:39 Freq: Status: Active Protocol: Activity Type Activity Date Activity User E-Sign Co-Sign Detail Recorded Client Recorded Date Recorded By Document 05/16/20 11:31 DL [id number] 05/16/20 11:33 DL Document 05/23/20 12:07 KR [id number] 05/23/20 12:08 KR 05/16/20 05/23/20 11:31 12:07 Wound Care Nurse 3 #2- RT LOWER SIMON POST OP -Ulcer Cleansing Rinsed/ Rinsed/ Irrigated with Irrigated with Saline Saline -Foul Odor after Cleansing No No -Other Dressing PuraPly/veil/ ABD steri strips Right -Multi-Layered Wrap Application Unna Boot - Unna Boot - Right ($) Right ($) Treatment Response Procedure Tolerated Well Pain Scale: 0-10 Numeric Is Patient Pain Free? Yes - Visit Discharge Discharge Condition Stable Ambulatory Status Ambulatory Transportation Private Auto Wound debrided: RLE anterior ulcer Laterality: Right Type of Debridement: Excisional debridement Anesthesia Used: 4% Lidocaine Solution, Cetacaine Depth: in the subcutaneous layer Percentage of wound debrided: 100 Instrument Used: 7mm curette Tissue Removed: Slough and devitalized tissue Severity: Fat Layer Exposed Amount of bleeding with debridement: Moderate Bleeding Controlled with: Compression and gauze Patient tolerated procedure well Assessment/Plan Active Problems (Last Updated 06/11/19 @ 09:[address] Era Gates MD) MRSA (methicillin resistant Staphylococcus aureus) colonization (Chronic) manager intermediate (current) use of anticoagulants (Chronic) DVT (deep venous thrombosis) (Chronic) Ulcer of right lower extremity with fat layer exposed (Chronic) Chronic venous insufficiency of lower extremity (Chronic) Lower extremity edema (Chronic) Assessment: 1. Nonhealing MRSA ulcer right anteromedial leg. 2. Chronic venous insufficiency with ulceration. 3. MRSA. 4. Lower extremity edema. 5. Right lower extremity DVT. Plan: Ulcer debrided in clinic today. Given the duration of the wound and failure of the wound to respond to standard wound care, we re-applied for advanced skin substitutes: Epifix was denied; Puraply, Nushield and Apligraf were approved. Puraply #2 was applied to the right lower extremity ulcer. 100% of the product was used. An Unna boot was applied to the right lower extremity. The patient was advised to contact the wound healing center or report to the emergency room should she develop numbness or tingling or discoloration or pain in the toes or right lower extremity. At-home instructions: Patient instructed to keep the Unna boot clean and dry. Instructed on keeping Unna boot covered while showering. Offloading: Keep legs elevated at or above waist level when sitting. Avoid prolonged standing or dangling of the legs. Labs/cultures/imaging: Culture was collected on 01/28/2020 and was positive for 1+ MRSA and rare Corynebacterium and anaerobic cocci. She was started on Levaquin 500 mg p.o. daily x21 days and Augmentin 875/125 mg p.o. twice daily x21 days and completed these antibiotics. Her right lower extremity ulcer was again cultured 03/28/2020 and was positive for 1+ MRSA. Rx for doxycycline 100mg PO BID x 14 days and promethazine 25mg PO Q6H PRN for nausea (associated with antibiotic use) given. Cultures from 05/16/2020 were positive for 2+ MRSA and anaerobic cocci. Her doxycycline was extended another 7 days for a total of doxycycline 100 mg twice daily x14 days. She was given a prescription for Augmentin 875/125 mg p.o. twice daily x14 days. Given her recurrent MRSA infections, we will consider keeping her on long-term treatment with doxycycline until wound healing is achieved. The patient had a right leg DVT earlier in 2019 and was started on Xarelto. She has since stopped taking this. She was told to discuss the need for Xarelto with her primary care provider, but she did not do so. Prealbumin from 06/19/19 was 8.6. Nutritional supplementation with protein was encouraged to help the healing process. The patient has not yet completed her venous and arterial studies. Follow-up in 1 week for reevaluation. We will plan to initiate Apligraf at next week's visit. Follow- up sooner or report to the emergency room should symptoms worsen or new symptoms arise. Note: [employer] speech recognition senior product integrity engineer software was used to c reate portions of this document. Sound-alike and misspelled words, as well as other senior product integrity engineer errors may be contained in the documentation. [id number]: [id number] Skin sub graft trnk/arm/leg
[2020-05-30 11:08] VITALS: BP 144/52; PULSE 85; RESP 20; TEMP 36.6; BMI 42.2
--- NOTE | 2020-05-30 11:38 | PCM.WC.PN ---
(1) Ulcer of right lower extremity with fat layer exposed Status: Chronic Code(s): L97.912 - Non-pressure chronic ulcer of unspecified part of right lower leg with fat layer exposed (2) Chronic venous insufficiency of lower extremity Status: Chronic Code(s): I87.2 - Venous insufficiency (chronic) (peripheral) (3) MRSA (methicillin resistant Staphylococcus aureus) colonization Status: Chronic Code(s): Z22.322 - Carrier or suspected carrier of Methicillin resistant Staphylococcus aureus (4) DVT (deep venous thrombosis) Status: Chronic Code(s): I82.409 - Acute embolism and thrombosis of unspecified deep veins of unspecified lower extremity (5) shelter (current) use of anticoagulants Status: Chronic Code(s): Z79.01 - shelter (current) use of anticoagulants (6) Lower extremity edema Status: Chronic Code(s): R60.0 - Localized edema Type of Wound Date of Service: 05/30/20 Chief Complaint: Nonhealing MRSA ulcer right anteromedial leg. History of Wound: Surgery 06/18/19 - Surgical preparation right anteromedial leg with incision and drainage nonhealing MRSA necrotizing infection abscess ulcers cluster (172.5 cm2). Wound care - Calcium alginate with silver. Patient has been noncompliant with use of Tubigrip for compression, stating she has difficulty pulling it up due to an arm injury. She has been using Kg wraps for compression. Operative culture - MRSA and Corynebacterium minutissimum. She was treated with Bactrim DS and Augmentin. She had additional wound culture on 08/06/19. It showed MRSA, Streptococcus group C, and Pseudomonas aeroginosa. She was treated with Levaquin, Doxycycline, and Augmentin and has finished them. In mid July (07/23/19) she developed right leg pain and swelling. An Ultrasound was done which showed acute deep vein thrombosis in the right gastrocnemius vein. The remainder of the right lower extremity deep venous system is patent and compressible. Valvular competence appears intact within the proximal deep venous system on the right. Acute superficial thrombophlebitis is noted in the right great saphenous vein from the right sapho-femoral junction to the distal thigh. She was placed on Xarelto, however she reports she is no longer taking this. She was instructed by Dr. Mock to follow-up with her primary care provider to discuss need for Xarelto, however patient has not done so. Her Prealbumin from 06/19/19 was 8.6. Encourage nutritional supplementation with protein to help the healing process. Wound cultures collected 01/28/2020 were positive for 1+ MRSA and rare Corynebacterium stratum, as well as anaerobic cocci. She was started on Levaquin 500 mg daily x21 days and Augmentin 875/125 mg p.o. twice daily x21 days and has completed these. Progress of Wound: The patient returns for evaluation of her right lower extremity ulcer. She is been tolerating puraply and Unna boot well, and was able to keep these dressings clean and dry. Her wound has improved in size and appearance. Her wound cultures collected on 05/16/2020 were positive again for 2+ MRSA and anaerobic cocci. She had been empirically started on doxycycline 100 mg twice daily x7 days. This was extended for an additional 7 days, and Augmentin 875/125 mg p.o. twice daily x14 days was prescribed. She is taking these antibiotics and tolerating them well, though she admits to missing doses at times. The patient denies any fever or chills. She denies nausea, vomiting, or diarrhea. Her appetite has been poor due to recent stress. Arterial and venous studies have not yet been completed. She has a history of DVT and was temporarily taking Xarelto for treatment. - Physical Exam Vital Signs Temp Pulse Resp BP 97.8 F 85 20 H 144/52 H 05/30/20 11:08 05/30/20 11:08 05/30/20 11:08 05/30/20 11:08 General: Alert, Cooperative, No apparent distress HEENT: Atraumatic, Normocephalic Oral: Moist Mucosa Neck: Supple, Trachea Midline Lungs: Normal air movement Abdomen: Obese Extremities: No clubbing, No cyanosis, No edema, Capillary Refill Less than 3 Seconds, Peripheral Pulses Normal Skin: Ulcer/ Wound - RLE ulcer with subcutaneous layer exposed. Small amount of slough and devitalized tissue present. Granulation tissue is present. No purulent/malodorous drainage. No periulcer erythema, swelling, warmth. Wound Measurements and Assessment WC - Nurse 1 - General Ulcer Measurement Start: 05/16/20 10:39 Freq: Status: Active Protocol: Activity Type Activity Date Activity User E-Sign Co-Sign Detail Recorded Client Recorded Date Recorded By Document 05/30/20 11:08 DL [id number] 05/30/20 11:19 DL 05/30/20 11:08 Wound Center Nurse 1 [Ulcer Assessment] #2- RT LOWER SIMON POST OP -Current Size (cm) - Length 3.5 -Current Size (cm) - Width 5.1 -Current Size (cm) - Depth 0.2 -Total Square Cm 17.85 -Photo Taken No -Exudate Amt Medium -Exudate Type Serosanguineous -Wound Margin Distinct, Outline Attached -Granulation Amt Medium (34-66%) -Granulation Quality Pale,[place] -Necrosis Amt Medium (34-66%) -Necrotic Tissue Type Adherent Slough -Structure Exposed N/A -Texture (Sugar-wound Skin Appearance) Scarring -Moisture (Sugar-wound Skin Appearance Dry/Scaly ) -Color (Sugar-wound Skin Appearance) No Abnormality -Temperature (Sugar-wound Skin No Abnormality Appearance) (Pt Warm) -Tenderness on Palpation (Sugar-wound No Skin Appearance) -Ulcer Cleansing Wound Cleanser -Foul Odor after Cleansing No -Anesthetic Used 4% Lidocaine Solution [Edema Assessment] -Right Calf (cm) 50 -Right Ankle (cm) 29 Musculoskeletal: Tenderness - On palpation/debridement of RLE ulcer Psych/Mental Status: Normal Affect, Appropriate Debridement Note Post-Debridement Measurements/Treatment WC - Nurse 2 - General Ulcer CM Notes Start: 05/16/20 10:39 Freq: Status: Active Protocol: Activity Type Activity Date Activity User E-Sign Co-Sign Detail Recorded Client Recorded Date Recorded By Document 05/16/20 11:37 PL [id number] 05/16/20 11:39 PL Document 05/23/20 11:41 JF [id number] 05/23/20 11:52 JF 05/16/20 05/23/20 11:37 11:41 Wound Center Nurse 2 #2- RT LOWER SIMON POST OP -Time 11:15 11:46 -Correct Patient Yes Yes -Correct Side, Site, Position Yes Yes -Correct Procedure Yes Yes -Procedure Performed Yes Yes -Type of Procedure Debridement Debridement -Clinical Debridement Subcutaneous Subcutaneous -Tissue Removed Subcutaneous Subcutaneous -Post Debridement (cm) - Length 3.8 3.6 -Post Debridement (cm) - Width 5.2 6 -Post Debridement (cm) - Depth 0.1 0.1 -Total Square (Post) (cm) 19.76 21.6 -Area of Debridement (cm) - Length 3.8 3.6 -Area of Debridement (cm) - Width 5.2 6 -Total Square (Area) (cm) 19.76 21.6 -Tunneling No No -Undermining/Tunneling No No -Circular Undermining No No -Wound/Ulcer Outcome Not Healed Not Healed -Ulcer Cleansing Rinsed/ Rinsed/ Irrigated with Irrigated with Saline Saline -Foul Odor after Cleansing No No -Bioengineered Tissue Yes Yes -Type of Bioengineered Tissue PuraPly AM PuraPly AM -Expiration Date 07/09/22 08/25/22 -Product Lot Number [id number] -Percent Used 100 100 -Lot number of Saline Used [id number] -Bleeding Controlled with Pressure Pressure -Offloading No -Treatment Response Procedure Procedure Tolerated Well Tolerated Well -Debridement - Subq, 1st 20sq cm No No -Apply Skin Sub - 1st 25 sq cm - Legs 1 1 -PuraPly AM (per sq cm) 12 12 Pain Scale: 0-10 Numeric Is Patient Pain Free? Yes Yes - Nurse 3 - General Ulcer D/C NN Start: 05/16/20 10:39 Freq: Status: Active Protocol: Activity Type Activity Date Activity User E-Sign Co-Sign Detail Recorded Client Recorded Date Recorded By Document 05/16/20 11:31 DL [id number] 05/16/20 11:33 DL Document 05/23/20 12:07 KR [id number] 05/23/20 12:08 KR 05/16/20 05/23/20 11:31 12:07 Wound Care Nurse 3 #2- RT LOWER SIMON POST OP -Ulcer Cleansing Rinsed/ Rinsed/ Irrigated with Irrigated with Saline Saline -Foul Odor after Cleansing No No -Other Dressing PuraPly/veil/ ABD steri strips Right -Multi-Layered Wrap Application Unna Boot - Unna Boot - Right ($) Right ($) Treatment Response Procedure Tolerated Well Pain Scale: 0-10 Numeric Is Patient Pain Free? Yes - Visit Discharge Discharge Condition Stable Ambulatory Status Ambulatory Transportation Private Auto Wound debrided: RLE anterior ulcer Laterality: Right Type of Debridement: Excisional debridement Anesthesia Used: 4% Lidocaine Solution Depth: in the subcutaneous layer Percentage of wound debrided: 100 Instrument Used: 7mm curette Tissue Removed: Slough and devitalized tissue Severity: Fat Layer Exposed Amount of bleeding with debridement: Mild Bleeding Controlled with: Compression and gauze Patient tolerated procedure well Assessment/Plan Active Problems (Last Updated 06/11/19 @ 09:[address] 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 Nonhealing MRSA ulcer right anteromedial leg. 2. Chronic venous insufficiency with ulceration. 3. MRSA. 4. Lower extremity edema. 5. Right lower extremity DVT. Plan: Ulcer debrided in clinic today. Given the duration of the wound and failure of the wound to respond to standard wound care, we re-applied for advanced skin substitutes: Epifix was denied; Puraply, Nushield and Apligraf were approved. Apligraf #1 (advanced skin substitute #3) was applied to the right lower extremity ulcer. 100% of the product was used. An Unna boot was applied to the right lower extremity. The patient was advised to contact the wound healing center or report to the emergency room should she develop numbness or tingling or discoloration or pain in the toes or right lower extremity. At-home instructions: Patient instructed to keep the Unna boot clean and dry. Instructed on keeping Unna boot covered while showering. Offloading: Keep legs elevated at or above waist level when sitting. Avoid prolonged standing or dangling of the legs. Labs/cultures/imaging: Culture was collected on 01/28/2020 and was positive for 1+ MRSA and rare Corynebacterium and anaerobic cocci. She was started on Levaquin 500 mg p.o. daily x21 days and Augmentin 875/125 mg p.o. twice daily x21 days and completed these antibiotics. Her right lower extremity ulcer was again cultured 03/28/2020 and was positive for 1+ MRSA. Rx for doxycycline 100mg PO BID x 14 days and promethazine 25mg PO Q6H PRN for nausea (associated with antibiotic use) given. Cultures from 05/16/2020 were positive for 2+ MRSA and anaerobic cocci. Her doxycycline was extended another 7 days for a total of doxycycline 100 mg twice daily x14 days. She was given a prescription for Augmentin 875/125 mg p.o. twice daily x14 days. Given her recurrent MRSA infections, we will keep her on long-term treatment with doxycycline and Augmentin to prevent recurrence of MRSA infection. (A month's supply of doxycycline and Augmentin were given today, 05/30/2020.). The patient had a right leg DVT earlier in 2019 and was started on Xarelto. She has since stopped taking this. She was told to discuss the need for Xarelto with her primary care provider, but she did not do so. Prealbumin from 06/19/19 was 8.6. Nutritional supplementation with protein was encouraged to help the healing process. The patient has not yet completed her venous and arterial studies. Follow-up in 1 week for reevaluation. Follow-up sooner or report to the emergency room should symptoms worsen or new symptoms arise. The patient will be traveling to [place] (near [place]) on June 14, 2020. She is unsure how long she will be staying in [place], but reports possibly up to a month. We will reach out to a [facility] wound center in that region to discuss transfer of care. The patient has concerns regarding her [place] Medicaid insurance and whether it will be accepted should she transfer care to [place] temporarily. We will attempt to gather answers and develop a plan to address wound care while patient is out of state. Note: [employer] speech recognition air intercept controller supervisor software was used to create portions of this document. Sound-alike and misspelled words, as well as other air intercept controller supervisor errors may be contained in the documentation. [id number]: [id number] Skin sub graft trnk/arm/leg
[2020-06-06 10:58] VITALS: BP 153/52; PULSE 75; TEMP 36.1; BMI 42.2
--- NOTE | 2020-06-06 12:29 | PCM.WC.PN ---
(1) Ulcer of right lower extremity with fat layer exposed Status: Chronic Code(s): L97.912 - Non-pressure chronic ulcer of unspecified part of right lower leg with fat layer exposed (2) Chronic venous insufficiency of lower extremity Status: Chronic Code(s): I87.2 - Venous insufficiency (chronic) (peripheral) (3) MRSA (methicillin resistant Staphylococcus aureus) colonization Status: Chronic Code(s): Z22.322 - Carrier or suspected carrier of Methicillin resistant Staphylococcus aureus (4) DVT (deep venous thrombosis) Status: Chronic Code(s): I82.409 - Acute embolism and thrombosis of unspecified deep veins of unspecified lower extremity (5) USP (current) use of anticoagulants Status: Chronic Code(s): Z79.01 - USP (current) use of anticoagulants (6) Lower extremity edema Status: Chronic Code(s): R60.0 - Localized edema Type of Wound Date of Service: 06/06/20 Chief Complaint: Nonhealing MRSA ulcer right anteromedial leg. History of Wound: Surgery 06/18/19 - Surgical preparation right anteromedial leg with incision and drainage nonhealing MRSA necrotizing infection abscess ulcers cluster (172.5 cm2). Wound care - Calcium alginate with silver. Patient has been noncompliant with use of Tubigrip for compression, stating she has difficulty pulling it up due to an arm injury. She has been using Kg wraps for compression. Operative culture - MRSA and Corynebacterium minutissimum. She was treated with Bactrim DS and Augmentin. She had additional wound culture on 08/06/19. It showed MRSA, Streptococcus group C, and Pseudomonas aeroginosa. She was treated with Levaquin, Doxycycline, and Augmentin and has finished them. In mid July (07/23/19) she developed right leg pain and swelling. An Ultrasound was done which showed acute deep vein thrombosis in the right gastrocnemius vein. The remainder of the right lower extremity deep venous system is patent and compressible. Valvular competence appears intact within the proximal deep venous system on the right. Acute superficial thrombophlebitis is noted in the right great saphenous vein from the right sapho-femoral junction to the distal thigh. She was placed on Xarelto, however she reports she is no longer taking this. She was instructed by Dr. Mock to follow-up with her primary care provider to discuss need for Xarelto, however patient has not done so. Her Prealbumin from 06/19/19 was 8.6. Encourage nutritional supplementation with protein to help the healing process. Wound cultures collected 01/28/2020 were positive for 1+ MRSA and rare Corynebacterium stratum, as well as anaerobic cocci. She was started on Levaquin 500 mg daily x21 days and Augmentin 875/125 mg p.o. twice daily x21 days and has completed these. Progress of Wound: The patient returns for evaluation of her right lower extremity ulcer. She has been tolerating Apligraf and Unna boot well, and was able to keep these dressings clean and dry. Her wound has improved in size and appearance. There are no clinical signs of infection. She reports an increase in drainage and odor from her right lower extremity ulcer, which I suspect is due to the initiation of Apligraf. Her wound cultures collected on 05/16/2020 were positive again for 2+ MRSA and anaerobic cocci. She has been placed on an extended course of doxycycline 100 mg twice daily and Augmentin 875/125 mg p.o. twice daily. At last week's visit, she reported noncompliance with taking these medications as prescribed, and was frequently missing doses. She is now taking these antibiotics as prescribed and tolerating them well. The patient denies any fever or chills. She denies nausea, vomiting, or diarrhea. Her appetite has been poor due to recent stress. Arterial and venous studies have not yet been completed. She has a history of DVT and was temporarily taking Xarelto for treatment. - Physical Exam Vital Signs Temp Pulse Resp BP 97.0 F L 75 20 H 153/52 H 06/06/20 10:58 06/06/20 10:58 05/30/20 11:08 06/06/20 10:58 General: Alert, Cooperative, No apparent distress HEENT: Atraumatic, Normocephalic Oral: Moist Mucosa Neck: Supple, Trachea Midline Lungs: Normal air movement Abdomen: Obese Extremities: No clubbing, No cyanosis, No edema, Capillary Refill Less than 3 Seconds, Peripheral Pulses Normal Skin: Ulcer/ Wound - RLE ulcer with subcutaneous layer exposed. Small amount of slough and devitalized tissue present. Good, beefy red granulation tissue is present. No purulent/malodorous drainage. No periulcer erythema, swelling, warmth. Wound Measurements and Assessment WC - Nurse 1 - General Ulcer Measurement Start: 05/16/20 10:39 Freq: Status: Active Protocol: Activity Type Activity Date Activity User E-Sign Co-Sign Detail Recorded Client Recorded Date Recorded By Document 06/06/20 10:58 SAMUEL [id number] 06/06/20 11:03 SAMUEL 06/06/20 10:58 Wound Center Nurse 1 [Ulcer Assessment] #2- RT LOWER SIMON POST OP -Current Size (cm) - Length 4 -Current Size (cm) - Width 6.2 -Current Size (cm) - Depth 0.2 -Total Square Cm 24.8 -Exudate Amt Large -Exudate Type Serosanguineous -Wound Margin Distinct, Outline Attached -Necrosis Amt Large (67-100%) -Necrotic Tissue Type Adherent Slough -Texture (Sugar-wound Skin Appearance) Assessed, Scarring -Moisture (Sugar-wound Skin Appearance No Abnormality, ) Assessed -Color (Sugar-wound Skin Appearance) No Abnormality, Assessed -Temperature (Sugar-wound Skin No Abnormality Appearance) (Pt Warm) -Tenderness on Palpation (Sugar-wound No Skin Appearance) -Ulcer Cleansing soap and water -Foul Odor after Cleansing No -Anesthetic Used 4% Lidocaine Solution WC - Nurse 2 - General Ulcer CM Notes Start: 05/16/20 10:39 Freq: Status: Active Protocol: Activity Type Activity Date Activity User E-Sign Co-Sign Detail Recorded Client Recorded Date Recorded By Document 06/06/20 12:14 ERI [id number] 06/06/20 12:17 ERI 06/06/20 12:14 Wound Center Nurse 2 [Procedure/Treatment] -Time 11:25 -Correct Patient Yes -Correct Side, Site, Position Yes -Correct Procedure Yes -Procedure Performed Yes -Type of Procedure Debridement -Clinical Debridement Subcutaneous -Tissue Removed Subcutaneous -Post Debridement (cm) - Length 3.5 -Post Debridement (cm) - Width 5.6 -Post Debridement (cm) - Depth 0.1 -Total Square (Post) (cm) 19.60 -Area of Debridement (cm) - Length 3.5 -Area of Debridement (cm) - Width 5.6 -Total Square (Area) (cm) 19.60 -Tunneling No -Undermining/Tunneling No -Circular Undermining No -Wound/Ulcer Outcome Not Healed -Ulcer Cleansing Rinsed/ Irrigated with Saline -Foul Odor after Cleansing No -Bioengineered Tissue Yes -Type of Bioengineered Tissue Apligraf -Expiration Date 06/13/20 -Product Lot Number [id number] -Percent Used 100 -Lot number of Saline Used [id number] -Bleeding Controlled with Pressure -Treatment Response Procedure Tolerated Well -Debridement - Subq, 1st 20sq cm No -Apply Skin Sub - 1st 25 sq cm - Legs 1 -Apligraf (per sq cm) 44 Query Text:1 sheet = 44 sq cm [See Physician Procedure note for Specifics] Pain Scale: 0-10 Numeric [Pain] -Is Patient Pain Free? Yes - Nurse 3 - General Ulcer D/C NN Start: 05/16/20 10:39 Freq: Status: Active Protocol: Activity Type Activity Date Activity User E-Sign Co-Sign Detail Recorded Client Recorded Date Recorded By Document 06/06/20 11:48 KR [id number] 06/06/20 11:49 KR 06/06/20 11:48 Wound Care Nurse 3 [Wound Dressing] #2- RT LOWER SIMON POST OP -Primary Dressing Covered/Secured Dry Gauze, with Secured with Tape [Compression Applied] Right -Multi-Layered Wrap Application Unna Boot - Right ($) Pain Scale: 0-10 Numeric [Pain] -Is Patient Pain Free? Yes - Visit Discharge [Visit Discharge Information] -Discharge Condition Stable -Ambulatory Status Ambulatory -Transportation Private Auto Psych/Mental Status: Normal Affect, Appropriate Debridement Note Post-Debridement Measurements/Treatment - Nurse 2 - General Ulcer CM Notes Start: 05/16/20 10:39 Freq: Status: Active Protocol: Activity Type Activity Date Activity User E-Sign Co-Sign Detail Recorded Client Recorded Date Recorded By Document 05/16/20 11:37 PL [id number] 05/16/20 11:39 PL Document 05/23/20 11:41 JF [id number] 05/23/20 11:52 JF Document 05/30/20 12:04 PL [id number] 05/30/20 12:48 PL Document 06/06/20 12:14 PL [id number] 06/06/20 12:17 PL 05/16/20 05/23/20 05/30/20 11:37 11:41 12:04 Wound Center Nurse 2 #2- RT LOWER SIMON POST OP -Time 11:15 11:46 11:23 -Correct Patient Yes Yes Yes -Correct Side, Site, Position Yes Yes Yes -Correct Procedure Yes Yes Yes -Procedure Performed Yes Yes Yes -Type of Procedure Debridement Debridement Debridement -Clinical Debridement Subcutaneous Subcutaneous Subcutaneous -Tissue Removed Subcutaneous Subcutaneous Subcutaneous -Post Debridement (cm) - Length 3.8 3.6 3.7 -Post Debridement (cm) - Width 5.2 6 5.7 -Post Debridement (cm) - Depth 0.1 0.1 0.1 -Total Square (Post) (cm) 19.76 21.6 21.09 -Area of Debridement (cm) - Length 3.8 3.6 3.7 -Area of Debridement (cm) - Width 5.2 6 5.7 -Total Square (Area) (cm) 19.76 21.6 21.09 -Tunneling No No No -Undermining/Tunneling No No No -Circular Undermining No No No -Wound/Ulcer Outcome Not Healed Not Healed Not Healed -Ulcer Cleansing Rinsed/ Rinsed/ Rinsed/ Irrigated with Irrigated with Irrigated with Saline Saline Saline -Foul Odor after Cleansing No No No -Bioengineered Tissue Yes Yes Yes -Type of Bioengineered Tissue PuraPly AM PuraPly AM Apligraf -Expiration Date 07/09/22 08/25/22 06/04/20 -Product Lot Number [id number] -Percent Used 100 100 100 -Lot number of Saline Used [id number] -Bleeding Controlled with Pressure Pressure Pressure -Offloading No -Treatment Response Procedure Procedure Procedure Tolerated Well Tolerated Well Tolerated Well -Debridement - Subq, 1st 20sq cm No No No -Apply Skin Sub - 1st 25 sq cm - Legs 1 1 1 -Apligraf (per sq cm) 44 Query Text:1 sheet = 44 sq cm -PuraPly AM (per sq cm) 12 12 Pain Scale: 0-10 Numeric Is Patient Pain Free? Yes Yes Yes 06/06/20 12:14 Wound Center Nurse 2 #2- RT LOWER SIMON POST OP -Time 11:25 -Correct Patient Yes -Correct Side, Site, Position Yes -Correct Procedure Yes -Procedure Performed Yes -Type of Procedure Debridement -Clinical Debridement Subcutaneous -Tissue Removed Subcutaneous -Post Debridement (cm) - Length 3.5 -Post Debridement (cm) - Width 5.6 -Post Debridement (cm) - Depth 0.1 -Total Square (Post) (cm) 19.60 -Area of Debridement (cm) - Length 3.5 -Area of Debridement (cm) - Width 5.6 -Total Square (Area) (cm) 19.60 -Tunneling No -Undermining/Tunneling No -Circular Undermining No -Wound/Ulcer Outcome Not Healed -Ulcer Cleansing Rinsed/ Irrigated with Saline -Foul Odor after Cleansing No -Bioengineered Tissue Yes -Type of Bioengineered Tissue Apligraf -Expiration Date 06/13/20 -Product Lot Number [id number] -Percent Used 100 -Lot number of Saline Used [id number] -Bleeding Controlled with Pressure -Offloading -Treatment Response Procedure Tolerated Well -Debridement - Subq, 1st 20sq cm No -Apply Skin Sub - 1st 25 sq cm - Legs 1 -Apligraf (per sq cm) 44 Query Text:1 sheet = 44 sq cm -PuraPly AM (per sq cm) Pain Scale: 0-10 Numeric Is Patient Pain Free? Yes WC - Nurse 3 - General Ulcer D/C NN Start: 05/16/20 10:39 Freq: Status: Active Protocol: Activity Type Activity Date Activity User E-Sign Co-Sign Detail Recorded Client Recorded Date Recorded By Document 05/16/20 11:31 DL [id number] 05/16/20 11:33 DL Document 05/23/20 12:07 KR [id number] 05/23/20 12:08 KR Document 05/30/20 11:52 DL [id number] 05/30/20 11:53 DL Document 06/06/20 11:48 KR [id number] 06/06/20 11:49 KR 05/16/20 05/23/20 05/30/20 11:31 12:07 11:52 Wound Care Nurse 3 #2- RT LOWER SIMON POST OP -Ulcer Cleansing Rinsed/ Rinsed/ Irrigated with Irrigated with Saline Saline -Foul Odor after Cleansing No No No -Other Dressing PuraPly/veil/ ABD PurPly steri strips -Primary Dressing Covered/Secured with Dry Gauze Right -Multi-Layered Wrap Application Unna Boot - Unna Boot - Unna Boot - Right ($) Right ($) Right ($) Treatment Response Procedure Procedure Tolerated Well Tolerated Well Pain Scale: 0-10 Numeric Is Patient Pain Free? Yes Yes WC - Visit Discharge Discharge Condition Stable Stable Ambulatory Status Ambulatory Ambulatory Transportation Private Auto Private Auto 06/06/20 11:48 Wound Care Nurse 3 #2- RT LOWER SIMON POST OP -Ulcer Cleansing -Foul Odor after Cleansing -Other Dressing -Primary Dressing Covered/Secured with Dry Gauze, Secured with Tape Right -Multi-Layered Wrap Application Unna Boot - Right ($) Treatment Response Pain Scale: 0-10 Numeric Is Patient Pain Free? Yes WC - Visit Discharge Discharge Condition Stable Ambulatory Status Ambulatory Transportation Private [employer] Wound debrided: RLE anterior ulcer Laterality: Right Type of Debridement: Excisional debridement Anesthesia Used: 4% Lidocaine Solution Depth: in the subcutaneous layer Percentage of wound debrided: 100 Instrument Used: 7mm curette Tissue Removed: Slough and devitalized tissue Severity: Fat Layer Exposed Amount of bleeding with debridement: Moderate Bleeding Controlled with: Compression and gauze Patient tolerated procedure well Assessment/Plan Active Problems (Last Updated 06/11/19 @ 09:[address] 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 Nonhealing MRSA ulcer right anteromedial leg. 2. Chronic venous insufficiency with ulceration. 3. MRSA. 4. Lower extremity edema. 5. Right lower extremity DVT. Plan: Ulcer debrided in clinic today. Given the duration of the wound and failure of the wound to respond to standard wound care, we re-applied for advanced skin substitutes: Epifix was denied; Puraply, Nushield and Apligraf were approved. Apligraf #2 (advanced skin substitute #4) was applied to the right lower extremity ulcer. 100% of the product was used. Product was covered with Adaptic touch and secured with Steri-Strips. An ABD pad and Unna boot were applied to the right lower extremity. The patient was advised to contact the wound healing center or report to the emergency room should she develop numbness or tingling or discoloration or pain in the toes or right lower extremity. At-home instructions: Patient instructed to keep the Unna boot clean and dry. Instructed on keeping Unna boot covered while showering. Offloading: Keep legs elevated at or above waist level when sitting. Avoid prolonged standing or dangling of the legs. Labs/cultures/imaging: Culture was collected on 01/28/2020 and was positive for 1+ MRSA and rare Corynebacterium and anaerobic cocci. She was started on Levaquin 500 mg p.o. daily x21 days and Augmentin 875/125 mg p.o. twice daily x21 days and completed these antibiotics. Her right lower extremity ulcer was again cultured 03/28/2020 and was positive for 1+ MRSA. Rx for doxycycline 100mg PO BID x 14 days and promethazine 25mg PO Q6H PRN for nausea (associated with antibiotic use) given. Cultures from 05/16/2020 were positive for 2+ MRSA and anaerobic cocci. Given her recurrent MRSA infections, we will keep her on long-term treatment with doxycycline and Augmentin to prevent recurrence of MRSA infection. The patient had a right leg DVT earlier in 2019 and was started on Xarelto. She has since stopped taking this. She was told to discuss the need for Xarelto with her primary care provider, but she did not do so. Prealbumin from 06/19/19 was 8.6. Nutritional supplementation with protein was encouraged to help the healing process. The patient has not yet completed her venous and arterial studies. Follow-up in 1 week for reevaluation. Follow-up sooner or report to the emergency room should symptoms worsen or new symptoms arise. The patient will be traveling to [place] (near [place]) on June 14, 2020. She is unsure how long she will be staying in [place], but reports possibly up to a month. We reached out to a [facility] wound center in that region to discuss transfer of care. They were to reach out to the patient to discuss details. The patient reports she has not yet heard from them. We will reattempt to set up transfer of care to [place]. Note: [employer] speech recognition physician in private practice software was used to create portions of this document. Sound-alike and misspelled words, as well as other physician in private practice errors may be contained in the documentation. [id number]: [id number] Skin sub graft trnk/arm/leg
== END 2020-06-08 23:59 ==
LOC: WC 10:45
PROVIDERS: PCP Internal Medicine; Visit Provider Nurse Practitioner Family
DX: L97.912 Non-pressure chronic ulcer of unspecified part of right lower leg with fat layer exposed (principal); I87.2 Venous insufficiency (chronic) (peripheral); I82.401 Acute embolism and thrombosis of unspecified deep veins of right lower extremity; Z22.322 Carrier or suspected carrier of Methicillin resistant Staphylococcus aureus; R60.0 Localized edema; Z79.01 Long term (current) use of anticoagulants; Z86.718 Personal history of other venous thrombosis and embolism
CPT/HCPCS: 15271; 29580; 87070; 87075; 87077; 87186; 87205; Q4101; Q4196

== ENCOUNTER 2020-06-13 11:00 | Outpatient (RCR) | payer MEDICAID, SELFPAY ==
[2020-06-09 00:21] VITALS: BP 153/52; PULSE 75; RESP 20; TEMP 36.1
[2020-06-13 11:04] VITALS: BP 122/70; PULSE 90; TEMP 34.3; BMI 42.2
--- NOTE | 2020-06-13 11:33 | PN.PCM_ITS ---
(1) Ulcer of right lower extremity with fat layer exposed Status: Chronic Code(s): L97.912 - Non-pressure chronic ulcer of unspecified part of right lower leg with fat layer exposed (2) Chronic venous insufficiency of lower extremity Status: Chronic Code(s): I87.2 - Venous insufficiency (chronic) (peripheral) (3) Lower extremity edema Status: Chronic Code(s): R60.0 - Localized edema (4) MRSA (methicillin resistant Staphylococcus aureus) colonization Status: Chronic Code(s): Z22.322 - Carrier or suspected carrier of Methicillin resistant Staphylococcus aureus (5) PVD (peripheral vascular disease) Status: Chronic Code(s): I73.9 - Peripheral vascular disease, unspecified Type of Wound Date of Service: 06/13/20 Chief Complaint: Nonhealing MRSA ulcer right anteromedial leg. History of Wound: Surgery 06/18/19 - Surgical preparation right anteromedial leg with incision and drainage nonhealing MRSA necrotizing infection abscess ulcers cluster (172.5 cm2). Wound care - Calcium alginate with silver. Patient has been noncompliant with use of Tubigrip for compression, stating she has difficulty pulling it up due to an arm injury. She has been using Kg wraps for compression. Operative culture - MRSA and Corynebacterium minutissimum. She was treated with Bactrim DS and Augmentin. She had additional wound culture on 08/06/19. It showed MRSA, Streptococcus group C, and Pseudomonas aeroginosa. She was treated with Levaquin, Doxycycline, and Augmentin and has finished them. In mid July (07/23/19) she developed right leg pain and swelling. An Ultrasound was done which showed acute deep vein thrombosis in the right gastrocnemius vein. The remainder of the right lower extremity deep venous system is patent and compressible. Valvular competence appears intact within the proximal deep venous system on the right. Acute superficial thrombophlebitis is noted in the right great saphenous vein from the right sapho-femoral junction to the distal thigh. She was placed on Xarelto, however she reports she is no longer taking this. She was instructed by Dr. Mock to follow-up with her primary care provider to discuss need for Xarelto, however patient has not done so. Her Prealbumin from 06/19/19 was 8.6. Encourage nutritional supplementation with protein to help the healing process. Wound cultures collected 01/28/2020 were positive for 1+ MRSA and rare Corynebacterium stratum, as well as anaerobic cocci. She was started on Levaquin 500 mg daily x21 days and Augmentin 875/125 mg p.o. twice daily x21 days and has completed wicho. Progress of Wound: The patient returns for evaluation of her right lower extremity ulcer. She has been tolerating Apligraf and Unna boot well, and was able to keep these dressings clean and dry. She does demonstrate some dermatitis of the periulcer area, which I suspect is due to prolonged exposure to a saturated ABD pad. Her wound is slowly improving. There are no clinical signs of infection today. Her wound cultures collected on 05/16/2020 were positive again for 2+ MRSA and anaerobic cocci. She has been placed on an extended course of doxycycline 100 mg twice daily and Augmentin 875/125 mg p.o. twice daily. She was given a month's supply of these antibiotics at her appt on 05/30/2020. She reports noncompliance with taking these medications as prescribed, and frequently missing doses. The patient denies any fever or chills. She denies nausea, vomiting, or diarrhea. She denies increased pain of the ulcer or periulcer area. Her appetite has been poor due to recent stress. Arterial and venous studies were ordered but have not yet been completed. She has a history of DVT and was previously taking Xarelto for treatment. - Physical Exam Vital Signs Temp Pulse Resp BP 93.7 F L 90 20 H 122/70 H 06/13/20 11:04 06/13/20 11:04 06/09/20 00:21 06/13/20 11:04 General: Alert, Cooperative, No apparent distress HEENT: Atraumatic, Normocephalic Oral: Moist Mucosa Neck: Supple, Trachea Midline Lungs: Normal air movement Cardiovascular: Regular rate Abdomen: Obese Extremities: No clubbing, No cyanosis, No edema, Capillary Refill Less than 3 Seconds, Peripheral Pulses Normal Skin: Ulcer/ Wound - RLE ulcer with subcutaneous layer exposed. Small to moderate amount of slough and devitalized tissue present. Granulation tissue is present. No purulent/malodorous drainage. No periulcer swelling or warmth., Rash Present - Periulcer dermatitis is present. Wound Measurements and Assessment WC - Nurse 1 - General Ulcer Measurement Start: 06/13/20 11:04 Freq: Status: Active Protocol: Activity Type Activity Date Activity User E-Sign Co-Sign Detail Recorded Client Recorded Date Recorded By Document 06/13/20 11:04 SAMUEL [id number] 06/13/20 11:08 SAMUEL 06/13/20 11:04 Wound Center Nurse 1 [Ulcer Assessment] #2- RT LOWER SIMON POST OP -Current Size (cm) - Length 4 -Current Size (cm) - Width 5.5 -Current Size (cm) - Depth 0.1 -Total Square Cm 22.0 -Exudate Amt Large -Exudate Type Serosanguineous -Wound Margin Distinct, Outline Attached -Granulation Amt Small (1-33%) -Necrosis Amt Large (67-100%) -Necrotic Tissue Type Adherent Slough -Texture (Sugar-wound Skin Appearance) Assessed, Scarring -Moisture (Sugar-wound Skin Appearance No Abnormality, ) Assessed -Color (Sugar-wound Skin Appearance) No Abnormality, Assessed -Temperature (Sugar-wound Skin No Abnormality Appearance) (Pt Warm) -Tenderness on Palpation (Sugar-wound No Skin Appearance) -Ulcer Cleansing Rinsed/ Irrigated with Saline -Foul Odor after Cleansing No -Anesthetic Used 4% Lidocaine Solution,5% Lidocaine Gel [Edema Assessment] -Right Calf (cm) 51.5 -Right Ankle (cm) 25.4 Psych/Mental Status: Normal Affect, Appropriate Debridement Note Wound debrided: RLE anterior ulcer Laterality: Right Type of Debridement: Excisional debridement Anesthesia Used: 4% Lidocaine Solution Depth: in the subcutaneous layer Percentage of wound debrided: 100 Instrument Used: 7mm curette Tissue Removed: Slough and devitalized tissue Severity: Fat Layer Exposed Amount of bleeding with debridement: Mild Bleeding Controlled with: Pressure Patient tolerated procedure well Assessment/Plan Assessment: 1. Nonhealing MRSA ulcer right anteromedial leg. 2. Chronic venous insufficiency with ulceration. 3. MRSA. 4. Lower extremity edema. 5. Right lower extremity DVT. Plan: Ulcer debrided in clinic today. Given the duration of the wound and failur e of the wound to respond to standard wound care, we re-applied for advanced skin substitutes: Epifix was denied; Puraply, Nushield and Apligraf were approved. Apligraf #3 (advanced skin substitute #5) was applied to the right lower extremity ulcer. 100% of the product was used. Apligraf was covered with Adaptic touch and secured with Steri-Strips. Xtrasorb dressing was placed over the Adaptic touch to absorb any excess drainage. An Unna boot was applied to the right lower extremity. The patient was advised to contact the wound healing center or report to the emergency room should she develop numbness or tingling or discoloration or pain in the toes or right lower extremity. At-home instructions: Patient instructed to keep the Unna boot clean and dry. Instructed on keeping Unna boot covered while showering. Offloading: Keep legs elevated at or above waist level when sitting. Avoid prolonged standing or dangling of the legs. If the Unna boot becomes tight, patient was instructed to elevate her legs for at least 15 to 20 minutes or until tightness resolves. When flying, ambulate frequently when possible. Labs/cultures/imaging: Culture was collected on 01/28/2020 and was positive for 1+ MRSA and rare Corynebacterium and anaerobic cocci. She was started on Levaquin 500 mg p.o. daily x21 days and Augmentin 875/125 mg p.o. twice daily x21 days and completed these antibiotics. Her right lower extremity ulcer was again cultured 03/28/2020 and was positive for 1+ MRSA. Rx for doxycycline 100mg PO BID x 14 days and promethazine 25mg PO Q6H PRN for nausea (associated with antibiotic use) given. Cultures from 05/16/2020 were positive for 2+ MRSA and anaerobic cocci. Given her recurrent MRSA infections, we will keep her on long-term treatment with doxycycline and Augmentin to prevent recurrence of MRSA infection. The patient had a right leg DVT earlier in 2019 and was started on Xarelto. She has since stopped taking this. She was told to discuss the need for Xarelto with her primary care provider, but she did not do so. Prealbumin from 06/19/19 was 8.6. Nutritional supplementation with protein was encouraged to help the healing process. The patient has not yet completed her venous and arterial studies which were ordered. Follow-up on 06/17/2020 at the [facility] in [place]; we have set you up with an appointment with them. Follow-up sooner or report to the emergency room should symptoms worsen or new symptoms arise. The patient will be traveling to [place] (near [place]) on June 14, 2020. She is unsure how long she will be staying in [place] at this time. Note: [employer] speech recognition tile and mottle supervisor software was used to create portions of this document. Sound-alike and misspelled words, as well as other tile and mottle supervisor errors may be contained in the documentation. 150xxx-152xx: [id number] Skin sub graft trnk/arm/leg
[2020-06-13 11:36] VITALS: BP 122/70
== END 2020-07-06 23:59 ==
LOC: WC 11:00
PROVIDERS: PCP Internal Medicine; Visit Provider Nurse Practitioner Family
DX: L97.812 Non-pressure chronic ulcer of other part of right lower leg with fat layer exposed (principal); B95.62 Methicillin resistant Staphylococcus aureus infection as the cause of diseases classified elsewhere; I87.2 Venous insufficiency (chronic) (peripheral); R60.0 Localized edema; Z86.718 Personal history of other venous thrombosis and embolism; Z91.14 Patient's other noncompliance with medication regimen
CPT/HCPCS: 15271; 29580; Q4101

== ENCOUNTER 2020-09-26 13:00 | Outpatient (RCR) | payer MEDICAID, SELFPAY ==
[2020-09-26 10:56] VITALS: BP 156/79; PULSE 81; RESP 16; TEMP 36.7; BMI 47.3
[2020-09-26 13:30] LABS: Erythrocyte Sedimentation Rate 58 mm/hr (0-30)
[2020-09-26 13:32] LABS: Absolute Lymphocyte Count 2.03 X10^3/uL (0.83-4.51); Basophil# 0.06 X10^3/uL; Basophil% 0.8 % (0-1); Eosinophil# 0.21 X10^3/uL; Eosinophils% 2.7 % (0-5); Hematocrit 38.2 % (37-47); Hemoglobin 11.5 g/dL (12.0-15.0); Lymphocyte # 2.03 X10^3/ul (0.83-4.51); Mean Corp Hgb Conc 30.1 g/dL (32-36); Mean Corpuscular Hgb 26.9 pg (27.0-32.0); Mean Corpuscular Volume 89.5 fL (81-99); Mean Platelet Vol. 9.8 fl (6.2-12.0); Monocyte# 0.47 X10^3/uL; NRBC Flagged by Analyzer 0 % (0-5); Neutrophil # 5.01 X10^3/uL (2.7-7.7); Neutrophil % 64.1 % (47-70); Platelet Count 392 K/mm3 (150-450); RBC Distribution Width CV 14.3 % (11.6-14.6); RBC Distribution Width SD 46.4 fl (35.1-43.9); Red Blood Count 4.27 M/mm3 (4.2-5.4); White Blood Count 7.8 K/mm3 (4.4-11.0)
--- NOTE | 2020-09-26 13:37 | HP.PCM_ITS ---
History of Present Illness Date of Service: 09/26/20 Chief Complaint: Nonhealing MRSA ulcer right anteromedial leg. History of Wound: Babita returns to the wound healing center today for reevaluation and management of her chronic right anteromedial leg ulcer. In June 2020, she left [place] and temporarily moved to [place]. She was transferred to a wound healing center in [place] for continued treatment of her right leg ulcer. She reports that because she did not ever receive [place] Medicaid, she was unable to attend the wound healing center. She did present to the emergency room at one point during her stay in [place] because she was told that the ER could refer her to the wound healing center. She was not started on any antibiotics, and was still unable to be evaluated at the wound healing center following ER evaluation and referral. Since she was last seen at the [facility] wound healing center, she has not been on any antibiotic treatment and has not received any wound debridement. She does report that vascular studies were performed while in [place], and there was no evidence of DVT. The patient has an extensive history and treatment for this right leg ulcer as listed below. The patient denies fever, chills, nausea, vomiting, or diarrhea. The patient has not had increased redness or swelling. She has a history of chronic MRSA infections and has been treated numerous times with doxycycline and Augmentin. She reports copious amounts of green and purulent drainage from her ulcer, which is malodorous. She reports her friend (who is attending today's visit with her today) will be visiting daily to provide her wound care/dressing changes. Surgery 06/18/19 - Surgical preparation right anteromedial leg with I&D nonhealing MRSA necrotizing infection abscess ulcers cluster (172.5 cm2). Wound care - Calcium alginate with silver. Noncompliant with Tubigrips (has difficulty pulling it up due to an arm injury); using Kg wraps for compression. Operative culture - MRSA and Corynebacterium minutissimum. She was treated with Bactrim DS and Augmentin. She had additional wound culture on 08/06/19. It showed MRSA, Streptococcus group C, and Pseudomonas aeroginosa. She was treated with Levaquin, Doxycycline, and Augmentin and has finished them. In mid July (07/23/19) she developed right leg pain and swelling. An ultrasound showed acute deep vein thrombosis in the right gastrocnemius vein. The remainder of the right lower extremity deep venous system is patent and compressible. Valvular competence appears intact within the proximal deep venous system on the right. Acute superficial thrombophlebitis is noted in the right great saphenous vein from the right sapho-femoral junction to the distal thigh. She was placed on Xarelto, however she reports she is no longer taking this. She was instructed by Dr. Mock to follow-up with her primary care provider to discuss need for Xarelto, however patient never did so. [facility] Medical History (Updated 05/16/20 @ 12:59 by Omaira Gao GENDER STUDIES PROFESSOR, GENDER STUDIES PROFESSOR-C) Delayed wound healing Obesity PVD (peripheral vascular disease) Ulcer of right lower extremity with fat layer exposed Home Medications acetaminophen 650 mg PO 07/09/19 [History Last Taken Unknown] [id number]-akfg-OcAQU-zyglap-iz-rwa 1 packet PO 07/09/19 [History Last Taken Unknown] bisacodyl 10 mg ME 07/09/19 [History Last Taken Unknown] famotidine-Ca carb-mag hydrox 1 ea PO 07/09/19 [History Last Taken Unknown] ferrous sulfate 325 mg PO 07/09/19 [History Last Taken Unknown] magnesium hydroxide 30 ml PO 07/09/19 [History Last Taken Unknown] omeprazole 20 mg PO 07/09/19 [History Last Taken Unknown] potassium chloride 20 meq PO 07/09/19 [History Last Taken Unknown] sennosides-docusate sodium tab PO 07/09/19 [History Last Taken Unknown] sertraline 100 mg PO DAILY 07/09/19 [History Last Taken Unknown] Lactobacillus combo no.23 14 billion cell capsule See Rx Instructions PO DAILY 30 Days #30 cap 08/17/19 [Rx Last Taken Unknown] levofloxacin 500 mg tablet 500 mg PO DAILY #14 tab 08/17/19 [Rx Last Taken Unknown] rivaroxaban 20 mg PO DAILY #30 tab 08/24/19 [Rx Last Taken Unknown] promethazine 25 mg tablet 25 mg PO Q6H PRN #28 tab 02/11/20 [Rx Last Taken Unknown] amoxicillin-pot clavulanate [Augmentin] 1 tab PO Q12H 7 Days #14 tab 09/26/20 [Rx Last Taken Unknown] doxycycline monohydrate 100 mg PO BID 7 Days #14 cap 09/26/20 [Rx Last Taken Unknown] Allergy/AdvReac Type Severity Reaction Status Date / Time naproxen [From Aleve] Allergy Shortness Verified 07/09/19 09:21 of breath Surgical History History of section History of eye surgery History of hernia repair Social History (Updated 03/26/19 @ 10:23 by Dania Floyd) Smoking Status: Never smoker alcohol intake: never substance use type: does not use ROS Constitutional Constitutional: Denies fever(s) Eyes Eyes: Denies change in vision or double vision ENT HEENT: Denies lip swelling or tongue swelling Cardiovascular Cardiovascular: Denies chest pain, leg edema or palpitations Respiratory/Chest Respiratory/Chest: Denies cough, shortness of breath at rest, shortness of breath with exertion or wheezing Gastrointestinal Gastrointestinal: Denies diarrhea, nausea or vomiting Genitourinary Genitourinary: Denies dysuria or hematuria Musculoskeletal Musculoskeletal: Reports extremity pain; Denies abnormal gait, muscle weakness, numbness or tingling Integumentary Integumentary: Reports wounds; Denies rash Neurologic Neurologic: Denies abnormal gait, abnormal speech or focal weakness Endocrine Endocrinology: Denies cold intolerance, heat intolerance, polydipsia or polyuria Hematologic/Lymphatic Hematologic/Lymphatic: Denies easy bleeding or easy bruising Vital Signs Vital Signs Vital Signs: 09/26/20 10:56 Temperature 98.1 F Temperature Source Temporal Pulse Rate 81 Respiratory Rate 16 Blood Pressure 156/79 H Blood Pressure Mean 104 Blood Pressure Source Monitor Blood Pressure Position Sitting Blood Pressure Location Left Arm Oxygen Delivery Method Room Air Physical Exam Const alert and no apparent distress General Appearance: cooperative, comfortable and disheveled Nutritional Appearance: obese HEENT Head and Scalp: normocephalic and atraumatic Eyes EOMs intact bilaterally Neck supple and no JVD Resp normal respiratory effort, normal air movement and no use of accessory muscles Auscultation: clear to auscultation bilaterally; Negative for crackles, rales, rhonchi or wheezes Cardio regular rate and regular rhythm GI normal to inspection, nondistended, normoactive bowel sounds Extremity normal capillary refill, no joint enlargement, no clubbing, cyanosis or edema, no calf tenderness and no pedal edema Peripheral Pulses: Yes dorsalis pedis pulses present bilateral 2+ Skin Wounds: wounds noted Wound Narrative: Right lower extremity ulcer cluster with fat layer exposed. No tunneling, undermining, or probing to bone. There is moderate to large slough and devitalized tissue present. The wound has a slight malodor. No purulent drainage noted. There is mild to moderate periulcer erythema. No periulcer edema. Periulcer area is tender to palpation. No warmth noted. Neuro oriented x3, moves all extremities and no focal motor deficits Psych mental status grossly normal, cooperative and affect normal Debridement Note Debridement Note Post-Debridement Measurements and Additional Note: Post-Debridement Measurements/Treatment - Nurse 1 - General Ulcer Assessment Start: 09/26/20 10:56 Freq: Status: Active Protocol: MONA Activity Type Activity Date Activity User E-Sign Co-Sign Detail Recorded Client Recorded Date Recorded By Document 09/26/20 10:56 [facility] [id number] 09/26/20 11:05 [facility] 09/26/20 10:56 WC - Today's Visit Information Type of service Initial Visit Arrival Mode Ambulatory Transfer Assistance None Accompanied by friend Patient Identification Verified (Name & Yes ) Patient Requires Transmission-Based No Precautions Height and Weight Height 5 ft 10 in Weight 330 lb Weight in Pounds 330.0 lbs Weight Measurement Method Stated by Patient Body Mass Index (BMI) 47.3 BMI Classification Obese BSA - Tacos 2.58 Vital Signs Temperature (97.8 F-99.1 F) 98.1 F Temperature Source Temporal Pulse Rate (60-100) 81 Pulse Location Monitor Respiratory Rate (12-18) 16 Respiratory rate source Observation Oxygen Delivery Method Room Air Blood Pressure (90/60-120/80) 156/79 H Blood Pressure Mean 104 Source Monitor Position Sitting Blood Pressure Location Left Arm History Since Last Visit- (Skip if this is Patient's initial visit) Left Footwear Regular Shoe Right Footwear Regular Shoe Pain Scale: 0-10 Numeric Is Patient Pain Free? Yes - Nurse 1 - General Ulcer Measurement Start: 09/26/20 10:56 Freq: Status: Active Protocol: Activity Type Activity Date Activity User E-Sign Co-Sign Detail Recorded Client Recorded Date Recorded By Document 09/26/20 10:56 [facility] [id number] 09/26/20 11:05 [facility] 09/26/20 10:56 Wound Center Nurse 1 #4- R LOWER SIMON CLUSTER -Combined with other wound No -Current Size (cm) - Length 7 -Current Size (cm) - Width 7.2 -Current Size (cm) - Depth 0.2 -Total Square Cm 50.4 -Date of Last Picture (Recall this 09/26/20 field) -Photo Taken Yes -Epithelialization None Present -Tunneling No -Undermining/Tunneling No -Circular Undermining No -Exudate Amt Large -Exudate Type Serosanguineous -Wound Margin Distinct, Outline Attached -Granulation Amt Large (67-100%) -Granulation Quality Perla -Slough/Fibrin Yes -Necrosis Amt Small (1-33%) -Necrotic Tissue Type Adherent Slough -Texture (Sugar-wound Skin Appearance) Assessed, Scarring -Moisture (Sugar-wound Skin Appearance) Assessed,Dry/ Scaly -Color (Sugar-wound Skin Appearance) Assessed, Erythema -Temperature (Sugar-wound Skin No Abnormality Appearance) (Pt Warm) -Tenderness on Palpation (Sugar-wound Yes Skin Appearance) -Ulcer Cleansing SOAPY WATER -Foul Odor after Cleansing No -Anesthetic Used 5% Lidocaine Gel Lower Limb Edema Present Yes Right Calf (cm) 50.5 Right Ankle (cm) 24.5 Wound debrided: RLE anterior ulcer Laterality: Right Type of Debridement: Excisional debridement Anesthesia Used: 4% Lidocaine Solution and Cetacaine Depth: in the subcutaneous layer Percentage of wound debrided: 100 Instrument Used: 7mm curette Tissue Removed: Slough and devitalized tissue Severity: Fat Layer Exposed Amount of bleeding with debridement: Moderate Bleeding Controlled with: Pressure Patient tolerated procedure: Patient tolerated procedure well Lab / Micro Data Result Diagrams: 09/26/20 12:28 09/26/20 12:28 Labs: Laboratory Results - last 24 hr 09/26/20 12:28 WBC 7.8 RBC 4.27 Hgb 11.5 L Hct 38.2 MCV 89.5 MCH 26.9 L MCHC 30.1 L RDW Std Deviation 46.4 H RDW Coeff of Kentrell 14.3 Plt Count 392 MPV 9.8 Immature Gran % (Auto) 0.400 Neut % (Auto) 64.1 Lymph % (Auto) 26.0 Barron % (Auto) 6.0 Eos % (Auto) 2.7 Baso % (Auto) 0.8 Absolute Neuts (auto) 5.0 Absolute Lymphs (auto) 2.03 Nucleated RBC % 0 ESR 58 H Charges/Coding Visit Charges Office Visits / Consults: [id number] OV L4 Est Procedures Integumentary 111xxx-113xx: [id number] Anny subq tissue 20 sq cm/< Add On Codes: 34667 Anny subq tissue add-on (x1) Assessment/Plan Assessment/Plan (1) Ulcer of right lower extremity with fat layer exposed: CODE(S): Code(s): L97.912 - Non-pressure chronic ulcer of unspecified part of right lower leg with fat layer exposed (2) MRSA (methicillin resistant Staphylococcus aureus) colonization: CODE(S): Code(s): Z22.322 - Carrier or suspected carrier of Methicillin resistant Staphylococcus aureus (3) Chronic venous insufficiency of lower extremity: CODE(S): Code(s): I87.2 - Venous insufficiency (chronic) (peripheral) (4) PVD (peripheral vascular disease): CODE(S): Code(s): I73.9 - Peripheral vascular disease, unspecified PLAN: Debridement performed today in clinic as annotated above. Aquacel Ag applied. Wrapped with Kerlix and double Tubigrip's applied for compression. At home wound-care instructions: Change Aquacel Ag dressing once daily or more frequently as needed due to contamination. Wash wounds daily with antibacterial soap and water, rinse and dry thoroughly before each dressing change. Compression: Wear double Tubigrip's daily. Apply these prior to getting out of bed in the morning. May remove when showering. Off-loading: The patient was instructed to avoid pressure and friction on the affected areas. Reposition every 2 hours at minimum. Avoid prolonged standing and/or dangling of legs. When seated, feet should be elevated at chest level. Frequent ambulation is encouraged. Diet: Patient encouraged to increase protein intake while taking caution to avoid high carbohydrate and/or sugar intake. Labs/cultures/imaging: Cultures ordered and collected today. The patient will be started empirically on doxycycline 100 mg p.o. twice daily x7 days and Augmentin 875/125 mg p.o. twice daily x7 days. Antibiotics will be adjusted as needed based on culture results. Routine baseline lab work ordered. Vascular report will be requested from hospital in [place]. Follow-up: Return to clinic in 2 weeks for re-evaluation. Return sooner or report to the emergency room should symptoms worsen, or new symptoms arise. Note: [employer] speech recognition electromechanical engineer software was used to create portions of this document. Sound-alike and misspelled words, as well as other electromechanical engineer errors may be contained in the documentation.
[2020-09-26 13:39] LABS: Hemoglobin A1c 5.4 % (3.8-5.6)
[2020-09-26 13:44] LABS: ALB/GLOB Ratio 0.6 RATIO (0.9-2.4); AST(SGOT) 9 U/L (15-37); Alanine Aminotransfer ALT/SGPT 13 U/L (13-56); Albumin, Serum 3.2 g/dL (3.2-5.0); Alkaline Phosphatase 150 U/L (45-117); Anion Gap 2 (5-15); BUN 17 mg/dL (7-18); BUN/Creat Ratio 20.9 RATIO (10-20); Calcium,Total 8.8 mg/dL (8.5-10.1); Chloride 105 mmol/L (98-107); Creatinine, Serum 0.82 mg/dL (0.55-1.02); EST Glomerular Filtration Rate 80 mL/min (>60); Est Glom Filt Rate - Afr Amer 96 mL/min (>60); Estimated Creatinine Clearance 91.72 ml/min; Globulin 5.1 g/dL (2.2-4.2); Glucose 88 mg/dL (74-106); Potassium 4.1 mmol/L (3.5-5.1); Prealbumin 18.6 mg/dL (20.0-40.0); Protein, Total 8.3 g/dL (6.4-8.2); Sodium Level 137 mmol/L (136-145)
== END 2020-10-06 23:59 ==
LOC: WC 13:00
PROVIDERS: PCP Internal Medicine; Visit Provider Nurse Practitioner Family
DX: L97.912 Non-pressure chronic ulcer of unspecified part of right lower leg with fat layer exposed (principal); E66.9 Obesity, unspecified; I73.9 Peripheral vascular disease, unspecified; I87.2 Venous insufficiency (chronic) (peripheral); Z22.322 Carrier or suspected carrier of Methicillin resistant Staphylococcus aureus; Z79.01 Long term (current) use of anticoagulants; Z79.1 Long term (current) use of non-steroidal anti-inflammatories (NSAID)
CPT/HCPCS: 11042; 11045; 36415; 80053; 83036; 84134; 85025; 85652; 86140; 87070; 87075; 87077; 87186; 87205; 99213; G0463

== ENCOUNTER 2020-10-10 11:00 | Outpatient (RCR) | payer MEDICAID, SELFPAY ==
[2020-10-07 00:43] VITALS: BP 156/79; PULSE 81; RESP 16; TEMP 36.7
[2020-10-10 11:15] VITALS: BP 131/81; PULSE 74; RESP 16; TEMP 36.3; BMI 47.3
--- NOTE | 2020-10-10 15:02 | PCM.WC.PN ---
History of Present Illness Date of Service: 10/10/20 Chief Complaint: Nonhealing MRSA ulcer right anteromedial leg. History of Wound: Babita returns to the wound healing center today for reevaluation and management of her chronic right anteromedial leg ulcer. In June 2020, she left [place] and temporarily moved to [place]. She was transferred to a wound healing center in [place] for continued treatment of her right leg ulcer. She reports that because she did not ever receive [place] Medicaid, she was unable to attend the wound healing center. She did present to the emergency room at one point during her stay in [place] because she was told that the ER could refer her to the wound healing center. She was not started on any antibiotics, and was still unable to be evaluated at the wound healing center following ER evaluation and referral. Since she was last seen at the [facility] wound healing center, she has not been on any antibiotic treatment and has not received any wound debridement. She does report that vascular studies were performed while in [place], and there was no evidence of DVT. The patient has an extensive history and treatment for this right leg ulcer as listed below. The patient denies fever, chills, nausea, vomiting, or diarrhea. The patient has not had increased redness or swelling. She has a history of chronic MRSA infections and has been treated numerous times with doxycycline and Augmentin. She reports copious amounts of green and purulent drainage from her ulcer, which is malodorous. She reports her friend (who is attending today's visit with her today) will be visiting daily to provide her wound care/dressing changes. Surgery 06/18/19 - Surgical preparation right anteromedial leg with I&D nonhealing MRSA necrotizing infection abscess ulcers cluster (172.5 cm2). Wound care - Calcium alginate with silver. Noncompliant with Tubigrips (has difficulty pulling it up due to an arm injury); using Kg wraps for compression. Operative culture - MRSA and Corynebacterium minutissimum. She was treated with Bactrim DS and Augmentin. She had additional wound culture on 08/06/19. It showed MRSA, Streptococcus group C, and Pseudomonas aeroginosa. She was treated with Levaquin, Doxycycline, and Augmentin and has finished them. In mid July (07/23/19) she developed right leg pain and swelling. An ultrasound showed acute deep vein thrombosis in the right gastrocnemius vein. The remainder of the right lower extremity deep venous system is patent and compressible. Valvular competence appears intact within the proximal deep venous system on the right. Acute superficial thrombophlebitis is noted in the right great saphenous vein from the right sapho-femoral junction to the distal thigh. She was placed on Xarelto, however she reports she is no longer taking this. She was instructed by Dr. Mock to follow-up with her primary care provider to discuss need for Xarelto, however patient never did so. Progress of Wound: Babita returns for follow-up of her right lower extremity ulcer. She has been compliant with the use of daily Aquacel Ag dressing changes. Her friend is assisting her with dressing changes. She notes she is showering infrequently, but is cleaning her wound as directed. She was prescribed doxycycline and Augmentin for suspected MSSA. Her culture was positive for rare Staph aureus. She has been having nausea with taking her antibiotics. She continues to have some drainage from the right lower extremity, however this is not purulent or malodorous. The patient denies fever, chills, nausea, vomiting, or diarrhea. The patient has not had increased redness, swelling. Objective Data Objective Data Vital Signs: Vital Signs Temp Pulse Resp BP 97.3 F L 74 16 131/81 H 10/10/20 11:15 10/10/20 11:15 10/10/20 11:15 10/10/20 11:15 Weight: 330 lb Body Mass Index (BMI) 47.3 Charges/Coding Procedures Integumentary 150xxx-152xx: [id number] Skin sub graft trnk/arm/leg Physical Exam Const alert and no apparent distress General Appearance: cooperative and disheveled Nutritional Appearance: obese HEENT Head and Scalp: normocephalic and atraumatic Neck supple Resp normal respiratory effort Extremity normal capillary refill, no joint enlargement, no clubbing, cyanosis or edema, no calf tenderness and no pedal edema Peripheral Pulses: Yes dorsalis pedis pulses present bilateral 2+ Skin Wounds: wounds noted Wound Narrative: Right lower extremity ulcer cluster with fat layer exposed. No tunneling, undermining, or probing to bone. There is a small amount of and devitalized tissue present. There is no malodor or purulent drainage noted. There is no periulcer erythema. No periulcer edema. Periulcer area is tender to palpation. No warmth noted. 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 ) Arrival Mode Ambulatory Patient Identification Verified (Name & Yes ) Patient Requires Transmission-Based No Precautions Safety Precautions NA Height and Weight Body Mass Index (BMI) 47.3 BMI Classification Obese Vital Signs Temperature (97.8 F-99.1 F) 97.3 F L Temperature Source Temporal Pulse Rate (60-100) 74 Pulse Location Monitor Respiratory Rate (12-18) 16 Respiratory rate source Observation Blood Pressure (90/60-120/80) 131/81 H Blood Pressure Mean (mm Hg) 97 Source Monitor Position Sitting Blood Pressure Location Left Arm History Since Last Visit- (Skip if this is Patient's initial visit) Have you changed medications since your No last visit? Any new allergies or adverse reactions No Had a fall/change in ADL's that may No increase risk of falls Signs or symptoms of abuse and/or No neglect since last visit Have you been in the hospital since your No last visit? Has dressing in place as prescribed Yes Has compression in place as prescribed N/A Has offloadiing in place as prescribed N/A Experienced any changes in pain level or No management Left Footwear Regular Shoe Right Footwear Regular Shoe Pain Scale: 0-10 Numeric Is Patient Pain Free? Yes - Nurse 1 - General Ulcer Measurement Start: 10/10/20 11:03 Freq: Status: Active Protocol: Activity Type Activity Date Activity User E-Sign Co-Sign Detail Recorded Client Recorded Date Recorded By Document 10/10/20 11:15 MS [id number] 10/10/20 11:16 MO 10/10/20 11:15 Wound Center Nurse 1 #3 right Ant lower leg -Current Size (cm) - Length 4 -Current Size (cm) - Width 5 -Current Size (cm) - Depth 0.1 -Total Square Cm 20 -Exudate Amt Small -Exudate Type Serosanguineous -Wound Margin Distinct, Outline Attached -Granulation Amt Medium (34-66%) -Necrosis Amt Medium (34-66%) -Necrotic Tissue Type Adherent Slough -Texture (Sugar-wound Skin Appearance) No Abnormality -Moisture (Sugar-wound Skin Appearance) No Abnormality -Color (Sugar-wound Skin Appearance) No Abnormality -Temperature (Sugar-wound Skin No Abnormality Appearance) (Pt Warm) -Tenderness on Palpation (Sugar-wound No Skin Appearance) -Ulcer Cleansing Wound Cleanser -Anesthetic Used 5% Lidocaine Gel WC - Nurse 2 - General Ulcer CM Notes Start: 10/10/20 11:03 Freq: Status: Active Protocol: Activity Type Activity Date Activity User E-Sign Co-Sign Detail Recorded Client Recorded Date Recorded By Document 10/10/20 13:49 PL [id number] 10/10/20 13:53 PL 10/10/20 13:49 Wound Center Nurse 2 -Time 11:08 -Correct Patient Yes -Correct Side, Site, Position Yes -Correct Procedure Yes -Procedure Performed Yes -Type of Procedure Debridement -Clinical Debridement Subcutaneous -Tissue Removed Subcutaneous -Post Debridement (cm) - Length 6.3 -Post Debridement (cm) - Width 5.8 -Post Debridement (cm) - Depth 0.1 -Total Square (Post) (cm) 36.54 -Area of Debridement (cm) - Length 6.3 -Area of Debridement (cm) - Width 5.8 -Total Square (Area) (cm) 36.54 -Tunneling No -Undermining/Tunneling No -Circular Undermining No -Wound/Ulcer Outcome Not Healed -Ulcer Cleansing Rinsed/ Irrigated with Saline -Foul Odor after Cleansing No -Bioengineered Tissue Yes -Type of Bioengineered Tissue Apligraf -Expiration Date 10/11/20 -Product Lot Number [id number] -Percent Used 100 -Debridement - Subq, 1st 20sq cm No -Apply Skin Sub - 1st 25 sq cm - Legs 1 -Apligraf (per sq cm) 44 Pain Scale: 0-10 Numeric Is Patient Pain Free? Yes WC - Nurse 3 - General Ulcer D/C NN Start: 10/10/20 11:03 Freq: Status: Active Protocol: Activity Type Activity Date Activity User E-Sign Co-Sign Detail Recorded Client Recorded Date Recorded By Document 10/10/20 12:19 MS [id number] 10/10/20 12:20 MS 10/10/20 12:19 Wound Care Nurse 3 #3 right Ant lower leg -Other Dressing abd Right -Multi-Layered Wrap Application Unna Boot - Right ($) WC - Visit Discharge Discharge Condition Stable Ambulatory Status Ambulatory Medication Reconcilliation completed & No provided to patient/care provider Clinical Summary of Care Provided Yes Wound debrided: Right anterior lower leg ulcer Laterality: Right Type of Debridement: Excisional debridement Anesthesia Used: 4% Lidocaine Solution and Cetacaine Depth: in the subcutaneous layer Percentage of wound debrided: 100 Instrument Used: 7mm curette Tissue Removed: Slough and devitalized tissue Severity: Fat Layer Exposed Amount of bleeding with debridement: Moderate Bleeding Controlled with: Pressure Patient tolerated procedure: Patient tolerated procedure well Assessment/Plan Assessment/Plan (1) Ulcer of right lower extremity with fat layer exposed: CODE(S): L97.912 - Non-pressure chronic ulcer of unspecified part of right lower leg with fat layer exposed (2) Chronic venous insufficiency of lower extremity: CODE(S): I87.2 - Venous insufficiency (chronic) (peripheral) (3) PVD (peripheral vascular disease): CODE(S): I73.9 - Peripheral vascular disease, unspecified PLAN: Debridement performed today in clinic as annotated above. Given the duration of the wound and failure of the wound to respond to standard wound care, we applied for advanced skin substitutes (Puraply, Nushield, Apligraf). We were approved for the use of Apligraf as clinically indicated. The patient remains an appropriate candidate for the use of advanced skin substitutes. Apligraf was applied today to the right anterior lower leg ulcer today. 100% of the product was used. Adaptic touch wound veil was applied and secured with Steri-Strips, and covered with gauze. An Unna boot was applied for compression to the right lower extremity. At home wound-care instructions: Keep dressing clean and dry. Leave skin substitute in place until next Wound Center visit. Cover wound and dressing when showering to avoid moisture to wound/dressing. *The patient notes she has been having difficulty accessing her shower due to the height and size of her bathtub, as well as her recent weight gain. She would like to discuss options for obtaining bathroom modifications due to difficulty accessing her tub/shower. She was advised to follow-up with her primary care provider for further assessment. Compression: If at any point the Unna boot begins to feel tight, elevate the right lower extremity. If anytime you experience numbness or discoloration of the toes of the right foot, contact the wound healing center or emergency department for instructions on removal of the Unna boot. Off-loading: The patient was instructed to avoid pressure and friction on the affected areas. Reposition every 2 hours at minimum. Avoid prolonged standing and/or dangling of legs. When seated, feet should be elevated at chest level. Frequent ambulation is encouraged. Diet: Patient encouraged to increase protein intake while taking caution to avoid high carbohydrate and/or sugar intake. Labs/cultures/imaging: Cultures were positive for rare MSSA. Doxycycline 100 mg p.o. twice daily will be continued, given the patient's frequent history of staph infections. Augmentin may be discontinued due to negative anaerobic cultures. Zofran will be prescribed due to antibiotic associated nausea. Routine baseline lab work reviewed and was significant for the following: Hemoglobin 11.5 (L), ESR 58 (H), CRP 15.90 (H), prealbumin 18.6 (L). Vascular report will be requested from hospital in [place]. Follow-up: Return to clinic in 1 week for re-evaluation. Return sooner or report to the emergency room should symptoms worsen, or new symptoms arise. Note: [employer] speech recognition dog daycare provider software was used to create portions of this document. Sound-alike and misspelled words, as well as other dog daycare provider errors may be contained in the documentation.
== END 2020-11-05 23:59 ==
LOC: WC 11:00
PROVIDERS: PCP Internal Medicine; Visit Provider Nurse Practitioner Family
DX: I87.2 Venous insufficiency (chronic) (peripheral) (principal); L97.912 Non-pressure chronic ulcer of unspecified part of right lower leg with fat layer exposed; I73.9 Peripheral vascular disease, unspecified; E66.9 Obesity, unspecified; Z68.42 Body mass index [BMI] 45.0-49.9, adult; Z86.14 Personal history of Methicillin resistant Staphylococcus aureus infection
CPT/HCPCS: 15271; 29580; Q4101

== ENCOUNTER 2021-10-01 11:39 | Emergency (ER) | payer MEDICAID, SELFPAY ==
[2021-10-01 11:40] VITALS: BP 142/95; PULSE 77; RESP 18; TEMP 36.6; O2SAT 100; BMI 50.2
--- NOTE | 2021-10-01 12:47 | RAD_ITS ---
STUDY: X-RAY - CERVICAL SPINE REASON FOR EXAM: Female, 50 years old. neck pain TECHNIQUE: 6 view(s) of the cervical spine were obtained. COMPARISON: None FINDINGS: Normal anterior atlantoaxial articulation. Normal odontoid process. There is straightening of the normal cervical lordosis. Normal vertebral bodies and endplates. Normal disc space heights. Foraminal narrowing right C3-C4 due to facet arthropathy and uncovertebral hypertrophy. Mild multilevel facet arthropathy. The soft tissue structures are unremarkable. RAD/Cerv Spine 4 or 5 Views IMPRESSION: Right C3-C4 mild foraminal narrowing. Electronically Signed: Perez John MD ([place]) at 13:39 EDT ,
[2021-10-01] MEDS: Lidocaine 5% Patch 1 PATCH TOPICAL (12:55)
[2021-10-01] MEDS: Orphenadrine 60 MG/2 ML Ampul IM (12:56)
[2021-10-01] MEDS: Ketorolac 15 MG/ML Vial IM (12:56)
--- NOTE | 2021-10-01 13:01 | EDS_ITS ---
HPI History of Present Illness Chief Complaint: Other, Pain/Inj Narrative Narrative: 50-year-old female presenting with right-sided neck pain. She states it started this morning. She states she slept flat in bed last night when she sat up her neck went into spasm on the right. She is not able to lift her head to the left. She denies any trauma. No paresthesias. She states has not happened before. [facility] Medical History Delayed wound healing Obesity PVD (peripheral vascular disease) Ulcer of right lower extremity with fat layer exposed Home Medications acetaminophen 650 mg PO 07/09/19 [History Last Taken Unknown] wwivx-trxf-[id number]-[id number]-jr-zmt 1 packet PO 07/09/19 [History Last Taken Unknown] bisacodyl 10 mg AR 07/09/19 [History Last Taken Unknown] famotidine-Ca carb-mag hydrox 1 ea PO 07/09/19 [History Last Taken Unknown] ferrous sulfate 325 mg PO DAILY 07/09/19 [History Last Taken Unknown] magnesium hydroxide 30 ml PO DAILY 07/09/19 [History Last Taken Unknown] omeprazole 20 mg PO DAILY 07/09/19 [History Last Taken Unknown] potassium chloride 20 meq PO DAILY 07/09/19 [History Last Taken Unknown] sennosides-docusate sodium 1 tab PO PRN PRN 07/09/19 [History Last Taken Unknown] sertraline 100 mg PO DAILY 07/09/19 [History Last Taken Unknown] Lactobacillus combo no.23 14 billion cell capsule See Rx Instructions PO DAILY 30 Days #30 cap 08/17/19 [Rx Last Taken Unknown] levofloxacin 500 mg tablet 500 mg PO DAILY #14 tab 08/17/19 [Rx Last Taken Unknown] rivaroxaban 20 mg PO DAILY #30 tab 08/24/19 [Rx Last Taken Unknown] promethazine 25 mg tablet 25 mg PO Q6H PRN #28 tab 02/11/20 [Rx Last Taken Unknown] ascorbate calcium (vitamin C) 500 mg tablet 500 mg PO DAILY #30 tab 09/29/20 [Rx Last Taken Unknown] doxycycline monohydrate 100 mg PO BID 7 Days #14 cap 10/10/20 [Rx Last Taken Unknown] ondansetron HCl [Zofran] 4 mg PO Q8H PRN #30 tab 10/10/20 [Rx Last Taken Unknown] tizanidine [Zanaflex] 4 mg PO Q8H PRN #14 cap 10/01/21 [Rx Last Taken Unknown] Allergy/AdvReac Type Severity Reaction Status Date / Time naproxen [From Aleve] Allergy Shortness Verified 07/09/19 09:21 of breath Surgical History History of section History of eye surgery History of hernia repair Social History Smoking Status: Never smoker alcohol intake: never substance use type: does not use ROS ROS ED Constitutional Constitutional ED: Denies chills or fever(s) Eyes Eyes: Denies blurry vision ENT ENT ED: Denies rhinorrhea or sore throat Cardiovascular Cardiovascular: Denies chest pain or palpitations Respiratory/Chest Respiratory/Chest: Denies cough or dyspnea Gastrointestinal Gastrointestinal: Denies abdominal pain, nausea or vomiting Genitourinary Genitourinary ED: Denies dysuria or hematuria Musculoskeletal Musculoskeletal: Reports neck pain; Denies myalgias Integumentary Denies rash Neurologic Neurologic: Denies headache(s), paresthesias or weakness Psychiatric Psychiatric: Denies anxiety or depression EXAM Physical Exam Const Vital Signs: 10/01/21 11:40 10/01/21 11:46 Temperature 97.9 F Temperature Source Temporal Pulse Rate 77 Respiratory Rate 18 Respiratory Effort Normal Non-Labored Respiratory Pattern Normal Blood Pressure 142/95 H Blood Pressure Mean 110 Pulse Ox 100 Oxygen Delivery Method Room Air Positive well nourished General Appearance ED: NAD HEENT atraumatic Eyes PERRL and EOMs intact bilaterally Neck Neck Narrative: Tenderness palpation right cervicals paraspinal musculature tenderness. There is also tenderness to the right trapezius. Limited range of motion and rotation to the left and sidebending to the left. Chest Wall inspection of chest normal Resp normal respiratory effort and clear to auscultation bilaterally Cardio regular rhythm Rate: regular rate Extremity normal to inspection; Negative for full ROM General Extremety ED: Negative for tenderness Neuro oriented x3, CN's II-XII intact bilaterally, no focal motor deficits and no sensory deficits noted Sensorium / Orientation: alert Psych mental status grossly normal and thought process normal Skin no rashes or lesions noted, No skin turgor normal and No no jaundice MDM MDM MDM Narrative Medical decision making narrative: Patient was given Norflex and Toradol as well as Lidoderm patch to the right shoulder. X-rays of the cervical spine on my interpretation show no acute fracture subluxation. Radiologist read mild right C3-C4 narrowing of the foramina. On reevaluation patient's pain is improved. Her head is now upright and set her midline. She feels improved. Patient was given prescription for Zanaflex and she can take ibuprofen as needed. She is counseled on using ice and stretching exercises. Patient sent for discharge. Impression: 1. Cervical strain Radiography Diagnostic Testing: Clinical Impression(s) from Imaging Studies Cervical Spine X-Ray 10/01/21 12:47 IMPRESSION: Right C3-C4 mild foraminal narrowing. Electronically Signed: Perez John MD ([place]) at 13:39 EDT Reading Location ID and State: [facility] / [place] , Service support , Discharge Plan Triage Chief Complaint: Other, Pain/Inj ED Provider: Chadd Hernandez Dx/Rx/DC Orders Instructions: ED Neck Sprain or Strain Prescriptions: New tizanidine [Zanaflex] 4 mg capsule 4 mg PO Q8H PRN (Reason: muscle spasticity) Qty: 14 RF: 0 No Action magnesium hydroxide 30 ML suspension 30 ml PO DAILY RF: 0 bisacodyl 10 MG suppository 10 mg AR RF: 0 omeprazole 20 MG capsule 20 mg PO DAILY RF: 0 sertraline 50 MG tablet 100 mg PO DAILY RF: 0 famotidine-Ca carb-mag hydrox 1 EACH tablet,chewable 1 ea PO RF: 0 acetaminophen 325 MG tablet 650 mg PO RF: 0 sennosides-docusate sodium 1 TABLET tablet 1 tab PO PRN PRN (Reason: Constipation) RF: 0 potassium chloride 20 MEQ tablet 20 meq PO DAILY RF: 0 ferrous sulfate 325 MG tablet 325 mg PO DAILY RF: 0 [id number]-fshz-[id number]-[id number]-dd-[id number] 1 PACKET packet 1 packet PO RF: 0 rivaroxaban 20 MG tablet 20 mg PO DAILY Qty: 30 RF: 0 ondansetron HCl [Zofran] 4 mg tablet 4 mg PO Q8H PRN (Reason: nausea and vomiting) Qty: 30 RF: 0 doxycycline monohydrate 100 mg capsule 100 mg PO BID 7 Days Qty: 14 RF: 0 levofloxacin [Levaquin] 500 mg tablet 500 mg PO DAILY Qty: 14 RF: 0 Gabriel Probiotic 14 billion cell capsule See Rx Instructions PO DAILY 30 Days Qty: 30 RF: 1 promethazine 25 mg tablet 25 mg PO Q6H PRN (Reason: nausea and vomiting) Qty: 28 RF: 0 ascorbate calcium (vitamin C) 500 mg tablet 500 mg PO DAILY Qty: 30 RF: 5 Primary Care Provider: Belle Lara Referrals: Belle Lara MD [Primary Care Provider] - Disposition Disposition: Home, Self Care
== END 2021-10-01 15:59 | disposition home or self-care (01) ==
PROVIDERS: Emergency Provider Student in an Organized Health Care Education/Training Program; PCP Internal Medicine; Visit Provider Student in an Organized Health Care Education/Training Program
DX: S16.1XXA Strain of muscle, fascia and tendon at neck level, initial encounter (principal); Z68.43 Body mass index [BMI] 50.0-59.9, adult; X58.XXXA Exposure to other specified factors, initial encounter; Y93.84 Activity, sleeping; Y99.8 Other external cause status; E66.9 Obesity, unspecified
CPT/HCPCS: 72050; 96372; 99283

== ENCOUNTER 2022-04-26 12:44 | Emergency (ER) | payer MEDICAID, SELFPAY ==
[2022-04-26 12:45] VITALS: BP 147/92; PULSE 84; RESP 14; TEMP 36.5; O2SAT 98; BMI 52.7
--- NOTE | 2022-04-26 12:47 | EKG12_ITS ---
Test Reason : CP Blood Pressure : / mmHG Vent. Rate : 067 BPM Atrial Rate : 067 BPM P-R Int : 154 ms QRS Dur : 078 ms QT Int : 382 ms P-R-T Axes : 051 026 002 degrees QTc Int : 403 ms Normal sinus rhythm Normal ECG Confirmed by CELY OJEDA, KEVIN ([id number]), photograph editor IGOR PACHECO ([id number]) on 04/28/2022 10:17:01 AM Referred By: KING Confirmed By:KEVIN TA MD
[2022-04-26 13:20] LABS: Absolute Lymphocyte Count 1.49 X10^3/uL (0.83-4.51); Absolute Neutrophil Count 4.6 X10^3/uL (2.0-7.7); Basophil# 0.04 X10^3/uL; Basophil% 0.6 % (0-1); Eosinophil# 0.18 X10^3/uL; Eosinophils% 2.7 % (0-5); Hematocrit 38.6 % (37-47); Hemoglobin 11.7 g/dL (12.0-15.0); Lymphocyte # 1.49 X10^3/ul (0.83-4.51); Lymphocyte % 22.1 % (19-41); Mean Corp Hgb Conc 30.3 g/dL (32-36); Mean Corpuscular Hgb 27.1 pg (27.0-32.0); Mean Corpuscular Volume 89.4 fL (81-99); Mean Platelet Vol. 9.2 fl (6.2-12.0); Monocyte# 0.37 X10^3/uL; Monocyte% 5.5 % (0-10); NRBC Flagged by Analyzer 0 % (0-5); Neutrophil # 4.64 X10^3/uL (2.7-7.7); Neutrophil % 68.8 % (47-70); Platelet Count 326 K/mm3 (150-450); RBC Distribution Width CV 13.8 % (11.6-14.6); Red Blood Count 4.32 M/mm3 (4.2-5.4); White Blood Count 6.7 K/mm3 (4.4-11.0)
[2022-04-26 13:41] LABS: Anion Gap 4 (5-15); BUN 12 mg/dL (7-18); BUN/Creat Ratio 13.9 RATIO (10-20); Calcium,Total 8.6 mg/dL (8.5-10.1); Chloride 103 mmol/L (98-107); Creatinine, Serum 0.86 mg/dL (0.55-1.02); EST Glomerular Filtration Rate 74 mL/min (>60); Est Glom Filt Rate - Afr Amer 90 mL/min (>60); Estimated Creatinine Clearance 85.57 ml/min; Glucose 96 mg/dL (74-106); Potassium 4.1 mmol/L (3.5-5.1); Sodium Level 137 mmol/L (136-145); Troponin-I HS (w/2H Reflex) < 3 pg/mL (3.0-54.0)
[2022-04-26 15:16] LABS: Reflex Troponin-HS? (from REC) Y
--- NOTE | 2022-04-26 15:54 | ED.RN ---
PT LWBS [id number]
== END 2022-04-26 15:30 | disposition left against medical advice (07) ==
LOC: ED 15:57
PROVIDERS: PCP Internal Medicine
DX: Z53.21 Procedure and treatment not carried out due to patient leaving prior to being seen by health care provider (principal)
CPT/HCPCS: 80048; 84484; 85025; 93005

== ENCOUNTER 2022-05-17 01:37 | Emergency (ER) | payer MEDICARE, MEDICAID, SELFPAY ==
[2022-05-17 01:37] VITALS: BP 119/66; PULSE 93; RESP 22; TEMP 35.6; O2SAT 98
[2022-05-17 01:38] VITALS: BP 119/66; PULSE 93; RESP 22; TEMP 35.6; O2SAT 98; BMI 48.0
[2022-05-17 01:41] VITALS: O2SAT 98
--- NOTE | 2022-05-17 01:48 | EDS_ITS ---
HPI HPI - URI History of Present Illness Chief Complaint: Cough Informant: patient Onset/Context/Timing Onset: Days (4) Context: Gradual Onset Timing: Continuous Quality: [employer] cough Current Severity: Moderate Maximum Severity: Moderate Worsened by: - (nothing) Relieved by: - (cold medicine) Associated Symptoms Associated Symptoms: Positive for Nasal Congestion, Headache and Nonproductive cough; Negative for Shortness of Breath, Chest Pain or Hemoptysis Narrative Narrative: Patient having some fevers, congestion, nonproductive cough. No dyspnea. No sore throat. No earache. Unknown if she has had sick contacts or not, but her daughter who lives with her started getting sick the day after her and lost her sense of smell and taste. Unvaccinated against COVID and influenza. Taking cough medicines which are helping some. ROS ROS ED Constitutional Constitutional ED: Reports chills and fever(s) ENT ENT ED: Reports nasal congestion and rhinorrhea; Denies ear pain or sore throat Cardiovascular Cardiovascular: Denies chest pain or palpitations Respiratory/Chest Respiratory/Chest: Reports cough; Denies dyspnea or sputum Gastrointestinal Gastrointestinal: Denies abdominal pain, diarrhea, nausea or vomiting Genitourinary Genitourinary ED: Denies dysuria or hematuria Musculoskeletal Musculoskeletal: Denies myalgias or neck pain Integumentary Denies abscess or rash Neurologic Neurologic: Reports headache(s); Denies paresthesias or weakness Psychiatric Psychiatric: Denies depression or suicidal thoughts Endocrine Endocrinology: Denies polydipsia or polyuria [facility] Medical History Delayed wound healing Obesity PVD (peripheral vascular disease) Ulcer of right lower extremity with fat layer exposed Home Medications acetaminophen 325 mg tablet 650 mg PO 07/09/19 [History Last Taken Unknown] omeprazole 20 mg capsule,delayed release 20 mg PO DAILY 07/09/19 [History Last Taken Unknown] Allergy/AdvReac Type Severity Reaction Status Date / Time naproxen [From Aleve] Allergy Shortness Verified 04/26/22 12:46 of breath doxycycline AdvReac Vomiting Verified 05/17/22 01:47 Surgical History History of section History of eye surgery History of hernia repair Social History Smoking Status: Never smoker alcohol intake: never substance use type: does not use EXAM Physical Exam Const Vital Signs: 05/17/22 01:38 05/17/22 01:37 05/17/22 01:41 Temperature 96.0 F L 96.0 F L Temperature Source Temporal Temporal Pulse Rate 93 93 Respiratory Rate 22 H 22 H Respiratory Effort Normal Respiratory Depth Normal Respiratory Pattern Normal Blood Pressure 119/66 119/66 Blood Pressure Mean 83 83 Pulse Ox 98 98 Oxygen Delivery Method Room Air Room Air Room Air Positive well nourished, well developed and obese Constitutional Narrative: Well-appearing General Appearance ED: well developed and NAD Nutritional Appearance: obese HEENT Reports moist mucous membranes normocephalic and atraumatic Throat: Negative for posterior oropharynx abnormal Eyes PERRL and EOMs intact bilaterally Neck no lymphadenopathy, supple and no meningeal signs Resp normal respiratory effort and clear to auscultation bilaterally Effort and Inspection: able to speak in complete sentences Cardio no murmurs Rate: regular rate Rhythm: regular rhythm Neuro oriented x3, CN's II-XII intact bilaterally and no sensory deficits noted Sensorium / Orientation: alert Motor Exam: strength 5/5 throughout Psych mental status grossly normal Skin Lesions: no lesions Rashes: no rashes MDM MDM MDM Narrative Medical decision making narrative: Swabs for COVID and influenza were sent and both are negative. Patient's daughter was seen here simultaneously by myself, checked in along with the patient. I did the same swabs on her and they were negative as well. Vital signs are normal no hypoxemia. Benign exam. Therefore very likely to be viral in etiology, supportive care advised which they are already doing at home. Discharge Plan Triage Chief Complaint: Cough ED Provider: Dell Holly Dx/Rx/DC Orders Clinical Impression: Viral URI with cough Instructions: ED URI, Viral, No Abx (Adult) Prescriptions: No Action omeprazole 20 MG capsule 20 mg PO DAILY acetaminophen 325 MG tablet 650 mg PO Primary Care Provider: Belle Lara Referrals: Belle Lara MD [Primary Care Provider] - 1 Week if not improving Disposition Disposition: Home, Self Care
== END 2022-05-17 03:22 | disposition home or self-care (01) ==
PROVIDERS: Emergency Provider Emergency Medicine; PCP Internal Medicine; Visit Provider Emergency Medicine
DX: J06.9 Acute upper respiratory infection, unspecified (principal); R51.9 Headache, unspecified; E66.9 Obesity, unspecified
CPT/HCPCS: 87428; 99282